=== PATIENT | male | born 1935 | race Caucasian/White ===

== ENCOUNTER → 2017-02-07 | Outpatient (CLI) | payer MEDICARE ==
[~2017-02-07] MED LIST: AMLO5TAB2 PO; ASP325TEC PO; ASPI-586 PO; B12 PO; CLOP75TA PO; CLOP75TA69 PO; COD500OI3 PO; CRAN200C PO; DOXY100C2 PO; FLUO40CA PO; GBPN600T PO; LEVO112T55 PO; LEVOTHYROXINE; LOSA100T16 PO; LOSA100T28 PO; LVT.1T PO; MECL25TA56 PO; MELO15TA39 PO; METO-272 PO; METO50TA7 PO; MULT-301 PO; MULT1TAB5 PO; NF-ESOM40C PO; NF-SOLIF5T PO; OMG1KC PO; PANT20TA2; POTA20TA7 PO; RIVA15TA PO; SERT100T8 PO; SIMV20TA3; SIMV40TA2 PO; SIMV40TA4 PO; SRTR100T PO; TAMS0.4C98 PO; TRIA1CAP4 PO; TRIA1CAP6 PO; VALS1TAB78 PO; VIT1TABL26 PO
[2017-02-07 09:56] LABS: BASOPHILS % (AUTO) 0 % (0-10); EOSINOPHILS # (AUTO) 0.2 10^3/uL (0.0-0.3); EOSINOPHILS % (AUTO) 3 % (0-10); LYMPHOCYTES # (AUTO) 2.4 X 10^3 (1.0-4.0); LYMPHOCYTES % (AUTO) 32 % (12-44); MEAN CORPUSCULAR HEMOGLOBIN 31 PG (25-34); MEAN CORPUSCULAR HGB CONC 34 G/DL (32-36); MEAN CORPUSCULAR VOLUME 93 FL (80-99); MEAN PLATELET VOLUME 10.9 FL (7.4-10.4); MONOCYTES # (AUTO) 0.7 X 10^3 (0.0-1.0); MONOCYTES % (AUTO) 9 % (0-12); NEUTROPHILS # (AUTO) 4.2 X 10^3 (1.8-7.8); NEUTROPHILS % (AUTO) 56 % (42-75); PLATELET COUNT 156 10^3/uL (130-400); RED BLOOD COUNT 5.08 10^6/uL (4.35-5.85); RED CELL DISTRIBUTION WIDTH 12.6 % (10.0-14.5); WHITE BLOOD COUNT 7.4 10^3/uL (4.3-11.0)
[2017-02-07 10:25] LABS: ALBUMIN 3.7 GM/DL (3.2-4.5); BILIRUBIN,TOTAL 1.2 MG/DL (0.1-1.0); CREATININE SERUM 1.22 MG/DL (0.60-1.30); POTASSIUM 3.8 MMOL/L (3.6-5.0); TOTAL PROTEIN 6.7 GM/DL (6.4-8.2)
[2017-02-07 10:50] LABS: THYROID STIMULATING HORMONE 1.36 UIU/ML (0.35-4.94)
== END ==
LOC: LAB 09:32
PROVIDERS: ATTEND Family Medicine
DX: E78.5 Hyperlipidemia, unspecified (principal); E03.9 Hypothyroidism, unspecified; R73.9 Hyperglycemia, unspecified; I10 Essential (primary) hypertension
CPT/HCPCS: 36415; 80053; 80061; 83036; 84439; 84443; 85025

== ENCOUNTER 2017-09-15 19:31 | Emergency (ER) | payer MEDICARE, MEDICAID ==
[~2017-09-15] VITALS: Ht 185.4 cm; Wt 104.3 kg
[~2017-09-15 19:31] MED LIST changes: -METO-272 PO; +METO-370 PO
[2017-09-15] MEDS ORDERED: NS IV 1000 ML 1,000 ML IV SCH (19:45)
[2017-09-15] MEDS ORDERED: fentaNYL INJECTION 100 MCG/2 ML AMP IVP ONE (19:45)
--- NOTE | 2017-09-15 19:45 | ED Lower Extremity ---
General Stated Complaint: L HIP PAIN Source: patient Exam Limitations: no limitations History of Present Illness Date Seen by Provider: Sep 15, 2017 Time Seen by Provider: 19:42 Initial Comments To ER per [facility] with reports of left hip pain. Patient was out working in his backyard quite a ways from the house when he bent over. He felt a pop in his left hip and was suddenly unable to bear weight in the left hip due to pain. This occurred at about 3 PM and he spent the next 3 hours crawling back to his house. He ultimately reached the house and was able to get to his phone number he called his daughter who arrived and then called EMS. Primary care is Dr. Mg. He states he does have a history of some "heart troubles" but does not have a wad impregnator. He denies any other injuries or pain. 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 [facility] Onset: this afternoon Severity: moderate Pain/Injury Location: left hip Method of Injury: fell Modifying Factors: Worse With Movement Allergies and Home Medications Allergies Coded Allergies: NKANo Known Allergies (Verified Allergy, Unknown, 03/06/06) Home Medications Amlodipine Besylate 5 Mg Tablet, 5 MG PO DAILY, (Reported) Doxycycline Hyclate 100 Mg Capsule, 100 MG PO BID, #14 Prescribed by: DANYEL MG on 04/28/16 1027 Levothyroxine Sodium 112 Mcg Tablet, 112 MCG PO DAILY, (Reported) Losartan Potassium 100 Mg Tablet, 100 MG PO DAILY, (Reported) Metoprolol Succinate 50 Mg Tab.er.24h, 50 MG PO BID, (Reported) [place] 3 Polyunsat Fatty Acids 1,000 Mg Cap, 1,000 MG PO DAILY, (Reported) Sertraline HCl 100 Mg Tablet, 100 MG PO DAILY, (Reported) LAST FILLED #45 2-16 Tamsulosin HCl 0.4 Mg Cap, 0.4 MG PO DAILY, (Reported) LAST FILLED #30 01-13-16 Constitutional: see HPI EENTM: see HPI Respiratory: no symptoms reported Cardiovascular: no symptoms reported Genitourinary: no symptoms reported Musculoskeletal: see HPI Skin: no symptoms reported Psychiatric/Neurological: No Symptoms Reported Past Maooxia-Bcyqtz-Dabisa Hx Patient Social History Recent Hopitalizations: Yes (AUGUST 2015) Immunizations Up To Date Tetanus Booster (TDap): Unknown PED Vaccines UTD: No Date of Pneumonia Vaccine: Jun 22, 2012 Seasonal Allergies Seasonal Allergies: No Surgeries Surgeries: Cardiac, Coronary Stent, Gallbladder, Orthopedic Respiratory Currently Using CPAP: No Currently Using BIPAP: No Cardiovascular Cardiac Disorders: Chronic Edema/Swelling, Coronary Artery Disease, Deep Vein Thrombosis, Hypertension Reproductive System Hx Reproductive Disorders: No Sexually Transmitted Disease: No HIV/AIDS: No Genitourinary Genitourinary Disorders: Kidney Stones Gastrointestinal Gastrointestinal Disorders: Gastroesophageal Reflux Musculoskeletal Musculoskeletal Disorders: Arthritis Endocrine Endocrine Disorders: Hypothyroidsim HEENT HEENT Disorders: Cataract Loss of Vision: Denies Hearing Impairment: Hard of Hearing Psychosocial Behavioral Health Disorders: Depression Blood Transfusions Adverse Reaction to a Blood Tr: No Family Medical History Significant Family History: No Pertinent Family Hx Family Medial History: FH: anemia DAUGHTER FH: breast cancer 19 MOTHER DAUGHTER Physical Exam Vital Signs Vital Sign - Last 12Hours 09/15/17 19:35 Temp 97.0 Pulse 73 Resp 18 B/P (MAP) 174/102 (126) Pulse Ox 97 O2 Delivery Room Air Capillary Refill : General Appearance: WD/WN, no apparent distress HEENT: PERRL/EOMI, normal ENT inspection Neck: non-tender, full range of motion Respiratory: no respiratory distress, no accessory muscle use Gastrointestinal: normal bowel sounds, non tender, soft Hips: right hip non-tender, left hip normal inspection, right hip normal range of motion, left hip limited range of motion, left hip pain, left hip other ( shortened) Legs: bilateral leg non-tender, bilateral leg normal inspection, bilateral leg normal range of motion Knees: bilateral knee non-tender, bilateral knee normal inspection, bilateral knee normal range of motion Ankles: bilateral ankle non-tender, bilateral ankle normal inspection, bilateral ankle normal range of motion Feet: bilateral foot non-tender, bilateral foot normal inspection, bilateral foot normal range of motion Neurologic/Psychiatric: alert, normal mood/affect Skin: normal color, warm/dry Laceration Repair : Suture Size: 6-0 Progress/Results/Core Measures Results/Orders Lab Results Laboratory Tests Test 09/15/17 19:40 Range/Units White Blood Count 12.3 H 4.3-11.0 10^3/uL Red Blood Count 5.08 4.35-5.85 10^6/uL Hemoglobin 16.5 13.3-17.7 G/DL Hematocrit 46 40-54 % Mean Corpuscular Volume 91 80-99 FL Mean Corpuscular Hemoglobin 33 25-34 PG Mean Corpuscular Hemoglobin Concent 36 32-36 G/DL Red Cell Distribution Width 12.2 10.0-14.5 % Platelet Count 142 130-400 10^3/uL Mean Platelet Volume 11.2 H 7.4-10.4 FL Neutrophils (%) (Auto) 86 H 42-75 % Lymphocytes (%) (Auto) 9 L 12-44 % Monocytes (%) (Auto) 5 0-12 % Eosinophils (%) (Auto) 0 0-10 % Basophils (%) (Auto) 0 0-10 % Neutrophils # (Auto) 10.6 H 1.8-7.8 X 10^3 Lymphocytes # (Auto) 1.1 1.0-4.0 X 10^3 Monocytes # (Auto) 0.7 0.0-1.0 X 10^3 Eosinophils # (Auto) 0.0 0.0-0.3 10^3/uL Basophils # (Auto) 0.0 0.0-0.1 10^3/uL Prothrombin Time 13.3 12.2-14.7 SEC INR Comment 1.0 0.8-1.4 Activated Partial Thromboplast Time 28 24-35 SEC Urine Color YELLOW Urine Clarity CLEAR Urine pH 8 5-9 Urine Specific [place] 1.010 L 1.016-1.022 Urine Protein NEGATIVE NEGATIVE Urine Glucose (UA) NEGATIVE NEGATIVE Urine Ketones NEGATIVE NEGATIVE Urine Nitrite NEGATIVE NEGATIVE Urine Bilirubin NEGATIVE NEGATIVE Urine Urobilinogen NORMAL NORMAL MG/DL Urine Leukocyte Esterase NEGATIVE NEGATIVE Urine RBC (Auto) NEGATIVE NEGATIVE Urine RBC NONE /HPF Urine WBC RARE /HPF Urine Crystals NONE /LPF Urine Bacteria NEGATIVE /HPF Urine Casts NONE /LPF Urine Mucus SMALL H /LPF Urine Culture Indicated NO Sodium Level 142 135-145 MMOL/L Potassium Level 3.7 3.6-5.0 MMOL/L Chloride Level 106 98-107 MMOL/L Carbon Dioxide Level 22 21-32 MMOL/L Anion Gap 14 5-14 MMOL/L Blood Urea Nitrogen 20 H 7-18 MG/DL Creatinine 1.04 0.60-1.30 MG/DL Estimat Glomerular Filtration Rate > 60 BUN/Creatinine Ratio 19 Glucose Level 125 H 70-105 MG/DL Calcium Level 8.7 8.5-10.1 MG/DL Total Bilirubin 1.2 H 0.1-1.0 MG/DL Aspartate Amino Transf (AST/SGOT) 22 5-34 U/L Alanine Aminotransferase (ALT/SGPT) 17 0-55 U/L Alkaline Phosphatase 75 40-136 U/L Total Creatine Kinase 120 30-200 U/L B-Type Natriuretic Peptide 56.3 <100.0 PG/ML Total Protein 6.6 6.4-8.2 GM/DL Albumin 3.8 3.2-4.5 GM/DL Thyroid Stimulating Hormone (TSH) 2.61 0.35-4.94 UIU/ML Free Thyroxine 1.01 0.70-1.48 NG/DL My Orders Orders - ROBERT TOLENTINO APRN Pelvis With Left Hip 2-3 Views (09/15/17 19:40) Chest 1 View, Ap/Pa Only (09/15/17 19:40) BNP (09/15/17 19:40) Ekg Tracing (09/15/17 19:40) Cbc With Automated Diff (09/15/17 19:40) Comprehensive Metabolic Panel (09/15/17 19:40) Creatine Kinase (09/15/17 19:40) Saline Lock/Iv-Start (09/15/17 19:40) Protime With Inr (09/15/17 19:40) Partial Thromboplastin Time (09/15/17 19:40) Ns Iv 1000 Ml (Sodium Chloride 0.9%) (09/15/17 19:45) Fentanyl Injection (Sublimaze Injection (09/15/17 19:45) Madrigal Cath Insertion (09/15/17 19:40) Ua Culture If Indicated (09/15/17 19:45) Thyroid Stimulating Hormone (09/15/17 19:52) Free T4 (Free Thyroxine) (09/15/17 19:52) Etomidate Injection (Amidate Injection) (09/15/17 20:15) Etomidate Injection (Amidate Injection) (09/15/17 20:11) Femur, Left, 2 Views (09/15/17 20:23) Propofol Injection (Diprivan Injection) (09/15/17 21:30) Hip, Left (Single View) (09/15/17 22:12) Medications Given in ED Current Medications Medications Dose Ordered Sig/Tito Route Start Time Stop Time Status Last Admin Dose Admin Fentanyl Citrate 75 mcg ONCE ONCE IVP 09/15/17 19:45 09/15/17 19:46 DC 09/15/17 20:01 75 MCG Vital Signs/I&O Vital Sign - Last 12Hours 09/15/17 19:35 Temp 97.0 Pulse 73 Resp 18 B/P (MAP) 174/102 (126) Pulse Ox 97 O2 Delivery Room Air Departure Communication (Admissions) Progress Notes 2022-conscious sedation with 20 mg of etomidate 75 g of fentanyl. RT at the bedside. Closed reduction attempted by myself and Dr. Rabago. Repeat x-rays failed to show reduction. We will consult Dr. Gonzalez from orthopedics. 2132-I was able to reach Dr. Gonzalez. He will be in to attempt reduction in the emergency room. Family at the bedside. 2212-Dr Gonzalez & VACUUM CLEANER REPAIR PERSON Dank Sanon were here and able to reduce hip with anesthesia using propofol. Anesthesia remains at bedside. 2233- patient remains alert, laying flat in bed, eating ice chips with assistance of his daughter. Daughter agrees to stay with him at home overnight. We'll observe him for another 30 minutes to 1 hour then discharged home Impression Impression: Primary Impression: Hip dislocation, left Disposition: ADMITTED INPATIENT Condition: Stable Departure-Patient Inst. Decision time for Depature: 22:35 Referrals: DANYEL MG DO (PCP/Family) Primary Care Physician Patient Instructions: Hip Dislocation Add. Discharge Instructions: 1. Use your walker for the next few days. Try not to bend forward or flex at the hip much. Follow-up with Dr. Gross at [place]. Call Sunday to make an appointment to be seen. Return to ER for any concerns. Copy Copies To 1: DANYEL MG PETER J APRN Sep 15, 2017 19:45
[2017-09-15 19:57] LABS: BASOPHILS % (AUTO) 0 % (0-10); BILIRUBIN,URINE NEGATIVE (NEGATIVE); CLARITY,URINE CLEAR; COLOR,URINE YELLOW; EOSINOPHILS % (AUTO) 0 % (0-10); GLUCOSE, URINE (UA) NEGATIVE (NEGATIVE); HEMATOCRIT 46 % (40-54); HEMOGLOBIN 16.5 G/DL (13.3-17.7); KETONES,URINE NEGATIVE (NEGATIVE); LEUKOCYTE ESTERASE ,URINE NEGATIVE (NEGATIVE); LYMPHOCYTES # (AUTO) 1.1 X 10^3 (1.0-4.0); LYMPHOCYTES % (AUTO) 9 % (12-44); MEAN CORPUSCULAR HEMOGLOBIN 33 PG (25-34); MEAN CORPUSCULAR HGB CONC 36 G/DL (32-36); MEAN CORPUSCULAR VOLUME 91 FL (80-99); MEAN PLATELET VOLUME 11.2 FL (7.4-10.4); MONOCYTES # (AUTO) 0.7 X 10^3 (0.0-1.0); MONOCYTES % (AUTO) 5 % (0-12); NEUTROPHILS # (AUTO) 10.6 X 10^3 (1.8-7.8); NEUTROPHILS % (AUTO) 86 % (42-75); NITRITE,URINE NEGATIVE (NEGATIVE); PH,URINE 8 (5-9); PLATELET COUNT 142 10^3/uL (130-400); PROTEIN,URINE NEGATIVE (NEGATIVE); RED BLOOD COUNT 5.08 10^6/uL (4.35-5.85); RED CELL DISTRIBUTION WIDTH 12.2 % (10.0-14.5); UROBILINOGEN,URINE NORMAL (NORMAL); WHITE BLOOD COUNT 12.3 10^3/uL (4.3-11.0)
[2017-09-15 20:06] LABS: BACTERIA,URINE NEGATIVE /HPF; WBC,URINE RARE /HPF
[2017-09-15 20:08] LABS: PROTHROMBIN TIME PATIENT 13.3 SEC (12.2-14.7)
[2017-09-15] MEDS ORDERED: ETOMIDATE IV SOLN 20 MG/10 ML VIAL ONE (20:11)
[2017-09-15] MEDS ORDERED: ETOMIDATE IV SOLN 20 MG/10 ML VIAL IV ONE (20:15)
--- NOTE | 2017-09-15 20:16 | Diagnostic Imaging Report ---
INDICATION: Left hip pain from a fall. EXAMINATION: Portable chest at 7:58 p.m. FINDINGS: Heart size and pulmonary vascularity are normal. Lungs are clear. There are no effusions or pneumothoraces. IMPRESSION: Negative chest. Dictated by: Dictated on workstation # [id number]
[2017-09-15 20:19] LABS: ALANINE AMINOTRANSFERASE 17 U/L (0-55); ALBUMIN 3.8 GM/DL (3.2-4.5); ALKALINE PHOSPHATASE 75 U/L (40-136); BILIRUBIN,TOTAL 1.2 MG/DL (0.1-1.0); BUN/CREATININE RATIO 19; CALCIUM 8.7 MG/DL (8.5-10.1); CARBON DIOXIDE 22 MMOL/L (21-32); CHLORIDE 106 MMOL/L (98-107); CREATINE KINASE 120 U/L (30-200); CREATININE SERUM 1.04 MG/DL (0.60-1.30); GFR ESTIMATED > 60; GLUCOSE 125 MG/DL (70-105); POTASSIUM 3.7 MMOL/L (3.6-5.0); SODIUM 142 MMOL/L (135-145); TOTAL PROTEIN 6.6 GM/DL (6.4-8.2)
--- NOTE | 2017-09-15 20:19 | Diagnostic Imaging Report ---
INDICATION: Left hip pain. EXAMINATION: AP view pelvis and two additional views of the left hip were obtained. FINDINGS: Dislocation of the left hip. There is no fracture seen. IMPRESSION: Postop changes from left total hip arthroplasty with dislocation of the left hip. Report was called to Edvin in the [facility] [place] ER at 8:17 p.m., by jess. Dictated by: Dictated on workstation # [id number]
[2017-09-15 20:40] LABS: FREE T4 (FREE THYROXINE) 1.01 NG/DL (0.70-1.48)
--- NOTE | 2017-09-15 20:53 | Diagnostic Imaging Report ---
INDICATION: Left hip dislocation. EXAMINATION: AP and lateral views of the left femur was obtained. FINDINGS: Persistent dislocation of the left hip. IMPRESSION: Followup views of the left femur show persistent left hip dislocation. Dictated by: Dictated on workstation # [id number]
[2017-09-15] MEDS ORDERED: proPOfol 200 MG/20 ML (DIPRIVAN) VIAL IV ONE (21:30)
[2017-09-15] MEDS ORDERED: RX-HYDROCODONE/APAP 5/325 MG #4 TAB PK PO PRN (22:45)
[2017-09-15 22:57] VITALS: BP 166/88
--- NOTE | 2017-09-15 23:17 | CONSULTATION REPORT ---
DATE OF SERVICE: 09/15/2017 ORTHOPEDIC CONSULTATION IMPRESSION: 1. Posterior left hip dislocation (acute). 2. Status post left total hip arthroplasty. RECOMMENDATIONS: Closed reduction left hip dislocation under IV general anesthesia. HISTORY AND PHYSICAL EXAM: The patient is an 82-year-old male seen with chief complaint of left hip pain. The patient underwent a left total hip arthroplasty by Dr. Jeff Gross in 2008. Postoperatively, he has done well. 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 He is not certain as whether he twisted the hip or something fell on him, but he noted immediate hip pain and deformity and he was unable to ambulate. He crawled to his home. He was transported to [facility] where x-rays revealed a posterior dislocation of his total hip arthroplasty on the left. The emergency personnel provided a significant amount of sedation to the patient and attempted a closed reduction 2 times without success. An orthopedic consultation was obtained. On exam, the patient demonstrated a flexed, internally rotated position to the left hip. He had tenderness to palpation throughout the posterior aspect of the left hip. He had a well-healed posterolateral incisional scar. X-rays revealed a posterior hip dislocation on the left, the patient with a total hip arthroplasty present. The acetabular component was noted to be intact. There was a single dome screw. There was no evidence of acute bony abnormality. No fracture was noted. No disruption of the femoral head from the stem was noted. No loosening of the stem was noted. The patient was seen by anesthesia. The patient was given 120 mg of propofol IV and supported throughout the procedure using a closed reduction and utilizing Dank Sanon NP as an produce assistant. Traction was applied to the hip in a flexed position with counter a pressure against the pelvis. This hip was then gently externally rotated and a palpable and audible reduction of the hip was obtained. Following this, the hip could be internally and externally rotated without any resistance. Symmetric leg lengths were noted. An AP pelvic x-ray revealed satisfactory reduction of the total hip components on the left. The patient is discharged to home. He is to continue with walker ambulation over the next 2 weeks. He is to gradually return to his activity level. He is to notify Dr. Jeff Gross of his dislocation and follow with him for followup care. I advised the patient's 3 daughters who were present today to have him gradually advance his activity based on the contusion that he is going to have in the posterior gluteal muscles and the need to use this walker if he is having any aching discomfort. He was having some preceding discomfort in his left hip, which on further discussion appeared to be possibly emanating from his lumbar spine. I did point out a slight shadow over the superolateral aspect of the acetabular cup. This is at the superior most aspect of the acetabular ring securing the polyethylene liner in the hip. I advised the patient that he may be developing some acetabular liner wear and that he does need to follow up with Dr. Gross for this. Job ID: [id number] DocumentID: [id number] Dictated Date: 09/15/2017 22:30:30 Metal Cleaner Date: 09/15/2017 23:16:49 Dictated By: NISH THOMAS DO
[2017-09-16] MEDS ORDERED: NS IV 1000 ML 1,000 ML ONE (00:42)
--- NOTE | 2017-09-16 06:48 | Diagnostic Imaging Report ---
INDICATION: Dislocation, postreduction TECHNIQUE: Single view of the left hip. CORRELATION STUDY: 09/15/2017 FINDINGS: There has been interval reduction in the previously noted left hip prosthesis dislocation. Single projection demonstrates the prosthetic femoral head to be superimposed over the acetabular component. Small bone fragmentation of the superior aspect of the greater trochanter is present. IMPRESSION: 1. Negative for acute bony abnormality of the hip. Interval reduction of the previously noted left hip prosthesis dislocation. Possibility of nondisplaced fracture of greater trochanter not excluded. Dictated by: Dictated on workstation # [id number]
== END 2017-09-15 23:17 | disposition other institution (70) ==
LOC: EDUNIT# 19:31 → ER 19:32
DX: S73.005A Unspecified dislocation of left hip, initial encounter (principal); F32.9 Major depressive disorder, single episode, unspecified; E03.9 Hypothyroidism, unspecified; K21.9 Gastro-esophageal reflux disease without esophagitis; I25.10 Atherosclerotic heart disease of native coronary artery without angina pectoris; I10 Essential (primary) hypertension; Z86.718 Personal history of other venous thrombosis and embolism; Z87.442 Personal history of urinary calculi; Z95.5 Presence of coronary angioplasty implant and graft; Z96.642 Presence of left artificial hip joint; W19.XXXA Unspecified fall, initial encounter; Y92.007 Garden or yard of unspecified non-institutional (private) residence as the place of occurrence of the external cause
CPT/HCPCS: 36415; 51702; 71045; 73501; 73552; 80053; 81000; 82550; 83880; 84439; 84443; 85025; 85610; 85730; 93005; 96361; 96374

== ENCOUNTER 2017-11-08 10:40 | Outpatient (RCR) | payer MEDICARE, MEDICAID | END 2017-11-08 12:05 | disposition home or self-care (01) | PROVIDERS: ATTEND Orthopaedic Surgery | DX: M25.352 Other instability, left hip (principal); R42 Dizziness and giddiness ==

== ENCOUNTER 2018-04-30 04:00 | Emergency (ER) | payer OTHER, MEDICAID ==
[~2018-04-30] VITALS: Ht 185.4 cm; Wt 104.3 kg
[~2018-04-30 04:00] MED LIST changes: -AMLO5TAB2 PO; +AMLO5TAB7 PO; -LOSA100T28 PO; +LOSA100T8 PO
--- OUTSIDE RECORDS SUMMARY | 2018-04-30 04:09 | XMS REPORT | Continuity of Care Document ---
Author Author [facility] Organization [facility] Address Unknown Phone Unavailable Allergies Active Description Code Type Severity Reaction Onset Reported/Identified Relationship to Patient Clinical Status Yes NKANo Known Allergies NKA Miscellaneous Allergy Unknown N/A 03/06/2006 Medications There is no data. Problems Date Dx Coded Attending Type Code Diagnosis Diagnosed By 07/26/1204 CADEN BARRERA DO Ot M25.352 OTHER INSTABILITY, LEFT HIP 07/26/1204 CADEN BARRERA DO Ot R42 DIZZINESS AND GIDDINESS 11/04/2012 Ot 873.43 OPEN WOUND OF LIP 11/04/2012 Ot E000.8 OTHER EXTERNAL CAUSE STATUS 11/04/2012 Ot E001.0 ACTIVITIES INVOLVING WALKING, MARCHING A 11/04/2012 Ot E849.0 ACCIDENT IN HOME 11/04/2012 Ot E888.1 FALL STRIKING OBJECT NEC 11/08/2012 Ot V58.32 ENCOUNTER FOR REMOVAL OF SUTURES 11/22/2012 Ot 272.4 HYPERLIPIDEMIA NEC/NOS 11/22/2012 Ot 401.9 HYPERTENSION NOS 11/22/2012 Ot 414.01 CORONARY ATHEROSCLEROSIS OF [place] CORON 11/22/2012 Ot 427.89 CARDIAC DYSRHYTHMIAS NEC 11/22/2012 Ot 458.0 ORTHOSTATIC HYPOTENSION 11/22/2012 Ot 530.81 ESOPHAGEAL REFLUX 11/22/2012 Ot 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 11/22/2012 Ot 780.4 DIZZINESS AND GIDDINESS 11/22/2012 Ot 780.79 OTH MALAISE FATIGUE 11/22/2012 Ot 786.09 RESPIRATORY ABNORM NEC 11/22/2012 Ot 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 ANTIHYPERTEN AGT 11/22/2012 Ot V45.82 PERCUTANEOUS TRANSLUM CORON ANGIOPLASTY 04/06/2013 DANYEL MG DO S Ot 244.9 HYPOTHYROIDISM NOS 04/06/2013 DANYEL MG DO S Ot 272.4 HYPERLIPIDEMIA NEC/NOS 04/06/2013 DANYEL MG DO S Ot 401.9 HYPERTENSION NOS 04/06/2013 DANYEL MG DO S Ot 414.01 CORONARY ATHEROSCLEROSIS OF [place]ER [place] CORON 04/06/2013 ORA MG DOLINE S Ot 490 BRONCHITIS NOS 04/22/2013 JACINTA GRAVES FACC, JENNIFER FACP CCDS Ot 272.4 HYPERLIPIDEMIA NEC/NOS 04/22/2013 JACINTA GRAVES FACC, ALI FACP CCDS Ot 414.01 CORONARY ATHEROSCLEROSIS OF [place] CORON 04/22/2013 JACINTA GRAVES FACC, ALI FACP CCDS Ot 433.10 CAROTID ARTERY OCCLUSION W O CEREBRAL IN 04/22/2013 JACINTA GRAVES FACC, ALI FACP CCDS Ot 530.81 ESOPHAGEAL REFLUX 04/22/2013 JACINTA GRAVES FACC, ALI FACP CCDS Ot 780.79 OTH MALAISE FATIGUE 04/22/2013 JACINTA GRAVES FACC, ALI FACP CCDS Ot 786.09 RESPIRATORY ABNORM NEC 04/22/2013 JACINTA GRAVES FACC, ALI FACP CCDS Ot 786.59 CHEST PAIN NEC 04/22/2013 JACINTA GRAVES FACC, ALI FACP CCDS Ot V13.01 PERSONAL HISTORY OF URINARY CALCULI 04/22/2013 JACINTA GRAVES FACC, ALI FACP CCDS Ot V15.82 HISTORY OF TOBACCO USE 04/22/2013 JACINTA GRAVES FACC, ALI FACP CCDS Ot V58.63 LONG-TERM(CURRENT)USE OF ANTIPLATELET/AN 04/22/2013 JACINTA GRAVES FACC, ALI FACP CCDS Ot V58.69 OTH MED,LT,CURRENT USE 11/16/2014 Ot 272.4 11/16/2014 Ot 414.01 11/16/2014 Ot V70.0 11/24/2014 Ot 272.4 11/24/2014 Ot 414.01 11/24/2014 Ot V70.0 12/07/2014 ORA MG DOLINE S Ot 427.89 09/09/2015 ORA MG DOLINE S Ot E03.9 HYPOTHYROIDISM, UNSPECIFIED 09/09/2015 ORA MG DOLINE S Ot F32.9 MAJOR DEPRESSIVE DISORDER, SINGLE EPISOD 09/09/2015 ORA MG DOLINE S Ot I10 ESSENTIAL (PRIMARY) HYPERTENSION 09/09/2015 ORA MG DOLINE S Ot I26.99 OTHER PULMONARY EMBOLISM WITHOUT ACUTE C 09/09/2015 ORA MG DOLINE S Ot I82.412 ACUTE EMBOLISM AND THROMBOSIS OF LEFT FE 09/09/2015 DANYEL MG DO Ot I82.432 ACUTE EMBOLISM AND THROMBOSIS OF LEFT PO 09/09/2015 DANYEL MG DO Ot K21.9 GASTRO-ESOPHAGEAL REFLUX DISEASE WITHOUT 12/08/2015 PATRICIO MCINTOSH, DANYEL S Ot Z09 12/08/2015 TATANDER , DANYEL S Ot Z86.718 12/08/2015 TATANDER , DANYEL S Ot Z09 12/08/2015 TATANDER , DANYEL S Ot Z86.718 12/29/2015 PATRICIO MCINTOSH, DANYEL Jeter Ot Z09 ENCNTR FOR F/U EXAM AFT TRTMT FOR COND O 12/29/2015 DANYEL MG DO Ot Z86.718 PERSONAL HISTORY OF OTHER VENOUS THROMBO 01/17/2016 WAYNE , DANYEL Jeter Ot Z09 ENCNTR FOR F/U EXAM AFT TRTMT FOR COND O 01/17/2016 PATRICIO MCINTOSH, DANYEL S Ot Z86.718 PERSONAL HISTORY OF OTHER VENOUS THROMBO 04/26/2016 Ot 244.9 HYPOTHYROIDISM NOS 04/26/2016 Ot 414.00 CORON ATHEROSCLER NOS TYPE VESSEL, NATIV 04/26/2016 Ot 429.3 CARDIOMEGALY 04/26/2016 Ot 719.40 JOINT PAIN- UNSPEC 04/26/2016 Ot 733.90 BONE CARTILAGE DIS NOS 04/26/2016 Ot 780.79 OTH MALAISE FATIGUE 04/26/2016 Ot 786.09 RESPIRATORY ABNORM NEC 04/26/2016 Ot 257.2 TESTICULAR HYPOFUNC NEC 04/26/2016 Ot 414.00 CORON ATHEROSCLER NOS TYPE VESSEL, NATIV 04/26/2016 Ot 600.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 04/26/2016 Ot V58.69 OTH MED,LT, CURRENT USE 04/26/2016 Ot 272.4 HYPERLIPIDEMIA NEC/NOS 04/26/2016 Ot V58.69 OTH MED,LT, CURRENT USE 04/26/2016 BAIMA, XUAN L [employer] OPERATOR Ot 272.4 HYPERLIPIDEMIA NEC/NOS 04/26/2016 BAIMA, XUAN L [employer] FACILITY OPERATOR Ot V58.69 OTH MED,LT,CURRENT USE 04/26/2016 ORA MG DOLINE S Ot 427.89 CARDIAC DYSRHYTHMIAS NEC 04/26/2016 XUAN BISHOP [employer] FACILITY OPERATOR Ot 276.8 HYPOPOTASSEMIA 04/26/2016 BAIXUAN ESCOTO [employer] FACILITY OPERATOR Ot 276.8 HYPOPOTASSEMIA 04/26/2016 BAIXUAN ESCOTO [employer] FACILITY OPERATOR Ot 276.8 HYPOPOTASSEMIA 04/26/2016 LATASHA TURNER [employer] FACILITY OPERATOR Ot 244.9 HYPOTHYROIDISM NOS 04/26/2016 Ot 272.4 HYPERLIPIDEMIA NEC/NOS 04/26/2016 Ot 414.01 CORONARY ATHEROSCLEROSIS OF [place]ER [place] CORON 04/26/2016 Ot V70.0 ROUTINE MEDICAL EXAM 04/26/2016 PATRICIO DANYEL S Ot Z09 ENCNTR FOR F/U EXAM AFT TRTMT FOR COND O 04/26/2016 PATRICIO MCINTOSH DANYEL S Ot Z86.718 PERSONAL HISTORY OF OTHER VENOUS THROMBO 04/28/2016 PATRICIO MCINTOSH DANYEL S Ot B34.9 VIRAL INFECTION, UNSPECIFIED 04/28/2016 TATANDLEYLA MCINTOSH, DANYEL S Ot E03.9 HYPOTHYROIDISM, UNSPECIFIED 04/28/2016 TATANDER , DANYEL S Ot E87.6 HYPOKALEMIA 04/28/2016 TATANDLEYLA MCINTOSH, DANYEL S Ot I10 ESSENTIAL (PRIMARY) HYPERTENSION 04/28/2016 TATANDLEYLA MCINTOSH, DANYEL S Ot K21.9 GASTRO-ESOPHAGEAL REFLUX DISEASE WITHOUT 04/28/2016 TATANDER , DANYEL S Ot R50.9 FEVER, UNSPECIFIED 03/01/2017 TATANDER DO DANYEL S Ot E03.9 HYPOTHYROIDISM, UNSPECIFIED 03/01/2017 TATANDER , DANYEL S Ot E78.5 HYPERLIPIDEMIA, UNSPECIFIED 03/01/2017 ORENDER DO, DANYEL S Ot I10 ESSENTIAL (PRIMARY) HYPERTENSION 03/01/2017 TATANDLEYLA MCINTOSH DANYEL S Ot R73.9 HYPERGLYCEMIA, UNSPECIFIED 09/15/2017 ROBERT TOLENTINO APRN Ot E03.9 HYPOTHYROIDISM, UNSPECIFIED 09/15/2017 ROBERT TOLENTINO APRN Ot F32.9 MAJOR DEPRESSIVE DISORDER, SINGLE EPISOD 09/15/2017 ROBERT TOLENTINO DIVYA Ot I10 ESSENTIAL (PRIMARY) HYPERTENSION 09/15/2017 ROBERT TOLENTINO APRN Ot I25.10 ATHSCL HEART DISEASE OF [place]ER [place] CORONARY 09/15/2017 ROBERT TOLENTINO APRN Ot K21.9 GASTRO-ESOPHAGEAL REFLUX DISEASE WITHOUT 09/15/2017 ROBERT TOLENTINO APRN Ot M25.552 PAIN IN LEFT HIP 09/15/2017 ROBERT TOLENTINO APRN Ot S73.005A UNSPECIFIED DISLOCATION OF LEFT HIP, INI 09/15/2017 ROBERT TOLENTINO APRN Ot W19.XXXA UNSPECIFIED FALL, INITIAL ENCOUNTER 09/15/2017 ROBERT TOLENTINO APRN Ot Y92.007 GARDEN OR YARD OF UNSP NON-INSTITUT RESI 09/15/2017 ROBERT TOLENTINO APRN Ot Z86.718 PERSONAL HISTORY OF OTHER VENOUS THROMBO 09/15/2017 ROBERT TOLENTINO APRN Ot Z87.442 PERSONAL HISTORY OF URINARY CALCULI 09/15/2017 ROBERT TOLENTINO APRN Ot Z95.5 PRESENCE OF CORONARY ANGIOPLASTY IMPLANT 09/15/2017 ROBERT TOLENTINO APRN Ot Z96.642 PRESENCE OF LEFT ARTIFICIAL HIP JOINT 09/18/2017 ROBERT TOLENTINO APRN Ot E03.9 HYPOTHYROIDISM, UNSPECIFIED 09/18/2017 ROBERT TOLENTINO APRN Ot F32.9 MAJOR DEPRESSIVE DISORDER, SINGLE EPISOD 09/18/2017 ROBERT TOLENTINO APRN Ot I10 ESSENTIAL (PRIMARY) HYPERTENSION 09/18/2017 ROBERT TOLENTINO APRN Ot I25.10 ATHSCL HEART DISEASE OF [place] CORONARY 09/18/2017 ROBERT TOLENTINO APRN Ot K21.9 GASTRO-ESOPHAGEAL REFLUX DISEASE WITHOUT 09/18/2017 ROBERT TOLENTINO APRN Ot M25.552 PAIN IN LEFT HIP 09/18/2017 ROBERT TOLENTINO APRN Ot S73.005A UNSPECIFIED DISLOCATION OF LEFT HIP, INI 09/18/2017 ROBERT TOLENTINO APRN Ot W19.XXXA UNSPECIFIED FALL, INITIAL ENCOUNTER 09/18/2017 ORBERT TOLENTINO APRN Ot Y92.007 GARDEN OR YARD OF UNSP NON-INSTITUT RESI 09/18/2017 ROBERT TOLENTINO APRN Ot Z86.718 PERSONAL HISTORY OF OTHER VENOUS THROMBO 09/18/2017 ROBERT TOLENTINO APRN Ot Z87.442 PERSONAL HISTORY OF URINARY CALCULI 09/18/2017 ROBERT TOLENTINO APRN Ot Z95.5 PRESENCE OF CORONARY ANGIOPLASTY IMPLANT 09/18/2017 ROBERT TOLENTINO APRN Ot Z96.642 PRESENCE OF LEFT ARTIFICIAL HIP JOINT 11/08/2017 CADEN BARRERA DO Ot M25.352 OTHER INSTABILITY, LEFT HIP 11/08/2017 CADEN BARRERA DO W Ot R42 DIZZINESS AND GIDDINESS Procedures There is no data. Results Test Result Range Complete urinalysis with reflex to culture - 04/26/16 23:24 Urine color determination YELLOW NRG Urine clarity determination CLEAR NRG Urine pH measurement by test strip 7 5-9 Specific gravity of urine by test strip 1.010 1.016- 1.022 Urine protein assay by test strip, semi-quantitative 2+ NEGATIVE Urine glucose detection by automated test strip NEGATIVE NEGATIVE Erythrocytes detection in urine sediment by light microscopy 4+ NEGATIVE Urine ketones detection by automated test strip NEGATIVE NEGATIVE Urine nitrite detection by test strip NEGATIVE NEGATIVE Urine total bilirubin detection by test strip NEGATIVE NEGATIVE Urine urobilinogen measurement by automated test strip (mass/volume) NORMAL NORMAL Urine leukocyte esterase detection by dipstick NEGATIVE NEGATIVE Automated urine sediment erythrocyte count by microscopy (number/high power field) [HPF] NRG Automated urine sediment leukocyte count by microscopy (number/high power field ) NONE NRG Bacteria detection in urine sediment by light microscopy NEGATIVE NRG Squamous epithelial cells detection in urine sediment by light microscopy NONE NRG Crystals detection in urine sediment by light microscopy NONE NRG Casts detection in urine sediment by light microscopy NONE NRG Mucus detection in urine sediment by light microscopy SMALL NRG Complete urinalysis with reflex to culture NO NRG Complete blood count (CBC) with automated white blood cell (WBC) differential - 04/26/16 23:25 Blood leukocytes automated count (number/volume) 18.6 10*3/uL 4.3-11.0 Blood erythrocytes automated count (number/volume) 5.09 10*6/uL 4.35-5.85 Venous blood hemoglobin measurement (mass/volume) 16.4 g/dL 13.3-17.7 Blood hematocrit (volume fraction) 47 % 40-54 Automated erythrocyte mean corpuscular volume 91 [foz_us] 80-99 Automated erythrocyte mean corpuscular hemoglobin (mass per erythrocyte) 32 pg 25-34 Automated erythrocyte mean corpuscular hemoglobin concentration measurement ( mass/volume) 35 g/dL 32-36 Automated erythrocyte distribution width ratio 12.5 % 10.0-14.5 Automated blood platelet count (count/volume) 131 10*3/uL 130-400 Automated blood platelet mean volume measurement 11.1 [foz_us] 7.4-10.4 Automated blood neutrophils/100 leukocytes 91 % 42-75 Automated blood lymphocytes/100 leukocytes 3 % 12-44 Blood monocytes/100 leukocytes 6 % 0-12 Automated blood eosinophils/100 leukocytes 0 % 0-10 Automated blood basophils/100 leukocytes 0 % 0-10 Blood neutrophils automated count (number/volume) 16.9 10*3 1.8-7.8 Blood lymphocytes automated count (number/volume) 0.6 10*3 1.0-4.0 Blood monocytes automated count (number/volume) 1.0 10*3 0.0-1.0 Automated eosinophil count 0.0 10*3/uL 0.0-0.3 Automated blood basophil count (count/volume) 0.0 10*3/uL 0.0-0.1 PT panel in platelet poor plasma by coagulation assay - 04/26/16 23:25 Prothrombin time (PT) in platelet poor plasma by coagulation assay 13.2 s 12.2-14.7 INR in platelet poor plasma or blood by coagulation assay 1.0 0.8-1.4 Activated partial thromboplastin time (aPTT) in platelet poor plasma bycoagulation assay - 04/26/16 23:25 Activated partial thromboplastin time (aPTT) in platelet poor plasma bycoagulation assay 26 s 24-35 Blood lactic acid measurement (moles/volume) - 04/26/16 23:25 Blood lactic acid measurement (moles/volume) 2.2 mmol/L 0.5-2.0 Blood manual differential performed detection - 04/26/16 23:25 Blood monocytes/100 leukocytes 5 % NRG Manual blood segmented neutrophils/100 leukocytes 82 % NRG Blood band neutrophils/100 leukocytes 3 % NRG Manual blood lymphocytes/100 leukocytes 10 % NRG Manual eosinophils/100 leukocytes in nose 0 % NRG Manual blood basophils/100 leukocytes 0 % NRG Blood erythrocyte morphology finding identification NORMAL NR Comprehensive metabolic panel - 04/26/16 23:25 Serum or plasma sodium measurement (moles/volume) 141 mmol/L 135-145 Serum or plasma potassium measurement (moles/volume) 3.5 mmol/L 3.6-5.0 Serum or plasma chloride measurement (moles/volume) 108 mmol/L 98-107 Carbon dioxide 19 mmol/L 21-32 Serum or plasma anion gap determination (moles/volume) 14 mmol/L 5-14 Serum or plasma urea nitrogen measurement (mass/volume) 21 mg/dL 7-18 Serum or plasma creatinine measurement (mass/volume) 1.23 mg/dL 0.60-1.30 Serum or plasma urea nitrogen/creatinine mass ratio 17 NRG Serum or plasma creatinine measurement with calculation of estimated glomerular filtration rate 56 NRG Serum or plasma glucose measurement (mass/volume) 121 mg/dL 70-105 Serum or plasma calcium measurement (mass/volume) 8.8 mg/dL 8.5-10.1 Serum or plasma total bilirubin measurement (mass/volume) 1.3 mg/dL 0.1-1.0 Serum or plasma alkaline phosphatase measurement (enzymatic activity/volume) 65 U/L 40-136 Serum or plasma aspartate aminotransferase measurement (enzymatic activity/ volume) 30 U/L 5-34 Serum or plasma alanine aminotransferase measurement (enzymatic activity/volume ) 25 U/L 0-55 Serum or plasma protein measurement (mass/volume) 6.6 g/dL 6.4-8.2 Serum or plasma albumin measurement (mass/volume) 4.0 g/dL 3.2-4.5 Magnesium - 04/26/16 23:25 Magnesium 1.8 mg/dL 1.8-2.4 Serum or plasma creatine kinase measurement (enzymatic activity/volume) - 04/26 23:25 Serum or plasma creatine kinase measurement (enzymatic activity/volume) 369 U/L 30-200 Serum or plasma creatine kinase MB measurement (enzymatic activity/volume) - 23:25 Serum or plasma creatine kinase MB measurement (enzymatic activity/volume) 5.6 ng/mL <6.6 Serum or plasma troponin i.cardiac measurement (mass/volume) - 04/26/16 23:25 Serum or plasma troponin i.cardiac measurement (mass/volume) < ng/ mL <0.30 Serum or plasma lithium measurement (moles/volume) - 04/26/16 23:25 BNP level 81.1 pg/mL <100.0 Bacterial blood culture - 04/26/16 23:25 QUANTITY OF GROWTH Isolated [facility] [employer] [facility] Bacterial blood culture [id number] [facility] Bacterial blood culture - 04/26/16 23:45 Bacterial blood culture NG [facility] Influenza virus A and B antigen detection - 04/27/16 00:52 FLU RESULT NEGATIVE FOR INFLUENZA A AND B ANTIGENS BY IA [facility] Serum or plasma lactate measurement (moles/volume) - 04/27/16 01:42 Serum or plasma lactate measurement (moles/volume) 1.5 mmol/L 0.5-2.0 Complete blood count (CBC) with automated white blood cell (WBC) differential - 04/27/16 05:42 Blood leukocytes automated count (number/volume) 18.3 10*3/uL 4.3-11.0 Blood erythrocytes automated count (number/volume) 4.91 10*6/uL 4.35-5.85 Venous blood hemoglobin measurement (mass/volume) 15.8 g/dL 13.3-17.7 Blood hematocrit (volume fraction) 46 % 40-54 Automated erythrocyte mean corpuscular volume 93 [foz_us] 80-99 Automated erythrocyte mean corpuscular hemoglobin (mass per erythrocyte) 32 pg 25-34 Automated erythrocyte mean corpuscular hemoglobin concentration measurement ( mass/volume) 35 g/dL 32-36 Automated erythrocyte distribution width ratio 12.6 % 10.0-14.5 Automated blood platelet count (count/volume) 119 10*3/uL 130-400 Automated blood platelet mean volume measurement 11.7 [foz_us] 7.4-10.4 Automated blood neutrophils/100 leukocytes 93 % 42-75 Automated blood lymphocytes/100 leukocytes 3 % 12-44 Blood monocytes/100 leukocytes 3 % 0-12 Automated blood eosinophils/100 leukocytes 0 % 0-10 Automated blood basophils/100 leukocytes 0 % 0-10 Blood neutrophils automated count (number/volume) 17.1 10*3 1.8-7.8 Blood lymphocytes automated count (number/volume) 0.6 10*3 1.0-4.0 Blood monocytes automated count (number/volume) 0.6 10*3 0.0-1.0 Automated eosinophil count 0.0 10*3/uL 0.0-0.3 Automated blood basophil count (count/volume) 0.0 10*3/uL 0.0-0.1 Comprehensive metabolic panel - 04/27/16 05:42 Serum or plasma sodium measurement (moles/volume) 140 mmol/L 135-145 Serum or plasma potassium measurement (moles/volume) 3.4 mmol/L 3.6-5.0 Serum or plasma chloride measurement (moles/volume) 108 mmol/L 98-107 Carbon dioxide 20 mmol/L 21-32 Serum or plasma anion gap determination (moles/volume) 12 mmol/L 5-14 Serum or plasma urea nitrogen measurement (mass/volume) 19 mg/dL 7-18 Serum or plasma creatinine measurement (mass/volume) 1.18 mg/dL 0.60-1.30 Serum or plasma urea nitrogen/creatinine mass ratio 16 NRG Serum or plasma creatinine measurement with calculation of estimated glomerular filtration rate 59 NRG Serum or plasma glucose measurement (mass/volume) 134 mg/dL 70-105 Serum or plasma calcium measurement (mass/volume) 8.4 mg/dL 8.5-10.1 Serum or plasma total bilirubin measurement (mass/volume) 1.6 mg/dL 0.1-1.0 Serum or plasma alkaline phosphatase measurement (enzymatic activity/volume) 57 U/L 40-136 Serum or plasma aspartate aminotransferase measurement (enzymatic activity/ volume) 58 U/L 5-34 Serum or plasma alanine aminotransferase measurement (enzymatic activity/volume ) 31 U/L 0-55 Serum or plasma protein measurement (mass/volume) 5.7 g/dL 6.4-8.2 Serum or plasma albumin measurement (mass/volume) 3.4 g/dL 3.2-4.5 Automated blood complete blood count (hemogram) panel - 04/28/16 06:02 Blood leukocytes automated count (number/volume) 9.8 10*3/uL 4.3-11.0 Blood erythrocytes automated count (number/volume) 4.74 10*6/uL 4.35-5.85 Venous blood hemoglobin measurement (mass/volume) 15.3 g/dL 13.3-17.7 Blood hematocrit (volume fraction) 44 % 40-54 Automated erythrocyte mean corpuscular volume 92 [foz_us] 80-99 Automated erythrocyte mean corpuscular hemoglobin (mass per erythrocyte) 32 pg 25-34 Automated erythrocyte mean corpuscular hemoglobin concentration measurement ( mass/volume) 35 g/dL 32-36 Automated erythrocyte distribution width ratio 12.7 % 10.0-14.5 Automated blood platelet count (count/volume) 99 10*3/uL 130-400 Automated blood platelet mean volume measurement 11.7 [foz_us] 7.4-10.4 Comprehensive metabolic panel - 04/28/16 06:02 Serum or plasma sodium measurement (moles/volume) 140 mmol/L 135-145 Serum or plasma potassium measurement (moles/volume) 3.3 mmol/L 3.6-5.0 Serum or plasma chloride measurement (moles/volume) 110 mmol/L 98-107 Carbon dioxide 21 mmol/L 21-32 Serum or plasma anion gap determination (moles/volume) 9 mmol/L 5-14 Serum or plasma urea nitrogen measurement (mass/volume) 12 mg/dL 7-18 Serum or plasma creatinine measurement (mass/volume) 1.07 mg/dL 0.60-1.30 Serum or plasma urea nitrogen/creatinine mass ratio 11 NRG Serum or plasma creatinine measurement with calculation of estimated glomerular filtration rate > NRG Serum or plasma glucose measurement (mass/volume) 119 mg/dL 70-105 Serum or plasma calcium measurement (mass/volume) 8.5 mg/dL 8.5-10.1 Serum or plasma total bilirubin measurement (mass/volume) 1.0 mg/dL 0.1-1.0 Serum or plasma alkaline phosphatase measurement (enzymatic activity/volume) 64 U/L 40-136 Serum or plasma aspartate aminotransferase measurement (enzymatic activity/ volume) 76 U/L 5-34 Serum or plasma alanine aminotransferase measurement (enzymatic activity/volume ) 43 U/L 0-55 Serum or plasma protein measurement (mass/volume) 5.7 g/dL 6.4-8.2 Serum or plasma albumin measurement (mass/volume) 3.3 g/dL 3.2-4.5 THYROID STIMULATING HORMONE - 04/28/16 06:02 THYROID STIMULATING HORMONE 6.46 u[iU]/mL 0.35-4.94 Complete blood count (CBC) with automated white blood cell (WBC) differential - 02/07/17 09:46 Blood leukocytes automated count (number/volume) 7.4 10*3/uL 4.3-11.0 Blood erythrocytes automated count (number/volume) 5.08 10*6/uL 4.35-5.85 Venous blood hemoglobin measurement (mass/volume) 15.9 g/dL 13.3-17.7 Blood hematocrit (volume fraction) 47 % 40-54 Automated erythrocyte mean corpuscular volume 93 [foz_us] 80-99 Automated erythrocyte mean corpuscular hemoglobin (mass per erythrocyte) 31 pg 25-34 Automated erythrocyte mean corpuscular hemoglobin concentration measurement ( mass/volume) 34 g/dL 32-36 Automated erythrocyte distribution width ratio 12.6 % 10.0-14.5 Automated blood platelet count (count/volume) 156 10*3/uL 130-400 Automated blood platelet mean volume measurement 10.9 [foz_us] 7.4-10.4 Automated blood neutrophils/100 leukocytes 56 % 42-75 Automated blood lymphocytes/100 leukocytes 32 % 12-44 Blood monocytes/100 leukocytes 9 % 0-12 Automated blood eosinophils/100 leukocytes 3 % 0-10 Automated blood basophils/100 leukocytes 0 % 0-10 Blood neutrophils automated count (number/volume) 4.2 10*3 1.8-7.8 Blood lymphocytes automated count (number/volume) 2.4 10*3 1.0-4.0 Blood monocytes automated count (number/volume) 0.7 10*3 0.0-1.0 Automated eosinophil count 0.2 10*3/uL 0.0-0.3 Automated blood basophil count (count/volume) 0.0 10*3/uL 0.0-0.1 Comprehensive metabolic panel - 02/07/17 09:46 Serum or plasma sodium measurement (moles/volume) 142 mmol/L 135-145 Serum or plasma potassium measurement (moles/volume) 3.8 mmol/L 3.6-5.0 Serum or plasma chloride measurement (moles/volume) 108 mmol/L 98-107 Carbon dioxide 24 mmol/L 21-32 Serum or plasma anion gap determination (moles/volume) 10 mmol/L 5-14 Serum or plasma urea nitrogen measurement (mass/volume) 23 mg/dL 7-18 Serum or plasma creatinine measurement (mass/volume) 1.22 mg/dL 0.60-1.30 Serum or plasma urea nitrogen/creatinine mass ratio 19 0 -20 Serum or plasma creatinine measurement with calculation of estimated glomerular filtration rate 57 NRG Serum or plasma glucose measurement (mass/volume) 101 mg/dL 70-105 Serum or plasma calcium measurement (mass/volume) 9.0 mg/dL 8.5-10.1 Serum or plasma total bilirubin measurement (mass/volume) 1.2 mg/dL 0.1-1.0 Serum or plasma alkaline phosphatase measurement (enzymatic activity/volume) 61 U/L 40-136 Serum or plasma aspartate aminotransferase measurement (enzymatic activity/ volume) 22 U/L 5-34 Serum or plasma alanine aminotransferase measurement (enzymatic activity/volume ) 21 U/L 0-55 Serum or plasma protein measurement (mass/volume) 6.7 g/dL 6.4-8.2 Serum or plasma albumin measurement (mass/volume) 3.7 g/dL 3.2-4.5 Lipid 1996 panel - 02/07/17 09:46 Serum or plasma triglyceride measurement (mass/volume) 87 mg/dL <150 Serum or plasma cholesterol measurement (mass/volume) 157 mg/dL < 200 Serum or plasma cholesterol in HDL measurement (mass/volume) 39 mg/ dL 40-60 Cholesterol in LDL [mass/volume] in serum or plasma by direct assay 98 mg/dL 1-129 Serum or plasma cholesterol in VLDL measurement (mass/volume) 17 mg/ dL 5-40 Hemoglobin A1c - 02/07/17 09:46 Hemoglobin A1c 5.2 % 4.5-6.2 THYROID STIMULATING HORMONE - 02/07/17 09:46 THYROID STIMULATING HORMONE 1.36 u[iU]/mL 0.35-4.94 Serum or plasma thyroxine (T4) free measurement (mass/volume) - 02/07/17 09:46 Serum or plasma thyroxine (T4) free measurement (mass/volume) 0.82 ng/dL 0.70-1.48 Complete blood count (CBC) with automated white blood cell (WBC) differential - 09/15/17 19:40 Blood leukocytes automated count (number/volume) 12.3 10*3/uL 4.3-11.0 Blood erythrocytes automated count (number/volume) 5.08 10*6/uL 4.35-5.85 Venous blood hemoglobin measurement (mass/volume) 16.5 g/dL 13.3-17.7 Blood hematocrit (volume fraction) 46 % 40-54 Automated erythrocyte mean corpuscular volume 91 [foz_us] 80-99 Automated erythrocyte mean corpuscular hemoglobin (mass per erythrocyte) 33 pg 25-34 Automated erythrocyte mean corpuscular hemoglobin concentration measurement ( mass/volume) 36 g/dL 32-36 Automated erythrocyte distribution width ratio 12.2 % 10.0-14.5 Automated blood platelet count (count/volume) 142 10*3/uL 130-400 Automated blood platelet mean volume measurement 11.2 [foz_us] 7.4-10.4 Automated blood neutrophils/100 leukocytes 86 % 42-75 Automated blood lymphocytes/100 leukocytes 9 % 12-44 Blood monocytes/100 leukocytes 5 % 0-12 Automated blood eosinophils/100 leukocytes 0 % 0-10 Automated blood basophils/100 leukocytes 0 % 0-10 Blood neutrophils automated count (number/volume) 10.6 10*3 1.8-7.8 Blood lymphocytes automated count (number/volume) 1.1 10*3 1.0-4.0 Blood monocytes automated count (number/volume) 0.7 10*3 0.0-1.0 Automated eosinophil count 0.0 10*3/uL 0.0-0.3 Automated blood basophil count (count/volume) 0.0 10*3/uL 0.0-0.1 Complete urinalysis with reflex to culture - 09/15/17 19:40 Urine color determination YELLOW NRG Urine clarity determination CLEAR NRG Urine pH measurement by test strip 8 5-9 Specific gravity of urine by test strip 1.010 1.016- 1.022 Urine protein assay by test strip, semi-quantitative NEGATIVE NEGATIVE Urine glucose detection by automated test strip NEGATIVE NEGATIVE Erythrocytes detection in urine sediment by light microscopy NEGATIVE NEGATIVE Urine ketones detection by automated test strip NEGATIVE NEGATIVE Urine nitrite detection by test strip NEGATIVE NEGATIVE Urine total bilirubin detection by test strip NEGATIVE NEGATIVE Urine urobilinogen measurement by automated test strip (mass/volume) NORMAL NORMAL Urine leukocyte esterase detection by dipstick NEGATIVE NEGATIVE Automated urine sediment erythrocyte count by microscopy (number/high power field) NONE NRG Automated urine sediment leukocyte count by microscopy (number/high power field ) RARE NRG Bacteria detection in urine sediment by light microscopy NEGATIVE NRG Crystals detection in urine sediment by light microscopy NONE NRG Casts detection in urine sediment by light microscopy NONE NRG Mucus detection in urine sediment by light microscopy SMALL NRG Complete urinalysis with reflex to culture NO NRG PT panel in platelet poor plasma by coagulation assay - 09/15/17 19:40 Prothrombin time (PT) in platelet poor plasma by coagulation assay 13.3 s 12.2-14.7 INR in platelet poor plasma or blood by coagulation assay 1.0 0.8-1.4 Activated partial thromboplastin time (aPTT) in platelet poor plasma bycoagulation assay - 09/15/17 19:40 Activated partial thromboplastin time (aPTT) in platelet poor plasma bycoagulation assay 28 s 24-35 Comprehensive metabolic panel - 09/15/17 19:40 Serum or plasma sodium measurement (moles/volume) 142 mmol/L 135-145 Serum or plasma potassium measurement (moles/volume) 3.7 mmol/L 3.6-5.0 Serum or plasma chloride measurement (moles/volume) 106 mmol/L 98-107 Carbon dioxide 22 mmol/L 21-32 Serum or plasma anion gap determination (moles/volume) 14 mmol/L 5-14 Serum or plasma urea nitrogen measurement (mass/volume) 20 mg/dL 7-18 Serum or plasma creatinine measurement (mass/volume) 1.04 mg/dL 0.60-1.30 Serum or plasma urea nitrogen/creatinine mass ratio 19 NRG Serum or plasma creatinine measurement with calculation of estimated glomerular filtration rate > NRG Serum or plasma glucose measurement (mass/volume) 125 mg/dL 70-105 Serum or plasma calcium measurement (mass/volume) 8.7 mg/dL 8.5-10.1 Serum or plasma total bilirubin measurement (mass/volume) 1.2 mg/dL 0.1-1.0 Serum or plasma alkaline phosphatase measurement (enzymatic activity/volume) 75 U/L 40-136 Serum or plasma aspartate aminotransferase measurement (enzymatic activity/ volume) 22 U/L 5-34 Serum or plasma alanine aminotransferase measurement (enzymatic activity/volume ) 17 U/L 0-55 Serum or plasma protein measurement (mass/volume) 6.6 g/dL 6.4-8.2 Serum or plasma albumin measurement (mass/volume) 3.8 g/dL 3.2-4.5 Serum or plasma creatine kinase measurement (enzymatic activity/volume) - 09/15 19:40 Serum or plasma creatine kinase measurement (enzymatic activity/volume) 120 U/L 30-200 Serum or plasma lithium measurement (moles/volume) - 09/15/17 19:40 BNP level 56.3 pg/mL <100.0 THYROID STIMULATING HORMONE - 09/15/17 19:40 THYROID STIMULATING HORMONE 2.61 u[iU]/mL 0.35-4.94 Serum or plasma thyroxine (T4) free measurement (mass/volume) - 09/15/17 19:40 Serum or plasma thyroxine (T4) free measurement (mass/volume) 1.01 ng/dL 0.70-1.48 Encounters ACCT No. Visit Date/Time Discharge Status Pt. 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 [facility] ER L HIP PAIN [id number] 02/07/2017 09:32:00 02/07/2017 23:59:59 CLS Outpatient DANYEL MG DO [facility] LAB HTN,HYPERLIPIDEMIA [id number] 04/27/2016 00:40:00 04/28/2016 12:30:00 DIS Inpatient DANYEL MG DO S [facility] 4TH FEVER OF UNDETERMINED ETIOLOGY;EARLY SEPSIS; [id number] 12/07/2015 10:30:00 12/07/2015 23:59:59 CLS Outpatient DANYEL MG DO [facility] RAD F/U LLE, DVT [id number] 09/07/2015 13:31:00 09/09/2015 10:34:00 DIS Inpatient DANYEL MG DO [facility] 4TH PE X2 R LUNG [id number] 11/05/2013 10:17:00 11/05/2013 23:59:59 CLS Outpatient LATASHA TURNER SOLID WASTE FACILITY OPERATOR [facility] LAB HYPOTHYROIDISM [id number] 04/22/2013 09:04:00 04/22/2013 15:37:00 DIS Outpatient JACINTA GRAVES FACC, JENNIFER LOPEZ CCDS [facility] CATH FATIGUE,CAD, DIZZINES,HLP [id number] 04/04/2013 18:23:00 04/06/2013 08:24:00 DIS Inpatient DANYEL MG DO S [facility] 4TH GENERALIZED WEAKNESS [id number] 03/03/2013 10:06:00 03/03/2013 23:59:59 CLS Outpatient BAIXUAN ESCOTO L SOL[employer] W[employer]E FACILITY OPERATOR [facility] LAB HYPOKALCEIMA [id number] 02/18/2013 09:22:00 02/18/2013 23:59:59 CLS Outpatient BAIANGELINA ESCOTOHER L SOL[employer] WASTE FACILITY OPERATOR [facility] LAB HYPOKALEMIA [id number] 02/08/2013 10:09:00 02/08/2013 23:59:59 CLS Outpatient BAIXUAN ESCOTO L SOLID WASTE FACILITY OPERATOR [facility] LAB HYPOKALEMIA [id number] 02/06/2013 13:15:00 02/06/2013 23:59:59 CLS Outpatient DANYEL MG DO [facility] CARD BRADYCARDIA [id number] 01/29/2013 10:11:00 01/29/2013 23:59:59 CLS Outpatient BAIXUAN ESCOTO L SOL[employer] W[employer]E FACILITY OPERATOR [facility] LAB HYPERLIPADEMIA [id number] 11/13/2014 11:22:00 Document Registration [id number] 11/20/2012 16:50:00 Document Registration [id number] 11/08/2012 11:05:00 Document Registration [id number] 11/04/2012 13:45:00 Document Registration [id number] 10/30/2012 09:58:00 Document Registration [id number] 10/28/2012 10:21:00 Document Registration [id number] 11/02/2011 07:42:00 Document Registration [id number] 07/14/2011 08:16:00 Document Registration 10/201702/10/2018 06:06:04 02/10/2018 23:59:59 CLS Outpatient Danyel Mg 08/201602/02/2017 20:04:41 02/02/2017 23:59:59 CLS Outpatient Danyel Mg
[2018-04-30] MEDS ORDERED: TETANUS,DIPTH,PERTUSS P/F (BOOSTRIX) 0.5 ML VIAL IM STA (04:25)
[2018-04-30 04:42] LABS: BASOPHILS % (AUTO) 0 % (0-10); EOSINOPHILS # (AUTO) 0.3 10^3/uL (0.0-0.3); EOSINOPHILS % (AUTO) 4 % (0-10); HEMATOCRIT 46 % (40-54); HEMOGLOBIN 16.4 G/DL (13.3-17.7); LYMPHOCYTES # (AUTO) 1.8 X 10^3 (1.0-4.0); LYMPHOCYTES % (AUTO) 25 % (12-44); MEAN CORPUSCULAR HEMOGLOBIN 33 PG (25-34); MEAN CORPUSCULAR HGB CONC 36 G/DL (32-36); MEAN CORPUSCULAR VOLUME 92 FL (80-99); MEAN PLATELET VOLUME 10.7 FL (7.4-10.4); MONOCYTES # (AUTO) 0.8 X 10^3 (0.0-1.0); MONOCYTES % (AUTO) 11 % (0-12); NEUTROPHILS # (AUTO) 4.3 X 10^3 (1.8-7.8); NEUTROPHILS % (AUTO) 60 % (42-75); PLATELET COUNT 149 10^3/uL (130-400); RED CELL DISTRIBUTION WIDTH 12.5 % (10.0-14.5); WHITE BLOOD COUNT 7.2 10^3/uL (4.3-11.0)
--- NOTE | 2018-04-30 04:54 | ED Head Injury ---
General Stated Complaint: LACERATION FROM FALL Source: patient, family (DAUGHTER) Exam Limitations: other (PT IS LIMITED HISTORIAN--WHEN ASKED WHAT MEDICATIONS HE TAKES OR WHAT HE TAKES THEM FOR, PT STATES HE DOES NOT KNOW. HOWEVER ON DIRECT QUESTIONING ABOUT SPECIFIC MEDICAL PROBLEMS HE IS ABLE TO ANSWER ACCURATELY, JUST CANNOT VOLUNTEER INFORMATION. ) History of Present Illness Date Seen by Provider: Apr 30, 2018 Time Seen by Provider: 04:12 Initial Comments PT ARRIVES VIA POV FROM HOME, WITH DAUGHTER PT LIVES ALONE PT STATES HE DOES NOT KNOW WHAT HAPPENED PT THINKS HE GOT UP TO GO TO THE BATHROOM AND THEN DOES NOT KNOW WHAT HAPPENED , BUT STATES HE HIT THE BACK OF HIS HEAD ON THE WOODEN FOOT BOARD OF HIS BED PT STATES HE DID LOSE CONSCIOUSNESS, BUT DOES NOT KNOW FOR HOW LONG. THINKS IT HAPPENED AROUND [phone]. CALLED DAUGHTER AT 0330. NO NECK PAIN NO VISION CHANGES + DIZZINESS NO PARESTHESIAS OR MOTOR DEFICITS NO CHEST PAIN NO SHORTNESS OF BREATH NO PALPITATIONS NO NAUSEA/VOMITING PT HAS LACERATION TO BACK OF HEAD AND PAIN TO BACK OF HEAD DENIES PAIN OR INJURY ANYWHERE ELSE NO CHANGE IN MENTATION PT STATES THE EXACT SAME THING HAPPENED LAST WEEK--DOES NOW KNOW WHAT HAPPENED THAT TIME EITHER, BUT DID HAVE LOSS OF CONSCIOUSNESS AND LACERATION TO THE BACK OF HIS HEAD ALSO, BUT DID NOT SEEK CARE THIS OCCURRED SUNDAY OR SUNDAY OF LAST WEEK BUT DID NOT TELL DAUGHTER ABOUT IT UNTIL SUNDAY HAS HISTORY OF FALLS. PT STATES HE IS ON A BLOOD THINNER, BUT DOES NOT KNOW WHAT IT IS OR WHAT HE TAKES IT FOR, BUT HAS A CARDIAC STENT. ALSO HAS HX OF DVT DENIES HISTORY OF STROKE OR IRREGULAR HEART BEAT PCP: DR. CURRY PHYSICAL TESTING SUPERVISOR: DR. WORKMAN Allergies and Home Medications Allergies Coded Allergies: JANANo Known Allergies (Verified Allergy, Unknown, 03/06/06) Home Medications Amlodipine Besylate 5 Mg Tablet, 5 MG PO DAILY, (Reported) Doxycycline Hyclate 100 Mg Capsule, 100 MG PO BID Prescribed by: DANYEL CURRY on 04/28/16 1027 Levothyroxine Sodium 112 Mcg Tablet, 112 MCG PO DAILY, (Reported) Losartan Potassium 100 Mg Tablet, 100 MG PO DAILY, (Reported) Metoprolol Succinate 50 Mg Tab.er.24h, 50 MG PO BID, (Reported) [place] 3 Polyunsat Fatty Acids 1,000 Mg Cap, 1,000 MG PO DAILY, (Reported) Sertraline HCl 100 Mg Tablet, 100 MG PO DAILY, (Reported) LAST FILLED #45 01-27-16 Tamsulosin HCl 0.4 Mg Cap, 0.4 MG PO DAILY, (Reported) LAST FILLED #30 01-14-16 Patient Home Medication List Home Medication List Reviewed: Yes Review of Systems Review of Systems Constitutional: dizziness Eyes: No Symptoms Reported; Denies Blurred Vision Ears, Nose, Mouth, Throat: no symptoms reported Respiratory: no symptoms reported Cardiovascular: see HPI; No chest pain; edema (CHRONIC, BUT TODAY LEFT LEG IS MORE SWOLLEN THAN RIGHT); No palpitations; syncope (QUESTION OF FALL WITH LOC VS SYNCOPE) Gastrointestinal: no symptoms reported Genitourinary: no symptoms reported Musculoskeletal: no symptoms reported; No back pain, No joint pain, No neck pain Skin: see HPI Psychiatric/Neurological: See HPI; Denies Cognitive Dysfunction; Headache; Denies Numbness, Denies Tingling, Denies Weakness Endocrine: No Symptoms Reported Hematologic/Lymphatic: See HPI Past Fwuyika-Qvylkr-Jmlcxk Hx Patient Social History Alcohol Use: Denies Use Recreational Drug Use: No Smoking Status: Never a Smoker Recent Foreign Travel: No Contact w/Someone Who Travel: No Recent Hopitalizations: Yes Immunizations Up To Date Tetanus Booster (TDap): Unknown PED Vaccines UTD: No Date of Pneumonia Vaccine: Jun 22, 2017 Date of Influenza Vaccine: May 27, 2017 Seasonal Allergies Seasonal Allergies: No Past Medical History Surgeries: Yes (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; CARDIAC CATH--STENT X 1) Cardiac, Coronary Stent, Gallbladder, Orthopedic Respiratory: No Currently Using CPAP: No Currently Using BIPAP: No Cardiac: Yes (STENTM X 1) Chronic Edema/Swelling, Coronary Artery Disease, Deep Vein Thrombosis, Hypertension Neurological: No Reproductive Disorders: No Sexually Transmitted Disease: No HIV/AIDS: No Genitourinary: Yes Benign Prostatic Hyperpl, Prostate Problems, Kidney Stones Gastrointestinal: Yes (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) Gastroesophageal Reflux, Hepatitis Musculoskeletal: Yes (LEFT HIP REPLACEMENT) Arthritis Endocrine: Yes Hypothyroidsim Cataract Loss of Vision: Denies Hearing Impairment: Hard of Hearing Cancer: No Psychosocial: Yes Depression Integumentary: Yes (DERMATITIS OF LEGS) Blood Disorders: No Adverse Reaction/Blood Tranf: No Family Medical History FH: anemia DAUGHTER FH: breast cancer 19 MOTHER DAUGHTER No Pertinent Family Hx Physical Exam Vital Signs Vital Signs - First Documented 04/30/18 04:11 Temp 97.0 Pulse 53 Resp 16 B/P (MAP) 164/115 (131) O2 Delivery Room Air Capillary Refill : Height, Weight, BMI Height: 6'1.00" Weight: 230lbs. 9.0oz. [id number]; 30.3 BMI Method:Stated General Appearance: WD/WN, no apparent distress HEENT: PERRL/EOMI, normal ENT inspection, TMs normal, pharynx normal Neck: non-tender, full range of motion, supple, normal inspection Cardiovascular: normal peripheral pulses, regular rate, rhythm, no JVD, no murmur Respiratory: chest non-tender, normal breath sounds, no respiratory distress, no accessory muscle use Gastrointestinal: normal bowel sounds, non tender, soft, no organomegaly, no pulsatile mass Back: normal inspection, no CVA tenderness, no vertebral tenderness Extremities: normal range of motion, non-tender, normal inspection, no calf tenderness, normal capillary refill, pedal edema (2+ EDEMA ON RIGHT, 3+ EDEMA ON LEFT) Psychiatric: alert, oriented x 3 Crainal Nerves: normal hearing, normal speech, PERRL Coordination/Gait: normal gait Motor/Sensory: no motor deficit, no sensory deficit, no pronator drift Skin: normal color, warm/dry, other (LACERATION TO OCCIPUT) Hebert Coma Score Best Eye Response: (4) Open Spontaneously Best Verbal Response: (5) Oriented Best Motor Response: (6) Obeys Commands [place] Total: 15 Procedures/Interventions Wound Location: Scalp Wound Length (cm): 6 Wound's Depth, Shape: linear, sub Q Wound Explored: clean Anesthesia: Lidocaine w/ Epi (2%) Staple Repair: Stapler 35W (#12) Suture Size: 6-0 Progress/Results/Core Measures Results/Orders Lab Results Laboratory Tests Test 04/30/18 04:30 04/30/18 05:45 Range/Units White Blood Count 7.2 4.3-11.0 10^3/uL Red Blood Count 5.00 4.35-5.85 10^6/uL Hemoglobin 16.4 13.3-17.7 G/DL Hematocrit 46 40-54 % Mean Corpuscular Volume 92 80-99 FL Mean Corpuscular Hemoglobin 33 25-34 PG Mean Corpuscular Hemoglobin Concent 36 32-36 G/DL Red Cell Distribution Width 12.5 10.0-14.5 % Platelet Count 149 130-400 10^3/uL Mean Platelet Volume 10.7 H 7.4-10.4 FL Neutrophils (%) (Auto) 60 42-75 % Lymphocytes (%) (Auto) 25 12-44 % Monocytes (%) (Auto) 11 0-12 % Eosinophils (%) (Auto) 4 0-10 % Basophils (%) (Auto) 0 0-10 % Neutrophils # (Auto) 4.3 1.8-7.8 X 10^3 Lymphocytes # (Auto) 1.8 1.0-4.0 X 10^3 Monocytes # (Auto) 0.8 0.0-1.0 X 10^3 Eosinophils # (Auto) 0.3 0.0-0.3 10^3/uL Basophils # (Auto) 0.0 0.0-0.1 10^3/uL Prothrombin Time 13.5 12.2-14.7 SEC INR Comment 1.0 0.8-1.4 Activated Partial Thromboplast Time 30 24-35 SEC Sodium Level 140 135-145 MMOL/L Potassium Level 3.5 L 3.6-5.0 MMOL/L Chloride Level 108 H 98-107 MMOL/L Carbon Dioxide Level 23 21-32 MMOL/L Anion Gap 9 5-14 MMOL/L Blood Urea Nitrogen 22 H 7-18 MG/DL Creatinine 0.94 0.60-1.30 MG/DL Estimat Glomerular Filtration Rate > 60 BUN/Creatinine Ratio 23 Glucose Level 111 H 70-105 MG/DL Calcium Level 9.0 8.5-10.1 MG/DL Corrected Calcium 9.2 8.5-10.1 MG/DL Magnesium Level 2.3 1.8-2.4 MG/DL Total Bilirubin 1.0 0.1-1.0 MG/DL Aspartate Amino Transf (AST/SGOT) 20 5-34 U/L Alanine Aminotransferase (ALT/SGPT) 17 0-55 U/L Alkaline Phosphatase 71 40-136 U/L Troponin I < 0.30 <0.30 NG/ML Total Protein 6.3 L 6.4-8.2 GM/DL Albumin 3.8 3.2-4.5 GM/DL TSH [place] Testing 1.96 0.35-4.94 UIU/ML Urine Color YELLOW Urine Clarity CLEAR Urine pH 7 5-9 Urine Specific [place] 1.005 L 1.016-1.022 Urine Protein NEGATIVE NEGATIVE Urine Glucose (UA) NEGATIVE NEGATIVE Urine Ketones NEGATIVE NEGATIVE Urine Nitrite NEGATIVE NEGATIVE Urine Bilirubin NEGATIVE NEGATIVE Urine Urobilinogen NORMAL NORMAL MG/DL Urine Leukocyte Esterase NEGATIVE NEGATIVE Urine RBC (Auto) NEGATIVE NEGATIVE Urine RBC NONE /HPF Urine WBC NONE /HPF Urine Squamous Epithelial Cells NONE /HPF Urine Crystals NONE /LPF Urine Bacteria NEGATIVE /HPF Urine Casts NONE /LPF Urine Mucus NEGATIVE /LPF Urine Culture Indicated NO My Orders Orders - DIAMANTE WYMAN DO Ct Head/Cervical Spine Wo (04/30/18 04:13) Saline Lock/Iv-Start (04/30/18 04:25) Ekg Tracing (04/30/18 04:25) Monitor-Rhythm Ecg Trace Only (04/30/18 04:25) Cbc With Automated Diff (04/30/18 04:25) Comprehensive Metabolic Panel (04/30/18 04:25) Magnesium (04/30/18 04:25) Protime With Inr (04/30/18 04:25) Partial Thromboplastin Time (04/30/18 04:25) Thyroid Analyzer (04/30/18 04:25) Troponin I (04/30/18 04:25) Chest 1 View, Ap/Pa Only (04/30/18 04:25) Dipht,Pertuss(Acell),Tet Adult (Boostrix (04/30/18 04:25) Cervical Collar (04/30/18 04:25) Ua Culture If Indicated (04/30/18 05:50) Lidocaine/Epi 2% 1:100,000 (Xylocaine/Ep (04/30/18 06:15) Lidocaine/Epi 2% 1:100,000 (Xylocaine/Ep (04/30/18 06:03) Vital Signs/I&O 04/30/18 04:11 Temp 97.0 Pulse 53 Resp 16 B/P (MAP) 164/115 (131) O2 Delivery Room Air Progress Progress Note : Progress Note UNEVENTFUL ER STAY Initial ECG Impression Date: Apr 30, 2018 Initial ECG Impression Time: 04:37 Initial ECG Rate: 50 Initial ECG Rhythm: Normal Sinus (WITH PAC'S ) Diagnostic Imaging Comments CXR--ELEVATED RIGHT DIAPHRAGM, RIGHT BASILAR ATELECTASIS, NO ACUTE PROCESS, PENDING RADIOLOGIST REVIEW CT HEAD/CERVICAL SPINE--NO ACUTE PROCESS, WHITE MATTER CHRONIC SMALL VESSEL ISCHEMIC CHANGES, DEGENERATIVE CHANGES OF CERVICAL SPINE--PER [facility] VIA FAX @ 0820 Reviewed: Reviewed by Me Departure Impression Primary Impression: S/P FALL WITH HEAD INJURY WITH LOSS OF CONSCIOUSNESS VS SYNCOPE Additional Impressions: CERVICAL SPINE STRAIN Scalp laceration Xyufijlldh-lmobfhgfd-amekshq (DPT) vaccination administered at current visit Disposition: HOME, SELF-CARE Condition: Stable Departure-Patient Inst. Referrals: DANYEL CURRY DO (PCP/Family) Primary Care Physician Patient Instructions: Cervical Muscle Strain (DC), Concussion, Adult (DC), Diphtheria and Tetanus Toxoids, and Acellular Pertussis Vaccine, Laceration Repair With [place] (DC), Preventing Falls in the Older Adult, Syncope (Fainting ) (DC) Add. Discharge Instructions: CLEAN WOUND TWICE A DAY WITH ANTIBACTERIAL SOAP AND WATER JAIR OUT IN 10 DAYS--RETURN TO ER FOR REMOVAL ICE TO AREA AT 20 MINUTE INTERVALS TYLENOL NEEDED FOR PAIN FOLLOW UP WITH DR. CURRY THIS WEEK FOR FURTHER CARE Scripts Sulfamethoxazole/Trimethoprim (Bactrim Ds Tablet) 1 Each Tablet 1 EACH PO BID, #20 TAB Prov: DIAMANTE WYMAN DO 04/30/18 DIAMANTE WYMAN DO Apr 30, 2018 04:54
[2018-04-30 04:58] LABS: PROTHROMBIN TIME PATIENT 13.5 SEC (12.2-14.7)
[2018-04-30 05:13] LABS: ALANINE AMINOTRANSFERASE 17 U/L (0-55); ALBUMIN 3.8 GM/DL (3.2-4.5); ALKALINE PHOSPHATASE 71 U/L (40-136); BUN/CREATININE RATIO 23; CARBON DIOXIDE 23 MMOL/L (21-32); CHLORIDE 108 MMOL/L (98-107); CREATININE SERUM 0.94 MG/DL (0.60-1.30); GFR ESTIMATED > 60; GLUCOSE 111 MG/DL (70-105); MAGNESIUM 2.3 MG/DL (1.8-2.4); POTASSIUM 3.5 MMOL/L (3.6-5.0); SODIUM 140 MMOL/L (135-145); TOTAL PROTEIN 6.3 GM/DL (6.4-8.2)
[2018-04-30 05:35] LABS: TSH (THYROID ANALYZER) 1.96 UIU/ML (0.35-4.94)
[2018-04-30 05:58] LABS: BILIRUBIN,URINE NEGATIVE (NEGATIVE); CLARITY,URINE CLEAR; COLOR,URINE YELLOW; GLUCOSE, URINE (UA) NEGATIVE (NEGATIVE); KETONES,URINE NEGATIVE (NEGATIVE); LEUKOCYTE ESTERASE ,URINE NEGATIVE (NEGATIVE); NITRITE,URINE NEGATIVE (NEGATIVE); PH,URINE 7 (5-9); PROTEIN,URINE NEGATIVE (NEGATIVE); UROBILINOGEN,URINE NORMAL (NORMAL)
[2018-04-30] MEDS ORDERED: LIDOCAINE/EPI 2% 1:100,00 (XYLOCAINE) 20 ML VIAL ONE (06:03)
[2018-04-30 06:11] LABS: BACTERIA,URINE NEGATIVE /HPF
[2018-04-30] MEDS ORDERED: LIDOCAINE/EPI 2% 1:100,00 (XYLOCAINE) 20 ML VIAL INJ ONE (06:15)
[2018-04-30] MEDS ORDERED: SULF1TAB35 PO (06:26)
[2018-04-30 06:34] VITALS: BP 167/91
--- NOTE | 2018-04-30 07:10 | Diagnostic Imaging Report ---
INDICATION: Fall. Comparison made with prior examination 09/15/2017. FINDINGS: There is cardiomegaly. There is some elevation of right hemidiaphragm. There is no pleural effusion or pneumothorax. Mediastinum is unremarkable. IMPRESSION: Cardiomegaly and elevation of the right hemidiaphragm. No other acute cardiopulmonary abnormality. Dictated by: Dictated on workstation # [id number]
--- NOTE | 2018-04-30 07:20 | Diagnostic Imaging Report ---
CLINICAL INDICATION: Patient fell and has laceration to back of head. EXAM: Head CT without IV contrast. Axial CT scan of the cervical spine with sagittal and coronal reformations. COMPARISON: Head CT without contrast dated 11/21/2012. FINDINGS: Head CT: There is no evidence of acute cerebral infarct, intracranial hemorrhage, or gross mass effect. The brain parenchymal volume appears appropriate for patient's age. Again noted patchy and confluent areas of low-attenuation white matter changes throughout both cerebral hemispheres which has increased in the interim, likely related to chronic small vessel ischemic disease and leukoaraiosis. There is normal davis-white matter distinction. There is no significant midline shift or herniation. There is no evidence of hydrocephalus. The basal cisterns are unremarkable. The skull, extracranial soft tissue, and orbits are unremarkable. There is minimal mucosal thickening involving ethmoid sinus. Temporal bones show no significant abnormality. Cervical spine: There is compression deformities involving the upper endplate of the T1, T2, and T3 vertebra with no definite cortical disruption seen, suspected to be chronic. There is no acute cervical spine fracture. There are cervical spine vertebral body spurs noted with no major bony central canal narrowing. There is at least joix-sw-tfdohbyb neural foramen narrowing seen in the mid to lower cervical spine. There is moderate left C3-C4 neural foramen narrowing. There is grade 1 anterolisthesis of C3 on C4. Visualized upper lung winn are clear. The neck soft tissue structures show no significant abnormality. IMPRESSION: 1: Age-related brain parenchymal changes with no evidence of acute intracranial process. 2: Cervical spine degenerative disease with no acute cervical spine fracture. There is grade 1 anterolisthesis of C3 on C4. I agree with [facility] report. Dictated by: Dictated on workstation # [id number]
== END 2018-04-30 06:39 | disposition home or self-care (01) ==
LOC: EDUNIT# 04:00 → ER 04:02
DX: S06.9X9A Unspecified intracranial injury with loss of consciousness of unspecified duration, initial encounter (principal); S01.01XA Laceration without foreign body of scalp, initial encounter; S16.1XXA Strain of muscle, fascia and tendon at neck level, initial encounter; R40.2142 Coma scale, eyes open, spontaneous, at arrival to emergency department; R40.2252 Coma scale, best verbal response, oriented, at arrival to emergency department; R40.2362 Coma scale, best motor response, obeys commands, at arrival to emergency department; I25.10 Atherosclerotic heart disease of native coronary artery without angina pectoris; E03.9 Hypothyroidism, unspecified; F32.9 Major depressive disorder, single episode, unspecified; I10 Essential (primary) hypertension; Z96.642 Presence of left artificial hip joint; Z87.442 Personal history of urinary calculi; Z80.1 Family history of malignant neoplasm of trachea, bronchus and lung; Z95.5 Presence of coronary angioplasty implant and graft; Z86.718 Personal history of other venous thrombosis and embolism; Z23 Encounter for immunization; W01.198A Fall on same level from slipping, tripping and stumbling with subsequent striking against other object, initial encounter
CPT/HCPCS: 12002; 36415; 70450; 71045; 72125; 80053; 81000; 83735; 84443; 84484; 85025; 85610; 85730; 90471; 90715; 93005; 93041

== ENCOUNTER 2018-05-11 13:55 | Emergency (ER) | payer MEDICARE, MEDICAID ==
[~2018-05-11] VITALS: Ht 180.3 cm; Wt 90.7 kg
[~2018-05-11 13:55] MED LIST changes: +SULF1TAB35 PO
--- OUTSIDE RECORDS SUMMARY | 2018-05-11 14:01 | XMS REPORT | Continuity of Care Document ---
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 ANTIHYPERTEN AGT 11/22/2012 Ot V45.82 PERCUTANEOUS TRANSLUM CORON ANGIOPLASTY 04/06/2013 MIKAYLA MG DO S Ot 244.9 HYPOTHYROIDISM NOS 04/06/2013 MIKAYLA MG DO S Ot 272.4 HYPERLIPIDEMIA NEC/NOS 04/06/2013 MIKAYLA MG DO S Ot 401.9 HYPERTENSION NOS 04/06/2013 MIKAYLA MG DO S Ot 414.01 CORONARY ATHEROSCLEROSIS OF [place] CORON 04/06/2013 ORA MG DOLINE S Ot 490 BRONCHITIS NOS 04/22/2013 JACINTA GRAVES FACC, JENNIFER FACP CCDS Ot 272.4 HYPERLIPIDEMIA NEC/NOS 04/22/2013 JACINTA GRAVES FACC, ALI FACP CCDS Ot 414.01 CORONARY ATHEROSCLEROSIS OF [place] CORON 04/22/2013 JACINTA GRAVES FACC, ALI FACP [...] EMBOLISM AND THROMBOSIS OF LEFT FE 09/09/2015 MIKAYLA MG DO Ot I82.432 ACUTE EMBOLISM AND THROMBOSIS OF LEFT PO 09/09/2015 MIKAYLA MG DO Ot K21.9 GASTRO-ESOPHAGEAL REFLUX DISEASE WITHOUT 12/08/2015 PATRICIO MCINTOSH, MIKAYLA S Ot Z09 12/08/2015 TATANDER , MIKAYLA S Ot Z86.718 12/08/2015 TATANDER , MIKAYLA S Ot Z09 12/08/2015 TATANDER , MIKAYLA S Ot Z86.718 12/29/2015 PATRICIO MCINTOSH, MIKAYLA Jeter Ot Z09 ENCNTR FOR F/U EXAM AFT TRTMT FOR COND O 12/29/2015 MIKAYLA MG DO Ot Z86.718 PERSONAL HISTORY OF OTHER VENOUS THROMBO 01/17/2016 WAYNE , MIKAYLA Jeter Ot Z09 ENCNTR FOR F/U EXAM AFT TRTMT FOR COND O 01/17/2016 PATRICIO MCINTOSH, MIKAYLA S Ot Z86.718 PERSONAL HISTORY OF OTHER [...] MED,LT, CURRENT USE 04/26/2016 BAIMA, XUAN L FILM SPLICER Ot 272.4 HYPERLIPIDEMIA NEC/NOS 04/26/2016 BAIMA, XUAN L FILM SPLICER Ot V58.69 OTH MED,LT,CURRENT USE 04/26/2016 ORA MG DOLINE S Ot 427.89 CARDIAC DYSRHYTHMIAS NEC 04/26/2016 XUAN BISHOP FILM SPLICER Ot 276.8 HYPOPOTASSEMIA 04/26/2016 BAIXUAN ESCOTO FILM SPLICER Ot 276.8 HYPOPOTASSEMIA 04/26/2016 BAIXUAN ESCOTO FILM SPLICER Ot 276.8 HYPOPOTASSEMIA 04/26/2016 LATASHA TURNER FILM SPLICER Ot 244.9 HYPOTHYROIDISM NOS 04/26/2016 Ot 272.4 HYPERLIPIDEMIA NEC/NOS 04/26/2016 Ot 414.01 CORONARY ATHEROSCLEROSIS OF [place] CORON 04/26/2016 Ot V70.0 ROUTINE MEDICAL EXAM 04/26/2016 PATRICIO MIKAYLA S Ot Z09 ENCNTR FOR F/U EXAM AFT TRTMT FOR COND O 04/26/2016 PATRICIO MCINTOSH MIKAYLA S Ot Z86.718 PERSONAL HISTORY OF OTHER VENOUS THROMBO 04/28/2016 PATRICIO MCINTOSH MIKAYLA S Ot B34.9 VIRAL INFECTION, UNSPECIFIED 04/28/2016 TATANDLEYLA MCINTOSH, MIKAYLA S Ot E03.9 HYPOTHYROIDISM, UNSPECIFIED 04/28/2016 TATANDER , MIKAYLA S Ot E87.6 HYPOKALEMIA 04/28/2016 TATANDLEYLA MCINTOSH, MIKAYLA S Ot I10 ESSENTIAL (PRIMARY) HYPERTENSION 04/28/2016 TATANDLEYLA MCINTOSH, MIKAYLA S Ot K21.9 GASTRO-ESOPHAGEAL REFLUX DISEASE WITHOUT 04/28/2016 TATANDER , MIKAYLA S Ot R50.9 FEVER, UNSPECIFIED 03/01/2017 TATANDER DO MIKAYLA S Ot E03.9 HYPOTHYROIDISM, UNSPECIFIED 03/01/2017 TATANDER , MIKAYLA S Ot E78.5 HYPERLIPIDEMIA, UNSPECIFIED 03/01/2017 ORENDER DO, MIKAYLA S Ot I10 ESSENTIAL (PRIMARY) HYPERTENSION 03/01/2017 TATANDLEYLA MCINTOSH MIKAYLA S Ot R73.9 HYPERGLYCEMIA, UNSPECIFIED 09/15/2017 ROBERT TOLENTINO APRN Ot E03.9 HYPOTHYROIDISM, UNSPECIFIED 09/15/2017 ROBERT TOLENTINO APRN Ot F32.9 MAJOR DEPRESSIVE DISORDER, SINGLE EPISOD 09/15/2017 ROBERT TOLENTINO DIVYA Ot I10 ESSENTIAL (PRIMARY) HYPERTENSION 09/15/2017 ROBERT TOLENTINO APRN Ot I25.10 ATHSCL HEART DISEASE OF [place] CORONARY 09/15/2017 ROBERT TOLENTINO APRN Ot K21.9 [...] APRN Ot I25.10 ATHSCL HEART DISEASE OF [place] CORONARY 09/18/2017 ROBERT TOLENTINO APRN Ot K21.9 GASTRO-ESOPHAGEAL REFLUX DISEASE WITHOUT 09/18/2017 ROBERT TOLENTINO APRN Ot M25.552 PAIN IN LEFT HIP 09/18/2017 ROBERT TOLENTINO APRN Ot S73.005A UNSPECIFIED DISLOCATION OF LEFT HIP, INI 09/18/2017 ROBERT TOLENTINO APRN Ot W19.XXXA UNSPECIFIED FALL, INITIAL ENCOUNTER 09/18/2017 ROBERT TOLENTINO APRN Ot Y92.007 GARDEN OR YARD OF UNSP NON-INSTITUT RESI 09/18/2017 ROBERT TOLENTINO APRN Ot Z86.718 PERSONAL HISTORY OF OTHER VENOUS THROMBO 09/18/2017 ROBERT TOLENTINO APRN Ot Z87.442 PERSONAL HISTORY OF URINARY CALCULI 09/18/2017 ROBERT TOLENTINO APRN Ot Z95.5 PRESENCE OF CORONARY ANGIOPLASTY IMPLANT 09/18/2017 ROBERT TOLENTINO APRN Ot Z96.642 PRESENCE OF LEFT ARTIFICIAL HIP JOINT 11/08/2017 BARRERA , CADEN W Ot M25.352 OTHER INSTABILITY, LEFT HIP 11/08/2017 BARRERA DO, CADEN W Ot R42 DIZZINESS AND GIDDINESS 05/02/2018 DIAMANTE WYMAN DO Ot E03.9 HYPOTHYROIDISM, UNSPECIFIED 05/02/2018 DIAMANTE WYMAN DO Ot F32.9 MAJOR DEPRESSIVE DISORDER, SINGLE EPISOD 05/02/2018 DIAMANTE WYMAN DO Ot I10 ESSENTIAL (PRIMARY) HYPERTENSION 05/02/2018 DIAMANTE WYMAN DO, Ot I25.10 ATHSCL HEART DISEASE OF [place] CORONARY 05/02/2018 DIAMANTE WYMAN DO, Ot R40.2142 COMA SCALE, EYES OPEN, SPONTANEOUS, EMR 05/02/2018 DIAMANTE WYMAN DO Ot R40.2252 COMA SCALE, BEST VERBAL RESPONSE, ORIENT 05/02/2018 DIAMANTE WYMAN DO Ot R40.2362 COMA SCALE, BEST MOTOR RESPONSE, OBEYS C 05/02/2018 DIAMANTE WYMAN DO, Ot S01.01XA LACERATION WITHOUT FOREIGN BODY OF SCALP 05/02/2018 DIAMANTE WYMAN DO, Ot S06.9X9A UNSP INTRACRANIAL INJURY W LOC OF UNSP D 05/02/2018 DIAMANTE WYMAN DO, Ot S16.1XXA STRAIN OF MUSCLE, FASCIA AND TENDON AT N 05/02/2018 DIAMANTE WYMAN DO Ot W01.198A FALL SAME LEV FROM SLIP/TRIP W STRIKE AG 05/02/2018 DIAMANTE WYMAN DO Ot Z23 ENCOUNTER FOR IMMUNIZATION 05/02/2018 DIAMANTE WYMAN DO, Ot Z80.1 FAMILY HISTORY OF MALIG NEOPLASM OF [place] 05/02/2018 DIAMANTE WYMAN DO Ot Z86.718 PERSONAL HISTORY OF OTHER VENOUS THROMBO 05/02/2018 DIAMANTE WYMAN DO, Ot Z87.442 PERSONAL HISTORY OF URINARY CALCULI 05/02/2018 DIAMANTE WYMAN DO Ot Z95.5 PRESENCE OF CORONARY ANGIOPLASTY IMPLANT 05/02/2018 DIAMANTE WYMAN DO Ot Z96.642 PRESENCE OF LEFT ARTIFICIAL HIP JOINT Procedures There is no data. Results Test [...] or plasma urea nitrogen/creatinine mass ratio 17 NR Serum or plasma creatinine measurement with calculation of estimated glomerular filtration rate 56 NR Serum or plasma glucose measurement (mass/volume) 121 [...] - 04/26/16 23:25 QUANTITY OF GROWTH Isolated [facility] Bacterial blood culture [id number] [facility] Bacterial blood culture - 04/26/16 23:45 Bacterial blood culture NG [facility] Influenza virus A and B antigen detection - 04/27/16 00:52 FLU RESULT NEGATIVE FOR INFLUENZA A AND B ANTIGENS BY IA [facility] Serum or plasma lactate measurement (moles/volume) - [...] (T4) free measurement (mass/volume) 1.01 ng/dL 0.70-1.48 Complete blood count (CBC) with automated white blood cell (WBC) differential - 04/30/18 04:30 Blood leukocytes automated count (number/volume) 7.2 10*3/uL 4.3-11.0 Blood erythrocytes automated count (number/volume) 5.00 10*6/uL 4.35-5.85 Venous blood hemoglobin measurement (mass/volume) 16.4 g/dL 13.3-17.7 Blood hematocrit (volume fraction) 46 % 40-54 Automated erythrocyte mean corpuscular volume 92 [foz_us] 80-99 Automated erythrocyte mean corpuscular hemoglobin (mass per erythrocyte) 33 pg 25-34 Automated erythrocyte mean corpuscular hemoglobin concentration measurement ( mass/volume) 36 g/dL 32-36 Automated erythrocyte distribution width ratio 12.5 % 10.0-14.5 Automated blood platelet count (count/volume) 149 10*3/uL 130-400 Automated blood platelet mean volume measurement 10.7 [foz_us] 7.4-10.4 Automated blood neutrophils/100 leukocytes 60 % 42-75 Automated blood lymphocytes/100 leukocytes 25 % 12-44 Blood monocytes/100 leukocytes 11 % 0-12 Automated blood eosinophils/100 leukocytes 4 % 0-10 Automated blood basophils/100 leukocytes 0 % 0-10 Blood neutrophils automated count (number/volume) 4.3 10*3 1.8-7.8 Blood lymphocytes automated count (number/volume) 1.8 10*3 1.0-4.0 Blood monocytes automated count (number/volume) 0.8 10*3 0.0-1.0 Automated eosinophil count 0.3 10*3/uL 0.0-0.3 Automated blood basophil count (count/volume) 0.0 10*3/uL 0.0-0.1 PT panel in platelet poor plasma by coagulation assay - 04/30/18 04:30 Prothrombin time (PT) in platelet poor plasma by coagulation assay 13.5 s 12.2-14.7 INR in platelet poor plasma or blood by coagulation assay 1.0 0.8-1.4 Activated partial thromboplastin time (aPTT) in platelet poor plasma bycoagulation assay - 04/30/18 04:30 Activated partial thromboplastin time (aPTT) in platelet poor plasma bycoagulation assay 30 s 24-35 Comprehensive metabolic panel - 04/30/18 04:30 Serum or plasma sodium measurement (moles/volume) 140 mmol/L 135-145 Serum or plasma potassium measurement (moles/volume) 3.5 mmol/L 3.6-5.0 Serum or plasma chloride measurement (moles/volume) 108 mmol/L 98-107 Carbon dioxide 23 mmol/L 21-32 Serum or plasma anion gap determination (moles/volume) 9 mmol/L 5-14 Serum or plasma urea nitrogen measurement (mass/volume) 22 mg/dL 7-18 Serum or plasma creatinine measurement (mass/volume) 0.94 mg/dL 0.60-1.30 Serum or plasma urea nitrogen/creatinine mass ratio 23 NRG Serum or plasma creatinine measurement with calculation of estimated glomerular filtration rate > NRG Serum or plasma glucose measurement (mass/volume) 111 mg/dL 70-105 Serum or plasma calcium measurement (mass/volume) 9.0 mg/dL 8.5-10.1 Serum or plasma total bilirubin measurement (mass/volume) 1.0 mg/dL 0.1-1.0 Serum or plasma alkaline phosphatase measurement (enzymatic activity/volume) 71 U/L 40-136 Serum or plasma aspartate aminotransferase measurement (enzymatic activity/ volume) 20 U/L 5-34 Serum or plasma alanine aminotransferase measurement (enzymatic activity/volume ) 17 U/L 0-55 Serum or plasma protein measurement (mass/volume) 6.3 g/dL 6.4-8.2 Serum or plasma albumin measurement (mass/volume) 3.8 g/dL 3.2-4.5 CALCIUM CORRECTED 9.2 mg/dL 8.5-10.1 Magnesium - 04/30/18 04:30 Magnesium 2.3 mg/dL 1.8-2.4 Serum or plasma troponin i.cardiac measurement (mass/volume) - 04/30/18 04:30 Serum or plasma troponin i.cardiac measurement (mass/volume) < ng/ mL <0.30 Serum or plasma thyrotropin measurement by detection limit <=0.05 miu/l (units/ volume) - 04/30/18 04:30 Serum or plasma thyrotropin measurement by detection limit <=0.05 miu/l (units/ volume) 1.96 u[iU]/mL 0.35-4.94 Complete urinalysis with reflex to culture - 04/30/18 05:45 Urine color determination YELLOW NRG Urine clarity determination CLEAR NRG Urine pH measurement by test strip 7 5-9 Specific gravity of urine by test strip 1.005 1.016- 1.022 Urine protein assay by test [...] urine sediment by light microscopy NEGATIVE NRG Complete urinalysis with reflex to culture NO NRG Encounters ACCT No. Visit Date/Time Discharge Status Pt. Type Provider Facility Loc./Unit Complaint [id number] 04/30/2018 04:02:00 04/30/2018 06:39:00 DIS Outpatient DIAMANTE WYMAN DO [facility] ER LACERATION FROM FALL [id number] 11/08/2017 10:40:00 11/08/2017 12:05:00 DIS Outpatient CADEN BARRERA DO [facility] REHAB L HIP INSTABILITY; DYSEQUILIBRIUM [id number] 09/15/2017 19:32:00 09/15/2017 23:17:00 DIS Emergency ROBERT TOLENTINO APRN [facility] ER L HIP PAIN [id number] 02/07/2017 09:32:00 02/07/2017 23:59:59 CLS Outpatient MIKAYLA MG DO [facility] LAB HTN,HYPERLIPIDEMIA [id number] 04/27/2016 00:40:00 04/28/2016 12:30:00 DIS Inpatient MIKAYLA MG DO [facility] 4TH FEVER OF UNDETERMINED ETIOLOGY;EARLY SEPSIS; [id number] 12/07/2015 10:30:00 12/07/2015 23:59:59 CLS Outpatient MIKAYLA MG DO [facility] RAD F/U LLE, DVT [id number] 09/07/2015 13:31:00 09/09/2015 10:34:00 DIS Inpatient PATRICIO MIKAYLA MCINTOSH S [facility] 4TH PE X2 R LUNG [id number] 11/05/2013 10:17:00 11/05/2013 23:59:59 CLS Outpatient LATASHA TURNER M FILM SPLICER [facility] LAB HYPOTHYROIDISM [id number] 04/22/2013 09:04:00 04/22/2013 15:37:00 DIS Outpatient JACINTA GRAVES FACC, JENNIFER LOPEZ CCDS [facility] CATH FATIGUE,CAD, DIZZINES,HLP [id number] 04/04/2013 18:23:00 04/06/2013 08:24:00 DIS Inpatient WAYNEMIKAYLA MAYER DO S [facility] 4TH GENERALIZED WEAKNESS [id number] 03/03/2013 10:06:00 03/03/2013 23:59:59 CLS Outpatient BAIMAXUAN L FILM SPLICER [facility] LAB HYPOKALCEIMA [id number] 02/18/2013 09:22:00 02/18/2013 23:59:59 CLS Outpatient BAIANGELINA ESCOTOHER L FILM SPLICER [facility] LAB HYPOKALEMIA [id number] 02/08/2013 10:09:00 02/08/2013 23:59:59 CLS Outpatient BAIANGELINA ESCOTOHER L FILM SPLICER [facility] LAB HYPOKALEMIA [id number] 02/06/2013 13:15:00 02/06/2013 23:59:59 CLS Outpatient PATRICIO DO MIKAYLA S [facility] CARD BRADYCARDIA [id number] 01/29/2013 10:11:00 01/29/2013 23:59:59 CLS Outpatient BAIMAANGELINAXUAN L FILM SPLICER [facility] LAB HYPERLIPADEMIA [id number] 05/11/2018 13:56:00 ACT Emergency MADONNA GRAVES, YARITZA Coleman [facility] ER SUTURE REMOVAL [id number] 11/13/2014 11:22:00 Document Registration [id number] 11/20/2012 16:50:00 Document Registration [id number] 11/08/2012 11:05:00 Document Registration [id number] 11/04/2012 13:45:00 Document Registration [id number] 10/30/2012 09:58:00 Document Registration [id number] 10/28/2012 10:21:00 Document Registration [id number] 11/02/2011 07:42:00 Document Registration [id number] 07/14/2011 08:16:00 Document Registration 10/201705/07/2018 13:50:28 05/07/2018 23:59:59 CLS Outpatient Mikayla Mg 08/201602/02/2017 20:04:41 02/02/2017 23:59:59 CLS Outpatient Mikayla Mg
[2018-05-11 14:30] VITALS: BP 161/85
== END 2018-05-11 14:30 | disposition home or self-care (01) ==
LOC: EDUNIT# 13:55 → ER 13:56
DX: S01.01XD Laceration without foreign body of scalp, subsequent encounter (principal); X58.XXXD Exposure to other specified factors, subsequent encounter

== ENCOUNTER 2019-05-05 11:28 | Inpatient (IN) | payer MEDICARE, MEDICAID ==
[~2019-05-05] VITALS: Ht 188 cm; Wt 98.7 kg
[~2019-05-05 11:28] MED LIST changes: -AMLO5TAB7 PO; +AMLO5TAB9 PO; +LOSA100T57 PO; -LOSA100T8 PO; -RIVA15TA PO; +RIVA15TA2 PO
[2019-05-05] MEDS ORDERED: GABAPENTIN 300 MG (NEURONTIN) CAP PO PRN (17:45)
[2019-05-05] MEDS ORDERED: CALCIUM CARBONATE 500 MG (TUMS) TAB.CHEW PO PRN (17:45)
[2019-05-05] MEDS ORDERED: MELATONIN 3 MG TABLET PO PRN (17:45)
[2019-05-05] MEDS ORDERED: LOPERAMIDE 2 MG (IMODIUM) TABLET PO PRN (17:45)
[2019-05-05] MEDS ORDERED: HYDROcodone/APAP 5 MG/325 MG (LORTAB) TAB PO PRN (17:45)
[2019-05-05] MEDS ORDERED: diphenhydrAMINE 25 MG TAB (BENADRYL) PO PRN (17:45)
[2019-05-05 18:00] VITALS: BP 137/69
--- NOTE | 2019-05-05 18:00 | NUR ---
AMBREEN WARNER admitted to room , with an admitting diagnosis of LEFT HIP REPLACEMENT , on 05-05-19 from [place] via [facility], accompanied by STAFF AND FAMILY. AMBREEN WARNER I introduced to surroundings, call light, bed controls, phone, TV, temperature control, lights, meal times, smoking policy, visitor policy, side rail policy, bathrooms and showers. Patient Rights given to patient in the handbook.AMBREEN WARNER I verbalizes understanding that [facility] is not responsible for the loss or damage to any personal effects or valuables that are kept in the patients posession during their hospitalization. The following Patient Care Plans were discussed with the PT: Discharge Planning AND IMMOBILITY. AMBREEN WARNER I verbalizes understanding of Interdisciplinary Patient Education. Patient received Patient Rights Booklet, which includes Privacy Act Statement and Data Collection Information Summary. FLORES CATHETER INTACT. VERY WEAK AND DIZZY WHEN ASSISTING TO BED.
--- NOTE | 2019-05-05 20:30 | PM&R H&P / Post Admit Assess ---
History of Present Illness HPI/Chief Complaint CC: Debility HPI: This is a 79yoWM clinic pt of Dr. Mg who presents to the inpatient rehab facility after suffering severe debility after he was readmitted after an uncomplicated revision of his left hip for fever and Leukocytosis found to have an acute left lower extremity DVT, placed on Eliquis and labs returned back to normal and became afebrile. No other source of the fever was found. He was previously independent and had just recently had the hip replacement surgery two days prior to readmission and he has had an uncomplicated hospital course but he did have urinary retention requiring King catheter maintenance at [place] and will work on that to [place] that urology evaluation as he is settled in in inpatient rehab. We will consult family practice to help medical manage and will work in order to help him regain his function of ADLS and ambulatory skills. Source: patient, family, RN/MD, old records Exam Limitations: no limitations Date Seen 05/05/19 Time Seen by a Provider: 18:00 Attending Physician Jannette Anglin DO PCP Mikayla Mg DO Referring Physician Date of Admission May 05, 2019 at 18:00 Home Medications & Allergies Home Medications Reviewed patient Home Medication Reconciliation performed by pharmacy medication reconciliations mechanical assembly technician and/or nursing. Patients Allergies have been reviewed. Allergies Allergies Coded Allergies NKANo Known Allergies (Verified Allergy, Unknown, 03/06/06) Past Malqslc-Xjxjek-Hvyqee Hx Past Med/Social Hx: Reviewed Nursing Past Med/Soc Hx, Reviewed and Corrections made Patient Social History Marrital Status: single Employed/Student: employed ([employer]) Smoking Status: Never a Smoker Recent Foreign Travel: No Contact w/other who traveled: No Recent Hopitalizations: Yes Recent Infectious Disease Expo: No Immunizations Up To Date Tetanus Booster (TDap): Unknown Pediatric: No Date of Pneumonia Vaccine: Jun 22, 2017 Date of Influenza Vaccine: May 27, 2017 Seasonal Allergies Seasonal Allergies: No Past Medical History Surgeries: Cardiac, Coronary Stent, Gallbladder, Orthopedic Currently Using CPAP: No Currently Using BIPAP: No Cardiac: Chronic Edema/Swelling, Coronary Artery Disease, Deep Vein Thrombosis, Hypertension Reproductive: No Sexually Transmitted Disease: No HIV/AIDS: No Genitourinary: Benign Prostatic Hyperpl, Prostate Problems, Kidney Stones Gastrointestinal: Gastroesophageal Reflux, Hepatitis Musculoskeletal: Arthritis Endocrine: Hypothyroidsim HEENT: Cataract Loss of Vision: Denies Hearing Impairment: Hard of Hearing Psychosocial: Depression History of Blood Disorders: No Adverse Reaction to Blood Lora: No Family History FH: anemia DAUGHTER FH: breast cancer 19 MOTHER DAUGHTER No Pertinent Family Hx Review of Systems Constitutional: see HPI, dizziness, malaise, weakness EENTM: no symptoms reported Respiratory: no symptoms reported Cardiovascular: no symptoms reported Gastrointestinal: no symptoms reported Genitourinary: other (retention) Musculoskeletal: back pain, joint pain Skin: no symptoms reported Psychiatric/Neurological: Anxiety, Depressed All Other Systems Reviewed Negative Unless Noted: Yes Physical Exam Exam Vital Signs Capillary Refill : General Appearance: No Apparent Distress, WD/WN, Chronically ill, Other (drowsy, fatigued) HEENT: PERRL/EOMI, Normal ENT Inspection, Pharynx Normal, Moist Mucous Membranes Neck: Full Range of Motion, Normal Inspection, Non Tender, Supple Respiratory: Chest Non Tender, Lungs Clear, Normal Breath Sounds, No Accessory Muscle Use, No Respiratory Distress Cardiovascular: Regular Rate, Rhythm, No Edema, No Gallop, No JVD, No Murmur Gastrointestinal: Normal Bowel Sounds, No Organomegaly, No Pulsatile Mass, Non Tender, Soft Back: Normal Inspection, No CVA Tenderness, No Vertebral Tenderness Extremity: Normal Capillary Refill, Normal Inspection, Normal Range of Motion (except left leg decreased ROM), Non Tender, No Calf Tenderness, No Pedal Edema Neurologic/Psychiatric: Alert, Oriented x3, No Motor/Sensory Deficits, Normal Mood/Affect Skin: Normal Color, Warm/Dry Lymphatic: No Adenopathy Results Results/Procedures Labs Patient resulted labs reviewed. Assessment/Plan Assessment and Plan Assess & Plan/Chief Complaint Plan: OAC Consult Rodolfo Dumont and Saurav Maintain king until Dr Reynolds is able to DC Improve nutrition BM regimen Pain control Monitor for falls (1) Debility Status: Acute (2) History of revision of total replacement of left hip joint Status: Acute (3) Left leg DVT Status: Acute Qualifiers: Affected thrombotic vein of extremity: unspecified vein of extremity Chronicity: unspecified Qualified Codes: I82.402 - Acute embolism and thrombosis of unspecified deep veins of left lower extremity (4) Hypertension Status: Chronic Qualifiers: Hypertension type: essential hypertension Qualified Codes: I10 - Essential (primary) hypertension (5) Urinary retention Status: Acute (6) King catheter in place Status: Acute (7) Orthostatic hypotension Status: Acute (8) Dizziness Status: Acute (9) Advanced age Status: Chronic (10) Fatigue Status: Acute Qualifiers: Fatigue type: unspecified Qualified Codes: R53.83 - Other fatigue (11) BPH (benign prostatic hyperplasia) Status: Chronic Qualifiers: Lower urinary tract symptom presence: unspecified whether lower urinary tract symptoms present Qualified Codes: N40.0 - Benign prostatic hyperplasia without lower urinary tract symptoms Post Admission Physician Asses Date seen by provider: May 05, 2019 Time seen by provider: 18:00 Admisison Dx: (1) Debility Status: Acute The preadmission screen agrees with the post admission assessment that the patient is a good candidate for inpatient rehabilitation. The patient will have a comprehensive program of inpatient rehabilitation with a goal of maximizing level of functional independence prior to discharge home with family. The patient will have PT/OT ninety minutes per day, each discipline, five days a week for gait, strengthening, conditioning, balance, ADLs, any patient/family/caregiver training as necessary. Speech therapy to do cognitive assessment and treat as indicated. Rehabilitation nursing to assist with bowel, bladder, skin, wound care, medication administration, pain management. Stamping Machine Operator to assist with discharge planning, community reentry. SCD's for DVT prophylaxis. He appears to be well motivated to participate in three hours of therapy a day. He should be able to tolerate three hours of therapy a day from a medical standpoint. He should benefit from the three hours of therapy a day. He has a reasonable discharge plan, reasonable discharge rehabilitation goals and a supportive family. He has various comorbidities that need to be closely monitor ed with medications and treatments adjusted on a daily basis as needed. These include: see list Barriers to discharge for this patient who had been independent prior to this are for him to be modified independent to supervision for ADLs and mobility skil ls prior to discharge home with family, so as to lessen the burden of the caregivers. Risks for this patient include: 1. Fall 2. Fracture 3. DVT 4. Pulmonary embolism 5. Wound infection 6. Skin breakdown 7. Contractures 8. Poorly controlled pain 9. Urinary retention 10. UTI 11. Respiratory infection 12. Aspiration Estimated Length of Stay: 14 days Prognosis: Rehab prognosis appears good for goal of discharge home with family modified independent to supervision for ADLs and mobility skills. JANNETTE ANGLIN DO May 05, 2019 20:30
[2019-05-05] MEDS ORDERED: busPIRone 15 MG (BUSPAR) TABLET PO SCH (21:00)
[2019-05-05] MEDS ORDERED: DOCUSATE SODIUM 100 MG (COLACE) CAP PO SCH (21:00)
[2019-05-05] MEDS: APIXABAN 5 MG (ELIQUIS) TABLET PO SCH (21:31)
[2019-05-05] MEDS: SENNA W/DOCUSATE (SENOKOT S) TABLET PO SCH (21:33)
[2019-05-05] MEDS: POLYETHYLENE GLYCOL 17 GM (MIRALAX) PACK PO SCH (21:33)
[2019-05-06] MEDS: LEVOTHYROXINE 112 MCG (LEVOTHROID) TAB PO SCH (04:54)
[2019-05-06 06:03] LABS: BASOPHILS % (AUTO) 0 % (0-10); EOSINOPHILS # (AUTO) 0.2 10^3/uL (0.0-0.3); EOSINOPHILS % (AUTO) 2 % (0-10); HEMATOCRIT 31 % (40-54); HEMOGLOBIN 10.2 G/DL (13.3-17.7); LYMPHOCYTES # (AUTO) 1.8 X 10^3 (1.0-4.0); LYMPHOCYTES % (AUTO) 17 % (12-44); MEAN CORPUSCULAR HEMOGLOBIN 32 PG (25-34); MEAN CORPUSCULAR HGB CONC 33 G/DL (32-36); MEAN CORPUSCULAR VOLUME 98 FL (80-99); MONOCYTES % (AUTO) 10 % (0-12); NEUTROPHILS # (AUTO) 7.4 X 10^3 (1.8-7.8); NEUTROPHILS % (AUTO) 71 % (42-75); PLATELET COUNT 444 10^3/uL (130-400); RED CELL DISTRIBUTION WIDTH 13.2 % (10.0-14.5); WHITE BLOOD COUNT 10.5 10^3/uL (4.3-11.0)
[2019-05-06 06:15] VITALS: BP 162/72
[2019-05-06] MEDS: PANTOPRAZOLE 40 MG (PROTONIX) TAB PO SCH (06:17)
[2019-05-06 06:22] LABS: ALANINE AMINOTRANSFERASE 39 U/L (0-55); ALBUMIN 2.8 GM/DL (3.2-4.5); ALKALINE PHOSPHATASE 152 U/L (40-136); BILIRUBIN,TOTAL 2.2 MG/DL (0.1-1.0); BUN/CREATININE RATIO 25; CALCIUM 8.2 MG/DL (8.5-10.1); CARBON DIOXIDE 24 MMOL/L (21-32); CHLORIDE 107 MMOL/L (98-107); CREATININE SERUM 0.79 MG/DL (0.60-1.30); GFR ESTIMATED > 60; GLUCOSE 101 MG/DL (70-105); POTASSIUM 3.2 MMOL/L (3.6-5.0); SODIUM 139 MMOL/L (135-145); TOTAL PROTEIN 5.1 GM/DL (6.4-8.2)
[2019-05-06] MEDS ORDERED: MAGNESIUM OXIDE (MAG-OX)400 MG TAB PO SCH (08:27)
[2019-05-06] MEDS ORDERED: KCL 8 MEQ (MICRO K) TABLET PO NR (08:30)
--- NOTE | 2019-05-06 08:41 | Physical Therapy Evaluation ---
PT Evaluation-General Medical Diagnosis Admission Date May 05, 2019 at 18:00 Medical Diagnosis: left TIA revision Onset Date: Apr 22, 2019 Therapy Diagnosis Therapy Diagnosis: impaired mobility, strength, endurance, balance Height/Weight Height (Feet): 6 Height (Inches): 2.00 Weight (Pounds): 215 Weight (Ounces): 6.0 Precautions Precautions/Isolations: Fall Prevention, Standard Precautions Weight Bear Status Left Lower Extremity: Left Weight Bearing/Tolerated Referral Physician: Jannette Becerra DO Reason for Referral: Evaluation/Treatment Medical History Additional Medical History Past Medical History Surgeries: Cardiac, Coronary Stent, Gallbladder, Orthopedic Currently Using CPAP: No Currently Using BIPAP: No Cardiac: Chronic Edema/Swelling, Coronary Artery Disease, Deep Vein Thrombosis, Hypertension Reproductive: No Sexually Transmitted Disease: No HIV/AIDS: No Genitourinary: Benign Prostatic Hyperpl, Prostate Problems, Kidney Stones Gastrointestinal: Gastroesophageal Reflux, Hepatitis Musculoskeletal: Arthritis Endocrine: Hypothyroidsim HEENT: Cataract Loss of Vision: Denies Hearing Impairment: Hard of Hearing Psychosocial: Depression History of Blood Disorders: No Adverse Reaction to Blood Lora: No Current History left leg DVT Reviewed History: Yes Social History Home: Single Level Current Living Status: Alone Entry Into Home: Level Entry Daughter is in room to provide history. Prior/Core FIM Prior Level of Function Therapy Code Descriptions/Definitions Functional [place] Measure: 0=Not Assessed/NA 4=Minimal Assistance 1=Total Assistance 5=Supervision or Setup 2=Maximal Assistance 6=Modified [place] 3=Moderate Assistance 7=Complete [place] Therapy Quality Codes: 6 Independent with activity with or without an assistive device 5 Patient requires set up or clean up by helper. Patient completes activity by themselves 4 Supervision or touching assist (CGA). [place] provide cues , steadying assist 3 The helper provides less than half the effort to complete the activity 2 The helper provides more than half the effort to complete the activity 1 Dependent. The helper does all the effort to complete an activity 7 Patient refused to complete or attempt activity 9 The patient did not perform the activity before the current illness or i njury 88 Not attempted due to Medical conditions or safety concerns Functional Abilities and Goals: Independent: Patient completed the activities by him/herself, with or without an assistive device, with no assistance from a helper. Needed Some Help: Patient needed partial assistance from another person to complete activities. Dependent: A helper completed the activities for the patient. Unknown: Not Applicable: Bed Mobility: 7 Transfers (B,C,W/C) (FIM): 7 Gait: 6 Indoor Mobility (Ambulation): Independent Patient was using a SPC previously. PT Evaluation-Current Subjective Patient in bed pre tx, he is very lethargic, daughter in room states that he was doing well and walking when he went home, patient doesn't verbalize anything during treatment but will shake head yes or no to questions. Patient indicates that he does not have pain. He will barely open his eyes and participates very little in therapy. Pt/Family Goals none stated Objective Patient Orientation: Person, Unable to Assess Attachments: Madrigal Catheter ROM/Strength ROM Lower Extremities NT Strenght Lower Extremities Unable to assess, patient cannot follow directions. Sensory Sensation Lower Extremities unable to assess Transfers Therapy Code Descriptions/Definitions Functional [place] Measure: 0=Not Assessed/NA 4=Minimal Assistance 1=Total Assistance 5=Supervision or Setup 2=Maximal Assistance 6=Modified [place] 3=Moderate Assistance 7=Complete [place] Therapy Quality Codes: 6 Independent with activity with or without an assistive device 5 Patient requires set up or clean up by helper. Patient completes activity by themselves 4 Supervision or touching assist (CGA). [place] provide cues , steadying assist 3 The helper provides less than half the effort to complete the activity 2 The helper provides more than half the effort to complete the activity 1 Dependent. The helper does all the effort to complete an activity 7 Patient refused to complete or attempt activity 9 The patient did not perform the activity before the current illness or injury 88 Not attempted due to Medical conditions or safety concerns Transfers (B, C, W/C) (FIM): 1 Scootin Rollin Roll Left to Right (QC): 1 Sit to/from Stand: 2 bed t/f WC(FIM only if WC use): 2 Sit to Lying (QC): 1 Lying to Sitting/Side of Bed(Q: 1 Sit to Stand (QC): 2 Chair/Mfb-cp-Ktved Xfer(QC): 2 Car Transfer (QC): 2 Patient performs bed mobility with dependence, supine <-> sit with dependence, sit <-> stand with max assist, stand pivot transfer with max assist, car transfer max assist. Patient participates very little, doesn't follow directions, cannot keep his eyes open. Gait Gait (FIM): 0 Wheelchair Training Wheelchair (FIM): 1 Stairs If not tested on admit;explain patient is not ambulatory at this time Balance Sitting Static: Poor Sitting Dynamic: Poor Standing Static: Poor Standing Dynamic: Poor Treatment BLE exercises AAROM (patient assisted very little mostly it was PROM) x20 (AP, LAQ) Assessment/Needs Patient has impaired mobility, strength, endurance, balance post left TIA revision. Patient is very lethargic, non-verbal, and participates very little. Patient in recliner post tx with nurse call, phone, tray, legs elevated and on pillow, daughter in the room. Rehab Potential: Guarded PT Short Term Goals Short Term Goals Time Frame: May 13, 2019 Transfers (B,C,W/C) (FIM): 3 Gait (FIM): 1 Gait Distance Comment: 10' Gait Level of Assist: 3 Gait Assistive Device: FWW PT Assisted Goals Associate Juvenile Court Judge Goals PT Associate Juvenile Court Judge Goals Time Frame: May 27, 2019 Transfers (B,C,W/C) (FIM): 4 Sit to Lying (QC): 3 Lying-Sitting on Side/Bed(QC): 3 Sit to Stand (QC): 3 Rollin Roll Left to Right (QC): 3 Chair/Ywk-xe-Equen Xfer(QC): 3 Car Transfer (QC): 3 Gait (FIM): 2 Distance: 50' Walk 10 feet (QC): 4 Walk 10ft-Uneven Surface(QC): 4 Walk 50ft with 2 Turns (QC): 4 Walk 150 ft (QC): 4 Gait Level of Assist: 4 Gait Assistive Device: FWW Stairs (FIM): 2 # of Steps: 4 1 Step (curb) (QC): 4 Stairs Level Of Assist: 4 PT Plan Problem List Problem List: Activity Tolerance, Functional Strength, Safety, Balance, Gait, Transfer, Bed Mobility, ROM Treatment/Plan Treatment Plan: Continue Plan of Care Treatment Plan: Bed Mobility, Concurrent Therapy, Education, Functional Activity Michael, Functional Strength, Group Therapy, Gait, Safety, Therapeutic Exercise, Transfers Treatment Duration: May 27, 2019 Frequency: At least 5 of 7 days/Wk (IRF) Estimated Hrs Per Day: 1.5 hours per day Patient and/or Family Agrees t: Yes Safety Risks/Education Patient Education: Transfer Techniques, Correct Positioning, Safety Issues Teaching Recipient: Patient Teaching Methods: Demonstration, Discussion Response to Teaching: Reinforcement Needed Discharge Recommendations Plan Patient will perform bed mobility and transfer training, balance and endurance training, functional strengthening, stair training, gait training, and education, to improve functional mobility and independence at home. Therapy Discharge Recommendati: 24 Hour Supervision Time/GCodes Time In: 0800 Time Out: 844 Total Billed Treatment Time: 45 Total Billed Treatment 1 visit EVM 30' FA 15' BEULAH SOMERS PT May 06, 2019 08:41
[2019-05-06] MEDS: SERTRALINE 100 MG (ZOLOFT) TAB PO SCH (08:48)
[2019-05-06] MEDS: ACETAMINOPHEN 500 MG TAB (TYLENOL) PO PRN ×2 (08:48→20:32)
[2019-05-06] MEDS: APIXABAN 5 MG (ELIQUIS) TABLET PO SCH ×2 (08:48→20:32)
[2019-05-06] MEDS: ASPIRIN E.C. 81 MG (ECOTRIN) TAB PO SCH (08:49)
[2019-05-06] MEDS: SENNA W/DOCUSATE (SENOKOT S) TABLET PO SCH ×2 (08:49→20:32)
[2019-05-06] MEDS: meTOproloL SUCCINATE 50 MG (TOPROL XL) TAB PO SCH (08:49)
[2019-05-06] MEDS: POLYETHYLENE GLYCOL 17 GM (MIRALAX) PACK PO SCH ×2 (08:49→21:07)
[2019-05-06] MEDS: FLUTICASONE NASAL SPRAY (FLONASE) 16 GM BTL NS SCH (08:52)
[2019-05-06] MEDS: LOSARTAN 100 MG (COZAAR) TABLET PO SCH (08:52)
[2019-05-06] MEDS ORDERED: amLODIPine 5 MG (NORVASC) TAB PO SCH (09:00)
[2019-05-06] MEDS ORDERED: ASPIRIN 325 MG (5 GR) TABLET PO SCH (09:00)
[2019-05-06] MEDS ORDERED: TELMISARTAN 40 MG (MICARDIS) TAB PO SCH (09:00)
[2019-05-06] MEDS ORDERED: DULoxetine 30 MG (CYMBALTA) CAP PO SCH (09:00)
--- NOTE | 2019-05-06 09:31 | Consultation-Cardiology ---
HPI-Cardiology Cardiology Consultation: Date of Consultation 05/06/19 Date of Admission Attending Physician Jannette Becerra DO Admitting Physician Mikayla Mg DO Consulting Physician Lamine KRISHNAMURTHY MD HPI: Time Seen by a Provider: 08:30 Chief Complaint: Recent hip surgery. this is a 83-year-old gentleman who has history of hypertension and previous PCI to the RCA with bare metal stent in 2004. He has history of hyperlipidemia. No family history. No active smoking. No history of diabetes. He had echo done in 2012 which showed normal LV function with mild LVH and a PA pressure of 35 mmHg. He had coronary angiography on 04/22/2013 which showed mild in-stent restenosis of 30 percent. Carotid ultrasound done on 12/15/2011 showed mild bilateral carotid artery stenosis. The patient denies any chest pain or shortness of breath. He has decreased functional capacity. He had recent hip surgery. Transferred to our hospital for inpatient rehabilitation. Denies any cardiac complaints. Review of Systems-Cardiology Review of Systems Constitutional: As described under HPI; No As described under HPI, No no symptoms reported, No chills, No fever, No lightheadedness Eyes: No As described under HPI, No no symptoms reported, No blindness, No blurred vision, No contact lenses, No drainage, No decreased acuity, No foreign body sensation, No pain, No vision change Ears/Nose/Throat: No As described under HPI, No no symptoms reported, No chronic hearing loss, No ear discharge, No ear pain, No nasal drainage, No ulcerations Respiratory: No no symptoms reported; As described under HPI; No As described under HPI, No cough, No orthopnea, No shortness of breath, No SOB with excertion Cardiovascular: No no symptoms reported; As described under HPI; No As described under HPI, No chest pain, No edema, No irregular heart rate, No lightheadedness, No palpitations Gastrointestinal: No no symptoms reported, No As described under HPI, No abdomen distended, No abdominal pain, No blood streaked bowels, No constipation, No diarrhea, No nausea, No vomiting, No stool coloration changes Genitourinary: No As described under HPI, No burning, No dysuria, No discharge, No frequency, No flank pain, No hematuria, No urgency Musculoskeletal: joint pain Skin: No rash, No skin related problems, No ulcerations Psychiatric/Neurological: No anxiety, No depression, No seizure, No focal w eakness, No syncope Hematologic: No bleeding abnormalities All Other Systems Reviewed Negative Unless Noted: Yes [id number]-Ihoais Hx Patient Social History Marrital Status: single Employed/Student: employed ([employer]) Alcohol Use: Denies Use Recreational Drug Use: No Smoking Status: Never a Smoker Recent Foreign Travel: No Recent Infectious Disease Expo: No Physical Abuse Screen: No Sexual Abuse: No Immunizations Up To Date Tetanus Booster (TDap): Unknown Date of Pneumonia Vaccine: Jun 22, 2017 Date of Influenza Vaccine: May 27, 2017 Past Medical History PMH As described under Assessment. Family Medical History Family History: FH: anemia DAUGHTER FH: breast cancer 19 MOTHER DAUGHTER Allergies and Home Medications Allergies Coded Allergies: NKANo Known Allergies (Verified Allergy, Unknown, 03/06/06) Home Medications Acetaminophen 500 Mg Tablet, 1,000 MG PO Q8H PRN for PAIN-MILD OR TEMPATURE, (Reported) Acetaminophen 650 Mg Tablet.er, 650 MG PO Q6H PRN for PAIN-MILD, (Reported) Amlodipine Besylate 10 Mg Tablet, 10 MG PO HS, (Reported) Apixaban 5 Mg Tablet, 5 MG PO BID, (Reported) Aspirin 81 Mg Tab.chew, 81 MG PO BID, (Reported) Buspirone HCl 10 Mg Tablet, 10 MG PO TID PRN for ANXIETY, (Reported) Docusate Sodium 100 Mg Capsule, 100 MG PO DAILY, (Reported) Duloxetine HCl 30 Mg Capsule.dr, 30 MG PO DAILY, (Reported) Fluticasone Propionate 16 Gm [place].susp, 1-2 SPRAYS NS DAILY, (Reported) Gabapentin 300 Mg Capsule, 300 MG PO HS PRN for RLS, (Reported) Levothyroxine Sodium 112 Mcg Tablet, 112 MCG PO DAILY, (Reported) Melatonin 3 Mg Tablet, 3 MG PO HS PRN for SLEEP, (Reported) Metoprolol Succinate 50 Mg Tab.er.24h, 50 MG PO BID, (Reported) Omeprazole Magnesium 20 Mg Tablet.dr, 20 MG PO DAILY, (Reported) Sertraline HCl 100 Mg Tablet, 100 MG PO DAILY, (Reported) Solifenacin Succinate 5 Mg Tablet, 5 MG PO HS, (Reported) Telmisartan 80 Mg Tablet, 80 MG PO DAILY, (Reported) Patient Home Medication List Home Medication List Reviewed: Yes Physical Exam-Cardiology Physical Exam Vital Signs/I&O 05/06/19 06:15 Temp 36.5 Pulse 71 Resp 16 B/P (MAP) 162/72 Pulse Ox 94 O2 Delivery Room Air Capillary Refill : Constitutional: appears stated age, AAO x 3; No apparent distress; well- developed, well-nourished HEENT: PERRL; No discharge; hearing is well preserved, oral hygience is good; No ulceration, No xanthelasmas are seen Neck: No carotid bruit; carotid pulses are 2 + bilaterally Respiratory: chest is bilaterally symmetric, lungs clear to auscultation Cardiovascular: regular rate-rhythm, S1 and S2 Gastrointestinal: soft, audible bowel sounds; No spleenomegaly Rectal: deferred Extremities: No clubbing, No cyanosis; no lower extremity edema bilateral; No significant edema Neurologic/Psychiatric: no motor/sensory deficits, alert, normal mood/affect, oriented x 3, power is 5/5 both on sides Skin: No rash, No ulcerations Data Review Labs Laboratory Tests 05/06/19 05:35: White Blood Count 10.5, Red Blood Count 3.22L, Hemoglobin 10.2L, Hematocrit 31L, Mean Corpuscular Volume 98, Mean Corpuscular Hemoglobin 32, Mean Corpuscular Hemoglobin Concent 33, Red Cell Distribution Width 13.2, Platelet Count 444H, Mean Platelet Volume 10.0, Neutrophils (%) (Auto) 71, Lymphocytes (%) (Auto) 17, Monocytes (%) (Auto) 10, Eosinophils (%) (Auto) 2, Basophils (%) (Auto) 0, Neutrophils # (Auto) 7.4, Lymphocytes # (Auto) 1.8, Monocytes # (Auto) 1.0, Eosinophils # (Auto) 0.2, Basophils # (Auto) 0.0, Sodium Level 139, Potassium Level 3.2L, Chloride Level 107, Carbon Dioxide Level 24, Anion Gap 8, Blood Urea Nitrogen 20H, Creatinine 0.79, Estimat Glomerular Filtration Rate > 60, B UN/Creatinine Ratio 25, Glucose Level 101, Calcium Level 8.2L, Corrected Calcium 9.2, Total Bilirubin 2.2H, Aspartate Amino Transf (AST/SGOT) 27, Alanine Aminotransferase (ALT/SGPT) 39, Alkaline Phosphatase 152H, Total Protein 5.1L, Albumin 2.8L A/P-Cardiology Assessment/Admission Diagnosis Recent hip surgery, Blood pressure, CAD, Mild bilateral carotid artery disease, Dementia, Recent lower extremity DVT. Plan Recent hip surgery, inpatient rehabilitation. Hypertension, still elevated blood pressure. Continue outpatient medical therapy. CAD, continue aspirin. Mild bilateral carotid artery disease, continue to follow clinically. Dementia, Recent lower extremity DVT. Patient is on Eliquis. Thank you for your consultation. Please call me if you have any questions. Raquel Krishnamurthy MD, FACP, FACC, [facility] [place], FHRS, CCDS Interventional Cardiology Cardiac Electrophysiology Vascular Medicine and Endovascular Interventions Clinical Quality Measures DVT/VTE Risk/Contraindication: Risk Factor Score Per Nursin RFS Level Per Nursing on Admit: 4+=Very High Lamine KRISHNAMURTHY MD May 06, 2019 09:31
--- NOTE | 2019-05-06 09:40 | PM&R Progress Note ---
Subjective HPI/CC On Admission Date Seen by Provider: May 06, 2019 Time Seen by Provider: 09:00 CC: Debility HPI: This is a 79yoWM clinic pt of Dr. Mg who presents to the inpatient rehab facility after suffering severe debility after he was readmitted after an uncomplicated revision of his left hip for fever and Leukocytosis found to have an acute left lower extremity DVT, placed on Eliquis and labs returned back to normal and became afebrile. No other source of the fever was found. He was previously independent and had just recently had the hip replacement surgery two days prior to readmission and he has had an uncomplicated hospital course but he did have urinary retention requiring Ikng catheter maintenance at [place] and will work on that to [place] that urology evaluation as he is settled in in inpatient rehab. We will consult family practice to help medical manage and will work in order to help him regain his function of ADLS and ambulatory skills. Subjective/Events-last exam Pt doing very well today, but groggy. Buspar and Gabapentin are being held because of the grogginess. UA was checked at [facility] yesterday so will follow-up on that result. Daughter thought he was supposed to be on antibiotics but the Doxycycline was completed at time of discharge per discharge papers. Eliquis maintained for the left lower extremity DVT. Up in a chair at least and maintained with a King catheter, Dr. Reynolds was notified and he was aware of the consultation. Dr. Krishnamurthy (cardiology) also saw him, potassium 3.2 will be addressed. Participating gin therapy but slow due to grogginess. Very difficult to maneuver, he is a two person transfer at this time. Family is very involved in his care. Review of Systems General: Fatigue Musculoskeletal: leg pain Neurological: Confusion Objective Exam Vital Signs Vital Signs Date Time Temp Pulse Resp B/P (MAP) Pulse Ox O2 Delivery O2 Flow Rate FiO2 05/06/19 18:00 36.5 76 18 145/76 94 Room Air Capillary Refill : General Appearance: No Apparent Distress, WD/WN, Chronically ill, Other (drowsy, fatigued) HEENT: PERRL/EOMI, Normal ENT Inspection, Pharynx Normal, Moist Mucous Membranes Neck: Full Range of Motion, Normal Inspection, Non Tender, Supple Respiratory: Chest Non Tender, Lungs Clear, Normal Breath Sounds, No Accessory Muscle Use, No Respiratory Distress Cardiovascular: Regular Rate, Rhythm, No Edema, No Gallop, No JVD, No Murmur Gastrointestinal: Normal Bowel Sounds, No Organomegaly, No Pulsatile Mass, Non Tender, Soft Back: Normal Inspection, No CVA Tenderness, No Vertebral Tenderness Extremity: Normal Capillary Refill, Normal Inspection, Normal Range of Motion (except left leg decreased ROM), Non Tender, No Calf Tenderness, No Pedal Edema Neurologic/Psychiatric: Alert, Oriented x3, No Motor/Sensory Deficits, Normal Mood/Affect Skin: Normal Color, Warm/Dry Lymphatic: No Adenopathy Results/Procedures Lab Laboratory Tests 05/06/19 05:35 Patient resulted labs reviewed. FIM Transfers Therapy Code Descriptions/Definitions Functional [place] Measure: 0=Not Assessed/NA 4=Minimal Assistance 1=Total Assistance 5=Supervision or Setup 2=Maximal Assistance 6=Modified [place] 3=Moderate Assistance 7=Complete [place] Therapy Quality Codes: 6 Independent with activity with or without an assistive device 5 Patient requires set up or clean up by helper. Patient completes activity by themselves 4 Supervision or touching assist (CGA). [place] provide cues , steadying assist 3 The helper provides less than half the effort to complete the activity 2 The helper provides more than half the effort to complete the activity 1 Dependent. The helper does all the effort to complete an activity 7 Patient refused to complete or attempt activity 9 The patient did not perform the activity before the current illness or injury 88 Not attempted due to Medical conditions or safety concerns Transfers (B, C, W/C) (FIM): 1 Scootin Rollin Roll Left to Right (QC): 1 Sit to/from Stand: 2 Sit to Lying (QC): 1 Sit to Stand (QC): 2 Chair/Xlb-bb-Lemen Xfer(QC): 2 Bed to/from Chair: 2 Car Transfer (QC): 2 Gait Training Gait (FIM): 0 Wheelchair Training Wheelchair (FIM): 1 Assessment/Plan Assessment and Plan Assess & Plan/Chief Complaint Plan: OAC Consult Rodolfo Dumont and Saurav Al king until Dr Reynolds is able to DC Improve nutrition BM regimen Pain control Monitor for falls Minimize sedatives (1) Debility Status: Acute (2) History of revision of total replacement of left hip joint Status: Acute (3) Advanced age Status: Chronic (4) Left leg DVT Status: Acute Qualifiers: Affected thrombotic vein of extremity: unspecified vein of extremity Chronicity: unspecified Qualified Codes: I82.402 - Acute embolism and thrombosis of unspecified deep veins of left lower extremity (5) King catheter in place Status: Acute (6) Hypertension Status: Chronic Qualifiers: Hypertension type: essential hypertension Qualified Codes: I10 - Essential (primary) hypertension (7) BPH (benign prostatic hyperplasia) Status: Chronic Qualifiers: Lower urinary tract symptom presence: unspecified whether lower urinary tr act symptoms present Qualified Codes: N40.0 - Benign prostatic hyperplasia wi thout lower urinary tract symptoms (8) Dizziness Status: Acute (9) Urinary retention Status: Acute (10) Fatigue Status: Acute Qualifiers: Fatigue type: unspecified Qualified Codes: R53.83 - Other fatigue (11) Orthostatic hypotension Status: Acute BASIL ANGLIN DO May 06, 2019 09:40
[2019-05-06] MEDS ORDERED: BETHANECHOL 10 MG (URECHOLINE) TAB PO SCH (11:00)
--- NOTE | 2019-05-06 11:14 | NUR ---
Dr. Reynolds on floor and stated to hold the Uricholine until he checks the pt's chart at the office.
[2019-05-06] MEDS ORDERED: ACET-2267 PO (11:26)
[2019-05-06] MEDS ORDERED: APIX5TAB PO (11:26)
[2019-05-06] MEDS ORDERED: METO-370 PO (11:26)
[2019-05-06] MEDS ORDERED: DOCU-143 PO (11:26)
[2019-05-06] MEDS ORDERED: MELA3TAB PO (11:26)
[2019-05-06] MEDS ORDERED: OMEP20TA33 PO (11:26)
[2019-05-06] MEDS ORDERED: TELM80TA PO (11:26)
[2019-05-06] MEDS ORDERED: ASPI-999 PO (11:26)
[2019-05-06] MEDS ORDERED: AMLO10TA7 PO (11:26)
[2019-05-06] MEDS ORDERED: ACET-2650 PO (11:26)
[2019-05-06] MEDS ORDERED: BUSP10TA95 PO (11:26)
[2019-05-06] MEDS ORDERED: FLUT16SP22 NS (11:26)
[2019-05-06] MEDS ORDERED: GABA-488 PO (11:26)
[2019-05-06] MEDS ORDERED: DULO30CA49 PO (11:26)
[2019-05-06] MEDS ORDERED: NF-SOLIF5T PO (11:26)
--- NOTE | 2019-05-06 11:30 | NUR ---
UPDATED MED REC WITH THE DISCHARGE INSTRUCTIONS FROM [facility]. NOTE THE FOLLOWING CHANGES WERE MADE AT THAT DISCHARGE: START TAKING: COLACE 100MG DAILY ELIQUIS 5MG BID FLONASE DAILY MELATONIN 3MG HS PRN TYLENOL 650MG Q6H PRN BUSPAR 10MG TID PRN MICARDIS 80MG DAILY METOPROLOL XL 50MG BID STOP TAKING: TRAMADOL 50MG 1-2 TABS Q6H PRN (THIS SAYS DC HOWEVER THERE IS A NEW SCRIPT ON THE CHART) DOXYCYCLINE 100MG BID X 7 DAYS (ACCORDING TO EXT MED HX WAS FILLED #14 04-23-19) METOPROLOL XL 50MG BID (ALSO WAS ORDERED NEW SCRIPT) MICARDIS 80MG DAILY (ALSO WAS ORDERED NEW SCRIPT) I WILL UPDATE THE MED REC TO THE LIST OF MEDICATIONS THE PATIENT WAS TAKING PRIOR TO DISCHARGE FROM [facility] AT A LATER DATE FOR PROPER DISCHARGE TO HOME ORDERS. Addendum: 05/08/19 at 1455 by REX DYER [facility] REMOVED THE 6 NEW MEDICATIONS ORDERED AT DISCHARGE FROM [facility]. THOUGH THEY ORDERED METOPROLOL AND MICARDIS THE SAME DOSE AND DIRECTIONS WERE DISCONTINUED SO I LEFT THEM ON THE MED REC. I ADDED BACK THE TRAMADOL THAT WAS DISCONTINUED ON DISCHARGE BUT NOT THE DOXYCYCLINE. THIS WAS A SHORT TERM MEDICATION FILLED PRIOR TO ADMISSION AT [facility].
--- NOTE | 2019-05-06 13:10 | Occupational Therapy Eval ---
OT Evaluation-General/PLF Medical Diagnosis Admission Date May 05, 2019 at 18:00 Medical Diagnosis: left TIA revision Onset Date: Apr 22, 2019 Therapy Diagnosis Therapy Diagnosis: impaired self care skills Height/Weight Height (Feet): 6 Height (Inches): 2.00 Weight (Pounds): 215 Weight (Ounces): 6.0 Precautions Precautions/Isolations: Fall Prevention, Standard Precautions Safety Interventions: Reorient-PRN Referral Physician: Jannette Becerra DO Medical History Pertinent Medical History: Arthritis, CAD, GERD, HTN, Hypothroidism Additional Medical History coronary stent, chronic edema, DVT, BPH, kidney stones, hepatitis, depression Social History Home: Single Level Current Living Status: Alone Entry Into Home: Level Entry ADL-Prior Level of Function Therapy Code Descriptions/Definitions Functional [place] Measure: 0=Not Assessed/NA 4=Minimal Assistance 1=Total Assistance 5=Supervision or Setup 2=Maximal Assistance 6=Modified [place] 3=Moderate Assistance 7=Complete [place] Therapy Quality Codes: 6 Independent with activity with or without an assistive device 5 Patient requires set up or clean up by helper. Patient completes activity by themselves 4 Supervision or touching assist (CGA). [place] provide cues , steadying assist 3 The helper provides less than half the effort to complete the activity 2 The helper provides more than half the effort to complete the activity 1 Dependent. The helper does all the effort to complete an activity 7 Patient refused to complete or attempt activity 9 The patient did not perform the activity before the current illness or injury 88 Not attempted due to Medical conditions or safety concerns Functional Abilities and Goals: Independent: Patient completed the activities by him/herself, with or without an assistive device, with no assistance from a helper. Needed Some Help: Patient needed partial assistance from another person to complete activities. Dependent: A helper completed the activities for the patient. Unknown: Not Applicable: ADL PLOF Comments Pt lethargic, but daughter is present to provide history. Pt is normally independent with self care and mobility. Self Care: Independent DME/Equipment: Grab Bars, Shower, Toilet/R[address] Self: Yes OT Current Status Subjective Pt is lethargic, but does open eyes and answer questions with prompting. Has difficulty maintaining alertness, but does participate in therapy with constant cueing. Pt indicated pain in left hip, but does not rate. Mental Status/Objective Patient Orientation: Person, Confused Attachments: Madrigal Catheter Current Glasses/Contacts: Yes Hearing Aids: No Hand Dominance: Right Upper Extremity ROM Grossly WFL Upper Extremity Coordination Fair Upper Extremity Strength Grossly 4-/5 ADL-Treatment ADL-Current Pt completed partial sponge bath while seated in chair. Pt's daughter assisted pt to doff shirt. Pt washed face, bilateral arms, chest, and abdomen with increased time and cues. Don pullover shirt with assist to pull down in the back. Pt declined to complete lower body bathing or dressing at this time. Pt able to brush teeth with SBA. Combed hair with min assist. Pt moves slowly and requires increased time for all tasks. Pt performed sit to stand x2 trials with moderate assist. Pt requires cues for hand placement and safety. Cues for posture in standing. Pt cooperative, but activity is limited by level of alertness. Pt sitting in recliner with needs met after session. Eating (FIM): 5 (per daughter's report) Eating (QC): 5 Grooming (FIM): 4 Oral Hygiene (QC): 4 Upper Body Dressing (FIM): 3 Upper Body Dressing (QC): 3 Shower Transfer (FIM): 0 Education OT Patient Education: Rehab process Teaching Recipient: Patient Teaching Methods: Discussion Response to Teaching: Reinforcement Needed OT Short Term Goals Short Term Goals Time Frame: May 13, 2019 Bathing(FIM): 4 Upper Body Dressing(FIM): 4 Lower Body Dressing(FIM): 3 Toilet/Commode Transfer(FIM): 3 Additional Short Term Goals: 1-Demonstrate ADL Tasks, 2-Verbalize Understanding, 3-ImproveStrength/Michael 1=Demonstrate adherence to instructed precautions during ADL tasks. 2=Patient will verbalize/demonstrate understanding of assistive devices/modifications for ADL. 3=Patient will improve strength/tolerance for activity to enable patient to perform ADL's. OT Fpc Goals Fpc Goals Time Frame: May 27, 2019 Eating (FIM): 6 Eating (QC): 6 Groomin Oral Hygiene (QC): 6 Bathing(FIM): 5 Shower/Bathe Self (QC): 4 Upper Body Dressing(FIM): 5 Upper Body Dressing (QC): 5 Lower Body Dressing(FIM): 5 Lower Body Dressing (QC): 5 On/Off Footwear (QC): 5 Toileting(FIM): 6 Toileting Hygiene (QC): 6 Toilet/Commode Transfer(FIM): 5 Toilet/Commode Transfer (QC): 5 Shower Transfer(FIM): 5 Additional Goals: 1-Demonstrate ADL Tasks, 2-Verbalize Understanding, 3- ImproveStrength/Michael 1=Demonstrate adherence to instructed precautions during ADL tasks. 2=Patient will verbalize/demonstrate understanding of assistive devices/ modifications for ADL. 3=Patient will improve strength/tolerance for activity to enable patient to perform ADL's. OT Education/Plan Problem List/Assessment Assessment: Decreased Activ Tolerance, Decreased Safety Aware, Decreased UE Strength, Dependent Transfers, Impaired I ADL's, Impaired Self-Care Skills Pt to benefit from skilled OT intervention for ADL training, transfers, strengthening, and safety education to increase level of independence and allow safe discharge. Discharge Recommendations Plan/Recommendations: Continue POC Treatment Plan/Plan of Care Treatment,Training & Education: Yes Patient would benefit from OT for education, treatment and training to promote independence in ADL's, mobility, safety and/or upper extremity function for ADL's. Plan of Care: ADL Retraining, Functional Mobility, Group Exercise/Act as Ind, UE Funct Exercise/Act Treatment Duration: May 27, 2019 Frequency: At least 5 of 7 days/Wk (IRF) Estimated Hrs Per Day: 1.5 hours per day Rehab Potential: Fair Time/GCodes Start Time: 10:00 Stop Time: 11:00 Total Time Billed (hr/min): 60 Billed Treatment Time 1 visit, EVM(20minutes), ADLx3(40minutes) JAVIER MARIN OT May 06, 2019 13:10
--- NOTE | 2019-05-06 14:51 | Therapy Group Daily Note ---
Therapy Daily Group Note Patient Education Topic Home Safety, Fall Prevention Exercises Other Session Ratio (pt:therapist): 4:1 Goal of Session: Education on ARU Expectations, Home Safety Strategies, Memory Strategies, Safety with Transfers Home safety education Adaptive equipment education Cognitive task with socialization and memory regarding historical trivia. Goal Met for this Session: Yes Pt Benefit of Group: Increased Functional Safety, Improved Cognition, Recognition of Peers, Socialization Pt. participated in group therapy session that focused on home safety and cognitive trivia. Pt. able to state name, where from, and a story pertaining to home safety. Then participated collectively with group for education regarding home safety strategies, adaptive equipment, and further education on discharge planning. This group also contained trivia pertaining to history, thus engaging in memory and knowledge. Pt. participated well. Start Time: 13:00 Stop Time: 14:15 Total Billed Treatment Time: 75 Total Billed Treatment 1, Group CHALINO GONZALEZ OT May 06, 2019 14:51
--- NOTE | 2019-05-06 15:08 | ST Cognitive Linguistic Eval ---
Speech Evaluation-General Medical Diagnosis left TIA revision Onset Date: Apr 22, 2019 Therapy Diagnosis Therapy Diagnosis: Cognitive-communication Precautions Precautions: Fall Precautions/Isolations: Fall Prevention, Standard Precautions Referral Referring Physician: Dr. Becerra Reason for Referral: Evaluation/Treatment Medical History Pertinent Medical History: Arthritis, CAD, GERD, HTN, Hypothroidism Hypothyroidism, GERD, HTN, Arthritis Current History left TIA revision Reviewed History: Yes Social History Home: Single Level Current Living Status: Alone Speech PLF-Current Status Prior Level of Function Patient is a who lives alone with family near by for assistance as needed. Subjective The patient was pleasant and cooperative with the cognitive assessment. Language Eval: Auditory Comprehends Simple Yes/No Ques: Functional Indent/Objects Multiple Villavicencio: Functional Ident/Pics in Multiple Villavicencio: Functional Follows 1-Step Commands: Mild Follows Complex Directions: Moderate Follows General Conversations: Mild Language Eval: Verbal Language Completes Spontaneous Greeting: Functional Produces Auto, Serial Info: Functional Imitates Simple Words/Phrases: Functional Word Finding: Mild Requests Basic Needs: Functional States Basic Personal Info: Functional Expresses Complex Ideas: Mild Objective Cognitive Domain Attention: WNL Memory: Moderate Problem Solving: Mild Executive Functions: Mild Visuospatial Skills: WNL Composite Severity Rating: Mild Clock Drawing Severity Rating: Mild Objective Formal/Standardized Tests [facility] Mental Status ([facility]) Results , within the Mild Neurocognitive Disorder range of function. Oral Motor/Speech Production Within Functional Range Impression The patient is a pleasant 83 year old man who was admitted to the ARU s/p left hip revision. The patient states he lives alone, however he has family near by for assistance as needed. The patient was given the UMS with results of . This score is in the MNCD range of function. The patient will receive skilled cognitive therapy. Communication/Social Cognition Comprehension: 6 Expression: 5 Social Interaction: 7 Problem Solvin Memory: 4 Speech Patient Assess Expression of Ideas/Wants: Exhibits (3) Understanding Verbal Content: Sometimes Understands(2) Brief Interview-Mental Status: Yes Repetition of Three Words: Three (3) Temporal Orientation: Year: Correct (3) Temporal Orientation: Month: Accurate within 5 days(2) Temporal Orientation: Day: Correct (1) Recall : Wear to say "Sock": No, could not recall (0) Recall : Color: No, could not recall (0) Recall : Bed: Yes,after cueing (1) Memory/Recall Ability: Current season, That he or she is in a hsp/hsp unit Speech Short Term Goals Short Term Goals Short Term Goals 1) The patient will complete memory tasks related to his daily needs at 90% or greater. 2) The patient will complete problem solving tasks related to his daily needs at 90% or greater. 3) The patient will complete safety awareness tasks related to his daily needs at 90% or greater. Speech Retirement Goals Retirement Goals Patient will improve cognitive-communication necessary for safety and daily living tasks with minimal assistance. Speech-Plan Patient/Family Goals Patient/Family Goals: The patient plans on returning to his home after therapy is he is able. Treatment Plan Speech Therapy Treatment Plan: Continue Plan of Care The patient will receive skilled cognitive therapy so that he can return home safely. Treatment Duration: May 16, 2019 Frequency: 5 times per week Estimated Hrs Per Day: .5 hour per day Rehab Potential: Fair Barriers to Learning: The patient has had his hip revised twice. He has some cognitive deficits Pt/Family Agrees to Plan: Yes Safety Risks/Education Teaching Recipient: Patient Teaching Methods: Discussion Response to Teaching: Verbalize Understanding Education Topics Provided: Safety within his room and communication of wants/needs. Time Speech Therapy Time In: 14:30 Speech Therapy Time Out: 15:45 Total Billed Time: 15 Billed Treatment Time 1MAGY BETHANIA ST May 06, 2019 15:08
--- NOTE | 2019-05-06 15:53 | CONSULTATION REPORT ---
DATE OF SERVICE: 05/06/2019 ATTENDING PHYSICIAN: Dr. Becerra. 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 He is a patient of mine who was seen for BPH, overactive bladder, history of stones. Last time seen in my office in 10/2016, did not show up in 10/2017. Previously had a workup for his above problems back in 2015, his postvoid residual was . The flow was low, but the amount voided was low as well. The cystoscopy revealed some enlargement of the median lobe with some bladder neck obstruction and the volume of his prostate by ultrasound was 27 mL at that time, he was taking Flomax, which was not helping his overactive bladder symptoms, so we added Toviaz and the combination was helped him pretty well, but he was lost to follow up after 10/2016. His rectal exam was always benign and his PSA was always under 1. IMPRESSION: Urinary retention, history of BPH and overactive bladder. PLAN: Put him back on Flomax. We will hold off any Toviaz or anticholinergic if he is on any and will give him a trial of voiding tomorrow. Thank you for letting me participate in the care of this patient. We will follow with you. Job ID: [id number] DocumentID: [id number] Dictated Date: 05/06/2019 13:24:54 Booster Operator Date: 05/06/2019 15:52:10 Dictated By: VA HENRY MD
--- NOTE | 2019-05-06 16:39 | Progress Note - Hospitalist ---
[facility] 05/06/19 1639: Progress Note Mr. Branch is an 83 year old WM who is in this unit post-L TIA revision. Prior to being hospitalized he was independently completing ADLs without assistance. He lives in alone in a single level home and has had no issues navigating it. He lives in [place], [place]. He has 5 adopted cats that he feeds. They do not live in his house with him. He has three daughters that live within [place] hours of [facility], with one of them actually living in [facility]. His daughters help him out and are actively in his life. He has 4 daughters, 8 grandchildren, and 8 great grandchildren. All of which he is very proud of and happy that he and his could have a big family. He has been for the past 12 years. The marriage was rough because he stated that his had lots of mental issues that put a strain on their relationship. 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 Prior to this deterioration in health, he was gardening and chopping wood by himself. He denies smoking, drinking alcohol or doing recreational drugs. His only vice is having a strawberry pop at night to help ease his stomach. He isn't much of a cooker, eating lots of frozen food. JANNETTE ANGLIN DO 05/06/19 1643: Supervisory-Addendum Brief Verification & Attestation Participated in pt care: history, MDM, physical Personally performed: exam, history, MDM, supervision of care Care discussed with: Medical Student Procedures: n/a Results interpretation: Verified all documentation Verification and Attestation of Medical Student E/M Service A medical student performed and documented this service in my presence. I reviewed and verified all information documented by the medical student and made modifications to such information, when appropriate. I personally performed the physical exam and medical decision making. Jannette Anglin, May 06, 2019,16:42 [facility] May 06, 2019 16:39 JANNETTE ANGLIN DO May 06, 2019 16:43
[2019-05-06 18:00] VITALS: BP 145/76
[2019-05-06 18:54] LABS: BILIRUBIN,URINE NEGATIVE (NEGATIVE); CLARITY,URINE CLEAR; COLOR,URINE YELLOW; GLUCOSE, URINE (UA) NEGATIVE (NEGATIVE); KETONES,URINE NEGATIVE (NEGATIVE); LEUKOCYTE ESTERASE ,URINE 2+ (NEGATIVE); NITRITE,URINE NEGATIVE (NEGATIVE); PH,URINE 6 (5-9); PROTEIN,URINE 1+ (NEGATIVE); UROBILINOGEN,URINE 4 MG/DL (NORMAL)
[2019-05-06 19:01] LABS: BACTERIA,URINE TRACE /HPF; SQUAMOUS EPITHELIAL CELL,UR RARE /HPF
--- NOTE | 2019-05-06 20:29 | Individualized Plan of Care ---
Individualized Plan of Care Rehab Nursing IPOC Order Admission Date May 05, 2019 at 18:00 Current Orders Orders Admission Order(Inpt,Obs,Sdc) (05/05/19 16:27) Ingredient Handler-Inpt Rehab Con (05/05/19 16:27) Rehab Nursing Orders-Ipoc (05/05/19 16:27) Physical Therapy Rehab Orders (05/05/19 16:27) Occupational Therapy Rehab Ord (05/05/19 16:27) Speech Therapy Rehab Orders (05/05/19 16:27) General/Regular (05/06/19 Breakfast) Intake & Output 06,14,22 (05/05/19 16:27) Precautions (Aru) (05/05/19 16:27) Weekly Weight (Lbs) WEEK (05/05/19 16:27) Rehab-Intensity Of Therapy (05/05/19 16:27) Initiate Admission Nursing Pro .admission (05/05/19 16:27) Cbc With Automated Diff (05/06/19 06:00) Comprehensive Metabolic Panel (05/06/19 06:00) Initiate Admission Nursing Pro .admission (05/05/19 16:27) Acetaminophen Tablet (Tylenol Tablet) (05/05/19 17:45) Calcium Carbonate Chew Tablet (Antacid C (05/05/19 17:45) Diphenhydramine Tablet (Benadryl Tablet) (05/05/19 17:45) Docusate Sodium Capsule (Colace Capsule) (05/05/19 21:00) Hydrocodone/Apap 5/325 Tablet (Lortab 5 (05/05/19 17:45) Loperamide Tablet (Imodium Tablet) (05/05/19 17:45) Melatonin Tablet (Melatonin Tablet) (05/05/19 17:45) Polyethylene Glycol Powder Pkt (Miralax (05/05/19 21:00) Ondansetron Oral Dissolve Tab (Zofran (05/05/19 17:45) Senna S Tablet (Senokot S Tablet) (05/05/19 21:00) Apixaban Tablet (Eliquis Tablet) (05/05/19 21:00) Fluticasone Nasal [place] (Flonase Nasal S (05/06/19 09:00) Buspirone Tablet (Buspar Tablet) (05/05/19 21:00) Telmisartan Tab (Non-Formulary (Micardis (05/06/19 09:00) Metoprolol Succinate (Xl) Tab (Toprol Xl (05/06/19 09:00) Duloxetine Capsule (Cymbalta Capsule) (05/06/19 09:00) Aspirin Tablet (Aspirin Tablet) (05/06/19 09:00) Amlodipine Tablet (Norvasc Tablet) (05/06/19 09:00) Gabapentin Capsule/Tablet (Neurontin Cap (05/05/19 17:45) Levothyroxine Tablet (Synthroid Tablet) (05/06/19 06:30) Pantoprazole Tablet (Protonix Tablet) (05/06/19 07:00) Sertraline Tablet (Zoloft Tablet) (05/06/19 09:00) General/Regular (05/05/19 Dinner) Ambulate 08,12,20 (05/05/19 18:30) Sequential Compression Device .once (05/05/19 18:30) Dvt/Vte Risk - Notifiy Physici .ONCE (05/05/19 18:30) Aspirin Enteric Coated Tablet (Ecotrin T (05/06/19 09:00) Losartan Tablet (Cozaar Tablet) (05/06/19 09:00) Consult Urology (05/05/19 20:30) Consult Cardiology (05/05/19 20:30) Consult Family Medicine (05/05/19 20:30) Bethanechol Tablet (Urecholine Tablet) (05/06/19 11:00) Potassium Chloride (Tablet) (Micro K Tab (05/06/19 08:30) Potassium Chloride (Tablet) (Micro K Tab (05/07/19 07:00) Magnesium Oxide Tablet (Mag Ox Tablet) (05/06/19 08:27) Magnesium (05/07/19 05:00) Ua Culture If Indicated (05/06/19 18:40) Amlodipine Tablet (Norvasc Tablet) (05/07/19 09:00) Patient Visit (05/06/19 ) Pt Eval Moderate Complexity (05/06/19 ) Functional Activities, Ea 15 (05/06/19 ) Patient Visit (05/06/19 ) Magnesium Oxide Tablet (Mag Ox Tablet) (05/06/19 21:00) Patient Visit (05/06/19 ) Speech Sound Lang Comp (05/06/19 ) Ceftriaxone For Iv Use (Rocephin For I (05/06/19 20:30) Comprehensive Metabolic Panel (05/07/19 06:00) Incentive Spirometry (Nursing) Q2H (05/06/19 20:20) Potassium Chloride (Tablet) (Klor Con Ta (05/07/19 08:30) Us Hepatic (Liver)10892 (05/08/19 08:00) Us Hepatic (Liver)36906 (05/08/19 08:00) Npo After Midnight (Nursing Or (05/07/19 08:54) Nothing By Mouth (05/08/19 Breakfast) Tamsulosin Capsule (Flomax Capsule) (05/07/19 18:00) Automatic Tray (05/07/19 12:24) Patient Visit (05/07/19 ) Functional Activities, Ea 15 (05/07/19 ) Exercise Therap, Ea 15 Min (05/07/19 ) Gait Training, Ea 15 Min (05/07/19 ) Patient Visit (05/07/19 ) Treat. Speech/Lang/Voice (05/07/19 ) Cbc With Automated Diff (05/08/19 06:00) Comprehensive Metabolic Panel (05/08/19 06:00) Amylase (05/08/19 05:00) Lipase (05/08/19 05:00) Code/Resuscitation (05/07/19 17:43) Rehab Nursing Orders: Ongoing Assess. of Cognitive Status, Ongoing Assess. of Function Status, Bladder Scan, Bowel Management, Bowel Training, Disease Management & Educaiton, Fluid/Electrolyte/Nutrition Mgmt, Infection Prevention, Medication Management & Education, Management of Risks & Complications, Pain Management, Patient/Family Support, Safety Management Intensity of Therapy to be met Patient to be seen: Min.3h per day/5 of 7d PT IPOC Problem List: Activity Tolerance, Functional Strength, Safety, Balance, Gait, Transfer, Bed Mobility, ROM Treatment Plan: Continue Plan of Care Bed Mobility, Concurrent Therapy, Education, Functional Activity Michael, Functional Strength, Group Therapy, Gait, Safety, Therapeutic Exercise, Transfers Treatment Duration: May 27, 2019 Frequency: At least 5 of 7 days/Wk (IRF) Estimated Hrs Per Day: 1.5 hours per day OT IPOC Problems: Decreased Activ Tolerance, Decreased Safety Aware, Decreased UE Strength, Dependent Transfers, Impaired I ADL's, Impaired Self-Care Skills OT Treatment, Training and Edu: Yes OT Problems Pt to benefit from skilled OT intervention for ADL training, transfers, strengthening, and safety education to increase level of independence and allow safe discharge. Plan of Care: ADL Retraining, Functional Mobility, Group Exercise/Act as Ind, UE Funct Exercise/Act Treatment Duration: May 27, 2019 Frequency: At least 5 of 7 days/Wk (IRF) Estimated Hrs Per Day: 1.[address] IPOC Speech Therapy Treatment Plan: Continue Plan of Care Treatment Duration: May 16, 2019 Frequency: 5 times per week Estimated Hrs Per Day: .5 hour per day Ingredient Handler/Case Mgmt Ingredient Handler/Case Managemen: Discharge Planning Dietitian/Hearing Care Practitioner Dietitian/Hearing Care Practitioner to monitor nutritional status and make changes and/or recommendations as needed and work with speech pathology on dietary upgrades as the occur. Physician IPOC Medical Issues being managed closely and that require the 24 hour availability of a physician: Patient with extensive lethargy and debility at high risk for falls and urinary retention requiring Urology consultation and close lab monitoring Medical Issues: Bowel/Bladder Function, DVT Prophylaxis, Falls Precautions, Fluid/Electrolyte/Nutrition Balance, Infection Protection, Pain Management Brief Synthesis of Preadmission Screen, Post-Admission Evaluation, and Therapy Evaluations: PT will focus on ambulation with pain management and fall risk OT will focus on regaining ADL independence Medical Prognosis: Good Anticipated Length of Stay: 10 days BASIL ANGLIN DO May 06, 2019 20:29
[2019-05-06] MEDS: MAGNESIUM OXIDE (MAG-OX)400 MG TAB PO SCH (20:32)
--- NOTE | 2019-05-06 20:33 | Consultation ---
History of Present Illness History of Present Illness Patient Consulted On(mariam/time) 05/06/19 20:26 Date Seen by Provider: May 06, 2019 Time Seen by Provider: 08:30 History of Present Illness This is a 83 year old male who was transferred from [place] for debility following a DVT after a left hip revision. He also had post-op urinary retention and has an indwelling king catheter. Today he is very groggy. He denies pain but his urine is tea colored. Allergies and Home Medications Allergies Coded Allergies: NKANo Known Allergies (Verified Allergy, Unknown, 03/06/06) Home Medications Acetaminophen 500 Mg Tablet, 1,000 MG PO Q8H PRN for PAIN-MILD OR TEMPATURE, (Reported) Acetaminophen 650 Mg Tablet.er, 650 MG PO Q6H PRN for PAIN-MILD, (Reported) Amlodipine Besylate 10 Mg Tablet, 10 MG PO HS, (Reported) Apixaban 5 Mg Tablet, 5 MG PO BID, (Reported) Aspirin 81 Mg Tab.chew, 81 MG PO BID, (Reported) Buspirone HCl 10 Mg Tablet, 10 MG PO TID PRN for ANXIETY, (Reported) Docusate Sodium 100 Mg Capsule, 100 MG PO DAILY, (Reported) Duloxetine HCl 30 Mg Capsule.dr, 30 MG PO DAILY, (Reported) Fluticasone Propionate 16 Gm [place].susp, 1-2 SPRAYS NS DAILY, (Reported) Gabapentin 300 Mg Capsule, 300 MG PO HS PRN for RLS, (Reported) Levothyroxine Sodium 112 Mcg Tablet, 112 MCG PO DAILY, (Reported) Melatonin 3 Mg Tablet, 3 MG PO HS PRN for SLEEP, (Reported) Metoprolol Succinate 50 Mg Tab.er.24h, 50 MG PO BID, (Reported) Omeprazole Magnesium 20 Mg Tablet.dr, 20 MG PO DAILY, (Reported) Sertraline HCl 100 Mg Tablet, 100 MG PO DAILY, (Reported) Solifenacin Succinate 5 Mg Tablet, 5 MG PO HS, (Reported) Telmisartan 80 Mg Tablet, 80 MG PO DAILY, (Reported) Patient Home Medication List Home Medication List Reviewed: Yes Past Mwxrhlm-Jddlqh-Ioqhep Hx Past Med/Social Hx: Reviewed Nursing Past Med/Soc Hx, Reviewed and Corrections made Patient Social History Alcohol Use: Denies Use Recreational Drug Use: No Smoking Status: Never a Smoker Recent Foreign Travel: No Contact w/Someone Who Travel: No Recent Infectious Disease Expo: No Recent Hopitalizations: Yes (LEFT HIP REPAIR) Immunizations Up To Date Tetanus Booster (TDap): Unknown PED Vaccines UTD: No Date of Pneumonia Vaccine: Jun 22, 2017 Date of Influenza Vaccine: May 27, 2017 Seasonal Allergies Seasonal Allergies: No Past Medical History Surgeries: Yes (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; CARDIAC CATH--STENT X 1) Cardiac, Coronary Stent, Gallbladder, Orthopedic Respiratory: No Currently Using CPAP: No Currently Using BIPAP: No Cardiac: Yes (STENT X 1) Chronic Edema/Swelling, Coronary Artery Disease, Deep Vein Thrombosis, Hypertension Neurological: No Reproductive Disorders: No Sexually Transmitted Disease: No HIV/AIDS: No Genitourinary: Yes Benign Prostatic Hyperpl, Prostate Problems, Kidney Stones Gastrointestinal: Yes (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) Gastroesophageal Reflux, Hepatitis Musculoskeletal: Yes (LEFT HIP REPLACEMENT) Arthritis Endocrine: Yes Hypothyroidsim Cataract Loss of Vision: Denies Hearing Impairment: Hard of Hearing Cancer: No Psychosocial: Yes Depression Integumentary: Yes (DERMATITIS OF LEGS) Blood Disorders: No Adverse Reaction/Blood Tranf: No Family Medical History FH: anemia DAUGHTER FH: breast cancer 19 MOTHER DAUGHTER No Pertinent Family Hx Review of Systems Review of Systems General: Fatigue HEENT: No Head Aches, No Visual Changes, No Eye Pain, No Ear Pain, No Dysphasia, No Sinus Congestion, No Post Nasal Drip, No Sore Throat, No Other Pulmonary: No Dyspnea, No Cough, No Pleuritic Chest Pain, No Other Cardiovascular: No: Chest Pain, Palpitations, Orthopnea, Paroxysmal Noc. Dyspnea, Edema, Lt Headedness, Other Gastrointestinal: No: Nausea, Vomiting, Abdominal Pain, Diarrhea, Constipation, Melena, Hematochezia, Other Genitourinary: Retention Musculoskeletal: No: other, neck pain, shoulder pain, arm pain, back pain, hand pain, leg pain, foot pain Neurological: Weakness All Other Systems Reviewed All Other Systems Reviewed: Yes Physical Exam Vital Signs Vital Signs - First Documented 05/05/19 18:00 Temp 36.5 Pulse 64 Resp 16 B/P (MAP) 137/69 Pulse Ox 94 O2 Delivery Room Air Capillary Refill : Height, Weight, BMI Height: 6'2.00" Weight: 215lbs. 6.0oz. [id number]; 27.7 BMI Method:Estimated General Appearance: Moderate Distress (lethargic) HEENT: Normal ENT Inspection Neck: Supple Respiratory: Lungs Clear Cardiovascular: Regular Rate, Rhythm, Systolic Murmur Gastrointestinal: Normal Bowel Sounds, Non Tender, Soft Rectal: Deferred Back: No CVA Tenderness Extremity: Non Tender, No Calf Tenderness, No Pedal Edema Neurologic/Psychiatric: Other (lethargic) Skin: Warm/Dry Comments Laboratory Tests 05/06/19 05:35: White Blood Count 10.5, Red Blood Count 3.22L, Hemoglobin 10.2L, Hematocrit 31L, Mean Corpuscular Volume 98, Mean Corpuscular Hemoglobin 32, Mean Corpuscular Hemoglobin Concent 33, Red Cell Distribution Width 13.2, Platelet Count 444H, Mean Platelet Volume 10.0, Neutrophils (%) (Auto) 71, Lymphocytes (%) (Auto) 17, Monocytes (%) (Auto) 10, Eosinophils (%) (Auto) 2, Basophils (%) (Auto) 0, Neutrophils # (Auto) 7.4, Lymphocytes # (Auto) 1.8, Monocytes # (Auto) 1.0, Eosinophils # (Auto) 0.2, Basophils # (Auto) 0.0, Sodium Level 139, Potassium Level 3.2L, Chloride Level 107, Carbon Dioxide Level 24, Anion Gap 8, Blood Urea Nitrogen 20H, Creatinine 0.79, Estimat Glomerular Filtration Rate > 60, BUN/Creatinine Ratio 25, Glucose Level 101, Calcium Level 8.2L, Corrected Calcium 9.2, Total Bilirubin 2.2H, Aspartate Amino Transf (AST/SGOT) 27, Alanine Aminotransferase (ALT/SGPT) 39, Alkaline Phosphatase 152H, Total Protein 5.1L, Albumin 2.8L 05/06/19 18:40: Urine Color YELLOW, Urine Clarity CLEAR, Urine pH 6, Urine Specific [place] 1.015L, Urine Protein 1+H, Urine Glucose (UA) NEGATIVE, Urine Ketones NEGATIVE, Urine Nitrite NEGATIVE, Urine Bilirubin NEGATIVE, Urine Urobilinogen 4H, Urine Leukocyte Esterase 2+H, Urine RBC (Auto) 2+H, Urine RBC 2-5H, Urine WBC 2-5, Urine Squamous Epithelial Cells RARE, Urine Crystals NONE, Urine Bacteria TRACE, Urine Casts NONE, Urine Mucus MODERATEH, Urine Culture Indicated NO Assessment/Plan Assessment/Plan Assessment and Plan 1. Left LE DVT--on eliquis 2. Debility following left hip revision and DVT--PT/OT for strengthening/ADLs 3. Urinary Retention--Start urecholine 4. Hypertension--back on home meds 5. Lethargy--DC buspar, cymbalta and melatonin, check UA 6. Hyperbilirubinemia--repeat LFTs in AM as well as liver US Problems: (1) Debility Clinical Quality Measures DVT/VTE Risk/Contraindication: Risk Factor Score Per Nursin RFS Level Per Nursing on Admit: 4+=Very High DANYEL CURRY DO May 06, 2019 20:33
[2019-05-06] MEDS: cefTRIAXone FOR IV USE 1,000 MG in WATER (STERILE) FOR INJECTION 10 ML IV SCH (20:39)
[2019-05-07 05:27] VITALS: BP 159/68
[2019-05-07] MEDS: LEVOTHYROXINE 112 MCG (LEVOTHROID) TAB PO SCH (05:35)
[2019-05-07] MEDS: KCL 8 MEQ (MICRO K) TABLET PO SCH (05:35)
[2019-05-07] MEDS: PANTOPRAZOLE 40 MG (PROTONIX) TAB PO SCH (05:35)
[2019-05-07] MEDS: ACETAMINOPHEN 500 MG TAB (TYLENOL) PO PRN ×2 (05:36→21:15)
[2019-05-07 06:13] LABS: ALANINE AMINOTRANSFERASE 34 U/L (0-55); ALBUMIN 2.8 GM/DL (3.2-4.5); ALKALINE PHOSPHATASE 136 U/L (40-136); BILIRUBIN,TOTAL 1.9 MG/DL (0.1-1.0); BUN/CREATININE RATIO 27; CALCIUM 8.3 MG/DL (8.5-10.1); CARBON DIOXIDE 23 MMOL/L (21-32); CHLORIDE 106 MMOL/L (98-107); CREATININE SERUM 0.75 MG/DL (0.60-1.30); GFR ESTIMATED > 60; GLUCOSE 96 MG/DL (70-105); MAGNESIUM 1.8 MG/DL (1.6-2.4); POTASSIUM 3.2 MMOL/L (3.6-5.0); SODIUM 139 MMOL/L (135-145); TOTAL PROTEIN 5.2 GM/DL (6.4-8.2)
--- NOTE | 2019-05-07 07:50 | Progress Note ---
[facility] 05/07/19 0750: Subjective Date Seen by a Provider: May 07, 2019 Time Seen by a Provider: 07:20 Subjective/Events-last exam Vitals are normal and stable. Stooling well. Madrigal Catheter is still in place. Eating and drinking well. Slept well last night. Patient is still pretty groggy. He doesn't understand why he is still in a hospital and not in home. Patients affect is a little negative and down. L Hip pain and some L knee pain. ROS: + : L Hip and Knee pain, Dizziness - : N/V/D, Fever, Chill, SOB/Chest pain, OLVERA Objective Exam Last Set of Vital Signs Vital Signs Date Time Temp Pulse Resp B/P (MAP) Pulse Ox O2 Delivery O2 Flow Rate FiO2 05/07/19 05:27 37.0 66 16 159/68 94 Room Air Capillary Refill : Less Than 3 Seconds I&O Intake and Output 05/07/19 00:00 Intake Total 1060 ml Output Total 1700 ml Balance -640 ml Intake Oral 1060 ml Output Urine Total 1700 ml General: Alert, Oriented X3, Cooperative, No Acute Distress Lungs: Normal Air Movement Abdomen: No Tenderness Results Lab Laboratory Tests 05/06/19 18:40: Urine Color YELLOW, Urine Clarity CLEAR, Urine pH 6, Urine Specific [place] 1.015L, Urine Protein 1+H, Urine Glucose (UA) NEGATIVE, Urine Ketones NEGATIVE, Urine Nitrite NEGATIVE, Urine Bilirubin NEGATIVE, Urine Urobilinogen 4H, Urine Leukocyte Esterase 2+H, Urine RBC (Auto) 2+H, Urine RBC 2-5H, Urine WBC 2-5, Urine Squamous Epithelial Cells RARE, Urine Crystals NONE, Urine Bacteria TRACE, Urine Casts NONE, Urine Mucus MODERATEH, Urine Culture Indicated NO 05/07/19 05:15: Sodium Level 139, Potassium Level 3.2L, Chloride Level 106, Carbon Dioxide Level 23, Anion Gap 10, Blood Urea Nitrogen 20H, Creatinine 0.75, Estimat Glomerular Filtration Rate > 60, BUN/Creatinine Ratio 27, Glucose Level 96, Calcium Level 8.3L, Corrected Calcium 9.3, Magnesium Level 1.8, Total Bilirubin 1.9H, Aspartate Amino Transf (AST/SGOT) 28, Alanine Aminotransferase (ALT/SGPT) 34, Alkaline Phosphatase 136, Total Protein 5.2L, Albumin 2.8L Clinical Quality Measures DVT/VTE Risk/Contraindication: Risk Factor Score Per Nursin RFS Level Per Nursing on Admit: 4+=Very High JANNETTE ANGLIN DO 05/07/19 1531: Assessment/Plan Assessment/Plan Assess & Plan/Chief Complaint Hip revision with FUO with slow recovery Supervisory-Addendum Brief Verification & Attestation Participated in pt care: history, MDM, physical Personally performed: exam, history, MDM, supervision of care Care discussed with: Medical Student Procedures: n/a Results interpretation: Verified all documentation Verification and Attestation of Medical Student E/M Service A medical student performed and documented this service in my presence. I reviewed and verified all information documented by the medical student and made modifications to such information, when appropriate. I personally performed the physical exam and medical decision making. Jannette Anglin, May 07, 2019,15:31 [facility] May 07, 2019 07:50 JANNETTE ANGLIN DO May 07, 2019 15:31
--- NOTE | 2019-05-07 08:23 | PM&R H&P / Post Admit Assess ---
[facility] 05/07/19 0823: History of Present Illness HPI/Chief Complaint CC: Debility HPI: Mr. Branch is an 79 yo WM who is presenting to Rehab post-L THR done at [place] in March of this year. States that he was doing some work around his h ouse and fell. At that point he was unable to get back up but was able to call for help. He was discharged with no issues, but then returned to the hospital a few day later on 04/21/19 with fever and leukocytosis. It was at this time that he was diagnosed with a L DVT. Since that point in time, he has been struggling to make any progress in his recovery. He currently has a King catheter in and is being seen by urology for management and plan to DC king. They started him on ELIQUIS. Prior to this incident he was independently completing ADLs. Source: patient Exam Limitations: clinical condition, physical impairment Date Seen 05/07/19 Time Seen by a Provider: 07:20 Attending Physician Jannette Anglin DO PCP Mikayla Mg DO Referring Physician Date of Admission May 05, 2019 at 18:00 Home Medications & Allergies Home Medications Reviewed patient Home Medication Reconciliation performed by pharmacy medication reconciliations mechanical sound technician and/or nursing. Patients Allergies have been reviewed. Allergies Allergies Coded Allergies NKANo Known Allergies (Verified Allergy, Unknown, 03/06/06) Past Cjtxoxr-Szrqql-Qmplhn Hx Past Med/Social Hx: Reviewed Nursing Past Med/Soc Hx, Reviewed and Corrections made Patient Social History Marrital Status: single Employed/Student: employed ([employer]) Alcohol Use: Denies Use Recreational Drug Use: No Smoking Status: Never a Smoker Physical Abuse Screen: No Sexual Abuse: No Recent Foreign Travel: No Contact w/other who traveled: No Recent Hopitalizations: Yes (LEFT HIP REPAIR) Recent Infectious Disease Expo: No Immunizations Up To Date Tetanus Booster (TDap): Unknown Pediatric: No Date of Pneumonia Vaccine: Jun 22, 2017 Date of Influenza Vaccine: May 27, 2017 Seasonal Allergies Seasonal Allergies: No Past Medical History Surgeries: Cardiac, Coronary Stent, Gallbladder, Orthopedic Currently Using CPAP: No Currently Using BIPAP: No Cardiac: Chronic Edema/Swelling, Coronary Artery Disease, Deep Vein Thrombosis, Hypertension Reproductive: No Sexually Transmitted Disease: No HIV/AIDS: No Genitourinary: Benign Prostatic Hyperpl, Prostate Problems, Kidney Stones Gastrointestinal: Gastroesophageal Reflux, Hepatitis Musculoskeletal: Arthritis Endocrine: Hypothyroidsim HEENT: Cataract Loss of Vision: Denies Hearing Impairment: Hard of Hearing Psychosocial: Depression History of Blood Disorders: No Adverse Reaction to Blood Lora: No Family History FH: anemia DAUGHTER FH: breast cancer 19 MOTHER DAUGHTER No Pertinent Family Hx Review of Systems Constitutional: dizziness, malaise, weakness EENTM: hearing loss, dental problems Respiratory: no symptoms reported Cardiovascular: no symptoms reported Gastrointestinal: constipation Genitourinary: no symptoms reported, see HPI Musculoskeletal: joint pain, muscle pain Skin: no symptoms reported Psychiatric/Neurological: Depressed Physical Exam Exam Vital Signs Vital Signs Date Time Temp Pulse Resp B/P (MAP) Pulse Ox O2 Delivery O2 Flow Rate FiO2 05/07/19 05:27 37.0 66 16 159/68 94 Room Air Capillary Refill : Less Than 3 Seconds General Appearance: Moderate Distress (lethargic) HEENT: Normal ENT Inspection Neck: Supple Respiratory: Lungs Clear Cardiovascular: Regular Rate, Rhythm, Systolic Murmur Gastrointestinal: Normal Bowel Sounds, Non Tender, Soft Rectal: Deferred Back: No CVA Tenderness Extremity: Non Tender, No Calf Tenderness, No Pedal Edema Neurologic/Psychiatric: Other (lethargic) Reflexes: 2+ Bicep (R), 2+ Bicep (L), 2+ Ankle (R), 2+ Ankle (L) Skin: Warm/Dry Lymphatic: No Adenopathy Results Results/Procedures Labs Laboratory Tests 05/06/19 05:35 05/07/19 05:15 Patient resulted labs reviewed. Assessment/Plan Assessment and Plan Assess & Plan/Chief Complaint Assessment: L DVT prophylaxis Rehad for Revision of L TIA Depressed mood and change in affect Urinary Incontinence -- king catheter in place. SLUM score of 23/30 Plan: Continue ELIQUIS and ASA PT/OT for rehabilitation of L TIA Speech therapy for cognitive help Possibly start Antidepressants as mood is changing. Consult urology and await plan for king catheter Post Admission Physician Asses The preadmission screen agrees with the post admission assessment that the patient is a good candidate for inpatient rehabilitation. The patient will have a comprehensive program of inpatient rehabilitation with a goal of maximizing level of functional independence prior to discharge home with [family]. The patient will have PT/OT ninety minutes per day, each discipline, five days a week for gait, strengthening, conditioning, balance, ADLs, any patient/family/caregiver training as necessary. Speech therapy to do cognitive assessment and treat as indicated. Rehabilitation nursing to assist with bowel, bladder, skin, wound care, medication administration, pain management. Field Consultant to assist with discharge planning, community reentry. SCD's for DVT prophylaxis. He appears to be well motivated to participate in three hours of therapy a day. He should be able to tolerate three hours of therapy a day from a medical standpoint. He should benefit from the three hours of therapy a day. He has a reasonable discharge plan, reasonable discharge rehabilitation goals and a supportive family. He has various comorbidities that need to be closely monitored with medications and treatments adjusted on a daily basis as needed. These include: [] Barriers to discharge for this patient who had been independent prior to this are for him to be modified independent to supervision for ADLs and mobility skills prior to discharge home with [family], so as to lessen the burden of the caregivers. Risks for this patient include: 1. Fall 2. Fracture 3. DVT 4. Pulmonary embolism 5. Wound infection 6. Skin breakdown 7. Contractures 8. Poorly controlled pain 9. Urinary retention 10. UTI 11. Respiratory infection 12. Aspiration [] Estimated Length of Stay: []days Prognosis: Rehab prognosis appears good for goal of discharge home with [family] modified independent to supervision for ADLs and mobility skills. General: Alert, Oriented X3, Cooperative, No Acute Distress Lungs: Normal Air Movement Abdomen: No Tenderness JANNETTE ANGLIN DO 05/07/19 1532: Past Uggnbzn-Hlafyv-Vwaskm Hx Past Med/Social Hx: Reviewed Nursing Past Med/Soc Hx Patient Social History Marrital Status: single Family History FH: anemia DAUGHTER FH: breast cancer 19 MOTHER DAUGHTER Review of Systems Constitutional: see HPI Physical Exam Exam General Appearance: Chronically ill Assessment/Plan Assessment and Plan (1) History of revision of total replacement of left hip joint Status: Acute (2) Left leg DVT Status: Acute Qualifiers: Affected thrombotic vein of extremity: unspecified vein of extremity Chronicity: unspecified Qualified Codes: I82.402 - Acute embolism and thrombosis of unspecified deep veins of left lower extremity Supervisory-Addendum Brief Verification & Attestation Participated in pt care: history, MDM, physical Personally performed: exam, history, MDM, supervision of care Care discussed with: Medical Student Procedures: n/a Results interpretation: Verified all documentation Verification and Attestation of Medical Student E/M Service A medical student performed and documented this service in my presence. I reviewed and verified all information documented by the medical student and made modifications to such information, when appropriate. I personally performed the physical exam and medical decision making. Jannette Anglin, May 07, 2019,15:31 [facility] May 07, 2019 08:23 JANNETTE ANGLIN DO May 07, 2019 15:32
[2019-05-07] MEDS ORDERED: KCL 10 MEQ TAB (MICRO K) PO SCH (08:30)
--- NOTE | 2019-05-07 09:02 | Progress Note - Urology ---
Progress Note-Urology Progress Notes/Assess & Plan Progress/Assessment & Plan UNABLE TO REACH FLOOR YESTERDAY TO START FLOMAX (NO URECHOLINE). WE WILL START TODAY Final Diagnosis URINE RETENTION [facility] MD May 07, 2019 09:02
--- NOTE | 2019-05-07 09:28 | Physical Therapy Daily Note ---
PT Daily Note-Current Subjective Pt states he is very tired. States he has not pain when sitting still but does come on in whole left leg with any movement or mobility. Agreeable to PT session. Denies need for pain med throughout tx session. Pt with report of lightheadedness during gait and only slightly decreasing after sitting, nurse is aware. States he does normally wear B knee support braces and support stockings but does not have them here. States he will call his daughter later to see if she can bring them here for him. Pt spoke with physician about removing IV and catheter, not sure yet if they are going to do it. Pain Numeric Pain Scale: 0-No Pain Comment: increases with movement, denies need for pain med Appearance Pt sitting up in recliner upon arrival, PRESSURIZER present stating pt performed very well with transfer from bed to chair. Pt requesting and assisted to bathroom for BM, min A required with pulling up pants, verb inst for ease and safety, Assist required for iraj care although pt did attempt, verb instruction and CGA to SBA with all other restroom activities. At end of session, pt sitting up in recliner with LE's elevated, call light, phone and bedside table within reach. present at end of session. Mental Status Patient Orientation: Person, Place, Time, Situation Attachments: Saline Lock, Madrigal Catheter Transfers Therapy Code Descriptions/Definitions Functional [place] Measure: 0=Not Assessed/NA 4=Minimal Assistance 1=Total Assistance 5=Supervision or Setup 2=Maximal Assistance 6=Modified [place] 3=Moderate Assistance 7=Complete [place] Therapy Quality Codes: 6 Independent with activity with or without an assistive device 5 Patient requires set up or clean up by helper. Patient completes activity by themselves 4 Supervision or touching assist (CGA). [place] provide cues , steadying ass ist 3 The helper provides less than half the effort to complete the activity 2 The helper provides more than half the effort to complete the activity 1 Dependent. The helper does all the effort to complete an activity 7 Patient refused to complete or attempt activity 9 The patient did not perform the activity before the current illness or injury 88 Not attempted due to Medical conditions or safety concerns Transfers (B, C, W/C) (FIM): 4 Sit to/from Stand: 4 (CGA for safety due to report of lightheadedness) Pt able to follow skilled instruction for safety and technique during all transitions from chair and toilet. Weight Bearing Left Lower Extremity: Left Weight Bearing/Tolerated Gait Training Does the Patient Walk?: Yes Gait (FIM): 1 Distance (FIM): 1=up to 49 ft Distance: 20 x2 Gait Level of Assist: 4 (CGA provided for safety due to pt c/o lightheadedness) Gait Persons Needed: 1 Gait Assistive Device: FWW slow haley, antalgic, decreased step length and height, able to improve following skilled verbal instruction Exercises Supine Ex: Ankle pumps (to fatigue), Heel Slides, Short Arc Quads, Straight leg raise, Hip abd/add Supine Reps: 10 (recliner with LE's elevated, AAROM required with LLE during S LR, HS and Hip Abd) Seated Therapy Exercises: Ankle pumps, Long arc quads, Chair press-ups, Hip flexion, Hip abd/add Seated Reps: 10 ((+) L hip external rotation) Treatments transfers, safety, education, activity tolerance, gait, functional mobility, toileting, positioning, strength, ROM, balance Assessment Current Status: Good Progress PT Short Term Goals Short Term Goals Time Frame: May 13, 2019 Gait (FIM): 1 Gait Distance Comment: 10' Gait Level of Assist: 3 Gait Assistive Device: FWW PT Correction Goals Correction Goals PT Automation Architect Goals Time Frame: May 27, 2019 Transfers (B,C,W/C) (FIM): 4 Sit to Lying (QC): 3 Lying-Sitting on Side/Bed(QC): 3 Sit to Stand (QC): 3 Rollin Roll Left to Right (QC): 3 Chair/Rjo-ua-Cmmwq Xfer(QC): 3 Car Transfer (QC): 3 Gait (FIM): 2 Distance: 50' Walk 10 feet (QC): 4 Walk 10ft-Uneven Surface(QC): 4 Walk 50ft with 2 Turns (QC): 4 Walk 150 ft (QC): 4 Gait Level of Assist: 4 Gait Assistive Device: FWW Stairs (FIM): 2 # of Steps: 4 1 Step (curb) (QC): 4 Stairs Level Of Assist: 4 PT Plan Treatment/Plan Treatment Plan: Continue Plan of Care Treatment Plan: Bed Mobility, Concurrent Therapy, Education, Functional Activity Michael, Functional Strength, Group Therapy, Gait, Safety, Therapeutic Exercise, Transfers Treatment Duration: May 27, 2019 Frequency: At least 5 of 7 days/Wk (IRF) Estimated Hrs Per Day: 1.5 hours per day Patient and/or Family Agrees t: Yes Safety Risks/Education Patient Education: Gait Training, Transfer Techniques, Correct Positioning, Disease Process, Safety Issues Teaching Recipient: Patient Teaching Methods: Demonstration, Discussion Response to Teaching: Verbalize Understanding, Return Demonstration Time/GCodes Time In: 800 Time Out: 915 Total Billed Treatment Time: 75 Total Billed Treatment 1 visit, FA x30 min, EX x30 min, GT x15 min KIRAN KRISHNAN PTA May 07, 2019 09:28
--- NOTE | 2019-05-07 09:30 | PM&R Progress Note ---
Subjective HPI/CC On Admission Date Seen by Provider: May 07, 2019 Time Seen by Provider: 09:00 CC: Debility HPI: Mr. Branch is an 79 yo WM who is presenting to Rehab post-L THR done at [facility] in March of this year. States that he was doing some work around his house and fell. At that point he was unable to get back up but was able to call for help. He was discharged with no issues, but then returned to the hospital a few day later on 04/21/19 with fever and leukocytosis. It was at this time that he was diagnosed with a L DVT. Since that point in time, he has been struggling to make any progress in his recovery. He currently has a King catheter in and is being seen by urology for management and plan to DC king. They started him on ELIQUIS. Prior to this incident he was independently completing ADLs. Subjective/Events-last exam Pt seems to be very fatigued and lethargic Potassium will be supplemented at 10 twice daily King catheter in and he wants it out, Dr. Reynolds has been consulted Ultrasound ordered by Dr. Mg for elevated total bilirubin at 2.2 but today its 1.9, he already ate breakfast so will reschedule that for tomorrow and she was updated Cognition seems to be declined Flat and depressed Bowels incontinent yesterday Very declined overall and severe debility and advanced age at 83, will do everything we can to help him recover but this may be needing skilled care before inpatient rehab Eliquis maintained for the left lower extremity DVT. Up in a chair at least and maintained with a King catheter, Dr. Reynolds was notified and he was aware of the consultation. Dr. Krishnamurthy (cardiology) also saw him, potassium 3.2 will be addressed. Participating gin therapy but slow due to grogginess. Very difficult to maneuver, he is a two person transfer at this time. Family is very involved in his care. Review of Systems General: Fatigue Musculoskeletal: leg pain Neurological: Confusion Objective Exam Vital Signs Vital Signs Date Time Temp Pulse Resp B/P (MAP) Pulse Ox O2 Delivery O2 Flow Rate FiO2 05/07/19 17:05 37.4 65 20 120/52 96 Room Air Capillary Refill : Less Than 3 Seconds General Appearance: No Apparent Distress, WD/WN, Chronically ill, Other (lethargic) HEENT: PERRL/EOMI, Normal ENT Inspection, Pharynx Normal Neck: Full Range of Motion, Normal Inspection, Non Tender, Supple Respiratory: Chest Non Tender, Lungs Clear, Normal Breath Sounds, No Accessory Muscle Use, No Respiratory Distress Cardiovascular: Regular Rate, Rhythm, No Edema, No Gallop, No JVD, Normal Peripheral Pulses, Systolic Murmur Gastrointestinal: Normal Bowel Sounds, No Organomegaly, No Pulsatile Mass, Non Tender, Soft Rectal: Deferred Back: No CVA Tenderness Extremity: Non Tender, No Calf Tenderness, No Pedal Edema Neurologic/Psychiatric: Alert, No Motor/Sensory Deficits, regulator inspector II-XII Norm as Tested, Disoriented, Other (lethargic) Reflexes: 2+ Bicep (R), 2+ Bicep (L), 2+ Ankle (R), 2+ Ankle (L) Skin: Normal Color, Warm/Dry Lymphatic: No Adenopathy Results/Procedures Lab Laboratory Tests 05/07/19 05:15 Patient resulted labs reviewed. FIM Transfers Therapy Code Descriptions/Definitions Functional [place] Measure: 0=Not Assessed/NA 4=Minimal Assistance 1=Total Assistance 5=Supervision or Setup 2=Maximal Assistance 6=Modified [place] 3=Moderate Assistance 7=Complete [place] Therapy Quality Codes: 6 Independent with activity with or without an assistive device 5 Patient requires set up or clean up by helper. Patient completes activity by themselves 4 Supervision or touching assist (CGA). [place] provide cues , steadying assist 3 The helper provides less than half the effort to complete the activity 2 The helper provides more than half the effort to complete the activity 1 Dependent. The helper does all the effort to complete an activity 7 Patient refused to complete or attempt activity 9 The patient did not perform the activity before the current illness or injury 88 Not attempted due to Medical conditions or safety concerns Transfers (B, C, W/C) (FIM): 1 Scootin Rollin Roll Left to Right (QC): 1 Sit to/from Stand: 2 Sit to Lying (QC): 1 Sit to Stand (QC): 2 Chair/Fpu-le-Bymfb Xfer(QC): 2 Bed to/from Chair: 2 Car Transfer (QC): 2 Gait Training Gait (FIM): 0 Wheelchair Training Wheelchair (FIM): 1 Mental Status/Objective Comprehension: 6 Expression: 5 Social Interaction: 7 Problem Solvin Memory: 4 ADL-Treatment Feedin (per daughter's report) Eating (QC): 5 Groomin Oral Hygiene (QC): 4 Upper Extremity Dressin Upper Body Dressing (QC): 3 Shower: 0 Assessment/Plan Assessment and Plan Assess & Plan/Chief Complaint Plan: OAC Consult Rodolfo Dumont and Saurav Maintain king until Dr Reynolds is able to DC Improve nutrition BM regimen Pain control Monitor for falls Minimize sedatives Abx per Dr Mg (1) Debility Status: Acute (2) History of revision of total replacement of left hip joint Status: Acute (3) Advanced age Status: Chronic (4) Left leg DVT Status: Acute Qualifiers: Affected thrombotic vein of extremity: unspecified vein of extremity Chronicity: unspecified Qualified Codes: I82.402 - Acute embolism and thrombosis of unspecified deep veins of left lower extremity (5) King catheter in place Status: Acute (6) Hypertension Status: Chronic Qualifiers: Hypertension type: essential hypertension Qualified Codes: I10 - Essential (primary) hypertension (7) BPH (benign prostatic hyperplasia) Status: Chronic Qualifiers: Lower urinary tract symptom presence: unspecified whether lower urinary tract symptoms present Qualified Codes: N40.0 - Benign prostatic hyperplasia without lower urinary tract symptoms (8) Dizziness Status: Acute (9) Urinary retention Status: Acute (10) Fatigue Status: Acute Qualifiers: Fatigue type: unspecified Qualified Codes: R53.83 - Other fatigue (11) Orthostatic hypotension Status: Acute BASIL ANGLIN DO May 07, 2019 09:30
[2019-05-07] MEDS: amLODIPine 10 MG (NORVASC) TAB PO SCH (09:56)
[2019-05-07] MEDS: APIXABAN 5 MG (ELIQUIS) TABLET PO SCH ×2 (09:56→21:15)
[2019-05-07] MEDS: meTOproloL SUCCINATE 50 MG (TOPROL XL) TAB PO SCH (09:56)
[2019-05-07] MEDS: LOSARTAN 100 MG (COZAAR) TABLET PO SCH (09:56)
[2019-05-07] MEDS: MAGNESIUM OXIDE (MAG-OX)400 MG TAB PO SCH ×2 (09:57→21:15)
[2019-05-07] MEDS: ASPIRIN E.C. 81 MG (ECOTRIN) TAB PO SCH (09:57)
[2019-05-07] MEDS: POLYETHYLENE GLYCOL 17 GM (MIRALAX) PACK PO SCH ×3 (10:00→21:00)
[2019-05-07] MEDS: FLUTICASONE NASAL SPRAY (FLONASE) 16 GM BTL NS SCH (10:00)
[2019-05-07] MEDS: SENNA W/DOCUSATE (SENOKOT S) TABLET PO SCH ×2 (10:00→21:00)
[2019-05-07] MEDS: ONDANSETRON 4 MG (ZOFRAN) ORAL DISSOLVE TAB PO PRN (12:26)
[2019-05-07] MEDS: KCL 10 MEQ TAB (MICRO K) PO SCH ×2 (12:30→17:35)
[2019-05-07] MEDS: SERTRALINE 100 MG (ZOLOFT) TAB PO SCH (12:31)
--- NOTE | 2019-05-07 12:39 | Speech Therapy Daily Note ---
Speech Daily Progress Note Subjective Date Seen by Provider: May 07, 2019 Time Seen by Provider: 00:30 The patient was resting in bed. He stated he was really tired after all of his therapy. Objective The patient completed general information questions at the intermediate level with 75% accuracy given moderate cues and/or repetitions. Assessment Assessment Current Status: Good Progress Treatment Plan Continue Plan of Care Communication Comprehension: 6 Expression: 5 Social Cognition Social Interaction: 7 Problem Solvin Memory: 4 Speech Short Term Goals Short Term Goals Short Term Goals 1) The patient will complete memory tasks related to his daily needs at 90% or greater. 2) The patient will complete problem solving tasks related to his daily needs at 90% or greater. 3) The patient will complete safety awareness tasks related to his daily needs at 90% or greater. Speech Collection Team Lead Goals Group Home Goals Patient will improve cognitive-communication necessary for safety and daily living tasks with minimal assistance. Speech-Plan Patient/Family Goals Patient/Family Goals: The patient plans on returning home post rehab. Treatment Plan Speech Therapy Treatment Plan: Continue Plan of Care Treatment Duration: May 16, 2019 Frequency: 5 times per week Estimated Hrs Per Day: .5 hour per day Rehab Potential: Fair Barriers to Learning: The patient has mild cognitive deficits. Pt/Family Agrees to Plan: Yes Safety Risks/Education Teaching Recipient: Patient Teaching Methods: Demonstration, Discussion Response to Teaching: Verbalize Understanding, Return Demonstration Education Topics Provided: Safety within his room. Time Speech Therapy Time In: 11:00 Speech Therapy Time Out: 11:30 Total Billed Time: 30 Billed Treatment Time [address] May 07, 2019 12:39
--- NOTE | 2019-05-07 13:01 | Occupational Ther Daily Note ---
OT Current Status-Daily Note Subjective Pt in bed, agrees to treatment. Pt reports feeling "tired and weak" today. Mental Status/Objective Therapy Code Descriptions/Definitions Functional [place] Measure: 0=Not Assessed/NA 4=Minimal Assistance 1=Total Assistance 5=Supervision or Setup 2=Maximal Assistance 6=Modified [place] 3=Moderate Assistance 7=Complete [place] ADL-Treatment Pt initially requests to attempt shower this morning. Supine to sit with assist for trunk. Upon sitting pt reports nausea and mild dizziness. RN was notified. Pt reports improvement in symptoms with time, but would like sponge bath instead of shower. Sponge bath completed seated in chair. Doff shirt with SBA. Pt able to wash upper body with SBA and increased time. Pt sit to stand with min assist. Pt able to pull pants down over hips, but requires assist to doff over feet. Pt able to wash bilateral upper legs and iraj area, but requires assist for lower legs/feet and buttocks. Don pullover shirt with min assist to pull down in back. Pt requires assist to thread catheter and bilateral LE into pant legs. Stood with min assist. Pt able to assist with pulling pants up over hips, but unable to complete on his own. Pt requires assist to don socks. Reviewed use of sock aid, pt states he has one at home. Pt able to don socks with mod assist using sock aid. Pt combed hair with min assist. Requests to return to bed after session. Sit to stand and transfer to EOB with min assist using FWW, cues for safety. sit to supine with assist for left LE. Pt resting in bed with needs met after session. Therapy Code Descriptions/Definitions Functional [place] Measure: 0=Not Assessed/NA 4=Minimal Assistance 1=Total Assistance 5=Supervision or Setup 2=Maximal Assistance 6=Modified [place] 3=Moderate Assistance 7=Complete [place] Therapy Quality Codes: 6 Independent with activity with or without an assistive device 5 Patient requires set up or clean up by helper. Patient completes activity by themselves 4 Supervision or touching assist (CGA). [place] provide cues , steadying assist 3 The helper provides less than half the effort to complete the activity 2 The helper provides more than half the effort to complete the activity 1 Dependent. The helper does all the effort to complete an activity 7 Patient refused to complete or attempt activity 9 The patient did not perform the activity before the current illness or injury 88 Not attempted due to Medical conditions or safety concerns Grooming (FIM): 4 Bathing (FIM): 3 Shower/Bathe Self (QC): 3 Upper Body (FIM): 4 Upper Body Dressing (QC): 3 Lower Body Dressing (FIM): 2 Lower Body Dressing (QC): 2 On/Off Footwear (QC): 1 Toilet/Commode Transfer (FIM): 4 (per PT report) Toilet Transfer (QC): 3 OT Short Term Goals Short Term Goals Time Frame: May 13, 2019 Bathing(FIM): 4 Upper Body Dressing(FIM): 4 Lower Body Dressing(FIM): 3 Toilet/Commode Transfer(FIM): 3 Additional Short Term Goals: 1-Demonstrate ADL Tasks, 2-Verbalize Understanding, 3-ImproveStrength/Michael 1=Demonstrate adherence to instructed precautions during ADL tasks. 2=Patient will verbalize/demonstrate understanding of assistive d evices/modifications for ADL. 3=Patient will improve strength/tolerance for activity to enable patient to perform ADL's. OT Outreach Worker Goals Intermediate Goals Time Frame: May 27, 2019 Eating (FIM): 6 Eating (QC): 6 Groomin Oral Hygiene (QC): 6 Bathing(FIM): 5 Shower/Bathe Self (QC): 4 Upper Body Dressing(FIM): 5 Upper Body Dressing (QC): 5 Lower Body Dressing(FIM): 5 Lower Body Dressing (QC): 5 On/Off Footwear (QC): 5 Toileting(FIM): 6 Toileting Hygiene (QC): 6 Toilet/Commode Transfer(FIM): 5 Toilet/Commode Transfer (QC): 5 Shower Transfer(FIM): 5 Additional Goals: 1-Demonstrate ADL Tasks, 2-Verbalize Understanding, 3- ImproveStrength/Michael 1=Demonstrate adherence to instructed precautions during ADL tasks. 2=Patient will verbalize/demonstrate understanding of assistive devices/modifications for ADL. 3=Patient will improve strength/tolerance for activity to enable patient to perform ADL's. OT Education/Plan Discharge Recommendations Plan/Recommendations: Continue POC Treatment Plan/Plan of Care Patient would benefit from OT for education, treatment and training to promote independence in ADL's, mobility, safety and/or upper extremity function for ADL's. Plan of Care: ADL Retraining, Functional Mobility, Group Exercise/Act as Ind, UE Funct Exercise/Act Treatment Duration: May 27, 2019 Frequency: At least 5 of 7 days/Wk (IRF) Estimated Hrs Per Day: 1.5 hours per day Rehab Potential: Fair Time/GCodes Start Time: 10:00 Stop Time: 11:00 Total Time Billed (hr/min): 60 Billed Treatment Time 1 visit, ADLx4(60minutes) JAVIER MARIN OT May 07, 2019 13:01
--- NOTE | 2019-05-07 13:35 | Cardiology Progress Note ---
Cardiology SOAP Progress Note Subjective: No cardiac complaints. Objective: I&O/Vital Signs 05/07/19 05:27 Temp 37.0 Pulse 66 Resp 16 B/P (MAP) 159/68 Pulse Ox 94 O2 Delivery Room Air 05/07/19 00:00 Intake Total 860 ml Output Total 600 ml Balance 260 ml Weight (Pounds): 215 Weight (Ounces): 6.0 Weight (Calculated Kilograms): 97.137401 Constitutional: appears stated age, AAO x 3; No apparent distress; well- developed, well-nourished Respiratory: chest is bilaterally symmetric, lungs clear to auscultation Cardiovascular: regular rate-rhythm, S1 and S2 Gastrointestional: soft, audible bowel sounds; No spleenomegaly Extremities: No clubbing, No cyanosis; no lower extremity edema bilateral; No significant edema Neurologic/Psychiatric: no motor/sensory deficits, alert, normal mood/affect, oriented x 3, power is 5/5 both on sides Skin: No rash, No ulcerations Results/Procedures: Labs Laboratory Tests 05/06/19 18:40: Urine Color YELLOW, Urine Clarity CLEAR, Urine pH 6, Urine Specific [place] 1.015L, Urine Protein 1+H, Urine Glucose (UA) NEGATIVE, Urine Ketones NEGATIVE, Urine Nitrite NEGATIVE, Urine Bilirubin NEGATIVE, Urine Urobilinogen 4H, Urine Leukocyte Esterase 2+H, Urine RBC (Auto) 2+H, Urine RBC 2-5H, Urine WBC 2-5, Urine Squamous Epithelial Cells RARE, Urine Crystals NONE, Urine Bacteria TRACE, Urine Casts NONE, Urine Mucus MODERATEH, Urine Culture Indicated NO 05/07/19 05:15: Sodium Level 139, Potassium Level 3.2L, Chloride Level 106, Carbon Dioxide Level 23, Anion Gap 10, Blood Urea Nitrogen 20H, Creatinine 0.75, Estimat Glomerular Filtration Rate > 60, BUN/Creatinine Ratio 27, Glucose Level 96, Calcium Level 8.3L, Corrected Calcium 9.3, Magnesium Level 1.8, Total Bilirubin 1.9H, Aspartate Amino Transf (AST/SGOT) 28, Alanine Aminotransferase (ALT/SGPT) 34, Alkaline Phosphatase 136, Total Protein 5.2L, Albumin 2.8L A/P: Assessment/Dx: Recent hip surgery, Blood pressure, CAD, Mild bilateral carotid artery disease, Dementia, Recent lower extremity DVT. Plan: Recent hip surgery, inpatient rehabilitation. Hypertension, systolic blood pressure 159 mmHg. Patient is already on amlodipi ne 10 mg daily, losartan 100 mg daily and metoprolol. CAD, continue aspirin. Mild bilateral carotid artery disease, continue to follow clinically. Dementia, Recent lower extremity DVT. Patient is on Eliquis. Thank you for your consultation. Please call me if you have any questions. Raquel Krishnamurthy MD, FACP, FACC, FSCAI, FHRS, CCDS Interventional Cardiology Cardiac Electrophysiology Vascular Medicine and Endovascular Interventions Lamine KRISHNAMURTHY MD May 07, 2019 13:35
--- NOTE | 2019-05-07 14:00 | Occupational Ther Daily Note ---
OT Current Status-Daily Note Subjective Pt resting in bed, agrees to therapy. No c/o pain. Mental Status/Objective Therapy Code Descriptions/Definitions Functional [place] Measure: 0=Not Assessed/NA 4=Minimal Assistance 1=Total Assistance 5=Supervision or Setup 2=Maximal Assistance 6=Modified [place] 3=Moderate Assistance 7=Complete [place] ADL-Treatment Therapy Code Descriptions/Definitions Functional [place] Measure: 0=Not Assessed/NA 4=Minimal Assistance 1=Total Assistance 5=Supervision or Setup 2=Maximal Assistance 6=Modified [place] 3=Moderate Assistance 7=Complete [place] Therapy Quality Codes: 6 Independent with activity with or without an assistive device 5 Patient requires set up or clean up by helper. Patient completes activity by themselves 4 Supervision or touching assist (CGA). [place] provide cues , steadying assist 3 The helper provides less than half the effort to complete the activity 2 The helper provides more than half the effort to complete the activity 1 Dependent. The helper does all the effort to complete an activity 7 Patient refused to complete or attempt activity 9 The patient did not perform the activity before the current illness or injury 88 Not attempted due to Medical conditions or safety concerns Other Treatment Pt performed bilateral UE exercises to increase strength and activity tolerance needed for ADLs and transfers. Pt performed shoulder flexion, forward press, biceps curls, and wrist flex/ext x10 reps with dowel chai. Rest breaks between exercises. Bilateral hand home economics teacher exercises completed to increase home economics teacher strength for functional tasks. Assisted pt to reposition in bed. Pt resting in bed with needs met after session. OT Short Term Goals Short Term Goals Time Frame: May 13, 2019 Bathing(FIM): 4 Upper Body Dressing(FIM): 4 Lower Body Dressing(FIM): 3 Toilet/Commode Transfer(FIM): 3 Additional Short Term Goals: 1-Demonstrate ADL Tasks, 2-Verbalize Understanding, 3-ImproveStrength/Michael 1=Demonstrate adherence to instructed precautions during ADL tasks. 2=Patient will verbalize/demonstrate understanding of assistive devices/modifications for ADL. 3=Patient will improve strength/tolerance for activity to enable patient to perf orm ADL's. OT Prison Goals Prison Goals Time Frame: May 27, 2019 Eating (FIM): 6 Eating (QC): 6 Groomin Oral Hygiene (QC): 6 Bathing(FIM): 5 Shower/Bathe Self (QC): 4 Upper Body Dressing(FIM): 5 Upper Body Dressing (QC): 5 Lower Body Dressing(FIM): 5 Lower Body Dressing (QC): 5 On/Off Footwear (QC): 5 Toileting(FIM): 6 Toileting Hygiene (QC): 6 Toilet/Commode Transfer(FIM): 5 Toilet/Commode Transfer (QC): 5 Shower Transfer(FIM): 5 Additional Goals: 1-Demonstrate ADL Tasks, 2-Verbalize Understanding, 3- ImproveStrength/Michael 1=Demonstrate adherence to instructed precautions during ADL tasks. 2=Patient will verbalize/demonstrate understanding of assistive devices/modifications for ADL. 3=Patient will improve strength/tolerance for activity to enable patient to perform ADL's. OT Education/Plan Discharge Recommendations Plan/Recommendations: Continue POC Treatment Plan/Plan of Care Patient would benefit from OT for education, treatment and training to promote independence in ADL's, mobility, safety and/or upper extremity function for ADL's. Plan of Care: ADL Retraining, Functional Mobility, Group Exercise/Act as Ind, UE Funct Exercise/Act Treatment Duration: May 27, 2019 Frequency: At least 5 of 7 days/Wk (IRF) Estimated Hrs Per Day: 1.5 hours per day Rehab Potential: Fair Time/GCodes Start Time: 13:30 Stop Time: 13:45 Total Time Billed (hr/min): 15 Billed Treatment Time 1 visit, EX(15minutes) JAVIER MARIN OT May 07, 2019 14:00
--- NOTE | 2019-05-07 14:36 | NUR ---
HVAC DESIGN ENGINEER met with patient to complete initial assessment. Patient was alert and oriented and agreeable to assessment. Patient admitted to ARU from [facility] following left total hip revision ( Dr. Jeff Gross). Prior to hospitalization patient resided alone in a one level home in [place], [place]. The home is entry level account representative. Patient reports independence with ambulation and ADLs prior to surgery with occasional use of single-point cane when outdoors. Patient also possesses grab bars and toilet riser. Primary contact identified as daughter, Leti of [place] [phone] and secondary contact as daughter, Rocio Palma at [phone]. Both local daughters work day time hours; however the Leti's schedule is flexible. PCP identified as Dr. Antonette Mg and Urologist as Dr. Reynolds. Insurance verified as Medicare and [place] Medicaid with prescription coverage and preferred pharmacy listed as [facility]. HVAC DESIGN ENGINEER reviewed typical ARU length of stay and weekly team conferences. HVAC DESIGN ENGINEER also reviewed team conference summary from this day with recommendation of reevaluation at next team conference on 918. Patient is agreeable to this and expresses no questions or concerns at this time. HVAC DESIGN ENGINEER will continue to follow.
[2019-05-07 17:05] VITALS: BP 120/52
[2019-05-07] MEDS: TAMSULOSIN 0.4 MG (FLOMAX) CAP PO SCH (17:35)
--- NOTE | 2019-05-07 17:39 | Progress Note ---
Subjective Date Seen by a Provider: May 07, 2019 Time Seen by a Provider: 12:45 Subjective/Events-last exam Fwup left hip revision, LLE DVT, urinary retention, HTN, weakness, hype rbilirubinemia. Patient in bed. More awake but still lethargic. Denies pain. Poor appetite. Objective Exam Vital Signs Date Time Temp Pulse Resp B/P (MAP) Pulse Ox O2 Delivery O2 Flow Rate FiO2 05/07/19 17:05 37.4 65 20 120/52 96 Room Air 05/07/19 08:42 Room Air 05/07/19 05:27 37.0 66 16 159/68 94 Room Air 05/06/19 21:00 95 Room Air 05/06/19 20:55 Room Air 05/06/19 18:00 36.5 76 18 145/76 94 Room Air I & O 05/07/19 07:00 Intake Total 1160 ml Output Total 1350 ml Balance -190 ml Capillary Refill : Less Than 3 Seconds General Appearance: Mild Distress Neck: Supple Respiratory: Lungs Clear Cardiovascular: Regular Rate, Rhythm Gastrointestinal: normal bowel sounds, non tender, soft Extremity: Non Tender, No Calf Tenderness, No Pedal Edema Neurologic/Psychiatric: Alert Skin: Warm/Dry Results Lab Laboratory Tests 05/06/19 18:40: Urine Color YELLOW, Urine Clarity CLEAR, Urine pH 6, Urine Specific [place] 1.015L, Urine Protein 1+H, Urine Glucose (UA) NEGATIVE, Urine Ketones NEGATIVE, Urine Nitrite NEGATIVE, Urine Bilirubin NEGATIVE, Urine Urobilinogen 4H, Urine Leukocyte Esterase 2+H, Urine RBC (Auto) 2+H, Urine RBC 2-5H, Urine WBC 2-5, Urine Squamous Epithelial Cells RARE, Urine Crystals NONE, Urine Bacteria TRACE, Urine Casts NONE, Urine Mucus MODERATEH, Urine Culture Indicated NO 05/07/19 05:15: Sodium Level 139, Potassium Level 3.2L, Chloride Level 106, Carbon Dioxide Level 23, Anion Gap 10, Blood Urea Nitrogen 20H, Creatinine 0.75, Estimat Glomerular Filtration Rate > 60, BUN/Creatinine Ratio 27, Glucose Level 96, Calcium Level 8.3L, Corrected Calcium 9.3, Magnesium Level 1.8, Total Bilirubin 1.9H, Aspartate Amino Transf (AST/SGOT) 28, Alanine Aminotransferase (ALT/SGPT) 34, Alkaline Phosphatase 136, Total Protein 5.2L, Albumin 2.8L Assessment/Plan Assessment/Plan Assess & Plan/Chief Complaint 1. Left LE DVT--on eliquis 2. Debility following left hip revision and DVT--PT/OT for strengthening/ADLs 3. Urinary Retention--urology consulted 4. Hypertension--back on home meds 5. Lethargy--little more alert today with DC of buspar last night 6. Hyperbilirubinemia--repeat LFTs in AM as well as liver US Clinical Quality Measures DVT/VTE Risk/Contraindication: Risk Factor Score Per Nursin RFS Level Per Nursing on Admit: 4+=Very High DANYEL CURRY DO May 07, 2019 17:39
--- NOTE | 2019-05-07 17:40 | NUR ---
This RN spoke w pt, & daughter regarding DNR status, as pt has purple DNR bracelet on. Pt & dgtr confirm that pt does not want CPR done, & is a DNR. Notified Dr. Becerra, & rec'd orders.
--- NOTE | 2019-05-07 20:17 | NUR ---
AT [address], DAY & INSIDE SALES TRAINER RN'S FOUND PT STANDING IN BETWEEN CHAIR & BED, ATTEMPTING TO TRANSFER HIMSELF TO BED. PT UNSTEADY, LEANING. 3 STAFF IMMEDIATELY IN TO ASSIST PT TO TRANSFER SAFELY TO BED TO AVOID INJURY. PT ASSISTED TO BED, 4 RAILS, UP, CALL LT IN HAND, BED ALARM ON, & REMINDED PT TO NOT BE UP BY HIMSELF, BUT, TO TURN ON THE CALL LT, & HAVE STAFF ASSIST TO AVOID FALLING OR INJURY. PT VERBALIZED UNDERSTANDING.
[2019-05-07] MEDS: cefTRIAXone FOR IV USE 1,000 MG in WATER (STERILE) FOR INJECTION 10 ML IV SCH (21:00)
[2019-05-08] MEDS: KCL 8 MEQ (MICRO K) TABLET PO SCH (05:58)
[2019-05-08] MEDS: PANTOPRAZOLE 40 MG (PROTONIX) TAB PO SCH ×2 (05:58→06:02)
[2019-05-08] MEDS: KCL 10 MEQ TAB (MICRO K) PO SCH ×3 (05:58→17:08)
[2019-05-08] MEDS: LEVOTHYROXINE 112 MCG (LEVOTHROID) TAB PO SCH (05:58)
[2019-05-08 06:00] LABS: BASOPHILS % (AUTO) 0 % (0-10); EOSINOPHILS # (AUTO) 0.2 10^3/uL (0.0-0.3); EOSINOPHILS % (AUTO) 2 % (0-10); HEMATOCRIT 30 % (40-54); HEMOGLOBIN 9.7 G/DL (13.3-17.7); LYMPHOCYTES # (AUTO) 2.2 X 10^3 (1.0-4.0); LYMPHOCYTES % (AUTO) 20 % (12-44); MEAN CORPUSCULAR HEMOGLOBIN 32 PG (25-34); MEAN CORPUSCULAR HGB CONC 33 G/DL (32-36); MEAN CORPUSCULAR VOLUME 98 FL (80-99); MEAN PLATELET VOLUME 10.1 FL (7.4-10.4); MONOCYTES # (AUTO) 1.3 X 10^3 (0.0-1.0); MONOCYTES % (AUTO) 12 % (0-12); NEUTROPHILS # (AUTO) 7.3 X 10^3 (1.8-7.8); NEUTROPHILS % (AUTO) 67 % (42-75); PLATELET COUNT 464 10^3/uL (130-400); RED CELL DISTRIBUTION WIDTH 13.6 % (10.0-14.5)
[2019-05-08 06:30] VITALS: BP 154/75
[2019-05-08 06:37] LABS: ALANINE AMINOTRANSFERASE 28 U/L (0-55); ALBUMIN 2.7 GM/DL (3.2-4.5); ALKALINE PHOSPHATASE 144 U/L (40-136); AMYLASE 151 U/L (25-125); BILIRUBIN,TOTAL 1.6 MG/DL (0.1-1.0); BUN/CREATININE RATIO 24; CALCIUM 8.3 MG/DL (8.5-10.1); CARBON DIOXIDE 23 MMOL/L (21-32); CHLORIDE 108 MMOL/L (98-107); CREATININE SERUM 0.79 MG/DL (0.60-1.30); GFR ESTIMATED > 60; GLUCOSE 95 MG/DL (70-105); LIPASE 13 U/L (8-78); POTASSIUM 3.3 MMOL/L (3.6-5.0); SODIUM 138 MMOL/L (135-145); TOTAL PROTEIN 5.2 GM/DL (6.4-8.2)
--- NOTE | 2019-05-08 08:03 | Progress Note ---
[facility] 05/08/19 0803: Subjective Date Seen by a Provider: May 08, 2019 Time Seen by a Provider: 07:25 Subjective/Events-last exam Vitals are normal and stable Madrigal Catheter still present. Stooling daily. Slept poorly. Complained of being hot. Eating and drinking well. Patient has yet to walk actively. ROS: + : Diarrhea, Vertigo - : N/V, Chills/Fever, SOB/Chest pain, OLVERA Objective Exam Last Set of Vital Signs Vital Signs Date Time Temp Pulse Resp B/P (MAP) Pulse Ox O2 Delivery O2 Flow Rate FiO2 05/08/19 06:30 37.2 69 16 154/75 91 Room Air Capillary Refill : Less Than 3 Seconds I&O Intake and Output 05/08/19 00:00 Intake Total 1150 ml Output Total 1400 ml Balance -250 ml Intake Oral 1150 ml Output Urine Total 1400 ml # Bowel Movements 1 General: Cooperative, Mild Distress Lungs: Clear to Auscultation, Normal Air Movement Heart: Regular Rate, No Murmurs Abdomen: Normal Bowel Sounds, Soft, No Tenderness Results Lab Laboratory Tests 05/08/19 05:17: White Blood Count 11.0, Red Blood Count 3.03L, Hemoglobin 9.7L, Hematocrit 30L, Mean Corpuscular Volume 98, Mean Corpuscular Hemoglobin 32, Mean Corpuscular Hemoglobin Concent 33, Red Cell Distribution Width 13.6, Platelet Count 464H, Mean Platelet Volume 10.1, Neutrophils (%) (Auto) 67, Lymphocytes (%) (Auto) 20, Monocytes (%) (Auto) 12, Eosinophils (%) (Auto) 2, Basophils (%) (Auto) 0, Neutrophils # (Auto) 7.3, Lymphocytes # (Auto) 2.2, Monocytes # (Auto) 1.3H, Eosinophils # (Auto) 0.2, Basophils # (Auto) 0.0, Sodium Level 138, Potassium Level 3.3L, Chloride Level 108H, Carbon Dioxide Level 23, Anion Gap 7, Blood Urea Nitrogen 19H, Creatinine 0.79, Estimat Glomerular Filtration Rate > 60, BUN/Creatinine Ratio 24, Glucose Level 95, Calcium Level 8.3L, Corrected Calcium 9.3, Total Bilirubin 1.6H, Aspartate Amino Transf (AST/SGOT) 29, Alanine Aminotransferase (ALT/SGPT) 28, Alkaline Phosphatase 144H, Total Protein 5.2L, Albumin 2.7L, Amylase Level 151H, Lipase 13 Clinical Quality Measures DVT/VTE Risk/Contraindication: Risk Factor Score Per Nursin RFS Level Per Nursing on Admit: 4+=Very High JANNETTE ANGLIN DO 05/09/19 1541: Assessment/Plan Assessment/Plan Assess & Plan/Chief Complaint Assessment: Left hip revision Supervisory-Addendum Brief Verification & Attestation Participated in pt care: history, MDM, physical Personally performed: exam, history, MDM, supervision of care Care discussed with: Medical Student Procedures: n/a Results interpretation: Verified all documentation Verification and Attestation of Medical Student E/M Service A medical student performed and documented this service in my presence. I reviewed and verified all information documented by the medical student and made modifications to such information, when appropriate. I personally performed the physical exam and medical decision making. Jannette Anglin, May 09, 2019,15:40 [facility] May 08, 2019 08:03 JANNETTE ANGLIN DO May 09, 2019 15:41
--- NOTE | 2019-05-08 08:54 | Physical Therapy Daily Note ---
PT Daily Note-Current Subjective Pt reports he isn't thinking as clearly as normal. He did not sleep well. Was hot all night. He c/o a stiff neck. Mental Status Patient Orientation: Person, Confused, Situation, Mumbles Attachments: Madrigal Catheter Transfers Therapy Code Descriptions/Definitions Functional [place] Measure: 0=Not Assessed/NA 4=Minimal Assistance 1=Total Assistance 5=Supervision or Setup 2=Maximal Assistance 6=Modified [place] 3=Moderate Assistance 7=Complete [place] Therapy Quality Codes: 6 Independent with activity with or without an assistive device 5 Patient requires set up or clean up by helper. Patient completes activity by themselves 4 Supervision or touching assist (CGA). [place] provide cues , steadying assist 3 The helper provides less than half the effort to complete the activity 2 The helper provides more than half the effort to complete the activity 1 Dependent. The helper does all the effort to complete an activity 7 Patient refused to complete or attempt activity 9 The patient did not perform the activity before the current illness or injury 88 Not attempted due to Medical conditions or safety concerns Transfers (B, C, W/C) (FIM): 3 Sit to Lying (QC): 3 Sit to Stand (QC): 3 pt needed 75% verbal cues for sequence bed mobility and sit to stand. Therapist provided 50% of needed effort for patient to stand from standard ht w/c Weight Bearing Left Lower Extremity: Left Weight Bearing/Tolerated Gait Training Education on sequence and use of FWW for 90 degree turns. practice walker for transfer and approach to bed and chair. Walked 30ft and 20ft both with FWW Min A followed by w/c. limitation is fatigue and SOB. Exercises Supine Ex: LE Protocol Supine Reps: 15 Active assist for end range during exercises. Assessment Current Status: Fair Progress Pt showing quick fatigue with all physical activity. He does have pain in the hip limiting function and motivation. Pain 6/10. Pt will benefit from continued therapy to advance mobility and promote a dc to home. PT Short Term Goals Short Term Goals Time Frame: May 13, 2019 Gait (FIM): 1 Gait Distance Comment: 10' Gait Level of Assist: 3 Gait Assistive Device: FWW PT Junior Legal Secretary Goals Junior Legal Secretary Goals PT Junior Legal Secretary Goals Time Frame: May 27, 2019 Transfers (B,C,W/C) (FIM): 4 Sit to Lying (QC): 3 Lying-Sitting on Side/Bed(QC): 3 Sit to Stand (QC): 3 Rollin Roll Left to Right (QC): 3 Chair/Roc-vu-Sstzv Xfer(QC): 3 Car Transfer (QC): 3 Gait (FIM): 2 Distance: 50' Walk 10 feet (QC): 4 Walk 10ft-Uneven Surface(QC): 4 Walk 50ft with 2 Turns (QC): 4 Walk 150 ft (QC): 4 Gait Level of Assist: 4 Gait Assistive Device: FWW Stairs (FIM): 2 # of Steps: 4 1 Step (curb) (QC): 4 Stairs Level Of Assist: 4 PT Plan Problem List Problem List: Balance, Gait, Transfer, Bed Mobility Treatment/Plan Treatment Plan: Continue Plan of Care Treatment Plan: Bed Mobility, Concurrent Therapy, Education, Functional Activity Michael, Functional Strength, Group Therapy, Gait, Safety, Therapeutic E xercise, Transfers Treatment Duration: May 27, 2019 Frequency: At least 5 of 7 days/Wk (IRF) Estimated Hrs Per Day: 1.5 hours per day Patient and/or Family Agrees t: Yes Time/GCodes Time In: 745 Time Out: 846 Total Billed Treatment Time: 60 Total Billed Treatment visit, gt 30 min, ex 15 min, FA 15 min BRIAN BEDOYA PT May 08, 2019 08:54
--- NOTE | 2019-05-08 09:37 | PM&R Progress Note ---
Subjective HPI/CC On Admission Date Seen by Provider: May 08, 2019 Time Seen by Provider: 09:00 Subjective/Events-last exam Having an ultrasound of his liver due to elevated total bilirubin of 2.2 but its already 1.6 today. Flomax ordered by Dr. Reynolds. King catheter will be discontinued in the near future. Rocephin maintained, will inquire with PCP the stop date for that since UA was normal. Cognitive issues are playing a part in his slow recovery. Will evaluate with PCP a behavioral health consult to see if that would help him. Eliquis maintained for the left lower extremity DVT. Up in a chair at least and maintained with a King catheter, Dr. Reynolds was notified and he was aware of the consultation. Dr. Krishnamurthy (cardiology) also saw him, potassium 3.2 will be addressed. Participating in therapy but slow due to grogginess. Very difficult to maneuver, he is a two person transfer at this time. Family is very involved in his care. Review of Systems General: Fatigue Musculoskeletal: leg pain Neurological: Confusion Objective Exam Vital Signs Vital Signs Date Time Temp Pulse Resp B/P (MAP) Pulse Ox O2 Delivery O2 Flow Rate FiO2 05/09/19 09:00 Room Air 05/09/19 06:05 37.3 69 20 159/81 94 Capillary Refill : Less Than 3 Seconds General Appearance: No Apparent Distress, WD/WN, Chronically ill, Other (leth argic) HEENT: PERRL/EOMI, Normal ENT Inspection, Pharynx Normal Neck: Full Range of Motion, Normal Inspection, Non Tender, Supple Respiratory: Chest Non Tender, Lungs Clear, Normal Breath Sounds, No Accessory Muscle Use, No Respiratory Distress Cardiovascular: Regular Rate, Rhythm, No Edema, No Gallop, No JVD, Normal Peripheral Pulses, Systolic Murmur Gastrointestinal: Normal Bowel Sounds, No Organomegaly, No Pulsatile Mass, Non Tender, Soft Rectal: Deferred Back: No CVA Tenderness Extremity: Non Tender, No Calf Tenderness, No Pedal Edema Neurologic/Psychiatric: Alert, No Motor/Sensory Deficits, instructor modeling II-XII Norm as Tested, Disoriented, Other (lethargic) Reflexes: 2+ Bicep (R), 2+ Bicep (L), 2+ Ankle (R), 2+ Ankle (L) Skin: Normal Color, Warm/Dry Lymphatic: No Adenopathy Results/Procedures Lab Laboratory Tests 05/09/19 05:30 Patient resulted labs reviewed. FIM Transfers Therapy Code Descriptions/Definitions Functional [place] Measure: 0=Not Assessed/NA 4=Minimal Assistance 1=Total Assistance 5=Supervision or Setup 2=Maximal Assistance 6=Modified [place] 3=Moderate Assistance 7=Complete [place] Therapy Quality Codes: 6 Independent with activity with or without an assistive device 5 Patient requires set up or clean up by helper. Patient completes activity by themselves 4 Supervision or touching assist (CGA). [place] provide cues , steadying assist 3 The helper provides less than half the effort to complete the activity 2 The helper provides more than half the effort to complete the activity 1 Dependent. The helper does all the effort to complete an activity 7 Patient refused to complete or attempt activity 9 The patient did not perform the activity before the current illness or injury 88 Not attempted due to Medical conditions or safety concerns Transfers (B, C, W/C) (FIM): 3 Scootin Rollin Roll Left to Right (QC): 1 Sit to/from Stand: 4 (CGA for safety due to report of lightheadedness) Sit to Lying (QC): 3 Sit to Stand (QC): 3 Chair/Gci-ue-Trgxq Xfer(QC): 2 Bed to/from Chair: 2 Car Transfer (QC): 2 Gait Training Does the Patient Walk?: Yes Gait (FIM): 1 Distance (FIM): 1=up to 49 ft Distance: 20 x2 Gait Level of Assist: 4 (CGA provided for safety due to pt c/o lightheadedness) Gait Persons Needed: 1 Gait Assistive Device: FWW Wheelchair Training Does the Pt Use a Wheelchair?: No Wheelchair (FIM): 1 Mental Status/Objective Comprehension: 6 Expression: 5 Social Interaction: 7 Problem Solvin Memory: 4 ADL-Treatment Feedin (per daughter's report) Eating (QC): 5 Groomin Oral Hygiene (QC): 4 Bathin Shower/Bathe Self (QC): 3 Upper Extremity Dressin Upper Body Dressing (QC): 3 Lower Extremity Dressin Lower Body Dressing (QC): 2 On/Off Footwear (QC): 1 Toilet/Commode Transfer: 4 (per PT report) Toilet Transfer (QC): 3 Shower: 0 Assessment/Plan Assessment and Plan Assess & Plan/Chief Complaint Plan: OAC Consult Rodolfo Dumont and Saurav Maintain king until Dr Reynolds is able to DC Improve nutrition BM regimen Pain control Monitor for falls Minimize sedatives Abx per Dr Mg (1) History of revision of total replacement of left hip joint Status: Acute (2) Left leg DVT Status: Acute Qualifiers: Affected thrombotic vein of extremity: unspecified vein of extremity Chronicity: unspecified Qualified Codes: I82.402 - Acute embolism and thrombosis of unspecified deep veins of left lower extremity BASIL ANGLIN DO May 08, 2019 09:37
[2019-05-08] MEDS: MAGNESIUM OXIDE (MAG-OX)400 MG TAB PO SCH ×2 (09:38→20:40)
[2019-05-08] MEDS: amLODIPine 10 MG (NORVASC) TAB PO SCH (09:38)
[2019-05-08] MEDS: APIXABAN 5 MG (ELIQUIS) TABLET PO SCH ×2 (09:38→20:40)
[2019-05-08] MEDS: LOSARTAN 100 MG (COZAAR) TABLET PO SCH (09:38)
[2019-05-08] MEDS: ASPIRIN E.C. 81 MG (ECOTRIN) TAB PO SCH (09:38)
[2019-05-08] MEDS: meTOproloL SUCCINATE 50 MG (TOPROL XL) TAB PO SCH (09:39)
[2019-05-08] MEDS: SENNA W/DOCUSATE (SENOKOT S) TABLET PO SCH ×2 (09:39→20:40)
[2019-05-08] MEDS: SERTRALINE 100 MG (ZOLOFT) TAB PO SCH (09:39)
[2019-05-08] MEDS: POLYETHYLENE GLYCOL 17 GM (MIRALAX) PACK PO SCH ×2 (09:41→20:40)
[2019-05-08 09:42] VITALS: BP 149/69
[2019-05-08] MEDS: FLUTICASONE NASAL SPRAY (FLONASE) 16 GM BTL NS SCH (09:42)
--- NOTE | 2019-05-08 10:49 | Speech Therapy Daily Note ---
Speech Daily Progress Note Subjective Date Seen by Provider: May 08, 2019 Time Seen by Provider: 00:30 The patient was resting in bed after having a procedure. Objective The patient was able to complete a series of cards by placing them in the correct sequence for scenarios he may encounter at home with 85% given minimal cues. Assessment Assessment Current Status: Good Progress Treatment Plan Continue Plan of Care Communication Comprehension: 6 Expression: 5 Social Cognition Social Interaction: 7 Problem Solvin Memory: 4 Speech Short Term Goals Short Term Goals Short Term Goals 1) The patient will complete memory tasks related to his daily needs at 90% or greater. 2) The patient will complete problem solving tasks related to his daily needs at 90% or greater. 3) The patient will complete safety awareness tasks related to his daily needs at 90% or greater. Speech Favor Maker Goals Favor Maker Goals Patient will improve cognitive-communication necessary for safety and daily living tasks with minimal assistance. Speech-Plan Patient/Family Goals Patient/Family Goals: The patient plans on returning home where he lives alone. He does have family close by for support as needed. Treatment Plan Speech Therapy Treatment Plan: Continue Plan of Care The patient is progressing toward ST goals. Treatment Duration: May 16, 2019 Frequency: 5 times per week Estimated Hrs Per Day: .5 hour per day Rehab Potential: Fair Barriers to Learning: The patient has mild cognitive deficits. Pt/Family Agrees to Plan: Yes Safety Risks/Education Teaching Recipient: Patient Teaching Methods: Demonstration, Discussion Response to Teaching: Verbalize Understanding, Return Demonstration Education Topics Provided: Continued safety within his room Time Speech Therapy Time In: 09:30 Speech Therapy Time Out: 10:00 Total Billed Time: 30 Billed Treatment Time 1, MICHELLE Cuellar May 08, 2019 10:48
--- NOTE | 2019-05-08 10:51 | Progress Note - Urology ---
Progress Note-Urology Progress Notes/Assess & Plan Progress/Assessment & Plan TOV TODAY Final Diagnosis [facility] HENRY MD May 08, 2019 10:51
--- NOTE | 2019-05-08 11:00 | Occupational Ther Daily Note ---
OT Current Status-Daily Note Subjective Pt seen in room, up in bed, agreeable to OT. Pt reported that he wasn't in any pain, then said that maybe he hurt a little, but did not rate or describe pain and declined OT asking for pain meds. Appearance Pleasant, cooperative, moves very slowly. Mental Status/Objective Patient Orientation: Person, Situation Therapy Code Descriptions/Definitions Functional [place] Measure: 0=Not Assessed/NA 4=Minimal Assistance 1=Total Assistance 5=Supervision or Setup 2=Maximal Assistance 6=Modified [place] 3=Moderate Assistance 7=Complete [place] Attachments: Saline Lock ADL-Treatment Pt declined bathing or dressing because he had had some tests and just now ordered breakfast. He was unable to move from supine to sitting EOB without raising up the head of the bed to almost full upright. All movements were very slow and he required encouragement. Once up at EOB, he had to sit for a few m inutes and flexed his L knee repeatedly. He attempted to stand, with FWW, but got "stuck" at midpoint and had to sit back down before he could stand. He required the bed to be raised up to its tallest before he could safely stand up from EOB, with walker. He transferred to w/ with min assist and cues for hand placement. He also needed instruction on how to reposition himself in w/c so that he was sitting squarely on his bottom. This transfer process took extra time. Once up in w/c, he needed cues to maintain hip abduction while sitting. He was able to open cereal and milk packages with extra time and prepare cereal and fruit without assistance. He was also able to feed himself without help. Pt reported that he was told that he has hip precautions and was able to verbalize 2 of the 3 precautions and state their purpose. Pt educ on 3rd precaution, with verbal understanding. Pt left up in w/c, call light and phone present, all needs met. Therapy Code Descriptions/Definitions Functional [place] Measure: 0=Not Assessed/NA 4=Minimal Assistance 1=Total Assistance 5=Supervision or Setup 2=Maximal Assistance 6=Modified [place] 3=Moderate Assistance 7=Complete [place] Therapy Quality Codes: 6 Independent with activity with or without an assistive device 5 Patient requires set up or clean up by helper. Patient completes activity by themselves 4 Supervision or touching assist (CGA). [place] provide cues , steadying assist 3 The helper provides less than half the effort to complete the activity 2 The helper provides more than half the effort to complete the activity 1 Dependent. The helper does all the effort to complete an activity 7 Patient refused to complete or attempt activity 9 The patient did not perform the activity before the current illness or injury 88 Not attempted due to Medical conditions or safety concerns Eating (FIM): 6 Transfers (B, C, W/C) (FIM): 4 Education OT Patient Education: Modified ADL techniques, Progress toward Goal/Update tx plan, Safety issues, Transfer techniques Teaching Recipient: Patient Teaching Methods: Discussion Response to Teaching: Verbalize Understanding, Return Demonstration, Reinforcement Needed OT Short Term Goals Short Term Goals Time Frame: May 13, 2019 Bathing(FIM): 4 Upper Body Dressing(FIM): 4 Lower Body Dressing(FIM): 3 Toilet/Commode Transfer(FIM): 3 Additional Short Term Goals: 1-Demonstrate ADL Tasks, 2-Verbalize Understanding, 3-ImproveStrength/Michael 1=Demonstrate adherence to instructed precautions during ADL tasks. 2=Patient will verbalize/demonstrate understanding of assistive devices/modifications for ADL. 3=Patient will improve strength/tolerance for activity to enable patient to perform ADL's. OT Alf Goals Alf Goals Time Frame: May 27, 2019 Eating (FIM): 6 Eating (QC): 6 Groomin Oral Hygiene (QC): 6 Bathing(FIM): 5 Shower/Bathe Self (QC): 4 Upper Body Dressing(FIM): 5 Upper Body Dressing (QC): 5 Lower Body Dressing(FIM): 5 Lower Body Dressing (QC): 5 On/Off Footwear (QC): 5 Toileting(FIM): 6 Toileting Hygiene (QC): 6 Toilet/Commode Transfer(FIM): 5 Toilet/Commode Transfer (QC): 5 Shower Transfer(FIM): 5 Additional Goals: 1-Demonstrate ADL Tasks, 2-Verbalize Understanding, 3-ImproveStrength/Michael 1=Demonstrate adherence to instructed precautions during ADL tasks. 2=Patient will verbalize/demonstrate understanding of assistive devices/modifications for ADL. 3=Patient will improve strength/tolerance for activity to enable patient to perform ADL's. OT Education/Plan Discharge Recommendations Plan/Recommendations: Continue POC Treatment Plan/Plan of Care Patient would benefit from OT for education, treatment and training to promote independence in ADL's, mobility, safety and/or upper extremity function for ADL's. Plan of Care: ADL Retraining, Functional Mobility, Group Exercise/Act as Ind, UE Funct Exercise/Act Treatment Duration: May 27, 2019 Frequency: At least 5 of 7 days/Wk (IRF) Estimated Hrs Per Day: 1.5 hours per day Rehab Potential: Fair Time/GCodes Start Time: 10:00 Stop Time: 10:45 Total Time Billed (hr/min): 45 Billed Treatment Time visit, 30 minutes functional activity, 15 minutes ADL ANUM VILLARREAL OT May 08, 2019 11:00
--- NOTE | 2019-05-08 12:43 | Diagnostic Imaging Report ---
PROCEDURE: US Hepatic (Liver). TECHNIQUE: Multiple real-time grayscale images were obtained over the right upper quadrant in various projections. INDICATION: Elevated bilirubin. FINDINGS: The liver is normal in size at 16.9 cm. No discrete liver mass is identified. The portal vein is patent and shows normal direction of flow. Gallbladder surgically absent. No biliary ductal dilatation is seen although region of extrahepatic bile duct is somewhat obscured by bowel gas pattern. Pancreas unremarkable. Right kidney is unremarkable. There is no ascites. IMPRESSION: Status post cholecystectomy. No significant abnormality is detected. Dictated by: Dictated on workstation # [id number]
[2019-05-08] MEDS ORDERED: CYANOCOBALAMIN INJ 1000 MCG/ML IM NR (12:45)
[2019-05-08] MEDS ORDERED: KCL 20 MEQ TAB (K-DUR) PO NR (12:45)
[2019-05-08 14:22] VITALS: BP 149/72
[2019-05-08] MEDS ORDERED: ACET-168 PO (14:53)
[2019-05-08] MEDS ORDERED: TRAM50TA2 PO (14:53)
--- NOTE | 2019-05-08 14:54 | Therapy Group Daily Note ---
Therapy Daily Group Note Patient Education Topic Exercises Exercises LE Seated Exercise, UE Exercise Session Ratio (pt:therapist): 4:1 Goal of Session: UE/LE Strengthing Goal Met for this Session: Yes Pt Benefit of Group: Contributions to Others, Increased Functional Strength, Improved Cognition, Recognition of Peers, Socialization Other/Notes Pt transported in w/c to OT/PT group. Group consisted of introduction (name, place living, memory of 05/07), socialization, pt led UE/LE seated exercises and education on the benefits of exercise. Pt introduced self then actively listened to peers. Pt participated in conversations and contributed to educational topics. Pt effectively led exercises and completed each exercise to the best of pt's ability. After therapy, pt lying in bed with call light/phone in reach. All needs met in room. Start Time: 13:00 Stop Time: 14:10 Total Billed Treatment Time: 70 Total Billed Treatment 1-GRP AQUILES LEDEZMA May 08, 2019 14:54
--- NOTE | 2019-05-08 15:05 | NUR ---
Madrigal catheter removed per orders.
--- NOTE | 2019-05-08 15:37 | Cardiology Progress Note ---
Cardiology SOAP Progress Note Subjective: patient complains of fatigue. Objective: I&O/Vital Signs 05/08/19 05/08/19 05/08/19 05/08/19 06:30 09:00 09:42 14:22 Temp 37.2 Pulse 69 63 61 Resp 16 18 B/P (MAP) 154/75 149/69 149/72 Pulse Ox 91 96 O2 Delivery Room Air Room Air Room Air 05/08/19 00:00 Intake Total 850 ml Output Total 650 ml Balance 200 ml Weight (Pounds): 215 Weight (Ounces): 6.0 Weight (Calculated Kilograms): 97.769897 Constitutional: appears stated age, AAO x 3; No apparent distress; well- developed, well-nourished Respiratory: chest is bilaterally symmetric, lungs clear to auscultation Cardiovascular: regular rate-rhythm, S1 and S2 Gastrointestional: soft, audible bowel sounds; No spleenomegaly Extremities: No clubbing, No cyanosis; no lower extremity edema bilateral; No significant edema Neurologic/Psychiatric: no motor/sensory deficits, alert, normal mood/affect, oriented x 3, power is 5/5 both on sides Skin: No rash, No ulcerations Results/Procedures: Labs Laboratory Tests 05/08/19 05:17: White Blood Count 11.0, Red Blood Count 3.03L, Hemoglobin 9.7L, Hematocrit 30L, Mean Corpuscular Volume 98, Mean Corpuscular Hemoglobin 32, Mean Corpuscular Hemoglobin Concent 33, Red Cell Distribution Width 13.6, Platelet Count 464H, Mean Platelet Volume 10.1, Neutrophils (%) (Auto) 67, Lymphocytes (%) (Auto) 20, Monocytes (%) (Auto) 12, Eosinophils (%) (Auto) 2, Basophils (%) (Auto) 0, Neutrophils # (Auto) 7.3, Lymphocytes # (Auto) 2.2, Monocytes # (Auto) 1.3H, Eosinophils # (Auto) 0.2, Basophils # (Auto) 0.0, Sodium Level 138, Potassium Level 3.3L, Chloride Level 108H, Carbon Dioxide Level 23, Anion Gap 7, Blood Urea Nitrogen 19H, Creatinine 0.79, Estimat Glomerular Filtration Rate > 60, BUN/Creatinine Ratio 24, Glucose Level 95, Calcium Level 8.3L, Corrected Calcium 9.3, Total Bilirubin 1.6H, Aspartate Amino Transf (AST/SGOT) 29, Alanine Aminotransferase (ALT/SGPT) 28, Alkaline Phosphatase 144H, Total Protein 5.2L, Albumin 2.7L, Amylase Level 151H, Lipase 13 A/P: Assessment/Dx: Recent hip surgery, Blood pressure, CAD, Mild bilateral carotid artery disease, Dementia, Recent lower extremity DVT. Plan: Recent hip surgery, inpatient rehabilitation. patient complains of fatigue. Will defer to Dr. Mg. Hypertension, systolic blood pressure 142 mmHg. Patient is already on amlodipine 10 mg daily, losartan 100 mg daily and metoprolol. CAD, continue aspirin. Mild bilateral carotid artery disease, continue to follow clinically. Dementia, Recent lower extremity DVT. Patient is on Eliquis. Thank you for your consultation. Please call me if you have any questions. Raquel Krishnamurthy MD, FACP, FACC, FSCAI, FHRS, CCDS Interventional Cardiology Cardiac Electrophysiology Vascular Medicine and Endovascular Interventions Lamine KRISHNAMURTHY MD May 08, 2019 15:37
[2019-05-08 16:25] VITALS: BP 148/71
[2019-05-08] MEDS: TAMSULOSIN 0.4 MG (FLOMAX) CAP PO SCH (17:08)
--- NOTE | 2019-05-08 18:07 | Progress Note ---
Subjective Date Seen by a Provider: May 08, 2019 Time Seen by a Provider: 12:35 Subjective/Events-last exam Fwup left hip revision, LLE DVT, urinary retention, HTN, weakness, hype rbilirubinemia. Patient in bed. Denies pain. Denies nausea but states no appetite. Very fatigued and short of air with minimal exertion. Objective Exam Vital Signs Date Time Temp Pulse Resp B/P (MAP) Pulse Ox O2 Delivery O2 Flow Rate FiO2 05/08/19 16:25 37.5 68 16 148/71 96 Room Air 05/08/19 14:22 61 18 149/72 96 Room Air 05/08/19 09:42 63 149/69 05/08/19 09:00 Room Air 05/08/19 06:30 37.2 69 16 154/75 91 Room Air 05/07/19 21:00 Room Air I & O 05/08/19 07:00 Intake Total 850 ml Output Total 1400 ml Balance -550 ml Capillary Refill : Less Than 3 Seconds General Appearance: Mild Distress Neck: Supple Respiratory: Lungs Clear Cardiovascular: Regular Rate, Rhythm, Systolic Murmur Gastrointestinal: normal bowel sounds, non tender, soft Extremity: Non Tender, No Calf Tenderness, No Pedal Edema Neurologic/Psychiatric: Alert Skin: Warm/Dry Results Lab Laboratory Tests 05/08/19 05:17: White Blood Count 11.0, Red Blood Count 3.03L, Hemoglobin 9.7L, Hematocrit 30L, Mean Corpuscular Volume 98, Mean Corpuscular Hemoglobin 32, Mean Corpuscular Hemoglobin Concent 33, Red Cell Distribution Width 13.6, Platelet Count 464H, Mean Platelet Volume 10.1, Neutrophils (%) (Auto) 67, Lymphocytes (%) (Auto) 20, Monocytes (%) (Auto) 12, Eosinophils (%) (Auto) 2, Basophils (%) (Auto) 0, Neutrophils # (Auto) 7.3, Lymphocytes # (Auto) 2.2, Monocytes # (Auto) 1.3H, Eosinophils # (Auto) 0.2, Basophils # (Auto) 0.0, Sodium Level 138, Potassium Level 3.3L, Chloride Level 108H, Carbon Dioxide Level 23, Anion Gap 7, Blood Urea Nitrogen 19H, Creatinine 0.79, Estimat Glomerular Filtration Rate > 60, BUN/Creatinine Ratio 24, Glucose Level 95, Calcium Level 8.3L, Corrected Calcium 9.3, Total Bilirubin 1.6H, Aspartate Amino Transf (AST/SGOT) 29, Alanine Aminotransferase (ALT/SGPT) 28, Alkaline Phosphatase 144H, Total Protein 5.2L, Albumin 2.7L, Amylase Level 151H, Lipase 13 Assessment/Plan Assessment/Plan Assess & Plan/Chief Complaint 1. Left LE DVT--on eliquis 2. Debility following left hip revision and DVT--PT/OT for strengthening/ADLs 3. Urinary Retention--urology consulted and flomax started, nursing reports going to try to remove king catheter today 4. Hypertension--back on home meds 5. Lethargy/Fatigue/Dyspnea on Exertion--unsure if was checked for pulmonary emboli at [place] but is on eliquis, will check 2-D ECHO since has been several years since last ECHO 6. Hyperbilirubinemia--improving, Liver US normal Clinical Quality Measures DVT/VTE Risk/Contraindication: Risk Factor Score Per Nursin RFS Level Per Nursing on Admit: 4+=Very High DANYEL CURRY DO May 08, 2019 18:07
[2019-05-08] MEDS: cefTRIAXone FOR IV USE 1,000 MG in WATER (STERILE) FOR INJECTION 10 ML IV SCH (20:40)
[2019-05-09 06:05] VITALS: BP 159/81
[2019-05-09] MEDS: FERROUS SULF 325 MG (IRON) TAB PO SCH (06:25)
[2019-05-09] MEDS: PANTOPRAZOLE 40 MG (PROTONIX) TAB PO SCH (06:25)
[2019-05-09] MEDS: LEVOTHYROXINE 112 MCG (LEVOTHROID) TAB PO SCH (06:25)
[2019-05-09] MEDS: KCL 10 MEQ TAB (MICRO K) PO SCH (06:25)
[2019-05-09 08:00] VITALS: BP_SYST 110; BP_SYST 79; BP_DIAS 54; BP_DIAS 69
[2019-05-09 08:01] VITALS: BP 101/55
--- NOTE | 2019-05-09 08:05 | Physical Therapy Daily Note ---
PT Daily Note-Current Subjective Pt agreeable try PT session this am. States he is really feeling tired and "just not right", discussed this with pt's nurse. Pt had low pain level at beginning of session but pain greatly increased and is now requesting pain meds. Nursing aware. Pt reports he has been getting very dizzy and lightheaded with sitting up from lying and sit to stand and then it takes a long time to get any better. Pain Numeric Pain Scale: 1 Location: Left Location Body Site: Hip Comment: increases pain with mvmnt, denies need for pain med at this time Appearance Pt in bed finishing breakfast on arrival. Pt requesting and assisted to get dressed with tshirt, depends, sweat pants, bilat knee support braces and shoes during session. Pt in bed per pt request due to increased pain, lightheadedness and fatigue at end of session, call light, phone and bedside table within reach, pt requesting shoes to be removed but B knee braces to remain off. Nurse present at end of session caring for patient. Mental Status Patient Orientation: Person, Place, Time, Eyes Open, Situation Attachments: Knee Immobilizer (balat), Saline Lock Transfers Therapy Code Descriptions/Definitions Functional [place] Measure: 0=Not Assessed/NA 4=Minimal Assistance 1=Total Assistance 5=Supervision or Setup 2=Maximal Assistance 6=Modified [place] 3=Moderate Assistance 7=Complete [place] Therapy Quality Codes: 6 Independent with activity with or without an assistive device 5 Patient requires set up or clean up by helper. Patient completes activity by themselves 4 Supervision or touching assist (CGA). [place] provide cues , steadying assist 3 The helper provides less than half the effort to complete the activity 2 The helper provides more than half the effort to complete the activity 1 Dependent. The helper does all the effort to complete an activity 7 Patient refused to complete or attempt activity 9 The patient did not perform the activity before the current illness or injury 88 Not attempted due to Medical conditions or safety concerns Transfers (B, C, W/C) (FIM): 3 Scootin Rollin Supine to/from Sit: 3 (EOB elevated and physical A required with LE's at and shoulder supine to sit, physical A requried with LE's sit to supine) Sit to/from Stand: 4 (CGA for safety due to increasing lightheadedness and decreasing BP's) skilled verb inst required 90% of time for proper hand placement during sit to and from stand transfers Weight Bearing Left Lower Extremity: Left Weight Bearing/Tolerated Gait Training unable to attempt due to pt's c/o increasing lightheadedness and dizziness as well as orthostatic BP's this am Exercises Supine Ex: Ankle pumps, Heel Slides, Straight leg raise, Hip abd/add Supine Reps: 10 (L hip ER, AAROM to PROM) Seated Therapy Exercises: Ankle pumps, Sit to stand, Long arc quads Seated Reps: 10 Standing Reps: 3 (static stance x3 reps 5 min each wtih use of FWW) Treatments Nurse present and recorded blood pressures: sitting 110/69, stand 79/54, 2nd stand after 5 min sit rest 101/55. Pt symptomatic with report of lightheadedness and dizziness that did not get better. Pt inst in and performed bed mobility, transfers, safety, education, positioning, dressing, balance, strength, ROM, activity tolerance, functional mobility Assessment Decreased abilities to perform activities this session due to orthostatic BP's, increasing pain, not feeling well, slightly lethargic, increased fatigue PT Short Term Goals Short Term Goals Time Frame: May 13, 2019 Gait (FIM): 1 Gait Distance Comment: 10' Gait Level of Assist: 3 Gait Assistive Device: FWW PT Senior Living Goals Senior Living Goals PT [place] Inspector Goals Time Frame: May 27, 2019 Transfers (B,C,W/C) (FIM): 4 Sit to Lying (QC): 3 Lying-Sitting on Side/Bed(QC): 3 Sit to Stand (QC): 3 Rollin Roll Left to Right (QC): 3 Chair/Ohw-vs-Phcyn Xfer(QC): 3 Car Transfer (QC): 3 Gait (FIM): 2 Distance: 50' Walk 10 feet (QC): 4 Walk 10ft-Uneven Surface(QC): 4 Walk 50ft with 2 Turns (QC): 4 Walk 150 ft (QC): 4 Gait Level of Assist: 4 Gait Assistive Device: FWW Stairs (FIM): 2 # of Steps: 4 1 Step (curb) (QC): 4 Stairs Level Of Assist: 4 PT Plan Treatment/Plan Treatment Plan: Continue Plan of Care Treatment Plan: Bed Mobility, Concurrent Therapy, Education, Functional Activity Michael, Functional Strength, Group Therapy, Gait, Safety, Therapeutic Exercise, Transfers Treatment Duration: May 27, 2019 Frequency: At least 5 of 7 days/Wk (IRF) Estimated Hrs Per Day: 1.5 hours per day Patient and/or Family Agrees t: Yes Safety Risks/Education Patient Education: Gait Training, Transfer Techniques, Safety Issues Teaching Recipient: Patient Teaching Methods: Demonstration, Discussion Response to Teaching: Verbalize Understanding, Return Demonstration, Reinforcement Needed Time/GCodes Time In: 800 Time Out: 845 Total Billed Treatment Time: 45 Total Billed Treatment 1 visit, FA x30 min, EX x15 min KIRAN KRISHNAN PTA May 09, 2019 08:05
[2019-05-09] MEDS: SERTRALINE 100 MG (ZOLOFT) TAB PO SCH (08:46)
[2019-05-09] MEDS: MAGNESIUM OXIDE (MAG-OX)400 MG TAB PO SCH ×2 (08:46→20:41)
[2019-05-09] MEDS: APIXABAN 5 MG (ELIQUIS) TABLET PO SCH ×2 (08:46→20:42)
[2019-05-09] MEDS: SENNA W/DOCUSATE (SENOKOT S) TABLET PO SCH ×2 (08:47→20:41)
[2019-05-09] MEDS: ASPIRIN E.C. 81 MG (ECOTRIN) TAB PO SCH (08:47)
[2019-05-09] MEDS: POLYETHYLENE GLYCOL 17 GM (MIRALAX) PACK PO SCH ×2 (08:48→20:43)
[2019-05-09] MEDS: FLUTICASONE NASAL SPRAY (FLONASE) 16 GM BTL NS SCH (08:49)
[2019-05-09 09:18] LABS: ALANINE AMINOTRANSFERASE 31 U/L (0-55); ALBUMIN 2.9 GM/DL (3.2-4.5); ALKALINE PHOSPHATASE 136 U/L (40-136); BILIRUBIN,TOTAL 1.7 MG/DL (0.1-1.0); BUN/CREATININE RATIO 23; CALCIUM 8.8 MG/DL (8.5-10.1); CARBON DIOXIDE 22 MMOL/L (21-32); CHLORIDE 108 MMOL/L (98-107); CREATININE SERUM 0.93 MG/DL (0.60-1.30); GFR ESTIMATED > 60; GLUCOSE 85 MG/DL (70-105); POTASSIUM 3.5 MMOL/L (3.6-5.0); SODIUM 141 MMOL/L (135-145); TOTAL PROTEIN 5.5 GM/DL (6.4-8.2)
[2019-05-09] MEDS ORDERED: KCL 8 MEQ (MICRO K) TABLET PO NR (09:45)
--- NOTE | 2019-05-09 09:52 | Progress Note ---
Subjective Date Seen by a Provider: May 09, 2019 Time Seen by a Provider: 09:47 Subjective/Events-last exam Fwup left hip revision, LLE DVT, urinary retention, HTN, weakness, hype rbilirubinemia. Still very fatigued. Catheter out and voiding on his own. Objective Exam Vital Signs Date Time Temp Pulse Resp B/P (MAP) Pulse Ox O2 Delivery O2 Flow Rate FiO2 05/09/19 06:05 37.3 69 20 159/81 94 Room Air 05/08/19 21:00 Room Air 05/08/19 16:25 37.5 68 16 148/71 96 Room Air 05/08/19 14:22 61 18 149/72 96 Room Air I & O 05/09/19 07:00 Intake Total 840 ml Output Total 450 ml Balance 390 ml Capillary Refill : Less Than 3 Seconds General Appearance: Moderate Distress (appears fatigued) Respiratory: Lungs Clear Cardiovascular: Regular Rate, Rhythm Gastrointestinal: normal bowel sounds, non tender, soft Extremity: Non Tender, No Calf Tenderness, No Pedal Edema Neurologic/Psychiatric: Alert, Oriented x3 Skin: Warm/Dry Results Lab Laboratory Tests 05/09/19 05:30: Sodium Level 141, Potassium Level 3.5L, Chloride Level 108H, Carbon Dioxide Level 22, Anion Gap 11, Blood Urea Nitrogen 21H, Creatinine 0.93, Estimat Glomerular Filtration Rate > 60, BUN/Creatinine Ratio 23, Glucose Level 85, Calcium Level 8.8, Corrected Calcium 9.7, Total Bilirubin 1.7H, Aspartate Amino Transf (AST/SGOT) 31, Alanine Aminotransferase (ALT/SGPT) 31, Alkaline Phosphatase 136, Total Protein 5.5L, Albumin 2.9L Assessment/Plan Assessment/Plan Assess & Plan/Chief Complaint 1. Left LE DVT--on eliquis 2. Debility following left hip revision and DVT--PT/OT for strengthening/ADLs 3. Urinary Retention--urology consulted and flomax started, king out 4. Hypertension--back on home meds 5. Lethargy/Fatigue/Dyspnea on Exertion--unsure if was checked for pulmonary emboli at [place] but is on eliquis, 2-D ECHO today 6. Hyperbilirubinemia--uncertain etiology, Liver US normal Clinical Quality Measures DVT/VTE Risk/Contraindication: Risk Factor Score Per Nursin RFS Level Per Nursing on Admit: 4+=Very High DANYEL CURRY DO May 09, 2019 09:52
--- NOTE | 2019-05-09 09:54 | Progress Note - Urology ---
Progress Note-Urology Progress Notes/Assess & Plan Progress/Assessment & Plan VOIDING ON OWN. PVR 121. KEEP SAME Final Diagnosis RETENTION (RESOLVING) [facility] HENRY MD May 09, 2019 09:54
[2019-05-09] MEDS: LOSARTAN 100 MG (COZAAR) TABLET PO SCH (10:00)
[2019-05-09] MEDS: amLODIPine 10 MG (NORVASC) TAB PO SCH (10:00)
[2019-05-09] MEDS: meTOproloL SUCCINATE 50 MG (TOPROL XL) TAB PO SCH (10:00)
[2019-05-09] MEDS ORDERED: buPROPion 75 MG (WELLBUTRIN) TAB PO NR (10:15)
--- NOTE | 2019-05-09 10:30 | NUR ---
Yosef CANTU WAS INFORMED OF PATIENT'S DIZZINESS AND LIGHTHEADEDNESS WHEN SITTING AND STANDING. PATIENT STATES HAS HAD THIS "FOR A WHILE". BP SITTING 110/69, PULSE 78. STANDING , PULSE 86. PATIENT SAT BACK DOWN AND THEN STOOD BACK UP AND NOW BP READING 101/55, PULSE 76. ORDER TO HOLD BP MEDS THIS AM. DR. HENRY ALSO SAW PATIENT.
--- NOTE | 2019-05-09 11:00 | Occupational Ther Daily Note ---
OT Current Status-Daily Note Subjective Pt seen in room, up in bed, agreeable to OT. No pain mentioned. Appearance Very lethargic, opened eyes but infrequently Mental Status/Objective Therapy Code Descriptions/Definitions Functional [place] Measure: 0=Not Assessed/NA 4=Minimal Assistance 1=Total Assistance 5=Supervision or Setup 2=Maximal Assistance 6=Modified [place] 3=Moderate Assistance 7=Complete [place] ADL-Treatment Therapy Code Descriptions/Definitions Functional [place] Measure: 0=Not Assessed/NA 4=Minimal Assistance 1=Total Assistance 5=Supervision or Setup 2=Maximal Assistance 6=Modified [place] 3=Moderate Assistance 7=Complete [place] Therapy Quality Codes: 6 Independent with activity with or without an assistive device 5 Patient requires set up or clean up by helper. Patient completes activity by themselves 4 Supervision or touching assist (CGA). [place] provide cues , steadying assist 3 The helper provides less than half the effort to complete the activity 2 The helper provides more than half the effort to complete the activity 1 Dependent. The helper does all the effort to complete an activity 7 Patient refused to complete or attempt activity 9 The patient did not perform the activity before the current illness or injury 88 Not attempted due to Medical conditions or safety concerns Other Treatment PT reported pt having problems with dropping blood pressure and lethargy and unsafe for walking. Pt declined sponge bath or other ADLs but agreed to do exercise in bed. Pt needed help of two people to pull up in bed. Pt educ on several different bilat UE exercises using yellow theraband (gentle resistance). he completed 10 reps each and was generally able to tracks reps. All movements slower than usual. Also completed two exercises that he can do in bed without theraband for shoulder and UE ROM and exercise. To strengthen arms to help with transfers and ADLs. pt left up in bed,all needs met. Education OT Patient Education: Exercise program, Purpose of tx/functional activities Teaching Recipient: Patient Teaching Methods: Demonstration, Discussion Response to Teaching: Verbalize Understanding, Return Demonstration, Reinforcement Needed OT Short Term Goals Short Term Goals Time Frame: May 13, 2019 Bathing(FIM): 4 Upper Body Dressing(FIM): 4 Lower Body Dressing(FIM): 3 Toilet/Commode Transfer(FIM): 3 Additional Short Term Goals: 1-Demonstrate ADL Tasks, 2-Verbalize Understanding, 3-ImproveStrength/Michael 1=Demonstrate adherence to instructed precautions during ADL tasks. 2=Patient will verbalize/demonstrate understanding of assistive d evices/modifications for ADL. 3=Patient will improve strength/tolerance for activity to enable patient to perform ADL's. OT Intermediate Goals Intermediate Goals Time Frame: May 27, 2019 Eating (FIM): 6 Eating (QC): 6 Groomin Oral Hygiene (QC): 6 Bathing(FIM): 5 Shower/Bathe Self (QC): 4 Upper Body Dressing(FIM): 5 Upper Body Dressing (QC): 5 Lower Body Dressing(FIM): 5 Lower Body Dressing (QC): 5 On/Off Footwear (QC): 5 Toileting(FIM): 6 Toileting Hygiene (QC): 6 Toilet/Commode Transfer(FIM): 5 Toilet/Commode Transfer (QC): 5 Shower Transfer(FIM): 5 Additional Goals: 1-Demonstrate ADL Tasks, 2-Verbalize Understanding, 3- ImproveStrength/Michael 1=Demonstrate adherence to instructed precautions during ADL tasks. 2=Patient will verbalize/demonstrate understanding of assistive devices/modifications for ADL. 3=Patient will improve strength/tolerance for activity to enable patient to perform ADL's. OT Education/Plan Discharge Recommendations Plan/Recommendations: Continue POC Treatment Plan/Plan of Care Patient would benefit from OT for education, treatment and training to promote independence in ADL's, mobility, safety and/or upper extremity function for ADL's. Plan of Care: ADL Retraining, Functional Mobility, Group Exercise/Act as Ind, UE Funct Exercise/Act Treatment Duration: May 27, 2019 Frequency: At least 5 of 7 days/Wk (IRF) Estimated Hrs Per Day: 1.5 hours per day Rehab Potential: Fair Time/GCodes Start Time: 09:30 Stop Time: 10:15 Total Time Billed (hr/min): 45 Billed Treatment Time visit, 45 minutes exercise ANUM VILLARREAL OT May 09, 2019 11:00
--- NOTE | 2019-05-09 13:13 | Cardiology Progress Note ---
Cardiology SOAP Progress Note Subjective: continues to complain of fatigue. Objective: I&O/Vital Signs 05/10/19 06:24 Temp 37.1 Pulse 79 Resp 20 B/P (MAP) 151/66 Pulse Ox 93 O2 Delivery Room Air 05/10/19 00:00 Intake Total 400 ml Output Total 400 ml Balance 0 ml Weight (Pounds): 215 Weight (Ounces): 6.0 Weight (Calculated Kilograms): 97.035375 Constitutional: appears stated age, AAO x 3; No apparent distress; well- developed, well-nourished Respiratory: chest is bilaterally symmetric, lungs clear to auscultation Cardiovascular: regular rate-rhythm, S1 and S2 Gastrointestional: soft, audible bowel sounds; No spleenomegaly Extremities: No clubbing, No cyanosis; no lower extremity edema bilateral; No significant edema Neurologic/Psychiatric: no motor/sensory deficits, alert, normal mood/affect, oriented x 3, power is 5/5 both on sides Skin: No rash, No ulcerations Results/Procedures: Labs A/P: Assessment/Dx: Recent hip surgery, fatigue Blood pressure, CAD, Mild bilateral carotid artery disease, Dementia, Recent lower extremity DVT. Plan: Recent hip surgery, inpatient rehabilitation. patient complains of fatigue. Will defer to Dr. Mg. Hypertension, systolic blood pressure 142 mmHg. Patient is already on amlodipine 10 mg daily, losartan 100 mg daily and metoprolol. CAD, continue aspirin. Mild bilateral carotid artery disease, continue to follow clinically. Dementia, Recent lower extremity DVT. Patient is on Eliquis. Thank you for your consultation. Please call me if you have any questions. Raquel Krishnamurthy MD, FACP, FACC, FSCAI, FHRS, CCDS Interventional Cardiology Cardiac Electrophysiology Vascular Medicine and Endovascular Interventions Lamine KRISHNAMURTHY MD May 09, 2019 13:13
--- NOTE | 2019-05-09 13:25 | Speech Therapy Daily Note ---
Speech Daily Progress Note Subjective Date Seen by Provider: May 09, 2019 Time Seen by Provider: 00:30 The patient was resting in his bed when I entered his room. Objective The patient completed problem solving questions related to his daily needs at 80% with min to mod cues. Assessment Assessment Current Status: Good Progress Treatment Plan Continue Plan of Care Communication Comprehension: 6 Expression: 5 Social Cognition Social Interaction: 7 Problem Solvin Memory: 4 Speech Short Term Goals Short Term Goals Short Term Goals 1) The patient will complete memory tasks related to his daily needs at 90% or greater. 2) The patient will complete problem solving tasks related to his daily needs at 90% or greater. 3) The patient will complete safety awareness tasks related to his daily needs at 90% or greater. Speech Jail Goals Th[place] Goals Patient will improve cognitive-communication necessary for safety and daily living tasks with minimal assistance. Speech-Plan Patient/Family Goals Patient/Family Goals: The patient plans on returning home where he lives alone. He does have family close by for assistance as needed. It will be determined closer to time of discharge if this is a realistic placement. Treatment Plan Speech Therapy Treatment Plan: Continue Plan of Care The patient remains very sleepy and requires frequent verbal prompts to participate with therapy. Treatment Duration: May 16, 2019 Frequency: 5 times per week Estimated Hrs Per Day: .5 hour per day Rehab Potential: Fair Barriers to Learning: Patient has cognitive deficits. Pt/Family Agrees to Plan: Yes Safety Risks/Education Teaching Recipient: Patient Teaching Methods: Demonstration, Discussion Response to Teaching: Verbalize Understanding, Return Demonstration Education Topics Provided: Continued safety in his room. Time Speech Therapy Time In: 11:00 Speech Therapy Time Out: 11:30 Total Billed Time: 30 Billed Treatment Time [address] May 09, 2019 13:25
--- NOTE | 2019-05-09 15:01 | Therapy Group Daily Note ---
Therapy Daily Group Note Patient Education Topic Other List Below (balance) Exercises LE Seated Exercise, UE Exercise Session Ratio (pt:therapist): 4:1 Goal of Session: UE/LE Strengthing, Safety with Transfers Goal Met for this Session: Yes Pt Benefit of Group: Contributions to Others, Increased Functional Safety, Increased Functional Strength, Improved Cognition, Recognition of Peers, Socialization Other/Notes Pt maneuvered w/c to OT/PT group. Group consisted of introductions (name, place living, skills learned as a child and continue to use today), socialization, seated UE/LE exercises, ARU expectations and education on balance. Pt able to introduce self appropriately and actively listened to peers. Pt able to understand and complete UE/LE seated exercises. Pt acknowledged understanding of balance and prevention of falls due to balance issues verbally and with gestures. After therapy, pt lying in bed with call light/phone in reach. All needs met in room. Start Time: 13:00 Stop Time: 14:10 Total Billed Treatment Time: 70 Total Billed Treatment 1-GRP AQUILES LEDEZMA May 09, 2019 15:01
[2019-05-09] MEDS ORDERED: PATIENT MAY USE OWN MED,SINGLE MED PO SCH (15:30)
--- NOTE | 2019-05-09 15:30 | NUR ---
PER PHYSICAL THERAPIST KIRAN'S SUGGESTION, DR. DERREK WHEATLEY'D ABDUCTOR PILLOW DUE TO LEFT HIP TURNING INWARDS. FAMILY STATES THEY WILL BRING IN PILLOW THEY GOT AT [facility]. FOR NOW, KEEPING A REGULAR PILLOW BETWEEN LEGS.
--- NOTE | 2019-05-09 15:31 | PM&R Progress Note ---
Subjective HPI/CC On Admission Date Seen by Provider: May 09, 2019 Time Seen by Provider: 15:00 Subjective/Events-last exam Pt continues to be very fatigued and lethargic Potassium will be supplemented more per primary care provider Dr. Mg Madrigal catheter has been discontinued and has not required any catheter in/out since has not had any post void residual greater than 400 Very dizzy at times and lightheaded and orthostatic hypotension is noted so Dr. Krishnamurthy held his blood pressure medications today Abduction pillow will be helpful due to leg pain Wellbutrin was added by primary care provider for severe depression Flat and depressed in what appears to be chronic issue but acutely flared Bowels incontinent sometimes Very declined overall and severe debility and advanced age at 83, will do everything we can to help him recover but this may be needing skilled care before inpatient rehab and I did update the daughters today about the challenge he has ahead of him Eliquis maintained for the left lower extremity DVT. Participating gin therapy but slow due to grogginess. Very difficult to maneuver, he is a two person transfer at this time. Family is very involved in his care. Review of Systems General: Fatigue Musculoskeletal: leg pain Neurological: Confusion Objective Exam Vital Signs Vital Signs Date Time Temp Pulse Resp B/P (MAP) Pulse Ox O2 Delivery O2 Flow Rate FiO2 05/09/19 06:05 37.3 69 20 159/81 94 Room Air Capillary Refill : Less Than 3 Seconds General Appearance: No Apparent Distress, WD/WN, Chronically ill HEENT: PERRL/EOMI, Normal ENT Inspection, Pharynx Normal Neck: Full Range of Motion, Normal Inspection, Non Tender, Supple Respiratory: Chest Non Tender, Lungs Clear, Normal Breath Sounds, No Accessory Muscle Use, No Respiratory Distress Cardiovascular: Regular Rate, Rhythm, No Edema, No Gallop, No JVD, No Murmur, Normal Peripheral Pulses Gastrointestinal: Normal Bowel Sounds, No Organomegaly, No Pulsatile Mass, Non Tender, Soft Rectal: Deferred Back: No CVA Tenderness Extremity: Normal Capillary Refill, Normal Inspection, Normal Range of Motion, Non Tender, No Calf Tenderness, No Pedal Edema Neurologic/Psychiatric: Alert, Oriented x3, No Motor/Sensory Deficits, section cutter II- XII Norm as Tested, Depressed Affect, Motor Weakness (generalized weakness all extremities) Reflexes: 2+ Bicep (R), 2+ Bicep (L), 2+ Ankle (R), 2+ Ankle (L) Skin: Warm/Dry Lymphatic: No Adenopathy Results/Procedures Lab Laboratory Tests 05/09/19 05:30 Patient resulted labs reviewed. FIM Transfers Therapy Code Descriptions/Definitions Functional [place] Measure: 0=Not Assessed/NA 4=Minimal Assistance 1=Total Assistance 5=Supervision or Setup 2=Maximal Assistance 6=Modified [place] 3=Moderate Assistance 7=Complete [place] Therapy Quality Codes: 6 Independent with activity with or without an assistive device 5 Patient requires set up or clean up by helper. Patient completes activity by themselves 4 Supervision or touching assist (CGA). [place] provide cues , steadying assist 3 The helper provides less than half the effort to complete the activity 2 The helper provides more than half the effort to complete the activity 1 Dependent. The helper does all the effort to complete an activity 7 Patient refused to complete or attempt activity 9 The patient did not perform the activity before the current illness or inju ry 88 Not attempted due to Medical conditions or safety concerns Transfers (B, C, W/C) (FIM): 3 Scootin Rollin Roll Left to Right (QC): 1 Supine to/from Sit: 3 Sit to/from Stand: 4 Sit to Lying (QC): 3 Sit to Stand (QC): 3 Chair/Bws-mv-Iby[place] Xfer(QC): 2 Bed to/from Chair: 2 Car Transfer (QC): 2 Gait Training Does the Patient Walk?: Yes Gait (FIM): 1 Distance (FIM): 1=up to 49 ft Distance: 20 x2 Gait Level of Assist: 4 (CGA provided for safety due to pt c/o lightheadedness) Gait Persons Needed: 1 Gait Assistive Device: FWW Wheelchair Training Does the Pt Use a Wheelchair?: No Wheelchair (FIM): 1 Mental Status/Objective Comprehension: 6 Expression: 5 Social Interaction: 7 Problem Solvin Memory: 4 ADL-Treatment Feedin Eating (QC): 5 Groomin Oral Hygiene (QC): 4 Bathin Shower/Bathe Self (QC): 3 Upper Extremity Dressin Upper Body Dressing (QC): 3 Lower Extremity Dressin Lower Body Dressing (QC): 2 On/Off Footwear (QC): 1 Toilet/Commode Transfer: 4 (per PT report) Toilet Transfer (QC): 3 Shower: 0 Assessment/Plan Assessment and Plan Assess & Plan/Chief Complaint Plan: OAC Consult Rodolfo Dumont and Saurav Discontinue catheter per urology Improve nutrition BM regimen Pain control Monitor for falls Minimize sedatives Abx DC per Dr Mg (1) History of revision of total replacement of left hip joint Status: Acute (2) Left leg DVT Status: Acute Qualifiers: Affected thrombotic vein of extremity: unspecified vein of extremity Chronicity: unspecified Qualified Codes: I82.402 - Acute embolism and thrombosis of unspecified deep veins of left lower extremity (3) BPH (benign prostatic hyperplasia) Status: Chronic Qualifiers: Lower urinary tract symptom presence: unspecified whether lower urinary tract symptoms present Qualified Codes: N40.0 - Benign prostatic hyperplasia without lower urinary tract symptoms (4) Advanced age Status: Chronic (5) Hypertension Status: Chronic Qualifiers: Hypertension type: essential hypertension Qualified Codes: I10 - Essential (primary) hypertension (6) Debility Status: Acute (7) Dizziness Status: Acute (8) Urinary retention Status: Acute (9) Fatigue Status: Acute Qualifiers: Fatigue type: unspecified Qualified Codes: R53.83 - Other fatigue (10) Orthostatic hypotension Status: Acute BASIL ANGLIN DO May 09, 2019 15:31
[2019-05-09] MEDS: OMEPRAZOLE 20 MG (PriLOSEC) CAP NON-FORMULARY PO SCH (16:08)
[2019-05-09] MEDS: KCL 20 MEQ TAB (K-DUR) PO SCH (16:09)
[2019-05-09] MEDS: TAMSULOSIN 0.4 MG (FLOMAX) CAP PO SCH (17:20)
[2019-05-09 18:59] VITALS: BP 142/70
--- NOTE | 2019-05-09 19:00 | NUR ---
INCONTINENT OF LARGE AMOUNT OF URINE X1 TODAY AND USED URINAL ONE TIME.
[2019-05-09] MEDS ORDERED: CATHETER FLUSH 10 ML SYR IV PRN (20:00)
[2019-05-09] MEDS: CATHETER FLUSH 10 ML SYR IV SCH (20:42)
[2019-05-09] MEDS: buPROPion 75 MG (WELLBUTRIN) TAB PO SCH (20:42)
[2019-05-10] MEDS: OMEPRAZOLE 20 MG (PriLOSEC) CAP NON-FORMULARY PO SCH (06:13)
[2019-05-10] MEDS: KCL 20 MEQ TAB (K-DUR) PO SCH ×2 (06:13→18:40)
[2019-05-10] MEDS: CATHETER FLUSH 10 ML SYR IV SCH ×3 (06:14→20:10)
[2019-05-10] MEDS: FERROUS SULF 325 MG (IRON) TAB PO SCH (06:14)
[2019-05-10] MEDS: LEVOTHYROXINE 112 MCG (LEVOTHROID) TAB PO SCH (06:14)
[2019-05-10 06:24] VITALS: BP 151/66
--- NOTE | 2019-05-10 10:02 | Physical Therapy Daily Note ---
PT Daily Note-Current Subjective Pt is laying Supine in bed upon arrival. Pt agrees to PT/OT co-treat due to pt's current medical condition as well as fatigue. Mental Status Patient Orientation: Person, Place Transfers Therapy Code Descriptions/Definitions Functional [place] Measure: 0=Not Assessed/NA 4=Minimal Assistance 1=Total Assistance 5=Supervision or Setup 2=Maximal Assistance 6=Modified [place] 3=Moderate Assistance 7=Complete [place] Therapy Quality Codes: 6 Independent with activity with or without an assistive device 5 Patient requires set up or clean up by helper. Patient completes activity by themselves 4 Supervision or touching assist (CGA). [place] provide cues , steadying assist 3 The helper provides less than half the effort to complete the activity 2 The helper provides more than half the effort to complete the activity 1 Dependent. The helper does all the effort to complete an activity 7 Patient refused to complete or attempt activity 9 The patient did not perform the activity before the current illness or injury 88 Not attempted due to Medical conditions or safety concerns Scootin Supine to/from Sit: 2 Sit to/from Stand: 2 Sit to Stand (QC): 2 Weight Bearing Left Lower Extremity: Left Weight Bearing/Tolerated Gait Training Does the Patient Walk?: Yes Distance (FIM): 1=up to 49 ft Distance: 10,20' Walk 10 feet (QC): 4 Gait Level of Assist: 4 Gait Persons Needed: 1 Gait Assistive Device: FWW Pt walks with slow haley, slight kyphotic posture. Wheelchair Training Does the Pt Use a Wheelchair?: Yes Wheelchair Distance: 8=568-92 ft Distance: 50' Wheelchair Level of Assist: 2 Type of Wheelchair: Manual Treatments Due to pt's fatigue level, and need for skilled assistance x 2, OT/PT co- treated. OT facilitated ADLs and encouragement to do for self while PT facilitated transfers and ambulation. Pt. ambulated approximately twice with min x 2 for sit-stand, and then min x 1 for ambulation. Please see PT note for distance ambulated. After grooming and ambulation, pt. taken to chair in room. Transferred with max cues and min assist. All needs met up in chair. Assessment Current Status: Fair Progress Pt demonstrates fatigue during tx, needing RB occasionally. PT Short Term Goals Short Term Goals Time Frame: May 13, 2019 Gait (FIM): 1 Gait Distance Comment: 10' Gait Level of Assist: 3 Gait Assistive Device: FWW PT Jail Goals Jail Goals PT Jail Goals Time Frame: May 27, 2019 Transfers (B,C,W/C) (FIM): 4 Sit to Lying (QC): 3 Lying-Sitting on Side/Bed(QC): 3 Sit to Stand (QC): 3 Rollin Roll Left to Right (QC): 3 Chair/Dki-cd-Vexeo Xfer(QC): 3 Car Transfer (QC): 3 Gait (FIM): 2 Distance: 50' Walk 10 feet (QC): 4 Walk 10ft-Uneven Surface(QC): 4 Walk 50ft with 2 Turns (QC): 4 Walk 150 ft (QC): 4 Gait Level of Assist: 4 Gait Assistive Device: FWW Stairs (FIM): 2 # of Steps: 4 1 Step (curb) (QC): 4 Stairs Level Of Assist: 4 PT Plan Problem List Problem List: Activity Tolerance, Functional Strength, Safety, Balance, Gait, Transfer Treatment/Plan Treatment Plan: Continue Plan of Care Treatment Plan: Bed Mobility, Concurrent Therapy, Education, Functional Activity Michael, Functional Strength, Group Therapy, Gait, Safety, Therapeutic Exercise, Transfers Treatment Duration: May 27, 2019 Frequency: At least 5 of 7 days/Wk (IRF) Estimated Hrs Per Day: 1.5 hours per day Patient and/or Family Agrees t: Yes Safety Risks/Education Patient Education: Gait Training, Transfer Techniques, Correct Positioning, Safety Issues Teaching Recipient: Patient Teaching Methods: Discussion Response to Teaching: Verbalize Understanding Time/GCodes Time In: 905 Time Out: 950 Total Billed Treatment Time: 45 Total Billed Treatment 1, GT (15m) & FA x2 (30m) Co-treat w/OT for all 45m ERICK GLORIA [employer] LECTURER May 10, 2019 10:02
--- NOTE | 2019-05-10 10:08 | Occupational Ther Daily Note ---
OT Current Status-Daily Note Subjective No pain reported. However, pt. reports he is tired and needs constant encouragement. Appearance OT attempted treatment first at 0810. Pt. sleeping soundly and OT had difficulty getting pt. awake. Came back at later time. Mental Status/Objective Patient Orientation: Person Therapy Code Descriptions/Definitions Functional [place] Measure: 0=Not Assessed/NA 4=Minimal Assistance 1=Total Assistance 5=Supervision or Setup 2=Maximal Assistance 6=Modified [place] 3=Moderate Assistance 7=Complete [place] ADL-Treatment Therapy Code Descriptions/Definitions Functional [place] Measure: 0=Not Assessed/NA 4=Minimal Assistance 1=Total Assistance 5=Supervision or Setup 2=Maximal Assistance 6=Modified [place] 3=Moderate Assistance 7=Complete [place] Therapy Quality Codes: 6 Independent with activity with or without an assistive device 5 Patient requires set up or clean up by helper. Patient completes activity by themselves 4 Supervision or touching assist (CGA). [place] provide cues , steadying assist 3 The helper provides less than half the effort to complete the activity 2 The helper provides more than half the effort to complete the activity 1 Dependent. The helper does all the effort to complete an activity 7 Patient refused to complete or attempt activity 9 The patient did not perform the activity before the current illness or injury 88 Not attempted due to Medical conditions or safety concerns Grooming (FIM): 5 (SBA at sink in wheelchair. Pt. requires increased time and constant cues to complete process of shaving, washing face, and combing hair.) Lower Body Dressing (FIM): 2 (OT assists pt. with donning brief on side of bed. Pt. attempts to utilize dressing stick to don shorts, but has difficulty. OT does this for him. In stance, pt. is unable to let go of walker so OT dons shorts over hips.) Lower Body Dressing (QC): 2 Transfers (B, C, W/C) (FIM): 2 (Max assist supine-sit. Mod sit-stand. Min assist once in stance to ambulate with walker.) Due to pt's fatigue level, and need for skilled assistance x 2, OT/PT co- treated. OT facilitated ADLs and encouragement to do for self while PT facilitated transfers and ambulation. Pt. ambulated approximately twice with min x 2 for sit-stand, and then min x 1 for ambulation. Please see PT note for distance ambulated. After grooming and ambulation, pt. taken to chair in room. Transferred with max cues and min assist. All needs met up in chair. Education OT Patient Education: Correct positioning, Modified ADL techniques, Progress toward Goal/Update tx plan, Purpose of tx/functional activities, Reviewed precautions, Rehab process, Transfer techniques Teaching Recipient: Patient Teaching Methods: Demonstration, Discussion Response to Teaching: Verbalize Understanding, Return Demonstration OT Short Term Goals Short Term Goals Time Frame: May 13, 2019 Bathing(FIM): 4 Upper Body Dressing(FIM): 4 Lower Body Dressing(FIM): 3 Toilet/Commode Transfer(FIM): 3 Additional Short Term Goals: 1-Demonstrate ADL Tasks, 2-Verbalize Understanding, 3-ImproveStrength/Michael 1=Demonstrate adherence to instructed precautions during ADL tasks. 2=Patient will verbalize/demonstrate understanding of assistive devices/modifications for ADL. 3=Patient will improve strength/tolerance for activity to enable patient to perform ADL's. OT Correction Goals Correction Goals Time Frame: May 27, 2019 Eating (FIM): 6 Eating (QC): 6 Groomin Oral Hygiene (QC): 6 Bathing(FIM): 5 Shower/Bathe Self (QC): 4 Upper Body Dressing(FIM): 5 Upper Body Dressing (QC): 5 Lower Body Dressing(FIM): 5 Lower Body Dressing (QC): 5 On/Off Footwear (QC): 5 Toileting(FIM): 6 Toileting Hygiene (QC): 6 Toilet/Commode Transfer(FIM): 5 Toilet/Commode Transfer (QC): 5 Shower Transfer(FIM): 5 Additional Goals: 1-Demonstrate ADL Tasks, 2-Verbalize Understanding, 3- ImproveStrength/Michael 1=Demonstrate adherence to instructed precautions during ADL tasks. 2=Patient will verbalize/demonstrate understanding of assistive devices/modifications for ADL. 3=Patient will improve strength/tolerance for activity to enable patient to perform ADL's. OT Education/Plan Problem List/Assessment Assessment: Decreased Activ Tolerance, Decreased UE Strength, Dependent Transfers, Impaired Cognition, Impaired Funct Balance, Impaired I ADL's, Impaired Self-Care Skills Discharge Recommendations Plan/Recommendations: Continue POC Treatment Plan/Plan of Care Treatment,Training & Education: Yes Patient would benefit from OT for education, treatment and training to promote independence in ADL's, mobility, safety and/or upper extremity function for ADL's. Plan of Care: ADL Retraining, Functional Mobility, Group Exercise/Act as Ind, UE Funct Exercise/Act Treatment Duration: May 27, 2019 Frequency: At least 5 of 7 days/Wk (IRF) Estimated Hrs Per Day: 1.5 hours per day Agreement: Yes Rehab Potential: Fair Time/GCodes Start Time: 09:05 Stop Time: 09:50 Total Time Billed (hr/min): 45 Billed Treatment Time 1, ADL x 30minutes, FA x 15minutes CHALINO GONZALEZ OT May 10, 2019 10:08
--- NOTE | 2019-05-10 10:52 | Progress Note - Urology ---
Progress Note-Urology Progress Notes/Assess & Plan Progress/Assessment & Plan CONTINUES VOIDING ON OWN Final Diagnosis [facility] MD May 10, 2019 10:52
[2019-05-10] MEDS: MAGNESIUM OXIDE (MAG-OX)400 MG TAB PO SCH ×2 (11:02→20:09)
[2019-05-10] MEDS: LOSARTAN 100 MG (COZAAR) TABLET PO SCH (11:02)
[2019-05-10] MEDS: FLUTICASONE NASAL SPRAY (FLONASE) 16 GM BTL NS SCH (11:02)
[2019-05-10] MEDS: SERTRALINE 100 MG (ZOLOFT) TAB PO SCH (11:02)
[2019-05-10] MEDS: APIXABAN 5 MG (ELIQUIS) TABLET PO SCH ×2 (11:02→20:09)
[2019-05-10] MEDS: buPROPion 75 MG (WELLBUTRIN) TAB PO SCH ×2 (11:02→20:09)
[2019-05-10] MEDS: meTOproloL SUCCINATE 50 MG (TOPROL XL) TAB PO SCH (11:02)
[2019-05-10] MEDS: amLODIPine 10 MG (NORVASC) TAB PO SCH (11:03)
[2019-05-10] MEDS: POLYETHYLENE GLYCOL 17 GM (MIRALAX) PACK PO SCH ×2 (11:03→19:36)
[2019-05-10] MEDS: SENNA W/DOCUSATE (SENOKOT S) TABLET PO SCH ×2 (11:03→19:36)
[2019-05-10] MEDS: ASPIRIN E.C. 81 MG (ECOTRIN) TAB PO SCH (11:03)
--- NOTE | 2019-05-10 12:23 | PM&R Progress Note ---
Subjective HPI/CC On Admission Date Seen by Provider: May 10, 2019 Time Seen by Provider: 11:45 Subjective/Events-last exam Had ultrasound of his liver due to elevated total bilirubin of 2.2 on admit and I reviewed that result Flomax ordered by Dr. Reynolds which seems to be working very well for him Madrigal catheter was DC and patient is able to urinate well now Rocephin DC Cognitive issues are playing a part in his slow recovery. Depression appears to be chronic Eliquis maintained for the left lower extremity DVT. Daughter brought him outside in a wheelchair today which seemed to help his spirits Dr. Krishnamurthy (cardiology) appreciated Participating in therapy but slow due to grogginess but seems improved Very difficult to maneuver, he is a two person transfer at this time. Family is very involved in his care. Review of Systems General: Fatigue Musculoskeletal: leg pain Neurological: Confusion Objective Exam Vital Signs Vital Signs Date Time Temp Pulse Resp B/P (MAP) Pulse Ox O2 Delivery O2 Flow Rate FiO2 05/10/19 16:13 36.9 65 16 122/67 96 Room Air Capillary Refill : Less Than 3 Seconds General Appearance: No Apparent Distress, WD/WN, Chronically ill, Other (lethargic) HEENT: PERRL/EOMI, Normal ENT Inspection, Pharynx Normal Neck: Full Range of Motion, Normal Inspection, Non Tender, Supple Respiratory: Chest Non Tender, Lungs Clear, Normal Breath Sounds, No Accessory Muscle Use, No Respiratory Distress Cardiovascular: Regular Rate, Rhythm, No Edema, No Gallop, No JVD, Normal Peripheral Pulses, Systolic Murmur Gastrointestinal: Normal Bowel Sounds, No Organomegaly, No Pulsatile Mass, Non Tender, Soft Rectal: Deferred Back: No CVA Tenderness Extremity: Non Tender, No Calf Tenderness, No Pedal Edema Neurologic/Psychiatric: Alert, No Motor/Sensory Deficits, surveillance director II-XII Norm as Tested, Disoriented, Other (lethargic) Reflexes: 2+ Bicep (R), 2+ Bicep (L), 2+ Ankle (R), 2+ Ankle (L) Skin: Normal Color, Warm/Dry Lymphatic: No Adenopathy Results/Procedures Lab Patient resulted labs reviewed. FIM Transfers Therapy Code Descriptions/Definitions Functional [place] Measure: 0=Not Assessed/NA 4=Minimal Assistance 1=Total Assistance 5=Supervision or Setup 2=Maximal Assistance 6=Modified [place] 3=Moderate Assistance 7=Complete [place] Therapy Quality Codes: 6 Independent with activity with or without an assistive device 5 Patient requires set up or clean up by helper. Patient completes activity by themselves 4 Supervision or touching assist (CGA). [place] provide cues , steadying assist 3 The helper provides less than half the effort to complete the activity 2 The helper provides more than half the effort to complete the activity 1 Dependent. The helper does all the effort to complete an activity 7 Patient refused to complete or attempt activity 9 The patient did not perform the activity before the current illness or injury 88 Not attempted due to Medical conditions or safety concerns Transfers (B, C, W/C) (FIM): 2 (Max assist supine-sit. Mod sit-stand. Min assist once in stance to ambulate with walker.) Scootin Rollin Roll Left to Right (QC): 1 Supine to/from Sit: 2 Sit to/from Stand: 2 Sit to Lying (QC): 3 Sit to Stand (QC): 2 Chair/Siy-se-Bmjzx Xfer(QC): 2 Bed to/from Chair: 2 Car Transfer (QC): 2 Gait Training Does the Patient Walk?: Yes Gait (FIM): 1 Distance (FIM): 1=up to 49 ft Distance: 10,20' Walk 10 feet (QC): 4 Gait Level of Assist: 4 Gait Persons Needed: 1 Gait Assistive Device: FWW Wheelchair Training Does the Pt Use a Wheelchair?: Yes Wheelchair (FIM): 1 Wheelchair Distance: 1=615-93 ft Distance: 50' Wheelchair Level of Assist: 2 Type of Wheelchair: Manual Mental Status/Objective Comprehension: 6 Expression: 5 Social Interaction: 7 Problem Solvin Memory: 4 ADL-Treatment Feedin Eating (QC): 5 Groomin (SBA at sink in wheelchair. Pt. requires increased time and co nstant cues to complete process of shaving, washing face, and combing hair.) Oral Hygiene (QC): 4 Bathin Shower/Bathe Self (QC): 3 Upper Extremity Dressin Upper Body Dressing (QC): 3 Lower Extremity Dressin (OT assists pt. with donning brief on side of bed. Pt. attempts to utilize dressing stick to don shorts, but has difficulty. OT does this for him. In stance, pt. is unable to let go of walker so OT dons shorts over hips.) Lower Body Dressing (QC): 2 On/Off Footwear (QC): 1 Toilet/Commode Transfer: 4 (per PT report) Toilet Transfer (QC): 3 Shower: 0 Assessment/Plan Assessment and Plan Assess & Plan/Chief Complaint Plan: OAC Consult Rodolfo Dumont and Saurav Discontinue catheter now Improve nutrition BM regimen Pain control Monitor for falls Minimize sedatives Abx DC per Dr Mg Patient improved today 05/10/19 (1) History of revision of total replacement of left hip joint Status: Acute (2) Left leg DVT Status: Acute Qualifiers: Affected thrombotic vein of extremity: unspecified vein of extremity Chronicity: unspecified Qualified Codes: I82.402 - Acute embolism and thrombosis of unspecified deep veins of left lower extremity (3) BPH (benign prostatic hyperplasia) Status: Chronic Qualifiers: Lower urinary tract symptom presence: unspecified whether lower urinary tract symptoms present Qualified Codes: N40.0 - Benign prostatic hyperplasia without lower urinary tract symptoms (4) Advanced age Status: Chronic (5) Hypertension Status: Chronic Qualifiers: Hypertension type: essential hypertension Qualified Codes: I10 - Essential (primary) hypertension (6) Debility Status: Acute (7) Dizziness Status: Acute (8) Urinary retention Status: Acute (9) Fatigue Status: Acute Qualifiers: Fatigue type: unspecified Qualified Codes: R53.83 - Other fatigue (10) Orthostatic hypotension Status: Acute BASIL ANGLIN DO May 10, 2019 12:23
--- NOTE | 2019-05-10 13:10 | Cardiology Progress Note ---
Cardiology SOAP Progress Note Subjective: fatigue is slightly better. Objective: I&O/Vital Signs 05/10/19 06:24 Temp 37.1 Pulse 79 Resp 20 B/P (MAP) 151/66 Pulse Ox 93 O2 Delivery Room Air 05/10/19 00:00 Intake Total 400 ml Output Total 400 ml Balance 0 ml Weight (Pounds): 215 Weight (Ounces): 6.0 Weight (Calculated Kilograms): 97.369474 Constitutional: appears stated age, AAO x 3; No apparent distress; well- developed, well-nourished Respiratory: chest is bilaterally symmetric, lungs clear to auscultation Cardiovascular: regular rate-rhythm, S1 and S2 Gastrointestional: soft, audible bowel sounds; No spleenomegaly Extremities: No clubbing, No cyanosis; no lower extremity edema bilateral; No significant edema Neurologic/Psychiatric: no motor/sensory deficits, alert, normal mood/affect, oriented x 3, power is 5/5 both on sides Skin: No rash, No ulcerations A/P: Assessment/Dx: Recent hip surgery, fatigue Blood pressure, CAD, Mild bilateral carotid artery disease, Dementia, Recent lower extremity DVT. Plan: Recent hip surgery, inpatient rehabilitation. patient complains of fatigue. Will defer to Dr. Mg. Hypertension, systolic blood pressure was 110 mmHg yesterday. Therefore we had held some of his antihypertensive medication. With some improvement in fatigue. CAD, continue aspirin. Mild bilateral carotid artery disease, continue to follow clinically. Dementia, Recent lower extremity DVT. Patient is on Eliquis. Thank you for your consultation. Please call me if you have any questions. Raquel Krishnamurhty MD, FACP, FACC, FSCAI, FHRS, CCDS Interventional Cardiology Cardiac Electrophysiology Vascular Medicine and Endovascular Interventions Lamine KRISHNAMURTHY MD May 10, 2019 13:10
[2019-05-10 16:13] VITALS: BP 122/67
[2019-05-10] MEDS: TAMSULOSIN 0.4 MG (FLOMAX) CAP PO SCH (18:40)
[2019-05-11 05:43] VITALS: BP 151/64
[2019-05-11] MEDS: KCL 20 MEQ TAB (K-DUR) PO SCH ×2 (06:38→17:44)
[2019-05-11] MEDS: CATHETER FLUSH 10 ML SYR IV SCH ×3 (06:38→20:10)
[2019-05-11] MEDS: LEVOTHYROXINE 112 MCG (LEVOTHROID) TAB PO SCH (06:38)
[2019-05-11] MEDS: OMEPRAZOLE 20 MG (PriLOSEC) CAP NON-FORMULARY PO SCH (06:38)
[2019-05-11] MEDS: FERROUS SULF 325 MG (IRON) TAB PO SCH (06:38)
[2019-05-11 07:20] VITALS: BP_SYST 112; BP_SYST 99; BP_DIAS 60; BP_DIAS 66
--- NOTE | 2019-05-11 09:09 | Progress Note - Urology ---
Progress Note-Urology Progress Notes/Assess & Plan Progress/Assessment & Plan CONTINUES VOIDING ON OWN. SOME INCONTINENCE. OBSERVE. PVR 175 Final Diagnosis [facility] MD May 11, 2019 09:09
[2019-05-11] MEDS: ONDANSETRON 4 MG (ZOFRAN) ORAL DISSOLVE TAB PO PRN (09:14)
[2019-05-11] MEDS: FLUTICASONE NASAL SPRAY (FLONASE) 16 GM BTL NS SCH (09:35)
[2019-05-11] MEDS: LOSARTAN 100 MG (COZAAR) TABLET PO SCH (09:36)
[2019-05-11] MEDS: ASPIRIN E.C. 81 MG (ECOTRIN) TAB PO SCH (09:36)
[2019-05-11] MEDS: amLODIPine 10 MG (NORVASC) TAB PO SCH (09:36)
[2019-05-11] MEDS: buPROPion 75 MG (WELLBUTRIN) TAB PO SCH ×2 (09:36→20:09)
[2019-05-11] MEDS: meTOproloL SUCCINATE 50 MG (TOPROL XL) TAB PO SCH (09:36)
[2019-05-11] MEDS: SENNA W/DOCUSATE (SENOKOT S) TABLET PO SCH ×2 (09:36→19:20)
[2019-05-11] MEDS: POLYETHYLENE GLYCOL 17 GM (MIRALAX) PACK PO SCH ×2 (09:36→19:20)
[2019-05-11] MEDS: APIXABAN 5 MG (ELIQUIS) TABLET PO SCH ×2 (09:36→20:09)
[2019-05-11] MEDS: MAGNESIUM OXIDE (MAG-OX)400 MG TAB PO SCH ×2 (09:36→20:09)
[2019-05-11] MEDS: SERTRALINE 100 MG (ZOLOFT) TAB PO SCH (09:36)
--- NOTE | 2019-05-11 13:15 | Cardiology Progress Note ---
Cardiology SOAP Progress Note Subjective: No cardiac symptoms. Complains of fatigue. Objective: I&O/Vital Signs 05/11/19 05/11/19 05/11/19 05:43 07:20 08:30 Temp 37.1 Pulse 70 82 74 Resp 18 B/P (MAP) 151/64 112/66 (81) 99/60 (73) Pulse Ox 94 O2 Delivery Room Air Room Air 05/11/19 00:00 Intake Total 500 ml Output Total 500 ml Balance 0 ml Weight (Pounds): 215 Weight (Ounces): 6.0 Weight (Calculated Kilograms): 97.767512 Constitutional: appears stated age, AAO x 3; No apparent distress; well- developed, well-nourished Respiratory: chest is bilaterally symmetric, lungs clear to auscultation Cardiovascular: regular rate-rhythm, S1 and S2 Gastrointestional: soft, audible bowel sounds; No spleenomegaly Extremities: No clubbing, No cyanosis; no lower extremity edema bilateral; No significant edema Neurologic/Psychiatric: no motor/sensory deficits, alert, normal mood/affect, oriented x 3, power is 5/5 both on sides Skin: No rash, No ulcerations A/P: Assessment/Dx: Recent hip surgery, fatigue Blood pressure, CAD, Mild bilateral carotid artery disease, Dementia, Recent lower extremity DVT. Plan: Recent hip surgery, inpatient rehabilitation. patient complains of fatigue. Will defer to Dr. Mg. Hypertension, systolic blood pressure was 110 mmHg yesterday. Therefore we had held some of his antihypertensive medication. With some improvement in fatigue. CAD, continue aspirin. Mild bilateral carotid artery disease, continue to follow clinically. Dementia, Recent lower extremity DVT. Patient is on Eliquis. Thank you for your consultation. Please call me if you have any questions. Raquel Krishnamurthy MD, FACP, FACC, FSCAI, FHRS, CCDS Interventional Cardiology Cardiac Electrophysiology Vascular Medicine and Endovascular Interventions Lamine KRISHNAMURTHY MD May 11, 2019 13:15
--- NOTE | 2019-05-11 13:56 | PM&R Progress Note ---
Subjective HPI/CC On Admission Date Seen by Provider: May 11, 2019 Time Seen by Provider: 13:00 Subjective/Events-last exam Overall much improved Enjoyed going outside with his daughter in a wheelchair Urology saw him and noted the incontinence and Urecholine will be maintained and that is the likely source of the new incontinence but he is not retaining any more Bowel movement yesterday Pain is well controlled Overall much improved Check meds and labs Reviewed therapy notes Conferred with RN Check labs in the morning Review of Systems General: Fatigue Genitourinary: Incontinence Neurological: Confusion Objective Exam Vital Signs Vital Signs Date Time Temp Pulse Resp B/P (MAP) Pulse Ox O2 Delivery O2 Flow Rate FiO2 05/11/19 16:47 36.8 65 16 122/69 97 Room Air Capillary Refill : Less Than 3 Seconds General Appearance: No Apparent Distress, WD/WN, Chronically ill, Other (lethar gic) HEENT: PERRL/EOMI, Normal ENT Inspection, Pharynx Normal Neck: Full Range of Motion, Normal Inspection, Non Tender, Supple Respiratory: Chest Non Tender, Lungs Clear, Normal Breath Sounds, No Accessory Muscle Use, No Respiratory Distress Cardiovascular: Regular Rate, Rhythm, No Edema, No Gallop, No JVD, Normal Peripheral Pulses, Systolic Murmur Gastrointestinal: Normal Bowel Sounds, No Organomegaly, No Pulsatile Mass, Non Tender, Soft Rectal: Deferred Back: No CVA Tenderness Extremity: Non Tender, No Calf Tenderness, No Pedal Edema Neurologic/Psychiatric: Alert, No Motor/Sensory Deficits, time clerk II-XII Norm as Tested, Disoriented, Other (lethargic) Reflexes: 2+ Bicep (R), 2+ Bicep (L), 2+ Ankle (R), 2+ Ankle (L) Skin: Normal Color, Warm/Dry Lymphatic: No Adenopathy Results/Procedures Lab Patient resulted labs reviewed. FIM Transfers Therapy Code Descriptions/Definitions Functional [place] Measure: 0=Not Assessed/NA 4=Minimal Assistance 1=Total Assistance 5=Supervision or Setup 2=Maximal Assistance 6=Modified [place] 3=Moderate Assistance 7=Complete [place] Therapy Quality Codes: 6 Independent with activity with or without an assistive device 5 Patient requires set up or clean up by helper. Patient completes activity by themselves 4 Supervision or touching assist (CGA). [place] provide cues , steadying assist 3 The helper provides less than half the effort to complete the activity 2 The helper provides more than half the effort to complete the activity 1 Dependent. The helper does all the effort to complete an activity 7 Patient refused to complete or attempt activity 9 The patient did not perform the activity before the current illness or injury 88 Not attempted due to Medical conditions or safety concerns Transfers (B, C, W/C) (FIM): 2 (Max assist supine-sit. Mod sit-stand. Min assist once in stance to ambulate with walker.) Scootin Rollin Roll Left to Right (QC): 1 Supine to/from Sit: 2 Sit to/from Stand: 2 Sit to Lying (QC): 3 Sit to Stand (QC): 2 Chair/Rjj-mi-Lfexc Xfer(QC): 2 Bed to/from Chair: 2 Car Transfer (QC): 2 Gait Training Does the Patient Walk?: Yes Gait (FIM): 1 Distance (FIM): 1=up to 49 ft Distance: 10,20' Walk 10 feet (QC): 4 Gait Level of Assist: 4 Gait Persons Needed: 1 Gait Assistive Device: FWW Wheelchair Training Does the Pt Use a Wheelchair?: Yes Wheelchair (FIM): 1 Wheelchair Distance: 8=285-76 ft Distance: 50' Wheelchair Level of Assist: 2 Type of Wheelchair: Manual Mental Status/Objective Comprehension: 6 Expression: 5 Social Interaction: 7 Problem Solvin Memory: 4 ADL-Treatment Feedin Eating (QC): 5 Groomin (SBA at sink in wheelchair. Pt. requires increased time and constant cues to complete process of shaving, washing face, and combing hair.) Oral Hygiene (QC): 4 Bathin Shower/Bathe Self (QC): 3 Upper Extremity Dressin Upper Body Dressing (QC): 3 Lower Extremity Dressin (OT assists pt. with donning brief on side of bed. Pt. attempts to utilize dressing stick to don shorts, but has difficulty. OT does this for him. In stance, pt. is unable to let go of walker so OT dons shorts over hips.) Lower Body Dressing (QC): 2 On/Off Footwear (QC): 1 Toilet/Commode Transfer: 4 (per PT report) Toilet Transfer (QC): 3 Shower: 0 Assessment/Plan Assessment and Plan Assess & Plan/Chief Complaint Plan: OAC Consult Rodolfo Dumont and Saurav Discontinue catheter now Improve nutrition BM regimen Pain control Monitor for falls Minimize sedatives Abx DC per Dr Mg Patient improved today 05/11/19 (1) History of revision of total replacement of left hip joint Status: Acute (2) Left leg DVT Status: Acute Qualifiers: Affected thrombotic vein of extremity: unspecified vein of extremity Chronicity: unspecified Qualified Codes: I82.402 - Acute embolism and thrombosis of unspecified deep veins of left lower extremity (3) BPH (benign prostatic hyperplasia) Status: Chronic Qualifiers: Lower urinary tract symptom presence: unspecified whether lower urinary tract symptoms present Qualified Codes: N40.0 - Benign prostatic hyperplasia without lower urinary tract symptoms (4) Advanced age Status: Chronic (5) Hypertension Status: Chronic Qualifiers: Hypertension type: essential hypertension Qualified Codes: I10 - Essential (primary) hypertension (6) Debility Status: Acute (7) Dizziness Status: Acute (8) Urinary retention Status: Acute (9) Fatigue Status: Acute Qualifiers: Fatigue type: unspecified Qualified Codes: R53.83 - Other fatigue (10) Orthostatic hypotension Status: Acute BASIL ANGLIN DO May 11, 2019 13:56
[2019-05-11 16:47] VITALS: BP 122/69
[2019-05-11] MEDS: TAMSULOSIN 0.4 MG (FLOMAX) CAP PO SCH (17:43)
[2019-05-12 05:27] LABS: BASOPHILS % (AUTO) 0 % (0-10); EOSINOPHILS # (AUTO) 0.2 10^3/uL (0.0-0.3); EOSINOPHILS % (AUTO) 2 % (0-10); HEMATOCRIT 35 % (40-54); HEMOGLOBIN 11.1 G/DL (13.3-17.7); LYMPHOCYTES # (AUTO) 1.7 X 10^3 (1.0-4.0); LYMPHOCYTES % (AUTO) 17 % (12-44); MEAN CORPUSCULAR HEMOGLOBIN 32 PG (25-34); MEAN CORPUSCULAR HGB CONC 32 G/DL (32-36); MEAN CORPUSCULAR VOLUME 100 FL (80-99); MEAN PLATELET VOLUME 9.9 FL (7.4-10.4); MONOCYTES % (AUTO) 10 % (0-12); NEUTROPHILS # (AUTO) 6.9 X 10^3 (1.8-7.8); NEUTROPHILS % (AUTO) 71 % (42-75); PLATELET COUNT 407 10^3/uL (130-400); RED CELL DISTRIBUTION WIDTH 14.1 % (10.0-14.5); WHITE BLOOD COUNT 9.7 10^3/uL (4.3-11.0)
[2019-05-12 05:44] VITALS: BP 137/69
[2019-05-12 05:45] VITALS: BP_SYST 85; BP_SYST 94; BP_DIAS 48; BP_DIAS 49
[2019-05-12 05:53] LABS: ALANINE AMINOTRANSFERASE 29 U/L (0-55); ALBUMIN 2.8 GM/DL (3.2-4.5); ALKALINE PHOSPHATASE 141 U/L (40-136); BILIRUBIN,TOTAL 1.4 MG/DL (0.1-1.0); BUN/CREATININE RATIO 27; CALCIUM 8.4 MG/DL (8.5-10.1); CARBON DIOXIDE 21 MMOL/L (21-32); CHLORIDE 110 MMOL/L (98-107); CREATININE SERUM 0.93 MG/DL (0.60-1.30); GFR ESTIMATED > 60; GLUCOSE 105 MG/DL (70-105); SODIUM 139 MMOL/L (135-145); TOTAL PROTEIN 5.2 GM/DL (6.4-8.2)
[2019-05-12] MEDS: LEVOTHYROXINE 112 MCG (LEVOTHROID) TAB PO SCH (06:17)
[2019-05-12] MEDS: FERROUS SULF 325 MG (IRON) TAB PO SCH (06:17)
[2019-05-12] MEDS: OMEPRAZOLE 20 MG (PriLOSEC) CAP NON-FORMULARY PO SCH (06:17)
--- NOTE | 2019-05-12 08:20 | PM&R Progress Note ---
Subjective HPI/CC On Admission Date Seen by Provider: May 12, 2019 Time Seen by Provider: 08:30 Subjective/Events-last exam Hgb improved to 11.1 Total bilirubin 1.4 More talkative and overall more motivated Denies any pain Eating and drink pretty well Check meds and labs Reviewed therapy notes Conferred with RN Check labs in the morning Review of Systems General: Fatigue Neurological: Confusion Objective Exam Vital Signs Vital Signs Date Time Temp Pulse Resp B/P (MAP) Pulse Ox O2 Delivery O2 Flow Rate FiO2 05/12/19 16:09 36.6 63 14 118/67 93 Room Air Capillary Refill : Less Than 3 Seconds General Appearance: No Apparent Distress, WD/WN, Chronically ill, Other (lethargic) HEENT: PERRL/EOMI, Normal ENT Inspection, Pharynx Normal Neck: Full Range of Motion, Normal Inspection, Non Tender, Supple Respiratory: Chest Non Tender, Lungs Clear, Normal Breath Sounds, No Accessory Muscle Use, No Respiratory Distress Cardiovascular: Regular Rate, Rhythm, No Edema, No Gallop, No JVD, Normal Peripheral Pulses, Systolic Murmur Gastrointestinal: Normal Bowel Sounds, No Organomegaly, No Pulsatile Mass, Non Tender, Soft Rectal: Deferred Back: No CVA Tenderness Extremity: Non Tender, No Calf Tenderness, No Pedal Edema Neurologic/Psychiatric: Alert, No Motor/Sensory Deficits, sugar controller II-XII Norm as Tested, Disoriented, Other (lethargic) Reflexes: 2+ Bicep (R), 2+ Bicep (L), 2+ Ankle (R), 2+ Ankle (L) Skin: Normal Color, Warm/Dry Lymphatic: No Adenopathy Results/Procedures Lab Laboratory Tests 05/12/19 05:03 Patient resulted labs reviewed. FIM Transfers Therapy Code Descriptions/Definitions Functional [place] Measure: 0=Not Assessed/NA 4=Minimal Assistance 1=Total Assistance 5=Supervision or Setup 2=Maximal Assistance 6=Modified [place] 3=Moderate Assistance 7=Complete [place] Therapy Quality Codes: 6 Independent with activity with or without an assistive device 5 Patient requires set up or clean up by helper. Patient completes activity by themselves 4 Supervision or touching assist (CGA). [place] provide cues , steadying assist 3 The helper provides less than half the effort to complete the activity 2 The helper provides more than half the effort to complete the activity 1 Dependent. The helper does all the effort to complete an activity 7 Patient refused to complete or attempt activity 9 The patient did not perform the activity before the current illness or injury 88 Not attempted due to Medical conditions or safety concerns Transfers (B, C, W/C) (FIM): 2 (Max assist supine-sit. Mod sit-stand. Min assist once in stance to ambulate with walker.) Scootin Rollin Roll Left to Right (QC): 1 Supine to/from Sit: 2 Sit to/from Stand: 2 Sit to Lying (QC): 3 Sit to Stand (QC): 2 Chair/Luk-ys-Fkldw Xfer(QC): 2 Bed to/from Chair: 2 Car Transfer (QC): 2 Gait Training Does the Patient Walk?: Yes Gait (FIM): 1 Distance (FIM): 1=up to 49 ft Distance: 10,20' Walk 10 feet (QC): 4 Gait Level of Assist: 4 Gait Persons Needed: 1 Gait Assistive Device: FWW Wheelchair Training Does the Pt Use a Wheelchair?: Yes Wheelchair (FIM): 1 Wheelchair Distance: 9=383-31 ft Distance: 50' Wheelchair Level of Assist: 2 Type of Wheelchair: Manual Mental Status/Objective Comprehension: 6 Expression: 5 Social Interaction: 7 Problem Solvin Memory: 4 ADL-Treatment Feedin Eating (QC): 5 Groomin (SBA at sink in wheelchair. Pt. requires increased time and constant cues to complete process of shaving, washing face, and combing hair.) Oral Hygiene (QC): 4 Bathin Shower/Bathe Self (QC): 3 Upper Extremity Dressin Upper Body Dressing (QC): 3 Lower Extremity Dressin (OT assists pt. with donning brief on side of bed. Pt. attempts to utilize dressing stick to don shorts, but has difficulty. OT does this for him. In stance, pt. is unable to let go of walker so OT dons shorts over hips.) Lower Body Dressing (QC): 2 On/Off Footwear (QC): 1 Toilet/Commode Transfer: 4 (per PT report) Toilet Transfer (QC): 3 Shower: 0 Assessment/Plan Assessment and Plan Assess & Plan/Chief Complaint Plan: OAC Consult Rodolfo Dumont and Saurav Discontinue catheter now Improve nutrition BM regimen Pain control Monitor for falls Minimize sedatives Abx DC per Dr Mg Patient improved today 05/12/19 (1) History of revision of total replacement of left hip joint Status: Acute (2) Left leg DVT Status: Acute Qualifiers: Affected thrombotic vein of extremity: unspecified vein of extremity Chronicity: unspecified Qualified Codes: I82.402 - Acute embolism and thrombosis of unspecified deep veins of left lower extremity (3) BPH (benign prostatic hyperplasia) Status: Chronic Qualifiers: Lower urinary tract symptom presence: unspecified whether lower urinary tract symptoms present Qualified Codes: N40.0 - Benign prostatic hyperplasia without lower urinary tract symptoms (4) Advanced age Status: Chronic (5) Hypertension Status: Chronic Qualifiers: Hypertension type: essential hypertension Qualified Codes: I10 - Essential (primary) hypertension (6) Debility Status: Acute (7) Dizziness Status: Acute (8) Urinary retention Status: Acute (9) Fatigue Status: Acute Qualifiers: Fatigue type: unspecified Qualified Codes: R53.83 - Other fatigue (10) Orthostatic hypotension Status: Acute BASIL ANGLIN DO May 12, 2019 08:20
--- NOTE | 2019-05-12 09:28 | Physical Therapy Daily Note ---
PT Daily Note-Current Subjective Patient in bed pre tx, agrees to PT, no complaints of pain at rest, states he is tired. Appearance Patient in recliner post tx with nurse call, phone, tray, all needs met, chair alarm on. Mental Status Patient Orientation: Person Transfers Therapy Code Descriptions/Definitions Functional [place] Measure: 0=Not Assessed/NA 4=Minimal Assistance 1=Total Assistance 5=Supervision or Setup 2=Maximal Assistance 6=Modified [place] 3=Moderate Assistance 7=Complete [place] Therapy Quality Codes: 6 Independent with activity with or without an assistive device 5 Patient requires set up or clean up by helper. Patient completes activity by themselves 4 Supervision or touching assist (CGA). [place] provide cues , steadying assist 3 The helper provides less than half the effort to complete the activity 2 The helper provides more than half the effort to complete the activity 1 Dependent. The helper does all the effort to complete an activity 7 Patient refused to complete or attempt activity 9 The patient did not perform the activity before the current illness or injury 88 Not attempted due to Medical conditions or safety concerns Transfers (B, C, W/C) (FIM): 4 Scootin Rollin Supine to/from Sit: 4 Sit to/from Stand: 4 Bed to/from Chair: 4 Min assist for supine to sit, CGA for sit to stand and transfers, cues for hand placement and positioning. Weight Bearing Left Lower Extremity: Left Weight Bearing/Tolerated Gait Training Gait (FIM): 2 Distance: 120'x2 Gait Level of Assist: 4 Gait Persons Needed: 1 Gait Assistive Device: FWW CGA, slow, antalgic, tends to keep left leg internally rotated. Good step through Exercises Seated Therapy Exercises: Ankle pumps, Long arc quads, Hip abd/add (with pillow and RTB) Seated Reps: 15 Standing: Heel/toe raises, Mini squats Standing Reps: 15 Treatments bed mobility and transfers, ambulation, LE exercise Assessment Current Status: Fair Progress improved ambulation and overall mobility but patient is still keeping his left leg internally rotated. PT Short Term Goals Short Term Goals Time Frame: May 13, 2019 Gait (FIM): 1 Gait Distance Comment: 10' Gait Level of Assist: 3 Gait Assistive Device: FWW Wheelchair Distance: 50' PT Group Home Goals Group Home Goals PT Car Seat Upholsterer Goals Time Frame: May 27, 2019 Transfers (B,C,W/C) (FIM): 4 Sit to Lying (QC): 3 Lying-Sitting on Side/Bed(QC): 3 Sit to Stand (QC): 3 Rollin Roll Left to Right (QC): 3 Chair/Prg-os-Dzvii Xfer(QC): 3 Car Transfer (QC): 3 Gait (FIM): 2 Distance: 50' Walk 10 feet (QC): 4 Walk 10ft-Uneven Surface(QC): 4 Walk 50ft with 2 Turns (QC): 4 Walk 150 ft (QC): 4 Gait Level of Assist: 4 Gait Assistive Device: FWW Stairs (FIM): 2 # of Steps: 4 1 Step (curb) (QC): 4 Stairs Level Of Assist: 4 PT Plan Problem List Problem List: Activity Tolerance, Functional Strength, Safety, Balance, Gait, Transfer, Bed Mobility, ROM Treatment/Plan Treatment Plan: Continue Plan of Care Treatment Plan: Bed Mobility, Concurrent Therapy, Education, Functional Activity Michael, Functional Strength, Group Therapy, Gait, Safety, Therapeutic Exercise, Transfers Treatment Duration: May 27, 2019 Frequency: At least 5 of 7 days/Wk (IRF) Estimated Hrs Per Day: 1.5 hours per day Patient and/or Family Agrees t: Yes Safety Risks/Education Patient Education: Gait Training, Transfer Techniques, Correct Positioning, Safety Issues Teaching Recipient: Patient Teaching Methods: Demonstration, Discussion Response to Teaching: Reinforcement Needed Time/GCodes Time In: 0845 Time Out: 0930 Total Billed Treatment Time: 45 Total Billed Treatment 1 visit EX 15' FA 10' GT 20' BEULAH SOMERS PT May 12, 2019 09:28
[2019-05-12] MEDS: FLUTICASONE NASAL SPRAY (FLONASE) 16 GM BTL NS SCH (09:35)
[2019-05-12] MEDS: APIXABAN 5 MG (ELIQUIS) TABLET PO SCH ×2 (09:36→20:50)
[2019-05-12] MEDS: SERTRALINE 100 MG (ZOLOFT) TAB PO SCH (09:36)
[2019-05-12] MEDS: buPROPion 75 MG (WELLBUTRIN) TAB PO SCH ×2 (09:36→20:50)
[2019-05-12] MEDS: POLYETHYLENE GLYCOL 17 GM (MIRALAX) PACK PO SCH ×2 (09:36→20:51)
[2019-05-12] MEDS: MAGNESIUM OXIDE (MAG-OX)400 MG TAB PO SCH ×2 (09:36→20:50)
[2019-05-12] MEDS: ASPIRIN E.C. 81 MG (ECOTRIN) TAB PO SCH (09:36)
[2019-05-12] MEDS: SENNA W/DOCUSATE (SENOKOT S) TABLET PO SCH ×2 (09:36→20:51)
--- NOTE | 2019-05-12 10:40 | NUR ---
Pastoral care visit.
--- NOTE | 2019-05-12 11:00 | Occupational Ther Daily Note ---
OT Current Status-Daily Note Subjective Pt alert sitting in chair upon OT arrival. Pt c/o of fatigue but wants to shower. Mental Status/Objective Patient Orientation: Person, Place, Time, Situation Therapy Code Descriptions/Definitions Functional [place] Measure: 0=Not Assessed/NA 4=Minimal Assistance 1=Total Assistance 5=Supervision or Setup 2=Maximal Assistance 6=Modified [place] 3=Moderate Assistance 7=Complete [place] ADL-Treatment Pt felt dizzy upon standing. Pt sat down in chair and blood pressure was checked. BP was 114/65. Pt needed rest break due to decreased activity to lerance. Pt transferred to w/c with Max Assist and taken to restroom. Pt transferred to toilet with Max Assist. OT felt shower was unsafe due to pt feeling fatigued/ dizzy . Pts briefs and pants were changed sitting on toilet. Pt required Max Assist to transfer back to w/c requiring VC's for hand placement and to move feet. Pt transferred back to chair with Max Assist. Pts call light and phone in reach, all needs met. Therapy Code Descriptions/Definitions Functional [place] Measure: 0=Not Assessed/NA 4=Minimal Assistance 1=Total Assistance 5=Supervision or Setup 2=Maximal Assistance 6=Modified [place] 3=Moderate Assistance 7=Complete [place] Therapy Quality Codes: 6 Independent with activity with or without an assistive device 5 Patient requires set up or clean up by helper. Patient completes activity by themselves 4 Supervision or touching assist (CGA). [place] provide cues , steadying assist 3 The helper provides less than half the effort to complete the activity 2 The helper provides more than half the effort to complete the activity 1 Dependent. The helper does all the effort to complete an activity 7 Patient refused to complete or attempt activity 9 The patient did not perform the activity before the current illness or injury 88 Not attempted due to Medical conditions or safety concerns Lower Body Dressing (FIM): 1 (Pt required Total Assist to doff/don briefs, pants, and shoes. ) Lower Body Dressing (QC): 1 Toileting (FIM): 3 (Pt required assist to manage clothing before and after voiding. Pt able to cleanse self after voiding. ) Transfers (B, C, W/C) (FIM): 2 (Pt required Max Assist to stand to sit. Pt required VC's to move feet while transferring. Pt required VC's to reach back for arm rests before sitting down. ) Toilet/Commode Transfer (FIM): 2 (Pt required w/c, grab bar, and raised toilet seat with arms. Pt required Max Assist from stand to sit and sit to stand. Pt required VC to move feet while transferring. ) Toilet Transfer (QC): 2 OT Short Term Goals Short Term Goals Time Frame: May 13, 2019 Bathing(FIM): 4 Upper Body Dressing(FIM): 4 Lower Body Dressing(FIM): 3 Toilet/Commode Transfer(FIM): 3 Additional Short Term Goals: 1-Demonstrate ADL Tasks, 2-Verbalize Understanding, 3-ImproveStrength/Michael 1=Demonstrate adherence to instructed precautions during ADL tasks. 2=Patient will verbalize/demonstrate understanding of assistive devices/modifications for ADL. 3=Patient will improve strength/tolerance for activity to enable patient to p erform ADL's. OT Alf Goals Alf Goals Time Frame: May 27, 2019 Eating (FIM): 6 Eating (QC): 6 Groomin Oral Hygiene (QC): 6 Bathing(FIM): 5 Shower/Bathe Self (QC): 4 Upper Body Dressing(FIM): 5 Upper Body Dressing (QC): 5 Lower Body Dressing(FIM): 5 Lower Body Dressing (QC): 5 On/Off Footwear (QC): 5 Toileting(FIM): 6 Toileting Hygiene (QC): 6 Toilet/Commode Transfer(FIM): 5 Toilet/Commode Transfer (QC): 5 Shower Transfer(FIM): 5 Additional Goals: 1-Demonstrate ADL Tasks, 2-Verbalize Understanding, 3- ImproveStrength/Michael 1=Demonstrate adherence to instructed precautions during ADL tasks. 2=Patient will verbalize/demonstrate understanding of assistive devices/modifications for ADL. 3=Patient will improve strength/tolerance for activity to enable patient to perform ADL's. OT Education/Plan Problem List/Assessment Assessment: Decreased Activ Tolerance, Decreased UE Strength, Dependent Transfers, Impaired Self-Care Skills Discharge Recommendations Plan/Recommendations: Continue POC Treatment Plan/Plan of Care Patient would benefit from OT for education, treatment and training to promote independence in ADL's, mobility, safety and/or upper extremity function for ADL's. Plan of Care: ADL Retraining, Functional Mobility, Group Exercise/Act as Ind, UE Funct Exercise/Act Treatment Duration: May 27, 2019 Frequency: At least 5 of 7 days/Wk (IRF) Estimated Hrs Per Day: 1.5 hours per day Agreement: Yes Rehab Potential: Fair Time/GCodes Start Time: 10:00 Stop Time: 10:45 Total Time Billed (hr/min): 45 Billed Treatment Time 1 visit- ADL 3 (45 min) AQUILES LEDEZMA May 12, 2019 11:00
[2019-05-12] MEDS: LOSARTAN 100 MG (COZAAR) TABLET PO SCH (11:29)
[2019-05-12] MEDS: amLODIPine 10 MG (NORVASC) TAB PO SCH (11:30)
[2019-05-12] MEDS: meTOproloL SUCCINATE 50 MG (TOPROL XL) TAB PO SCH (11:30)
[2019-05-12] MEDS: KCL 20 MEQ TAB (K-DUR) PO SCH ×2 (11:30→20:51)
--- NOTE | 2019-05-12 15:09 | Therapy Group Daily Note ---
Therapy Daily Group Note Patient Education Topic Other List Below (ARU orientation, transfer/bed mobility) Exercises LE Seated Exercise, UE Exercise Session Ratio (pt:therapist): 3:1 Goal of Session: Education on ARU Expectations, UE/LE Strengthing, Safety with Transfers Goal Met for this Session: Yes Pt Benefit of Group: Contributions to Others, Increased Functional Strength, Improved Cognition, Recognition of Peers, Socialization Other/Notes Pt ambulated using FWW to OT/PT group. Group consisted of introduction (name, place living, favorite school activity), socialization, ARU orientation, UE/LE seated exercises and transfer/bed mobility education. Pt introduced self appropriately and actively listened to peers. Pt contributed to conversations and initiated responses to educational topics. Pt demonstrated understanding of group educational topics with affirmative gestures and verbalizing understanding. Pt completed UE/LE seated exercises and tolerated well. Pt initially started to ambulate back to room then LE's began to melt, nrsg brought chair for pt to sit on. BP taken after pt had sat for a few minutes, see nrsg notes for BP. Then taken when standing, did not register and pt's LE's began to melt again so pt sat down with assistance, see nrsg notes for BP. Pt taken back to room in w/c. After therapy, pt lying in bed with call light/phone in reach. All needs met in room. Start Time: 13:00 Stop Time: 14:10 Total Billed Treatment Time: 70 Total Billed Treatment 1-GRP AQUILES LEDEZMA May 12, 2019 15:09
[2019-05-12] MEDS: CATHETER FLUSH 10 ML SYR IV SCH ×2 (15:31→22:04)
--- NOTE | 2019-05-12 15:50 | Speech Therapy Daily Note ---
Speech Daily Progress Note Subjective Date Seen by Provider: May 12, 2019 Time Seen by Provider: 00:30 The patient was resting in his recliner after finishing PT. Objective Patient completed questions that were safety awareness related with 80% given moderate verbal cues and/or repetitions. Assessment Assessment Current Status: Good Progress Treatment Plan Continue Plan of Care Communication Comprehension: 6 Expression: 5 Social Cognition Social Interaction: 7 Problem Solvin Memory: 4 Speech Short Term Goals Short Term Goals Short Term Goals 1) The patient will complete memory tasks related to his daily needs at 90% or greater. 2) The patient will complete problem solving tasks related to his daily needs at 90% or greater. 3) The patient will complete safety awareness tasks related to his daily needs at 90% or greater. Speech Health Plan Manager Goals Health Plan Manager Goals Patient will improve cognitive-communication necessary for safety and daily living tasks with minimal assistance. Speech-Plan Patient/Family Goals Patient/Family Goals: The patient plans on returning home where he lives alone, however at this time would not be considered safe to do so. Treatment Plan Speech Therapy Treatment Plan: Continue Plan of Care Patient is making mild progress toward meeting ST goals. Treatment Duration: May 16, 2019 Frequency: 5 times per week Estimated Hrs Per Day: .5 hour per day Rehab Potential: Fair Barriers to Learning: Patient has cognitive deficits, he also is very sleepy all the time. Pt/Family Agrees to Plan: Yes Safety Risks/Education Teaching Recipient: Patient Teaching Methods: Discussion Response to Teaching: Verbalize Understanding Education Topics Provided: Safety within his room. Time Speech Therapy Time In: 11:00 Speech Therapy Time Out: 11:30 Total Billed Time: 30 Billed Treatment Time [address] [address] May 12, 2019 15:50
[2019-05-12 16:09] VITALS: BP 118/67
[2019-05-12] MEDS: TAMSULOSIN 0.4 MG (FLOMAX) CAP PO SCH (18:41)
[2019-05-13] MEDS: CATHETER FLUSH 10 ML SYR IV SCH (05:04)
[2019-05-13] MEDS: OMEPRAZOLE 20 MG (PriLOSEC) CAP NON-FORMULARY PO SCH (05:39)
[2019-05-13] MEDS: LEVOTHYROXINE 112 MCG (LEVOTHROID) TAB PO SCH (05:39)
[2019-05-13] MEDS: FERROUS SULF 325 MG (IRON) TAB PO SCH (05:39)
[2019-05-13 06:24] VITALS: BP 136/75
[2019-05-13 08:00] VITALS: BP_SYST 100; BP_SYST 122; BP_SYST 130; BP_SYST 87; BP_DIAS 48; BP_DIAS 64; BP_DIAS 70
--- NOTE | 2019-05-13 08:00 | NUR ---
STATES FEELS IS EMPTYING BLADDER. SOMETIMES USES URINAL AND IS INCONTINENT AT OTHER TIMES. ADMITS TO HAVING INCONTINENCY AT HOME PRIOR TO ADMISSION. STATES FEELS IS GETTING STRONGER AND APPEARS PERKIER THIS AM. STATES CAN GET LEFT LEG UP ON BED NOW.
--- NOTE | 2019-05-13 08:15 | PM&R Progress Note ---
Subjective HPI/CC On Admission Date Seen by Provider: May 13, 2019 Time Seen by Provider: 08:30 Subjective/Events-last exam Pt appears to be much improved. Less dizziness today and less orthostasis. Overall improved. Incontinence is chronic and he seems like he is doing better with that. Bowels are moving. Overall denies any pain and feels like he is improving now. Check meds and labs Reviewed therapy notes Conferred with solderer of Systems General: Fatigue Musculoskeletal: leg pain Objective Exam Vital Signs Vital Signs Date Time Temp Pulse Resp B/P (MAP) Pulse Ox O2 Delivery O2 Flow Rate FiO2 05/13/19 17:53 36.7 71 20 112/62 (79) 96 Room Air Capillary Refill : Less Than 3 Seconds General Appearance: No Apparent Distress, WD/WN, Chronically ill, Other (lethargic) HEENT: PERRL/EOMI, Normal ENT Inspection, Pharynx Normal Neck: Full Range of Motion, Normal Inspection, Non Tender, Supple Respiratory: Chest Non Tender, Lungs Clear, Normal Breath Sounds, No Accessory Muscle Use, No Respiratory Distress Cardiovascular: Regular Rate, Rhythm, No Edema, No Gallop, No JVD, Normal Peripheral Pulses, Systolic Murmur Gastrointestinal: Normal Bowel Sounds, No Organomegaly, No Pulsatile Mass, Non Tender, Soft Rectal: Deferred Back: No CVA Tenderness Extremity: Non Tender, No Calf Tenderness, No Pedal Edema Neurologic/Psychiatric: Alert, No Motor/Sensory Deficits, spiritual counselor II-XII Norm as Tested, Disoriented, Other (lethargic) Reflexes: 2+ Bicep (R), 2+ Bicep (L), 2+ Ankle (R), 2+ Ankle (L) Skin: Normal Color, Warm/Dry Lymphatic: No Adenopathy Results/Procedures Lab Patient resulted labs reviewed. FIM Transfers Therapy Code Descriptions/Definitions Functional [place] Measure: 0=Not Assessed/NA 4=Minimal Assistance 1=Total Assistance 5=Supervision or Setup 2=Maximal Assistance 6=Modified [place] 3=Moderate Assistance 7=Complete [place] Therapy Quality Codes: 6 Independent with activity with or without an assistive device 5 Patient requires set up or clean up by helper. Patient completes activity by themselves 4 Supervision or touching assist (CGA). [place] provide cues , steadying a ssist 3 The helper provides less than half the effort to complete the activity 2 The helper provides more than half the effort to complete the activity 1 Dependent. The helper does all the effort to complete an activity 7 Patient refused to complete or attempt activity 9 The patient did not perform the activity before the current illness or injury 88 Not attempted due to Medical conditions or safety concerns Transfers (B, C, W/C) (FIM): 2 (Pt required Max Assist to stand to sit. Pt required VC's to move feet while transferring. Pt required VC's to reach back for arm rests before sitting down. ) Scootin Rollin Roll Left to Right (QC): 1 Supine to/from Sit: 4 Sit to/from Stand: 4 Sit to Lying (QC): 3 Sit to Stand (QC): 2 Chair/Gby-hb-Zirwj Xfer(QC): 2 Bed to/from Chair: 4 Car Transfer (QC): 2 Gait Training Does the Patient Walk?: Yes Gait (FIM): 2 Distance (FIM): 1=up to 49 ft Distance: 120'x2 Walk 10 feet (QC): 4 Gait Level of Assist: 4 Gait Persons Needed: 1 Gait Assistive Device: FWW Wheelchair Training Does the Pt Use a Wheelchair?: Yes Wheelchair (FIM): 1 Wheelchair Distance: 6=372-67 ft Distance: 50' Wheelchair Level of Assist: 2 Type of Wheelchair: Manual Mental Status/Objective Comprehension: 6 Expression: 5 Social Interaction: 7 Problem Solvin Memory: 4 ADL-Treatment Feedin Eating (QC): 5 Groomin (SBA at sink in wheelchair. Pt. requires increased time and constant cues to complete process of shaving, washing face, and combing hair.) Oral Hygiene (QC): 4 Bathin Shower/Bathe Self (QC): 3 Upper Extremity Dressin Upper Body Dressing (QC): 3 Lower Extremity Dressin (Pt required Total Assist to doff/don briefs, pants, and shoes. ) Lower Body Dressing (QC): 1 On/Off Footwear (QC): 1 Toiletin (Pt required assist to manage clothing before and after voiding. Pt able to cleanse self after voiding. ) Toilet/Commode Transfer: 2 (Pt required w/c, grab bar, and raised toilet seat with arms. Pt required Max Assist from stand to sit and sit to stand. Pt required VC to move feet while transferring. ) Toilet Transfer (QC): 2 Shower: 0 Assessment/Plan Assessment and Plan Assess & Plan/Chief Complaint Plan: OAC Consult Rodolfo Dumont and Saurav Discontinue catheter now Improve nutrition BM regimen Pain control Monitor for falls Minimize sedatives Abx DC per Dr Mg Patient improved today 05/13/19 (1) History of revision of total replacement of left hip joint Status: Acute (2) Left leg DVT Status: Acute Qualifiers: Affected thrombotic vein of extremity: unspecified vein of extremity Chronicity: unspecified Qualified Codes: I82.402 - Acute embolism and thrombosis of unspecified deep veins of left lower extremity (3) BPH (benign prostatic hyperplasia) Status: Chronic Qualifiers: Lower urinary tract symptom presence: unspecified whether lower urinary tract symptoms present Qualified Codes: N40.0 - Benign prostatic hyperplasia without lower urinary tract symptoms (4) Advanced age Status: Chronic (5) Hypertension Status: Chronic Qualifiers: Hypertension type: essential hypertension Qualified Codes: I10 - Essential (primary) hypertension (6) Debility Status: Acute (7) Dizziness Status: Acute (8) Urinary retention Status: Acute (9) Fatigue Status: Acute Qualifiers: Fatigue type: unspecified Qualified Codes: R53.83 - Other fatigue (10) Orthostatic hypotension Status: Acute BASIL ANGLIN DO May 13, 2019 08:15
[2019-05-13] MEDS: meTOproloL SUCCINATE 50 MG (TOPROL XL) TAB PO SCH (09:00)
[2019-05-13] MEDS: LOSARTAN 100 MG (COZAAR) TABLET PO SCH (09:00)
[2019-05-13] MEDS: APIXABAN 5 MG (ELIQUIS) TABLET PO SCH ×2 (09:35→20:20)
[2019-05-13] MEDS: KCL 20 MEQ TAB (K-DUR) PO SCH ×2 (09:35→20:20)
[2019-05-13] MEDS: SERTRALINE 100 MG (ZOLOFT) TAB PO SCH (09:35)
[2019-05-13] MEDS: MAGNESIUM OXIDE (MAG-OX)400 MG TAB PO SCH ×2 (09:36→20:20)
--- NOTE | 2019-05-13 09:36 | Occupational Ther Daily Note ---
OT Current Status-Daily Note Subjective Pt alert laying in bed upon OT arrival. Pts BP was monitored throughout OT session due to orthostatic BP issues. See Nrsg notes for initial blood pressures. Pt agrees to therapy. No c/o pain at this time. Mental Status/Objective Patient Orientation: Person, Place, Time, Situation Therapy Code Descriptions/Definitions Functional [place] Measure: 0=Not Assessed/NA 4=Minimal Assistance 1=Total Assistance 5=Supervision or Setup 2=Maximal Assistance 6=Modified [place] 3=Moderate Assistance 7=Complete [place] ADL-Treatment Pt agrees to shower. Nrsg and physicians in room during part of OT session, aware of pt's low BP in standing and sitting. After shower, pt's BP 55/?? did not register fully on vitals machine. Due to pts drop in blood pressure assist to don pt's clothing was required. Pt transferred to bed. BP was taken sitting EOB 95/65 and 127/67 in supine. After therapy, pt lying in bed with eyes closed, call light and phone with in reach. Pts needs met. Therapy Code Descriptions/Definitions Functional [place] Measure: 0=Not Assessed/NA 4=Minimal Assistance 1=Total Assistance 5=Supervision or Setup 2=Maximal Assistance 6=Modified [place] 3=Moderate Assistance 7=Complete [place] Therapy Quality Codes: 6 Independent with activity with or without an assistive device 5 Patient requires set up or clean up by helper. Patient completes activity by themselves 4 Supervision or touching assist (CGA). [place] provide cues , steadying assist 3 The helper provides less than half the effort to complete the activity 2 The helper provides more than half the effort to complete the activity 1 Dependent. The helper does all the effort to complete an activity 7 Patient refused to complete or attempt activity 9 The patient did not perform the activity before the current illness or injury 88 Not attempted due to Medical conditions or safety concerns Eating (FIM): 7 (Pt able to complete own set up and use regular utensils to eat.) Eating (QC): 6 Bathing (FIM): 4 (Pt required Min Assist while standing to wash buttocks. Pt able to wash and rinse self. Pt able to dry upper body. Pt required assist to dry lower legs due to dizziness. ) Bathing Location: L Arm, R Arm, L Upper Leg, R Upper Leg, L Lower Leg (including foot), R Lower Leg (including foot), Chest, Abdomen, Buttocks, Perineal Area Shower/Bathe Self (QC): 3 Transfers (B, C, W/C) (FIM): 4 (Increased time for all transfers due to dizziness (reported by pt) and drop in BP. Min A for safety with transfers.) Shower Transfer(FIM): 4 (Pt required w/c, grab bar, and shower chair. Pt required CGA during transfer for safety concerns.) OT Short Term Goals Short Term Goals Time Frame: May 13, 2019 Bathing(FIM): 4 Upper Body Dressing(FIM): 4 Lower Body Dressing(FIM): 3 Toilet/Commode Transfer(FIM): 3 Additional Short Term Goals: 1-Demonstrate ADL Tasks, 2-Verbalize Understanding, 3-ImproveStrength/Michael 1=Demonstrate adherence to instructed precautions during ADL tasks. 2=Patient will verbalize/demonstrate understanding of assistive von ezequiel/modifications for ADL. 3=Patient will improve strength/tolerance for activity to enable patient to perform ADL's. OT Logger All Round Goals Logger All Round Goals Time Frame: May 27, 2019 Eating (FIM): 6 Eating (QC): 6 Groomin Oral Hygiene (QC): 6 Bathing(FIM): 5 Shower/Bathe Self (QC): 4 Upper Body Dressing(FIM): 5 Upper Body Dressing (QC): 5 Lower Body Dressing(FIM): 5 Lower Body Dressing (QC): 5 On/Off Footwear (QC): 5 Toileting(FIM): 6 Toileting Hygiene (QC): 6 Toilet/Commode Transfer(FIM): 5 Toilet/Commode Transfer (QC): 5 Shower Transfer(FIM): 5 Additional Goals: 1-Demonstrate ADL Tasks, 2-Verbalize Understanding, 3- ImproveStrength/Michael 1=Demonstrate adherence to instructed precautions during ADL tasks. 2=Patient will verbalize/demonstrate understanding of assistive devices/modifications for ADL. 3=Patient will improve strength/tolerance for activity to enable patient to perform ADL's. OT Education/Plan Problem List/Assessment Assessment: Decreased Activ Tolerance, Impaired Coordination, Impaired Self- Care Skills Discharge Recommendations Plan/Recommendations: Continue POC Treatment Plan/Plan of Care Patient would benefit from OT for education, treatment and training to promote independence in ADL's, mobility, safety and/or upper extremity function for ADL's. Plan of Care: ADL Retraining, Functional Mobility, Group Exercise/Act as Ind, UE Funct Exercise/Act Treatment Duration: May 27, 2019 Frequency: At least 5 of 7 days/Wk (IRF) Estimated Hrs Per Day: 1.5 hours per day Agreement: Yes Rehab Potential: Fair Time/GCodes Start Time: 08:15 Stop Time: 09:30 Total Time Billed (hr/min): 75 Billed Treatment Time 1 visit- ADL 5 (75 min) AQUILES LEDEZMA May 13, 2019 09:35
[2019-05-13] MEDS: ASPIRIN E.C. 81 MG (ECOTRIN) TAB PO SCH (09:37)
[2019-05-13] MEDS: amLODIPine 10 MG (NORVASC) TAB PO SCH (09:40)
[2019-05-13] MEDS: buPROPion 75 MG (WELLBUTRIN) TAB PO SCH ×2 (09:40→20:20)
[2019-05-13] MEDS: FLUTICASONE NASAL SPRAY (FLONASE) 16 GM BTL NS SCH (09:42)
[2019-05-13] MEDS: SENNA W/DOCUSATE (SENOKOT S) TABLET PO SCH ×2 (09:46→20:21)
[2019-05-13] MEDS: POLYETHYLENE GLYCOL 17 GM (MIRALAX) PACK PO SCH ×2 (09:47→20:21)
--- NOTE | 2019-05-13 10:00 | NUR ---
DR. CANTU WAS NOTIFIED OF ORTHOSTATIC CHANGES. NORVASC WAS ALREADY GIVEN EARLIER, BUT ORDER TO HOLD OTHER BP MEDS THIS AM.
--- NOTE | 2019-05-13 10:15 | Speech Therapy Daily Note ---
Speech Daily Progress Note Subjective Date Seen by Provider: May 13, 2019 Time Seen by Provider: 00:30 Patient awake and alert for our therapy session today. Objective Patient completed problem solving tasks related to his daily needs at 90% with minimal cues. Assessment Assessment Current Status: Good Progress Treatment Plan Continue Plan of Care Communication Comprehension: 6 Expression: 5 Social Cognition Social Interaction: 7 Problem Solvin Memory: 4 Speech Short Term Goals Short Term Goals Short Term Goals 1) The patient will complete memory tasks related to his daily needs at 90% or greater. 2) The patient will complete problem solving tasks related to his daily needs at 90% or greater. 3) The patient will complete safety awareness tasks related to his daily needs at 90% or greater. Speech Career Technical Education Teacher Goals [place] Goals Patient will improve cognitive-communication necessary for safety and daily laina ing tasks with minimal assistance. Speech-Plan Patient/Family Goals Patient/Family Goals: The patient plans on returning home alone post rehab. He will family near by for support as needed. Treatment Plan Speech Therapy Treatment Plan: Continue Plan of Care Patient is progressing as a result of skilled therapy. Treatment Duration: May 16, 2019 Frequency: 5 times per week Estimated Hrs Per Day: .5 hour per day Rehab Potential: Fair Barriers to Learning: patient has mikld cognitive deficits. Pt/Family Agrees to Plan: Yes Safety Risks/Education Teaching Recipient: Patient Teaching Methods: Discussion Response to Teaching: Verbalize Understanding Education Topics Provided: Continued safety within his room. Time Speech Therapy Time In: 09:30 Speech Therapy Time Out: 10:00 Total Billed Time: 30 Billed Treatment Time [address] May 13, 2019 10:15
--- NOTE | 2019-05-13 10:57 | Physical Therapy Daily Note ---
PT Daily Note-Current Subjective Patient in bed pre tx, tries to refuse therapy but participates with encouragement. Patient has no complaints of pain. Appearance Patient BTB post tx with nurse call, phone, tray, bed alarm on, all needs met. Mental Status Patient Orientation: Person, Place, Situation Transfers Therapy Code Descriptions/Definitions Functional [place] Measure: 0=Not Assessed/NA 4=Minimal Assistance 1=Total Assistance 5=Supervision or Setup 2=Maximal Assistance 6=Modified [place] 3=Moderate Assistance 7=Complete [place] Therapy Quality Codes: 6 Independent with activity with or without an assistive device 5 Patient requires set up or clean up by helper. Patient completes activity by themselves 4 Supervision or touching assist (CGA). [place] provide cues , steadying assist 3 The helper provides less than half the effort to complete the activity 2 The helper provides more than half the effort to complete the activity 1 Dependent. The helper does all the effort to complete an activity 7 Patient refused to complete or attempt activity 9 The patient did not perform the activity before the current illness or injury 88 Not attempted due to Medical conditions or safety concerns Transfers (B, C, W/C) (FIM): 4 Scootin Rollin Supine to/from Sit: 4 Sit to/from Stand: 4 Bed to/from Chair: 4 Min assist to get left leg into bed during sit to supine, CGA for transfers and sit to stand. Occasional cues for hand placement and safety. Weight Bearing Left Lower Extremity: Left Weight Bearing/Tolerated Gait Training Gait (FIM): 2 Distance: 75'x4 Gait Level of Assist: 4 Gait Persons Needed: 1 Gait Assistive Device: FWW Very slow ambulation, SOB, needs more rest breaks today. Exercises Seated Therapy Exercises: Ankle pumps, Long arc quads Seated Reps: 20 NuStep Minutes: 15 NuStep Workload: 4 Treatments LE exercise, ambulation, bed mobility and transfers Assessment Current Status: Fair Progress generally improving mobility but more SOB and fatigued today, still internally rotates left leg and needs cues for correction PT Short Term Goals Short Term Goals Time Frame: May 13, 2019 Gait (FIM): 1 Gait Distance Comment: 10' Gait Level of Assist: 3 Gait Assistive Device: FWW Wheelchair Distance: 50' PT Mcc Goals Technical Photographer Goals PT Technical Photographer Goals Time Frame: May 27, 2019 Transfers (B,C,W/C) (FIM): 4 Sit to Lying (QC): 3 Lying-Sitting on Side/Bed(QC): 3 Sit to Stand (QC): 3 Rollin Roll Left to Right (QC): 3 Chair/Pyl-cg-Gmmsp Xfer(QC): 3 Car Transfer (QC): 3 Gait (FIM): 2 Distance: 50' Walk 10 feet (QC): 4 Walk 10ft-Uneven Surface(QC): 4 Walk 50ft with 2 Turns (QC): 4 Walk 150 ft (QC): 4 Gait Level of Assist: 4 Gait Assistive Device: FWW Stairs (FIM): 2 # of Steps: 4 1 Step (curb) (QC): 4 Stairs Level Of Assist: 4 PT Plan Problem List Problem List: Activity Tolerance, Functional Strength, Safety, Balance, Gait, Transfer, Bed Mobility, ROM Treatment/Plan Treatment Plan: Continue Plan of Care Treatment Plan: Bed Mobility, Concurrent Therapy, Education, Functional Activi ty Michael, Functional Strength, Group Therapy, Gait, Safety, Therapeutic Exercise, Transfers Treatment Duration: May 27, 2019 Frequency: At least 5 of 7 days/Wk (IRF) Estimated Hrs Per Day: 1.5 hours per day Patient and/or Family Agrees t: Yes Safety Risks/Education Patient Education: Gait Training, Transfer Techniques, Correct Positioning, Safety Issues Teaching Recipient: Patient Teaching Methods: Demonstration, Discussion Response to Teaching: Reinforcement Needed Time/GCodes Time In: 1000 Time Out: 1100 Total Billed Treatment Time: 60 Total Billed Treatment 1 visit GT 30' EX 20' FA 10' BEULAH SOMERS PT May 13, 2019 10:57
--- NOTE | 2019-05-13 13:57 | Physical Therapy Daily Note ---
PT Daily Note-Current Subjective Patient sitting EOB pre tx, agrees to PT, has no complaints of pain at rest, just states that he gets very tired. Appearance Patient sitting EOB post tx with nurse call, phone, tray, all needs met. Mental Status Patient Orientation: Person, Place, Situation Transfers Therapy Code Descriptions/Definitions Functional [place] Measure: 0=Not Assessed/NA 4=Minimal Assistance 1=Total Assistance 5=Supervision or Setup 2=Maximal Assistance 6=Modified [place] 3=Moderate Assistance 7=Complete [place] Therapy Quality Codes: 6 Independent with activity with or without an assistive device 5 Patient requires set up or clean up by helper. Patient completes activity by themselves 4 Supervision or touching assist (CGA). [place] provide cues , steadying assist 3 The helper provides less than half the effort to complete the activity 2 The helper provides more than half the effort to complete the activity 1 Dependent. The helper does all the effort to complete an activity 7 Patient refused to complete or attempt activity 9 The patient did not perform the activity before the current illness or injury 88 Not attempted due to Medical conditions or safety concerns Sit to/from Stand: 5 Bed to/from Chair: 5 Weight Bearing Left Lower Extremity: Left Weight Bearing/Tolerated Gait Training Gait (FIM): 5 Distance: 150'x2 Gait Level of Assist: 5 Gait Persons Needed: 1 Gait Assistive Device: FWW antalgic, slow, very fatigued at the end of each trip Treatments transfers, ambulation Assessment Current Status: Fair Progress improving endurance PT Short Term Goals Short Term Goals Time Frame: May 13, 2019 Gait (FIM): 1 Gait Distance Comment: 10' Gait Level of Assist: 3 Gait Assistive Device: FWW Wheelchair Distance: 50' PT Mcc Goals Chronic Specialist Goals PT Mcc Goals Time Frame: May 27, 2019 Transfers (B,C,W/C) (FIM): 4 Sit to Lying (QC): 3 Lying-Sitting on Side/Bed(QC): 3 Sit to Stand (QC): 3 Rollin Roll Left to Right (QC): 3 Chair/Bnp-cj-Llhiq Xfer(QC): 3 Car Transfer (QC): 3 Gait (FIM): 2 Distance: 50' Walk 10 feet (QC): 4 Walk 10ft-Uneven Surface(QC): 4 Walk 50ft with 2 Turns (QC): 4 Walk 150 ft (QC): 4 Gait Level of Assist: 4 Gait Assistive Device: FWW Stairs (FIM): 2 # of Steps: 4 1 Step (curb) (QC): 4 Stairs Level Of Assist: 4 PT Plan Problem List Problem List: Activity Tolerance, Functional Strength, Safety, Balance, Gait, Transfer, Bed Mobility, ROM Treatment/Plan Treatment Plan: Continue Plan of Care Treatment Plan: Bed Mobility, Concurrent Therapy, Education, Functional Activity Michael, Functional Strength, Group Therapy, Gait, Safety, Therapeutic Exercise, Transfers Treatment Duration: May 27, 2019 Frequency: At least 5 of 7 days/Wk (IRF) Estimated Hrs Per Day: 1.5 hours per day Patient and/or Family Agrees t: Yes Safety Risks/Education Patient Education: Gait Training, Transfer Techniques, Correct Positioning, Safety Issues Teaching Recipient: Patient Teaching Methods: Demonstration, Discussion Response to Teaching: Reinforcement Needed Time/GCodes Time In: 1335 Time Out: 1350 Total Billed Treatment Time: 15 Total Billed Treatment 1 visit GT 15' BEULAH SOMERS PT May 13, 2019 13:56
[2019-05-13] MEDS: TAMSULOSIN 0.4 MG (FLOMAX) CAP PO SCH (17:33)
--- NOTE | 2019-05-13 17:43 | Cardiology Progress Note ---
Cardiology SOAP Progress Note Subjective: Complains of fatigue. Objective: I&O/Vital Signs 05/14/19 05/14/19 05/14/19 05:20 09:00 09:00 Temp 36.7 Pulse 74 83 90 77 Resp 16 B/P (MAP) 124/71 (88) 94/56 (69) 87/56 (66) 145/75 (98) Pulse Ox 96 O2 Delivery Room Air Room Air 05/14/19 00:00 Intake Total 660 ml Output Total 100 ml Balance 560 ml Weight (Pounds): 217 Weight (Ounces): 8.0 Weight (Calculated Kilograms): [id number] Constitutional: appears stated age, AAO x 3; No apparent distress; well- developed, well-nourished Respiratory: chest is bilaterally symmetric, lungs clear to auscultation Cardiovascular: regular rate-rhythm, S1 and S2 Gastrointestional: soft, audible bowel sounds; No spleenomegaly Extremities: No clubbing, No cyanosis; no lower extremity edema bilateral; No significant edema Neurologic/Psychiatric: no motor/sensory deficits, alert, normal mood/affect, oriented x 3, power is 5/5 both on sides Skin: No rash, No ulcerations A/P: Assessment/Dx: Recent hip surgery, fatigue Blood pressure, CAD, Mild bilateral carotid artery disease, Dementia, Recent lower extremity DVT. Plan: Recent hip surgery, inpatient rehabilitation. patient complains of fatigue. Will defer to Dr. Mg. Hypertension, systolic blood pressure was 110 mmHg yesterday. Therefore we had held some of his antihypertensive medication. With some improvement in fatigue. CAD, continue aspirin. Mild bilateral carotid artery disease, continue to follow clinically. Dementia, Recent lower extremity DVT. Patient is on Eliquis. Thank you for your consultation. Please call me if you have any questions. Raquel Krishnamurthy MD, FACP, FACC, FSCAI, FHRS, CCDS Interventional Cardiology Cardiac Electrophysiology Vascular Medicine and Endovascular Interventions Lamine KRISHNAMURTHY MD May 13, 2019 17:43
[2019-05-13 17:53] VITALS: BP 112/62
[2019-05-14 05:20] VITALS: BP 124/71
[2019-05-14] MEDS: LEVOTHYROXINE 112 MCG (LEVOTHROID) TAB PO SCH (06:22)
[2019-05-14] MEDS: OMEPRAZOLE 20 MG (PriLOSEC) CAP NON-FORMULARY PO SCH (06:22)
[2019-05-14] MEDS: FERROUS SULF 325 MG (IRON) TAB PO SCH (06:22)
[2019-05-14] MEDS: buPROPion 75 MG (WELLBUTRIN) TAB PO SCH ×2 (08:41→20:07)
[2019-05-14] MEDS: KCL 20 MEQ TAB (K-DUR) PO SCH ×2 (08:41→20:07)
[2019-05-14] MEDS: MAGNESIUM OXIDE (MAG-OX)400 MG TAB PO SCH ×2 (08:41→20:07)
[2019-05-14] MEDS: APIXABAN 5 MG (ELIQUIS) TABLET PO SCH ×2 (08:41→20:07)
[2019-05-14] MEDS: SERTRALINE 100 MG (ZOLOFT) TAB PO SCH (08:41)
[2019-05-14] MEDS: POLYETHYLENE GLYCOL 17 GM (MIRALAX) PACK PO SCH ×2 (08:45→19:58)
[2019-05-14] MEDS: SENNA W/DOCUSATE (SENOKOT S) TABLET PO SCH ×2 (08:46→19:58)
[2019-05-14] MEDS: FLUTICASONE NASAL SPRAY (FLONASE) 16 GM BTL NS SCH (08:51)
--- NOTE | 2019-05-14 08:51 | PM&R Progress Note ---
Subjective HPI/CC On Admission Date Seen by Provider: May 14, 2019 Time Seen by Provider: 09:00 Subjective/Events-last exam Pt appears to be much improved. Less dizziness today and less orthostasis. Overall improved. Incontinence is chronic and he seems like he is doing better with that. Bowels are moving. Overall denies any pain and feels like he is improving now. Check meds and labs Reviewed therapy notes Conferred with RN Objective Exam Vital Signs Vital Signs Date Time Temp Pulse Resp B/P (MAP) Pulse Ox O2 Delivery O2 Flow Rate FiO2 05/14/19 05:20 36.7 74 16 124/71 (88) 96 Room Air Capillary Refill : Less Than 3 Seconds General Appearance: No Apparent Distress, WD/WN, Chronically ill, Other ( lethargic) HEENT: PERRL/EOMI, Normal ENT Inspection, Pharynx Normal Neck: Full Range of Motion, Normal Inspection, Non Tender, Supple Respiratory: Chest Non Tender, Lungs Clear, Normal Breath Sounds, No Accessory Muscle Use, No Respiratory Distress Cardiovascular: Regular Rate, Rhythm, No Edema, No Gallop, No JVD, Normal Peripheral Pulses, Systolic Murmur Gastrointestinal: Normal Bowel Sounds, No Organomegaly, No Pulsatile Mass, Non Tender, Soft Rectal: Deferred Back: No CVA Tenderness Extremity: Non Tender, No Calf Tenderness, No Pedal Edema Neurologic/Psychiatric: Alert, No Motor/Sensory Deficits, resource development manager II-XII Norm as Tested, Disoriented, Other (lethargic) Reflexes: 2+ Bicep (R), 2+ Bicep (L), 2+ Ankle (R), 2+ Ankle (L) Skin: Normal Color, Warm/Dry Lymphatic: No Adenopathy Results/Procedures Lab Patient resulted labs reviewed. FIM Transfers Therapy Code Descriptions/Definitions Functional [place] Measure: 0=Not Assessed/NA 4=Minimal Assistance 1=Total Assistance 5=Supervision or Setup 2=Maximal Assistance 6=Modified [place] 3=Moderate Assistance 7=Complete [place] Therapy Quality Codes: 6 Independent with activity with or without an assistive device 5 Patient requires set up or clean up by helper. Patient completes activity by themselves 4 Supervision or touching assist (CGA). [place] provide cues , steadying assist 3 The helper provides less than half the effort to complete the activity 2 The helper provides more than half the effort to complete the activity 1 Dependent. The helper does all the effort to complete an activity 7 Patient refused to complete or attempt activity 9 The patient did not perform the activity before the current illness or injury 88 Not attempted due to Medical conditions or safety concerns Transfers (B, C, W/C) (FIM): 4 Scootin Rollin Roll Left to Right (QC): 1 Supine to/from Sit: 4 Sit to/from Stand: 5 Sit to Lying (QC): 3 Sit to Stand (QC): 2 Chair/Vvr-ne-Tunlu Xfer(QC): 2 Bed to/from Chair: 5 Car Transfer (QC): 2 Gait Training Does the Patient Walk?: Yes Gait (FIM): 5 Distance (FIM): 1=up to 49 ft Distance: 150'x2 Walk 10 feet (QC): 4 Gait Level of Assist: 5 Gait Persons Needed: 1 Gait Assistive Device: FWW Wheelchair Training Does the Pt Use a Wheelchair?: Yes Wheelchair (FIM): 1 Wheelchair Distance: 3=246-42 ft Distance: 50' Wheelchair Level of Assist: 2 Type of Wheelchair: Manual Mental Status/Objective Comprehension: 6 Expression: 5 Social Interaction: 7 Problem Solvin Memory: 4 ADL-Treatment Feedin (Pt able to complete own set up and use regular utensils to eat.) Eating (QC): 6 Groomin (SBA at sink in wheelchair. Pt. requires increased time and constant cues to complete process of shaving, washing face, and combing hair.) Oral Hygiene (QC): 4 Bathin (Pt required Min Assist while standing to wash buttocks. Pt able to wash and rinse self. Pt able to dry upper body. Pt required assist to dry lower legs due to dizziness. ) Bathing Location: L Arm, R Arm, L Upper Leg, R Upper Leg, L Lower Leg (including foot), R Lower Leg (including foot), Chest, Abdomen, Buttocks, Perineal Area Shower/Bathe Self (QC): 3 Upper Extremity Dressin Upper Body Dressing (QC): 3 Lower Extremity Dressin (Pt required Total Assist to doff/don briefs, pants, and shoes. ) Lower Body Dressing (QC): 1 On/Off Footwear (QC): 1 Toiletin (Pt required assist to manage clothing before and after voiding. Pt able to cleanse self after voiding. ) Toilet/Commode Transfer: 2 (Pt required w/c, grab bar, and raised toilet seat with arms. Pt required Max Assist from stand to sit and sit to stand. Pt required VC to move feet while transferring. ) Toilet Transfer (QC): 2 Shower: 4 (Pt required w/c, grab bar, and shower chair. Pt required CGA during transfer for safety concerns.) Assessment/Plan Assessment and Plan Assess & Plan/Chief Complaint Plan: OAC Consult Rodolfo Dumont and Saurav Discontinue catheter now Improve nutrition BM regimen Pain control Monitor for falls Minimize sedatives Abx DC per Dr Mg Patient improved today 05/13/19 (1) History of revision of total replacement of left hip joint Status: Acute (2) Left leg DVT Status: Acute Qualifiers: Affected thrombotic vein of extremity: unspecified vein of extremity Chronicity: unspecified Qualified Codes: I82.402 - Acute embolism and thrombosis of unspecified deep veins of left lower extremity (3) BPH (benign prostatic hyperplasia) Status: Chronic Qualifiers: Lower urinary tract symptom presence: unspecified whether lower urinary tract symptoms present Qualified Codes: N40.0 - Benign prostatic hyperplasia without lower urinary tract symptoms (4) Advanced age Status: Chronic (5) Hypertension Status: Chronic Qualifiers: Hypertension type: essential hypertension Qualified Codes: I10 - Essential (primary) hypertension (6) Debility Status: Acute (7) Dizziness Status: Acute (8) Urinary retention Status: Acute (9) Fatigue Status: Acute Qualifiers: Fatigue type: unspecified Qualified Codes: R53.83 - Other fatigue (10) Orthostatic hypotension Status: Acute BASIL ANGLIN DO May 14, 2019 08:50
[2019-05-14] MEDS: ASPIRIN E.C. 81 MG (ECOTRIN) TAB PO SCH (08:52)
[2019-05-14 09:00] VITALS: BP_SYST 145; BP_SYST 87; BP_SYST 94; BP_DIAS 56; BP_DIAS 75
--- NOTE | 2019-05-14 09:24 | Occupational Ther Daily Note ---
OT Current Status-Daily Note Subjective Pt agreeable to therapy this morning. Reports being tired and c/o dizziness when upright. RN present and aware. Mental Status/Objective Therapy Code Descriptions/Definitions Functional [place] Measure: 0=Not Assessed/NA 4=Minimal Assistance 1=Total Assistance 5=Supervision or Setup 2=Maximal Assistance 6=Modified [place] 3=Moderate Assistance 7=Complete [place] ADL-Treatment Pt sitting on BSC with nursing present when therapist arrives. Nursing states pt has been up in chair for breakfast and reported dizziness, requesting to return pt to bed to obtain supine BP. Pt stood with assist from [facility]. Required assist for toileting hygiene and to pull Depends up over hips. Pt stand with flexed po sture and requires cues for balance and safety. Transfer to EOB with FWW. Pt completed sit to supine with assist for left LE. Supine BP was 116/70. Pt completed bilateral UE exercises while in bed with HOB raised. Pt performed five exercises x10 reps with minimal resistance (yellow) theraband. Pt moves slowly and requires increased time for exercises, but is able to track reps. Pt performed supine to sit with minimal assistance. Max assist to don pants. Nursing present and took BP while standing. Pt reports dizziness and requests to return to bed. Pt completed grooming tasks with HOB raised. Pt brushed teeth, washed face and combed hair with set up and increased time. Pt completed bilateral UE activity to increase overall strength and activity tolerance needed for functional tasks. Pt completed graded clothespin task with bilateral hands with 1# weights in place. Pt took frequent rest breaks and required increased time for task completion. Pt positioned in bed with needs met and family member present after session. Therapy Code Descriptions/Definitions Functional [place] Measure: 0=Not Assessed/NA 4=Minimal Assistance 1=Total Assistance 5=Supervision or Setup 2=Maximal Assistance 6=Modified [place] 3=Moderate Assistance 7=Complete [place] Therapy Quality Codes: 6 Independent with activity with or without an assistive device 5 Patient requires set up or clean up by helper. Patient completes activity by themselves 4 Supervision or touching assist (CGA). [place] provide cues , steadying assist 3 The helper provides less than half the effort to complete the activity 2 The helper provides more than half the effort to complete the activity 1 Dependent. The helper does all the effort to complete an activity 7 Patient refused to complete or attempt activity 9 The patient did not perform the activity before the current illness or injury 88 Not attempted due to Medical conditions or safety concerns Grooming (FIM): 5 Oral Hygiene (QC): 5 Lower Body Dressing (FIM): 2 Lower Body Dressing (QC): 2 Toileting (FIM): 2 OT Short Term Goals Short Term Goals Time Frame: May 13, 2019 Bathing(FIM): 4 Upper Body Dressing(FIM): 4 Lower Body Dressing(FIM): 3 Toilet/Commode Transfer(FIM): 3 Additional Short Term Goals: 1-Demonstrate ADL Tasks, 2-Verbalize Understanding, 3-ImproveStrength/Michael 1=Demonstrate adherence to instructed precautions during ADL tasks. 2=Patient will verbalize/demonstrate understanding of assistive devices/modifications for ADL. 3=Patient will improve strength/tolerance for activity to enable patient to perform ADL's. OT Chcf Goals Chcf Goals Time Frame: May 27, 2019 Eating (FIM): 6 Eating (QC): 6 Groomin Oral Hygiene (QC): 6 Bathing(FIM): 5 Shower/Bathe Self (QC): 4 Upper Body Dressing(FIM): 5 Upper Body Dressing (QC): 5 Lower Body Dressing(FIM): 5 Lower Body Dressing (QC): 5 On/Off Footwear (QC): 5 Toileting(FIM): 6 Toileting Hygiene (QC): 6 Toilet/Commode Transfer(FIM): 5 Toilet/Commode Transfer (QC): 5 Shower Transfer(FIM): 5 Additional Goals: 1-Demonstrate ADL Tasks, 2-Verbalize Understanding, 3- ImproveStrength/Michael 1=Demonstrate adherence to instructed precautions during ADL tasks. 2=Patient will verbalize/demonstrate understanding of assistive devices/modifications for ADL. 3=Patient will improve strength/tolerance for activity to enable patient to perform ADL's. OT Education/Plan Discharge Recommendations Plan/Recommendations: Continue POC Treatment Plan/Plan of Care Patient would benefit from OT for education, treatment and training to promote independence in ADL's, mobility, safety and/or upper extremity function for ADL's. Plan of Care: ADL Retraining, Functional Mobility, Group Exercise/Act as Ind, UE Funct Exercise/Act Treatment Duration: May 27, 2019 Frequency: At least 5 of 7 days/Wk (IRF) Estimated Hrs Per Day: 1.5 hours per day Agreement: Yes Rehab Potential: Fair Time/GCodes Start Time: 08:00 Stop Time: 09:15 Total Time Billed (hr/min): 75 Billed Treatment Time 1 visit, ADLx3(40minutes), EX(35minutes) JAVIER MARIN OT May 14, 2019 09:24
--- NOTE | 2019-05-14 09:30 | NUR ---
COMPLAIN SEVERE DIZZINESS WHEN SITTING IN CHAIR. SEE ORTHOSTATIC BP INTERVENTION. THEN ASSISTED TO COMMODE AND DID EXPEL BM. VERY FATIGUED UPON GETTING BACK TO BED. WAS SLOW IN TAKING AM PILLS AND HAD TO TAKE REST PERIODS.
--- NOTE | 2019-05-14 10:00 | NUR ---
DR. CANTU NOTIFIED OF ORTHOSTATIC CHANGES AND 3 BP MEDS PUT ON HOLD.
--- NOTE | 2019-05-14 10:41 | Physical Therapy Daily Note ---
PT Daily Note-Current Subjective pt. in bed, eyes closed, mumbles when he responds . Nursing communicates that pt has had extreme fatigue and lethargy with low BP in sitting at approx 83/50 in sitting this am. Pt. tells this CHIEF CRUISER he cannot participate but agrees to supine L hip therex . Pain Location: No Pain Reported Appearance L hip and LE in extreme int rotation, this was repositioned with pillow and pt. was educated regarding this precaution Mental Status Patient Orientation: Mumbles lethargic, eyes closed, mumbles Transfers Therapy Code Descriptions/Definitions Functional [place] Measure: 0=Not Assessed/NA 4=Minimal Assistance 1=Total Assistance 5=Supervision or Setup 2=Maximal Assistance 6=Modified [place] 3=Moderate Assistance 7=Complete [place] Therapy Quality Codes: 6 Independent with activity with or without an assistive device 5 Patient requires set up or clean up by helper. Patient completes activity by themselves 4 Supervision or touching assist (CGA). [place] provide cues , steadying assist 3 The helper provides less than half the effort to complete the activity 2 The helper provides more than half the effort to complete the activity 1 Dependent. The helper does all the effort to complete an activity 7 Patient refused to complete or attempt activity 9 The patient did not perform the activity before the current illness or injury 88 Not attempted due to Medical conditions or safety concerns rolling and positioning with max assist Weight Bearing Left Lower Extremity: Left Weight Bearing/Tolerated Exercises Supine Ex: Ankle pumps, Quad Set, Glut sets, Heel Slides, Straight leg raise, Hip abd/add Supine Reps: 15 Assessment Current Status: Poor Progress apparent orthost hypotension, lethargy PT Short Term Goals Short Term Goals Time Frame: May 13, 2019 Gait (FIM): 1 Gait Distance Comment: 10' Gait Level of Assist: 3 Gait Assistive Device: FWW Wheelchair Distance: 50' PT Care Home Goals Care Home Goals PT Care Home Goals Time Frame: May 27, 2019 Transfers (B,C,W/C) (FIM): 4 Sit to Lying (QC): 3 Lying-Sitting on Side/Bed(QC): 3 Sit to Stand (QC): 3 Rollin Roll Left to Right (QC): 3 Chair/Kqh-eg-Ormfc Xfer(QC): 3 Car Transfer (QC): 3 Gait (FIM): 2 Distance: 50' Walk 10 feet (QC): 4 Walk 10ft-Uneven Surface(QC): 4 Walk 50ft with 2 Turns (QC): 4 Walk 150 ft (QC): 4 Gait Level of Assist: 4 Gait Assistive Device: FWW Stairs (FIM): 2 # of Steps: 4 1 Step (curb) (QC): 4 Stairs Level Of Assist: 4 PT Plan Treatment/Plan Treatment Plan: Continue Plan of Care (as tolerated) Treatment Plan: Bed Mobility, Concurrent Therapy, Education, Functional Activity Michael, Functional Strength, Group Therapy, Gait, Safety, Therapeutic Exercise, Transfers Treatment Duration: May 27, 2019 Frequency: At least 5 of 7 days/Wk (IRF) Estimated Hrs Per Day: 1.5 hours per day Patient and/or Family Agrees t: Yes Safety Risks/Education Patient Education: Disease Process Time/GCodes Time In: 1015 Time Out: 1035 Total Billed Treatment Time: 20 Total Billed Treatment 1,EX20m LD MI CHIEF CRUISER May 14, 2019 10:41
--- NOTE | 2019-05-14 11:51 | Speech Therapy Daily Note ---
Speech Daily Progress Note Subjective Date Seen by Provider: May 14, 2019 Time Seen by Provider: 00:30 Patient was resting in bed, nursing reported he has been dizzy this morning with low BP. Objective Patient demo ability to complete memory tasks at 90% with minimal cues. Communication Comprehension: 6 Expression: 5 Social Cognition Social Interaction: 7 Problem Solvin Memory: 4 Speech Short Term Goals Short Term Goals Short Term Goals 1) The patient will complete memory tasks related to his daily needs at 90% or greater. 2) The patient will complete problem solving tasks related to his daily needs at 90% or greater. 3) The patient will complete safety awareness tasks related to his daily needs at 90% or greater. Speech Interventional Tech Goals Chcf Goals Patient will improve cognitive-communication necessary for safety and daily living tasks with minimal assistance. Speech-Plan Patient/Family Goals Patient/Family Goals: Patient plans on returning home where he lives alone. This is not considered a safe discharge due to his medical status. His plan of care will be discussed in the rehab mtg. this afternoon. Treatment Plan Speech Therapy Treatment Plan: Continue Plan of Care Patient required frequent prompts to be able to participate in our session today. Treatment Duration: May 23, 2019 Frequency: 5 times per week Estimated Hrs Per Day: .5 hour per day Rehab Potential: Fair Barriers to Learning: Patient has mild cognitive deficits, current medical status Pt/Family Agrees to Plan: Yes Safety Risks/Education Teaching Recipient: Patient Teaching Methods: Discussion Response to Teaching: Verbalize Understanding Education Topics Provided: Continued communication of his wants/needs and safety Time Speech Therapy Time In: 09:30 Speech Therapy Time Out: 10:00 Total Billed Time: 30 Billed Treatment Time 1, MICHELLE Cuellar May 14, 2019 11:51
--- NOTE | 2019-05-14 12:30 | NUR ---
SLEPT MOST OF LATTER PART OF MORNING. ATE LUNCH WELL AND THEN READY TO NAP AGAIN.
--- NOTE | 2019-05-14 14:14 | Physical Therapy Daily Note ---
PT Daily Note-Current Subjective Pt. continues supine in bed with eyes closed, responds very quietly with eyes continues closed. States he still does not feel well. Pain Location: No Pain Reported Appearance L LE continues in extreme int rotation, this was communicated to nursing and PT, XR orders pursued, pillow again used to reposition to nuetral Mental Status Patient Orientation: Mumbles eyes closed, mumbles, lethargic Transfers Therapy Code Descriptions/Definitions Functional [place] Measure: 0=Not Assessed/NA 4=Minimal Assistance 1=Total Assistance 5=Supervision or Setup 2=Maximal Assistance 6=Modified [place] 3=Moderate Assistance 7=Complete [place] Therapy Quality Codes: 6 Independent with activity with or without an assistive device 5 Patient requires set up or clean up by helper. Patient completes activity by themselves 4 Supervision or touching assist (CGA). [place] provide cues , steadying assist 3 The helper provides less than half the effort to complete the activity 2 The helper provides more than half the effort to complete the activity 1 Dependent. The helper does all the effort to complete an activity 7 Patient refused to complete or attempt activity 9 The patient did not perform the activity before the current illness or injury 88 Not attempted due to Medical conditions or safety concerns Weight Bearing Left Lower Extremity: Left Weight Bearing/Tolerated Assessment Current Status: Fair Progress continues lethargic, eyes closed, mumbling, L hip int rotation PT Short Term Goals Short Term Goals Time Frame: May 13, 2019 Gait (FIM): 1 Gait Distance Comment: 10' Gait Level of Assist: 3 Gait Assistive Device: FWW Wheelchair Distance: 50' PT Entry Level Management Goals Correction Goals PT Entry Level Management Goals Time Frame: May 27, 2019 Transfers (B,C,W/C) (FIM): 4 Sit to Lying (QC): 3 Lying-Sitting on Side/Bed(QC): 3 Sit to Stand (QC): 3 Rollin Roll Left to Right (QC): 3 Chair/Fxa-mn-Mgoiu Xfer(QC): 3 Car Transfer (QC): 3 Gait (FIM): 2 Distance: 50' Walk 10 feet (QC): 4 Walk 10ft-Uneven Surface(QC): 4 Walk 50ft with 2 Turns (QC): 4 Walk 150 ft (QC): 4 Gait Level of Assist: 4 Gait Assistive Device: FWW Stairs (FIM): 2 # of Steps: 4 1 Step (curb) (QC): 4 Stairs Level Of Assist: 4 PT Plan Treatment/Plan Treatment Plan: Continue Plan of Care Treatment Plan: Bed Mobility, Concurrent Therapy, Education, Functional Activity Michael, Functional Strength, Group Therapy, Gait, Safety, Therapeutic Exercise, Transfers Treatment Duration: May 27, 2019 Frequency: At least 5 of 7 days/Wk (IRF) Estimated Hrs Per Day: 1.5 hours per day Patient and/or Family Agrees t: Yes Safety Risks/Education Patient Education: Correct Positioning, Disease Process Response to Teaching: Reinforcement Needed Time/GCodes Time In: 1400 Time Out: 1410 Total Billed Treatment Time: 10 Total Billed Treatment 1,FA10m LD [place] LACE FINISHER May 14, 2019 14:14
--- NOTE | 2019-05-14 14:30 | NUR ---
DR. ANGLIN NOTIFIED OF CONCERN FROM PT OF CONTINUED INTERNAL ROTATION OF LEFT LEG. HAVE BEEN PLACING PILLOW BETWEEN LEGS PRN. DOWNSTAIRS NOW FOR XRAY.
--- NOTE | 2019-05-14 15:19 | NUR ---
Weekly team conference Discussed team conference with patient and his daughter, Leti. Patient had left hip x-ray this afternoon for concern of dislocation and results are pending. Patient reports he has been very fatigued today. RN reports patient has had ongoing issues with orthostatic hypotension and dizziness. Per team conference, recommendation is dc to SNF. Discussed this with the patient and his daughter. While patient states he does not want to go to a SNF, he is open to the idea of short-term placement. This functional tester typewriters expressed the concern the team has regarding patient's safety if he was to go home alone at this time. Patient verbalizes understanding. He states he has a neighbor who might be willing to "help him out some." Leti lives in [place] but works and is not able to provide a lot of assistance due to her work schedule. Leti also reports she will be out of town 05/16/19 to 05/25/19 and really does not want her father to discharge home while she is out of town. Patient has one daughter who lives in [place] but she also works, and another daughter who lives out of town. Leti states she will talk to her sisters regarding discharge plan and possible SNF placement. Will need to obtain results from hip x-ray taken today and will monitor orthostasis. This functional tester typewriters will meet with Leti tomorrow afternoon after she has had the opportunity to talk with her sisters.
--- NOTE | 2019-05-14 16:56 | Diagnostic Imaging Report ---
INDICATION: Pain, check for dislocation. COMPARISON: 04/26/2016 and 09/15/2017. TECHNIQUE: Two radiographs of the left hip are submitted dated 05/14/2019. FINDINGS: A left total hip arthroplasty is in place. Interval change since 2015 as two new circular metallic densities are identified overlying the left acetabulum and left femoral neck. The prosthetic left femoral head is seen eccentrically overlying the acetabulum. Heterotopic ossification about the greater and lesser trochanter has increased since the prior exam. No new fracture. Mild degenerative changes of the pubic symphysis. IMPRESSION: 1. The prosthetic left femoral head is eccentrically positioned overlying the acetabulum. Therefore, dislocation of the prosthesis cannot be excluded. Recommend lateral radiographs of the hip for further evaluation. 2. Interval change in appearance of the left total hip arthroplasty with two new round metallic components now identified overlying the left femoral head and neck. Given this appearance, this could relate to breakdown of the arthroplasty components. Recommend comparison to more recent or intraoperative imaging for further evaluation. Report was called and faxed to Leisa in the office of Dr. Jannette Becerra at 4:45 p.m., by jess (for TS). Dictated by: Dictated on workstation # [id number]
--- NOTE | 2019-05-14 17:00 | NUR ---
DR. ANGLIN NOTIFIED OF LEFT HIP XRAY REPORT. ORDER TO SEND REPORT OF XRAY TO DR. BARRERA AT [facility] IN [place].
[2019-05-14 17:23] VITALS: BP 138/63
--- NOTE | 2019-05-14 17:29 | Cardiology Progress Note ---
Cardiology SOAP Progress Note Subjective: Orthostatic hypotension and fatigue. Objective: I&O/Vital Signs 05/14/19 05/14/19 05/14/19 09:00 09:00 17:23 Temp 37.4 Pulse 83 76 90 77 Resp 18 B/P (MAP) 94/56 (69) 138/63 (88) 87/56 (66) 145/75 (98) Pulse Ox 96 O2 Delivery Room Air Room Air 05/14/19 00:00 Intake Total 660 ml Output Total 100 ml Balance 560 ml Weight (Pounds): 217 Weight (Ounces): 8.0 Weight (Calculated Kilograms): 98.916856 Constitutional: appears stated age, AAO x 3; No apparent distress; well- developed, well-nourished Respiratory: chest is bilaterally symmetric, lungs clear to auscultation Cardiovascular: regular rate-rhythm, S1 and S2 Gastrointestional: soft, audible bowel sounds; No spleenomegaly Extremities: No clubbing, No cyanosis; no lower extremity edema bilateral; No significant edema Neurologic/Psychiatric: no motor/sensory deficits, alert, normal mood/affect, oriented x 3, power is 5/5 both on sides Skin: No rash, No ulcerations A/P: Assessment/Dx: Recent hip surgery, fatigue Blood pressure, CAD, Mild bilateral carotid artery disease, Dementia, Recent lower extremity DVT. Plan: Recent hip surgery, inpatient rehabilitation. patient complains of fatigue. Will defer to Dr. Mg. Orthostatic hypotension. We will discontinue hypertension medications and follow-up. CAD, continue aspirin. Mild bilateral carotid artery disease, continue to follow clinically. Dementia, Recent lower extremity DVT. Patient is on Eliquis. Thank you for your consultation. Please call me if you have any questions. Raquel Krishnamurthy MD, FACP, FACC, FSCAI, FHRS, CCDS Interventional Cardiology Cardiac Electrophysiology Vascular Medicine and Endovascular Interventions Lamine KRISHNAMURTHY MD May 14, 2019 17:29
[2019-05-14] MEDS: TAMSULOSIN 0.4 MG (FLOMAX) CAP PO SCH (18:10)
[2019-05-14] MEDS: LOSARTAN 100 MG (COZAAR) TABLET PO SCH (20:10)
[2019-05-14] MEDS: meTOproloL SUCCINATE 50 MG (TOPROL XL) TAB PO SCH (20:10)
[2019-05-14] MEDS: amLODIPine 10 MG (NORVASC) TAB PO SCH (20:10)
[2019-05-15 05:02] VITALS: BP 153/86
[2019-05-15] MEDS: LEVOTHYROXINE 112 MCG (LEVOTHROID) TAB PO SCH (06:21)
[2019-05-15] MEDS: FERROUS SULF 325 MG (IRON) TAB PO SCH (06:22)
[2019-05-15] MEDS: OMEPRAZOLE 20 MG (PriLOSEC) CAP NON-FORMULARY PO SCH (06:22)
[2019-05-15] MEDS: ONDANSETRON 4 MG (ZOFRAN) ORAL DISSOLVE TAB PO PRN (07:44)
[2019-05-15] MEDS: SENNA W/DOCUSATE (SENOKOT S) TABLET PO SCH (09:26)
[2019-05-15] MEDS: POLYETHYLENE GLYCOL 17 GM (MIRALAX) PACK PO SCH (09:26)
[2019-05-15] MEDS: FLUTICASONE NASAL SPRAY (FLONASE) 16 GM BTL NS SCH (09:31)
[2019-05-15] MEDS: buPROPion 75 MG (WELLBUTRIN) TAB PO SCH (09:32)
[2019-05-15] MEDS: APIXABAN 5 MG (ELIQUIS) TABLET PO SCH (09:32)
[2019-05-15] MEDS: MAGNESIUM OXIDE (MAG-OX)400 MG TAB PO SCH (09:32)
[2019-05-15] MEDS: ASPIRIN E.C. 81 MG (ECOTRIN) TAB PO SCH (09:32)
[2019-05-15] MEDS: KCL 20 MEQ TAB (K-DUR) PO SCH (09:32)
[2019-05-15] MEDS: SERTRALINE 100 MG (ZOLOFT) TAB PO SCH (09:32)
--- NOTE | 2019-05-15 10:15 | Physical Therapy Progress Note ---
Therapy Progress Note Therapies on hold for now. Patient has a hip issue and both Dr. Becerra and the nurse state that we need to hold therapy until he gets his xrays assessed by Dr. Gross. BEULAH SOMERS PT May 15, 2019 10:15
--- NOTE | 2019-05-15 10:44 | NUR ---
Faxed Dr. Gross's office pt's x-ray report with noted concern for dislocation of operative hip. Called Dr. Gross's office to confirm that office had received fax. [facility] states that they have received fax but that Dr. Gross has not viewed it because he and his nurse are at the [facility] today. Dr. Gross's construction secretary forwarded this RN's call to the [facility]. The [facility] line rang and rang with no opportunity to leave a message. This RN called number back [phone] more times with no answer. Will notify Dr. Becerra at this time that this RN is unable to reach Dr. Gross or his nurse Catie.
--- NOTE | 2019-05-15 11:01 | Speech Therapy Daily Note ---
Speech Daily Progress Note Subjective Date Seen by Provider: May 15, 2019 Time Seen by Provider: 00:45 The patient was resting in bed when I entered, however he was much more alert. Objective Patient completed problem solving and memory questions related to his daily needs with 90% given minimal cues. Assessment Assessment Current Status: Good Progress Treatment Plan Continue Plan of Care Communication Comprehension: 6 Expression: 5 Social Cognition Social Interaction: 7 Problem Solvin Memory: 4 Speech Short Term Goals Short Term Goals Short Term Goals 1) The patient will complete memory tasks related to his daily needs at 90% or greater. 2) The patient will complete problem solving tasks related to his daily needs at 90% or greater. 3) The patient will complete safety awareness tasks related to his daily needs a t 90% or greater. Speech Corrosion Prevention Metal Sprayer Goals Senior Care Goals Patient will improve cognitive-communication necessary for safety and daily living tasks with minimal assistance. Speech-Plan Patient/Family Goals Patient/Family Goals: Patient may be going to SNF for a short time prior to returning home if arrangements can be made. Treatment Plan Speech Therapy Treatment Plan: Continue Plan of Care Patient has made good progress toward meeting ST goals. Treatment Duration: May 16, 2019 Frequency: 5 times per week Estimated Hrs Per Day: .5 hour per day Rehab Potential: Fair Barriers to Learning: Patient has mild cognitive deficits, however these appear to be resolving. Pt/Family Agrees to Plan: Yes Safety Risks/Education Teaching Recipient: Patient Teaching Methods: Demonstration, Discussion Response to Teaching: Verbalize Understanding, Return Demonstration Education Topics Provided: Continued safety even with going to another facility. Time Speech Therapy Time In: 09:30 Speech Therapy Time Out: 10:15 Total Billed Time: 45 Billed Treatment Time [address] May 15, 2019 11:00
--- NOTE | 2019-05-15 11:20 | NUR ---
Dr. Gross's Nurse practitioner called this RN back in reference to x-rays faxed of patient's operative hip. She states that Dr. Gross wants to direct admit patient to [facility] based on the x-ray and that it looks like patient will probably need surgery. This RN passed message on to Nichole, social insurance adviser and Dr. sams at this time. The care team is currently orchestrating patient's discharge and transport. Will continue to monitor.
--- NOTE | 2019-05-15 11:22 | NUR ---
Informed by RN that patient will be transferred to [facility] in [place], [place] under the care of orthopedic surgeon, Dr. Gross, due to dislocation of left hip prosthesis. Notified patient's daughter, Leti, of this and she verbalized understanding. Phoned [facility] and they report they will be able to provide transportation once a bed becomes available at [facility]. RN has informed patient of the need to transfer to [facility].
[2019-05-15] MEDS ORDERED: FLUDROCORTISONE 0.1 MG (FLORINEF) TAB PO NR (11:30)
[2019-05-15] MEDS ORDERED: APIX5TAB PO (11:36)
--- NOTE | 2019-05-15 11:37 | Discharge Summary ---
Diagnosis/Chief Complaint Date of Admission May 05, 2019 at 18:00 Date of Discharge Discharge Date: May 15, 2019 Discharge Diagnosis Plan: Transfer to [facility] orthopedic surgery OAC Consult Rodolfo Dumont and Saurav Discontinue catheter now Improve nutrition BM regimen Pain control Monitor for falls Minimize sedatives (1) History of revision of total replacement of left hip joint Status: Acute (2) Left leg DVT Status: Acute Qualifiers: Affected thrombotic vein of extremity: unspecified vein of extremity Chronicity: unspecified Qualified Codes: I82.402 - Acute embolism and thrombosis of unspecified deep veins of left lower extremity (3) BPH (benign prostatic hyperplasia) Status: Chronic Qualifiers: Lower urinary tract symptom presence: unspecified whether lower urinary tract symptoms present Qualified Codes: N40.0 - Benign prostatic hyperplasia without lower urinary tract symptoms (4) Advanced age Status: Chronic (5) Hypertension Status: Chronic Qualifiers: Hypertension type: essential hypertension Qualified Codes: I10 - Essential (primary) hypertension (6) Debility Status: Acute (7) Dizziness Status: Acute (8) Urinary retention Status: Acute (9) Fatigue Status: Acute Qualifiers: Fatigue type: unspecified Qualified Codes: R53.83 - Other fatigue (10) Orthostatic hypotension Status: Acute Discharge Summary Discharge Physical Examination Allergies: Coded Allergies: NKANo Known Allergies (Verified Allergy, Unknown, 03/06/06) Vitals & I&Os Vital Signs Date Time Temp Pulse Resp B/P (MAP) Pulse Ox O2 Delivery O2 Flow Rate FiO2 05/15/19 17:45 05/15/19 16:34 36.8 81 14 94 Room Air Hospital Course Was the Problem List Reviewed?: Yes Hospital course: Patient had a complicated a lengthy hospital course in inpatient rehabilitation most of it was urinary issues requiring urology consultation along with bowel issues returning back to normal after laxatives and severe depression trying to manage that and motivate in improve purchase a patient. Primary care provider Dr. Mg was consulted. Labs remained stab le. No significant decompensation occurred but the left hip appeared to be turned outward x-ray was obtained upon physical therapy request showing displacement of the hardware so Dr. Gross orthopedic surgery at [facility] in [place] was updated and he requested the patient to be transferred to [facility] as a direct admission since the hardware appeared to need revision. Overall prognosis remained guarded and poor given the severity of his hopelessness that was not resolved with behavioral modifications with antidepressants and multiple other modalities. Labs (last 24 hrs) Laboratory Tests 05/06/19 05:35: White Blood Count 10.5, Red Blood Count 3.22L, Hemoglobin 10.2L, Hematocrit 31L, Mean Corpuscular Volume 98, Mean Corpuscular Hemoglobin 32, Mean Corpuscular Hemoglobin Concent 33, Red Cell Distribution Width 13.2, Platelet Count 444H, Mean Platelet Volume 10.0, Neutrophils (%) (Auto) 71, Lymphocytes (%) (Auto) 17, Monocytes (%) (Auto) 10, Eosinophils (%) (Auto) 2, Basophils (%) (Auto) 0, Neutrophils # (Auto) 7.4, Lymphocytes # (Auto) 1.8, Monocytes # (Auto) 1.0, Eosinophils # (Auto) 0.2, Basophils # (Auto) 0.0, Sodium Level 139, Potassium Level 3.2L, Chloride Level 107, Carbon Dioxide Level 24, Anion Gap 8, Blood Urea Nitrogen 20H, Creatinine 0.79, Estimat Glomerular Filtration Rate > 60, BUN/Creatinine Ratio 25, Glucose Level 101, Calcium Level 8.2L, Corrected Calcium 9.2, Total Bilirubin 2.2H, Aspartate Amino Transf (AST/SGOT) 27, Alanine Aminotransferase (ALT/SGPT) 39, Alkaline Phosphatase 152H, Total Protein 5.1L, Albumin 2.8L 05/06/19 18:40: Urine Color YELLOW, Urine Clarity CLEAR, Urine pH 6, Urine Specific Stuart 1.015L, Urine Protein 1+H, Urine Glucose (UA) NEGATIVE, Urine Ketones NEGATIVE, Urine Nitrite NEGATIVE, Urine Bilirubin NEGATIVE, Urine Urobilinogen 4H, Urine Leukocyte Esterase 2+H, Urine RBC (Auto) 2+H, Urine RBC 2-5H, Urine WBC 2-5, Urine Squamous Epithelial Cells RARE, Urine Crystals NONE, Urine Bacteria TRACE, Urine Casts NONE, Urine Mucus MODERATEH, Urine Culture Indicated NO 05/07/19 05:15: Sodium Level 139, Potassium Level 3.2L, Chloride Level 106, Carbon Dioxide Level 23, Anion Gap 10, Blood Urea Nitrogen 20H, Creatinine 0.75, Estimat Glomerular Filtration Rate > 60, BUN/Creatinine Ratio 27, Glucose Level 96, Calcium Level 8.3L, Corrected Calcium 9.3, Total Bilirubin 1.9H, Aspartate Amino Transf (AST/SGOT) 28, Alanine Aminotransferase (ALT/SGPT) 34, Alkaline Phosphatase 136, Total Protein 5.2L, Albumin 2.8L, Magnesium Level 1.8 05/08/19 05:17: White Blood Count 11.0, Red Blood Count 3.03L, Hemoglobin 9.7L, Hematocrit 30L, Mean Corpuscular Volume 98, Mean Corpuscular Hemoglobin 32, Mean Corpuscular Hemoglobin Concent 33, Red Cell Distribution Width 13.6, Platelet Count 464H, Mean Platelet Volume 10.1, Neutrophils (%) (Auto) 67, Lymphocytes (%) (Auto) 20, Monocytes (%) (Auto) 12, Eosinophils (%) (Auto) 2, Basophils (%) (Auto) 0, Neutrophils # (Auto) 7.3, Lymphocytes # (Auto) 2.2, Monocytes # (Auto) 1.3H, Eosinophils # (Auto) 0.2, Basophils # (Auto) 0.0, Sodium Level 138, Potassium Level 3.3L, Chloride Level 108H, Carbon Dioxide Level 23, Anion Gap 7, Blood Urea Nitrogen 19H, Creatinine 0.79, Estimat Glomerular Filtration Rate > 60, BUN /Creatinine Ratio 24, Glucose Level 95, Calcium Level 8.3L, Corrected Calcium 9.3, Total Bilirubin 1.6H, Aspartate Amino Transf (AST/SGOT) 29, Alanine Aminotransferase (ALT/SGPT) 28, Alkaline Phosphatase 144H, Total Protein 5.2L, Albumin 2.7L, Amylase Level 151H, Lipase 13 05/09/19 05:30: Sodium Level 141, Potassium Level 3.5L, Chloride Level 108H, Carbon Dioxide Level 22, Anion Gap 11, Blood Urea Nitrogen 21H, Creatinine 0.93, Estimat Glomerular Filtration Rate > 60, BUN/Creatinine Ratio 23, Glucose Level 85, Calcium Level 8.8, Corrected Calcium 9.7, Total Bilirubin 1.7H, Aspartate Amino Transf (AST/SGOT) 31, Alanine Aminotransferase (ALT/SGPT) 31, Alkaline Phosphatase 136, Total Protein 5.5L, Albumin 2.9L 05/12/19 05:03: Sodium Level 139, Potassium Level 4.0, Chloride Level 110H, Carbon Dioxide Level 21, Anion Gap 8, Blood Urea Nitrogen 25H, Creatinine 0.93, Estimat Glomerular Filtration Rate > 60, BUN/Creatinine Ratio 27, Glucose Level 105, Calcium Level 8.4L, Corrected Calcium 9.4, Total Bilirubin 1.4H, Aspartate Amino Transf (AST/ SGOT) 27, Alanine Aminotransferase (ALT/SGPT) 29, Alkaline Phosphatase 141H, Total Protein 5.2L, Albumin 2.8L, White Blood Count 9.7, Red Blood Count 3.48L, Hemoglobin 11.1L, Hematocrit 35L, Mean Corpuscular Volume 100H, Mean Corpuscular Hemoglobin 32, Mean Corpuscular Hemoglobin Concent 32, Red Cell Distribution Width 14.1, Platelet Count 407H, Mean Platelet Volume 9.9, Neutrophils (%) (Auto) 71, Lymphocytes (%) (Auto) 17, Monocytes (%) (Auto) 10, Eosinophils (%) (Auto) 2, Basophils (%) (Auto) 0, Neutrophils # (Auto) 6.9, Lymphocytes # (Auto) 1.7, Monocytes # (Auto) 1.0, Eosinophils # (Auto) 0.2, Basophils # (Auto) 0.0 Pending Labs Laboratory Tests 05/06/19 05:35: White Blood Count 10.5, Red Blood Count 3.22, Hemoglobin 10.2, Hematocrit 31, Mean Corpuscular Volume 98, Mean Corpuscular Hemoglobin 32, Mean Corpuscular Hemoglobin Concent 33, Red Cell Distribution Width 13.2, Platelet Count 444, Mean Platelet Volume 10.0, Neutrophils (%) (Auto) 71, Lymphocytes (%) (Auto) 17, Monocytes (%) (Auto) 10, Eosinophils (%) (Auto) 2, Basophils (%) (Auto) 0, Neutrophils # (Auto) 7.4, Lymphocytes # (Auto) 1.8, Monocytes # (Auto) 1.0, Eosinophils # (Auto) 0.2, Basophils # (Auto) 0.0, Sodium Level 139, Potassium Level 3.2, Chloride Level 107, Carbon Dioxide Level 24, Anion Gap 8, Blood Urea Nitrogen 20, Creatinine 0.79, Estimat Glomerular Filtration Rate > 60, BUN/Creatinine Ratio 25, Glucose Level 101, Calcium Level 8.2, Corrected Calcium 9.2, Total Bilirubin 2.2, Aspartate Amino Transf (AST/SGOT) 27, Alanine Aminotransferase (ALT/SGPT) 39, Alkaline Phosphatase 152, Total Protein 5.1, Albumin 2.8 05/06/19 18:40: Urine Color YELLOW, Urine Clarity CLEAR, Urine pH 6, Urine Specific Stuart 1.015, Urine Protein 1+, Urine Glucose (UA) NEGATIVE, Urine Ketones NEGATIVE, Urine Nitrite NEGATIVE, Urine Bilirubin NEGATIVE, Urine Urobilinogen 4, Urine Leukocyte Esterase 2+, Urine RBC (Auto) 2+, Urine RBC 2-5, Urine WBC 2-5, Urine Squamous Epithelial Cells RARE, Urine Crystals NONE, Urine Bacteria TRACE, Urine Casts NONE, Urine Mucus MODERATE, Urine Culture Indicated NO 05/07/19 05:15: Sodium Level 139, Potassium Level 3.2, Chloride Level 106, Carbon Dioxide Level 23, Anion Gap 10, Blood Urea Nitrogen 20, Creatinine 0.75, Estimat Glomerular Filtration Rate > 60, BUN/Creatinine Ratio 27, Glucose Level 96, Calcium Level 8.3, Corrected Calcium 9.3, Total Bilirubin 1.9, Aspartate Amino Transf (AST/SGOT) 28, Alanine Aminotransferase (ALT/SGPT) 34, Alkaline Phosphatase 136, Total Protein 5.2, Albumin 2.8, Magnesium Level 1.8 05/08/19 05:17: White Blood Count 11.0, Red Blood Count 3.03, Hemoglobin 9.7, Hematocrit 30, Mean Corpuscular Volume 98, Mean Corpuscular Hemoglobin 32, Mean Corpuscular Hemoglobin Concent 33, Red Cell Distribution Width 13.6, Platelet Count 464, Mean Platelet Volume 10.1, Neutrophils (%) (Auto) 67, Lymphocytes (%) (Auto) 20, Monocytes (%) (Auto) 12, Eosinophils (%) (Auto) 2, Basophils (%) (Auto) 0, Neutrophils # (Auto) 7.3, Lymphocytes # (Auto) 2.2, Monocytes # (Auto) 1.3, Eosinophils # (Auto) 0.2, Basophils # (Auto) 0.0, Sodium Level 138, Potassium Level 3.3, Chloride Level 108, Carbon Dioxide Level 23, Anion Gap 7, Blood Urea Nitrogen 19, Creatinine 0.79, Estimat Glomerular Filtration Rate > 60, BUN/Creatinine Ratio 24, Glucose Level 95, Calcium Level 8.3, Corrected Calcium 9.3, Total Bilirubin 1.6, Aspartate Amino Transf (AST/SGOT) 29, Alanine Aminotransferase (ALT/SGPT) 28, Alkaline Phosphatase 144, Total Protein 5.2, Albumin 2.7, Amylase Level 151, Lipase 13 05/09/19 05:30: Sodium Level 141, Potassium Level 3.5, Chloride Level 108, Carbon Dioxide Level 22, Anion Gap 11, Blood Urea Nitrogen 21, Creatinine 0.93, Estimat Glomerular Filtration Rate > 60, BUN/Creatinine Ratio 23, Glucose Level 85, Calcium Level 8.8, Corrected Calcium 9.7, Total Bilirubin 1.7, Aspartate Amino Transf (AST/SGOT) 31, Alanine Aminotransferase (ALT/SGPT) 31, Alkaline Phosphatase 136, Total Protein 5.5, Albumin 2.9 05/12/19 05:03: Sodium Level 139, Potassium Level 4.0, Chloride Level 110, Carbon Dioxide Level 21, Anion Gap 8, Blood Urea Nitrogen 25, Creatinine 0.93, Estimat Glomerular Filtration Rate > 60, BUN/Creatinine Ratio 27, Glucose Level 105, Calcium Level 8.4, Corrected Calcium 9.4, Total Bilirubin 1.4, Aspartate Amino Transf (AST/SGOT) 27, Alanine Aminotransferase (ALT/SGPT) 29, Alkaline Phosphatase 141, Total Protein 5.2, Albumin 2.8, White Blood Count 9.7, Red Blood Count 3.48, Hemoglobin 11.1, Hematocrit 35, Mean Corpuscular Volume 100, Mean Corpuscular Hemoglobin 32, Mean Corpuscular Hemoglobin Concent 32, Red Cell Distribution Width 14.1, Platelet Count 407, Mean Platelet Volume 9.9, Neutrophils (%) (Auto) 71, Lymphocytes (%) (Auto) 17, Monocytes (%) (Auto) 10, Eosinophils (%) (Auto) 2, Basophils (%) (Auto) 0, Neutrophils # (Auto) 6.9, Lymphocytes # (Auto) 1.7, Monocytes # (Auto) 1.0, Eosinophils # (Auto) 0.2, Basophils # (Auto) 0.0 Discharge Home Medications: Active Scripts Active Eliquis (Apixaban) 5 Mg Tablet 5 Mg PO BID 30 Days Reported Tramadol HCl 50 Mg Tablet 50-100 Mg PO Q6H PRN Acetaminophen Extra Strength (Acetaminophen) 500 Mg Tablet 1,000 Mg PO Q8H PRN Vesicare (Solifenacin Succinate) 5 Mg Tablet 5 Mg PO HS Prilosec Otc (Omeprazole Magnesium) 20 Mg Tablet.dr 20 Mg PO DAILY Gabapentin 300 Mg Capsule 300 Mg PO HS PRN Aspirin 81 Mg Tab.chew 81 Mg PO BID Duloxetine HCl 30 Mg Capsule.dr 30 Mg PO DAILY Sertraline HCl 100 Mg Tablet 100 Mg PO DAILY Levothyroxine Sodium 112 Mcg Tablet 112 Mcg PO DAILY Instructions to patient/family Please see electronic discharge instructions given to patient. Diagnosis/Problems Diagnosis/Problems (1) History of revision of total replacement of left hip joint Status: Acute (2) Left leg DVT Status: Acute Qualifiers: Qualified Codes: I82.402 - Acute embolism and thrombosis of unspecified deep veins of left lower extremity (3) BPH (benign prostatic hyperplasia) Status: Chronic Qualifiers: Qualified Codes: N40.0 - Benign prostatic hyperplasia without lower urinary tract symptoms (4) Advanced age Status: Chronic (5) Hypertension Status: Chronic Qualifiers: Qualified Codes: I10 - Essential (primary) hypertension (6) Debility Status: Acute (7) Dizziness Status: Acute (8) Urinary retention Status: Acute (9) Fatigue Status: Acute Qualifiers: Qualified Codes: R53.83 - Other fatigue (10) Orthostatic hypotension Status: Acute Clinical Quality Measures DVT/VTE Risk/Contraindication: Risk Factor Score Per Nursin RFS Level Per Nursing on Admit: 4+=Very High BASIL ANGLIN DO May 15, 2019 11:37
--- NOTE | 2019-05-15 12:34 | Occupational Ther Daily Note ---
OT Current Status-Daily Note Subjective Pt lying in bed upon OT arrival. Pt agrees to therapy. Pt c/o nausea, stating that he had taken pills on empty stomach. No c/o pain. Pt visibly fatigued. Mental Status/Objective Patient Orientation: Person, Place, Time, Situation Therapy Code Descriptions/Definitions Functional [place] Measure: 0=Not Assessed/NA 4=Minimal Assistance 1=Total Assistance 5=Supervision or Setup 2=Maximal Assistance 6=Modified [place] 3=Moderate Assistance 7=Complete [place] ADL-Treatment Due to pts orthostatic BP episodes OT decided shower was unsafe. Pt agrees to bed bath. Pt takes increased time to complete all activities due to medical issues. Therapy Code Descriptions/Definitions Functional [place] Measure: 0=Not Assessed/NA 4=Minimal Assistance 1=Total Assistance 5=Supervision or Setup 2=Maximal Assistance 6=Modified [place] 3=Moderate Assistance 7=Complete [place] Therapy Quality Codes: 6 Independent with activity with or without an assistive device 5 Patient requires set up or clean up by helper. Patient completes activity by themselves 4 Supervision or touching assist (CGA). [place] provide cues , steadying assist 3 The helper provides less than half the effort to complete the activity 2 The helper provides more than half the effort to complete the activity 1 Dependent. The helper does all the effort to complete an activity 7 Patient refused to complete or attempt activity 9 The patient did not perform the activity before the current illness or injury 88 Not attempted due to Medical conditions or safety concerns Eating (FIM): 5 (Pt able to use utensils correctly. Pt required assist to open containers due to weakness from orthostatic BP issues.) Eating (QC): 5 Bathing (FIM): 4 (Pt completed sponge bath laying in bed. Pt required assist to wash LE due to orthostatic BP issues. Pt required assist to dry LE. Pt rolled side to side to wash buttocks. ) Bathing Location: L Arm, R Arm, L Upper Leg, R Upper Leg, Chest, Abdomen, Buttocks, Perineal Area Shower/Bathe Self (QC): 3 Upper Body (FIM): 3 (Pt required assist doff shirt over head. Pt able to pull UE out of sleeves. Pt able to thread arms and head through sleeves of shirt. Pt required assist to adjust clothing in the back. ) Upper Body Dressing (QC): 3 Lower Body Dressing (FIM): 3 (Pt able to doff brief and pants to knees by self while laying bed. Pt required assist to don briefs and pants up to knees. Pt able to bring briefs and pants to hips. Pt required assist to hike briefs and pants above hips and to adjust clothing due to orthostatic BP issues. ) Lower Body Dressing (QC): 3 Other Treatment Pt participated in fine motor strengthening exercise removing and putting different resistance clothes pins back onto the chai 2x each using both hands to increase functional activity tasks. Pt laying in bed. Deon light and phone in reach. All needs met. OT Short Term Goals Short Term Goals Time Frame: May 13, 2019 Bathing(FIM): 4 Upper Body Dressing(FIM): 4 Lower Body Dressing(FIM): 3 Toilet/Commode Transfer(FIM): 3 Additional Short Term Goals: 1-Demonstrate ADL Tasks, 2-Verbalize Understandi ng, 3-ImproveStrength/Michael 1=Demonstrate adherence to instructed precautions during ADL tasks. 2=Patient will verbalize/demonstrate understanding of assistive devices/modifications for ADL. 3=Patient will improve strength/tolerance for activity to enable patient to perform ADL's. OT Correction Goals Correction Goals Time Frame: May 27, 2019 Eating (FIM): 6 Eating (QC): 6 Groomin Oral Hygiene (QC): 6 Bathing(FIM): 5 Shower/Bathe Self (QC): 4 Upper Body Dressing(FIM): 5 Upper Body Dressing (QC): 5 Lower Body Dressing(FIM): 5 Lower Body Dressing (QC): 5 On/Off Footwear (QC): 5 Toileting(FIM): 6 Toileting Hygiene (QC): 6 Toilet/Commode Transfer(FIM): 5 Toilet/Commode Transfer (QC): 5 Shower Transfer(FIM): 5 Additional Goals: 1-Demonstrate ADL Tasks, 2-Verbalize Understanding, 3- ImproveStrength/Michael 1=Demonstrate adherence to instructed precautions during ADL tasks. 2=Patient will verbalize/demonstrate understanding of assistive devices/modifications for ADL. 3=Patient will improve strength/tolerance for activity to enable patient to perform ADL's. OT Education/Plan Problem List/Assessment Assessment: Decreased Activ Tolerance, Decreased UE Strength, Impaired Self- Care Skills Discharge Recommendations Plan/Recommendations: Continue POC Treatment Plan/Plan of Care Patient would benefit from OT for education, treatment and training to promote independence in ADL's, mobility, safety and/or upper extremity function for ADL's. Plan of Care: ADL Retraining, Functional Mobility, Group Exercise/Act as Ind, UE Funct Exercise/Act Treatment Duration: May 27, 2019 Frequency: At least 5 of 7 days/Wk (IRF) Estimated Hrs Per Day: 1.5 hours per day Agreement: Yes Rehab Potential: Fair Time/GCodes Start Time: 08:15 Stop Time: 09:30 Total Time Billed (hr/min): 75 Billed Treatment Time 1 visit- ADL 4 (60 min) EX 1 (15 min) AQUILES LEDEZMA May 15, 2019 12:34
--- NOTE | 2019-05-15 12:53 | NUR ---
Called [facility] bed control to ensure they received notification of the need to transfer patient to their facility. [facility] bed control is aware of the need to transfer the patient and will phone the rehab unit when a bed becomes available. At that time, [facility] will be notified.
--- NOTE | 2019-05-15 13:33 | Therapy Team Discharge Summary ---
Therapy Discharge Summary Discharge Recommendations Date of Discharge Occupational Therapy Decreased Activ Tolerance, Decreased UE Strength, Impaired Self-Care Skills Speech-Language Pathology Patient was admitted to the ARU s/p hip surgery. The patient was given the SLUMS with mild cognitive deficits noted. He has received skilled services to improve his cognitive level of function. The patient has met goals. He is discharging to [facility] where he had been previously. The patient will discharge from at this time as well. PT Mcfp Goals Mcfp Goals PT Mcfp Goals Time Frame: May 27, 2019 Transfers (B,C,W/C) (FIM): 4 Roll Left to Right (QC): 3 Sit to Lying (QC): 3 Lying-Sitting on Side/Bed(QC): 3 Sit to Stand (QC): 3 Chair/Vfp-tt-Cixky Xfer(QC): 3 Car Transfer (QC): 3 Gait (FIM): 2 Distance: 50' Walk 10 feet (QC): 4 Walk 10ft-Uneven Surface(QC): 4 Walk 50ft with 2 Turns (QC): 4 Walk 150 ft (QC): 4 Gait Level of Assist: 4 Gait Assistive Device: FWW Stairs (FIM): 2 # of Steps: 4 1 Step (curb) (QC): 4 Stairs Level Of Assist: 4 OT Mcfp Goals Mcfp Goals Time Frame: May 27, 2019 Eating (FIM): 6 Eating (QC): 6 Oral Hygiene (QC): 6 Grooming(FIM): 6 Bathing(FIM): 5 Shower/Bathe Self (QC): 4 Upper Body Dressing(FIM): 5 Upper Body Dressing (QC): 5 Lower Body Dressing(FIM): 5 Lower Body Dressing (QC): 5 On/Off Footwear (QC): 5 Toileting(FIM): 6 Toileting Hygiene (QC): 6 Toilet/Commode Transfer(FIM): 5 Toilet/Commode Transfer (QC): 5 Shower Transfer(FIM): 5 Additional Goals: 1-Demonstrate ADL Tasks, 2-Verbalize Understanding, 3-ImproveStrength/Michael 1=Demonstrate adherence to instructed precautions during ADL tasks. 2=Patient will verbalize/demonstrate understanding of assistive devices/modifications for ADL. 3=Patient will improve strength/tolerance for activity to enable patient to perform ADL's. Speech Mcfp Goals [employer] Taper Goals Patient will improve cognitive-communication necessary for safety and daily living tasks with minimal assistance. MICHELLE MERRILL May 15, 2019 13:33
--- NOTE | 2019-05-15 14:12 | Cardiology Progress Note ---
Cardiology SOAP Progress Note Subjective: still complaining of fatigue. Objective: I&O/Vital Signs 05/15/19 05/15/19 05:02 08:05 Temp 36.9 Pulse 83 Resp 16 B/P (MAP) 153/86 (108) Pulse Ox 96 O2 Delivery Room Air Room Air 05/14/19 23:59 Intake Total 940 ml Output Total 375 ml Balance 565 ml Weight (Pounds): 217 Weight (Ounces): 8.0 Weight (Calculated Kilograms): 98.378165 Constitutional: appears stated age, AAO x 3; No apparent distress; well-devel oped, well-nourished Respiratory: chest is bilaterally symmetric, lungs clear to auscultation Cardiovascular: regular rate-rhythm, S1 and S2 Gastrointestional: soft, audible bowel sounds; No spleenomegaly Extremities: No clubbing, No cyanosis; no lower extremity edema bilateral; No significant edema Neurologic/Psychiatric: no motor/sensory deficits, alert, normal mood/affect, oriented x 3, power is 5/5 both on sides Skin: No rash, No ulcerations A/P: Assessment/Dx: Recent hip surgery, fatigue Blood pressure, CAD, Mild bilateral carotid artery disease, Dementia, Recent lower extremity DVT. Plan: Recent hip surgery, inpatient rehabilitation. patient complains of fatigue. Will defer to Dr. Mg. Orthostatic hypotension. We will discontinue hypertension medications and follow-up. add Florinef 0.1 mg daily. CAD, continue aspirin. Mild bilateral carotid artery disease, continue to follow clinically. Dementia, Recent lower extremity DVT. Patient is on Eliquis. Thank you for your consultation. Please call me if you have any questions. Raquel Krishnamurthy MD, FACP, FACC, FSCAI, FHRS, CCDS Interventional Cardiology Cardiac Electrophysiology Vascular Medicine and Endovascular Interventions Lamine KRISHNAMURTHY MD May 15, 2019 14:12
[2019-05-15 16:34] VITALS: BP 146/74
[2019-05-16] MEDS ORDERED: FLUDROCORTISONE 0.1 MG (FLORINEF) TAB PO SCH (09:00)
--- NOTE | 2019-05-16 09:55 | Therapy Team Discharge Summary ---
Therapy Discharge Summary Discharge Recommendations Date of Discharge May 15, 2019 at 17:45 Physical Therapy This patient was admitted to ARU post left TIA revision. Prior to his surgery, he was living alone and at a mod indep level. Upon admission to this unit, he was dep for transfers and unable to ambulate. Treatment consisted of functional strength and mobility training to promote bed mobility, transfers and gait. At last visit that patient was able to effectively mobilize, he was min assist with transfers and walked 75ft with assist; however, the last few days on the unit, he was only able to effectively participate with bed activities. Concern was noted due to integrity of the hip joint. He was transferred to an outside hospital for continued medical management. Will DC from PT at this time. no goal met. Occupational Therapy Decreased Activ Tolerance, Decreased UE Strength, Impaired Self-Care Skills PT Usp Goals Usp Goals PT Usp Goals Time Frame: May 27, 2019 Transfers (B,C,W/C) (FIM): 4 Roll Left to Right (QC): 3 Sit to Lying (QC): 3 Lying-Sitting on Side/Bed(QC): 3 Sit to Stand (QC): 3 Chair/Cto-ns-Qjxzb Xfer(QC): 3 Car Transfer (QC): 3 Gait (FIM): 2 Distance: 50' Walk 10 feet (QC): 4 Walk 10ft-Uneven Surface(QC): 4 Walk 50ft with 2 Turns (QC): 4 Walk 150 ft (QC): 4 Gait Level of Assist: 4 Gait Assistive Device: FWW Stairs (FIM): 2 # of Steps: 4 1 Step (curb) (QC): 4 Stairs Level Of Assist: 4 no goals met. Pt transferred to outside facility for continued orthopedic care. OT Usp Goals Financial Investment Adviser Goals Time Frame: May 27, 2019 Eating (FIM): 6 Eating (QC): 6 Oral Hygiene (QC): 6 Grooming(FIM): 6 Bathing(FIM): 5 Shower/Bathe Self (QC): 4 Upper Body Dressing(FIM): 5 Upper Body Dressing (QC): 5 Lower Body Dressing(FIM): 5 Lower Body Dressing (QC): 5 On/Off Footwear (QC): 5 Toileting(FIM): 6 Toileting Hygiene (QC): 6 Toilet/Commode Transfer(FIM): 5 Toilet/Commode Transfer (QC): 5 Shower Transfer(FIM): 5 Additional Goals: 1-Demonstrate ADL Tasks, 2-Verbalize Understanding, 3- ImproveStrength/Michael 1=Demonstrate adherence to instructed precautions during ADL tasks. 2=Patient will verbalize/demonstrate understanding of assistive devices/modifications for ADL. 3=Patient will improve strength/tolerance for activity to enable patient to perform ADL's. Speech Usp Goals Usp Goals Patient will improve cognitive-communication necessary for safety and daily living tasks with minimal assistance. AQUILES GARCIA PT May 16, 2019 09:55
--- NOTE | 2019-05-16 12:59 | Therapy Team Discharge Summary ---
Therapy Discharge Summary Discharge Recommendations Date of Discharge May 15, 2019 at 17:45 Occupational Therapy Pt admitted to ARU following left TIA revision. On admission pt required mod assist with UE dressing and bathing and max assist with LE dressing. Skilled OT intervention focused on ADL training, transfers, and strengthening. Pt's progress with impacted by c/o dizziness and nausea when upright and activity was limited to mostly bed level activity the last few days. At d/c pt is completing eating with SBA and UE/LE dressing with mod assist. Pt did not meet OT LTG Pt was discharged to outside hospital for management of left hip. D/C ARU OT. Decreased Activ Tolerance, Decreased UE Strength, Impaired Self-Care Skills PT Warehouse Puller Goals [facility] Goals PT [facility] Goals Time Frame: May 27, 2019 Transfers (B,C,W/C) (FIM): 4 Roll Left to Right (QC): 3 Sit to Lying (QC): 3 Lying-Sitting on Side/Bed(QC): 3 Sit to Stand (QC): 3 Chair/Aoc-hk-Xstnj Xfer(QC): 3 Car Transfer (QC): 3 Gait (FIM): 2 Distance: 50' Walk 10 feet (QC): 4 Walk 10ft-Uneven Surface(QC): 4 Walk 50ft with 2 Turns (QC): 4 Walk 150 ft (QC): 4 Gait Level of Assist: 4 Gait Assistive Device: FWW Stairs (FIM): 2 # of Steps: 4 1 Step (curb) (QC): 4 Stairs Level Of Assist: 4 OT [facility] Goals [facility] Goals Time Frame: May 27, 2019 Eating (FIM): 6 Eating (QC): 6 Oral Hygiene (QC): 6 Grooming(FIM): 6 Bathing(FIM): 5 Shower/Bathe Self (QC): 4 Upper Body Dressing(FIM): 5 Upper Body Dressing (QC): 5 Lower Body Dressing(FIM): 5 Lower Body Dressing (QC): 5 On/Off Footwear (QC): 5 Toileting(FIM): 6 Toileting Hygiene (QC): 6 Toilet/Commode Transfer(FIM): 5 Toilet/Commode Transfer (QC): 5 Shower Transfer(FIM): 5 Additional Goals: 1-Demonstrate ADL Tasks, 2-Verbalize Understanding, 3- ImproveStrength/Michael 1=Demonstrate adherence to instructed precautions during ADL tasks. 2=Patient will verbalize/demonstrate understanding of assistive devices/modifications for ADL. 3=Patient will improve strength/tolerance for activity to enable patient to perform ADL's. Speech [facility] Goals Warehouse Puller Goals Patient will improve cognitive-communication necessary for safety and daily living tasks with minimal assistance. JAVIER MARIN OT May 16, 2019 12:59
== END 2019-05-15 17:45 | disposition short-term general hospital (02) | DRG 949 ==
PROVIDERS: ADMIT Internal Medicine; ATTEND Internal Medicine
DX: T84.021D Dislocation of internal left hip prosthesis, subsequent encounter (principal); I82.402 Acute embolism and thrombosis of unspecified deep veins of left lower extremity; R53.1 Weakness; R53.83 Other fatigue; N40.1 Benign prostatic hyperplasia with lower urinary tract symptoms; R33.9 Retention of urine, unspecified; N32.81 Overactive bladder; R17 Unspecified jaundice; F32.9 Major depressive disorder, single episode, unspecified; F03.90 Unspecified dementia, unspecified severity, without behavioral disturbance, psychotic disturbance, mood disturbance, and anxiety; I95.1 Orthostatic hypotension; I25.10 Atherosclerotic heart disease of native coronary artery without angina pectoris; I10 Essential (primary) hypertension; K21.9 Gastro-esophageal reflux disease without esophagitis; M19.91 Primary osteoarthritis, unspecified site; E03.9 Hypothyroidism, unspecified; I65.23 Occlusion and stenosis of bilateral carotid arteries; E78.5 Hyperlipidemia, unspecified; Z79.01 Long term (current) use of anticoagulants; Z95.5 Presence of coronary angioplasty implant and graft
CPT/HCPCS: 36415; 73502; 76705; 80053; 81000; 82150; 83690; 83735; 85025; 93306; 94664

== ENCOUNTER 2019-07-31 15:03 | Outpatient (CLI) | payer MEDICAID ==
[~2019-07-31 15:03] MED LIST changes: +ACET-168 PO; +ACET-2267 PO; +ACET-2650 PO; +AMLO10TA7 PO; +APIX5TAB PO; +ASPI-999 PO; +BUSP10TA95 PO; +DOCU-143 PO; +DULO30CA49 PO; +FLUT16SP22 NS; +GABA-488 PO; +MELA3TAB65 PO; -METO-370 PO; +OMEP20TA33 PO; -TAMS0.4C98 PO; +TELM80TA PO; +TMSL.4C PO; +TRM50T PO
[2019-07-31 15:05] VITALS: BP 150/82
--- NOTE | 2019-07-31 15:15 | NUR ---
pt reports he had sudden onset dizziness upon arrival to dr gann's office today at 1400. he was scheduled for a check up. also c/o dizziness, blurry vision, soa et weakness. reports he has had episodes of dizziness intermittently with recent health problems, but he was asymptomatic today prior to 1400. had 2 episodes of diarrhea on Sunday.
[2019-07-31] MEDS ORDERED: ONDANSETRON 4 MG/2 ML (SDV) Z0FRAN ONE (15:27)
[2019-07-31] MEDS ORDERED: NS IV 1000 ML 1,000 ML ONE (15:27)
[2019-07-31] MEDS ORDERED: MECLIZINE 25 MG (ANTIVERT) TAB PO ONE (15:30)
[2019-07-31] MEDS ORDERED: NS IV 1000 ML 1,000 ML IV ONE (15:30)
[2019-07-31] MEDS ORDERED: SCOPOLAMINE 1.5 MG (TRANSDERM-SCOP) PATCH TD ONE (15:30)
[2019-07-31] MEDS ORDERED: ONDANSETRON 4 MG/2 ML (SDV) Z0FRAN IVP ONE (15:30)
[2019-07-31 15:34] LABS: RED CELL DISTRIBUTION WIDTH 13.4 % (10.0-14.5); WHITE BLOOD COUNT 7.8 10^3/uL (4.3-11.0)
[2019-07-31 15:45] LABS: ALBUMIN 3.3 GM/DL (3.2-4.5); BILIRUBIN,TOTAL 0.6 MG/DL (0.1-1.0); CALCIUM 8.8 MG/DL (8.5-10.1); CREATININE SERUM 1.19 MG/DL (0.60-1.30); POTASSIUM 3.5 MMOL/L (3.6-5.0)
[2019-07-31] MEDS ORDERED: MV-M1TAB38 PO (15:58)
[2019-07-31] MEDS ORDERED: atorvastatin (15:58)
[2019-07-31] MEDS ORDERED: METO50TA7 PO (15:58)
[2019-07-31] MEDS ORDERED: FURO40TA4 PO (15:58)
[2019-07-31] MEDS ORDERED: tamulosin (15:58)
[2019-07-31] MEDS ORDERED: potassium (15:58)
--- NOTE | 2019-07-31 16:05 | NUR ---
pt reports dizziness is improving. also c/o hunger. he admits to headache that started just prior to his arrival.
[2019-07-31 17:10] VITALS: BP 139/77
--- NOTE | 2019-07-31 17:10 | NUR ---
pt reports blurry vision resolved, headache improved, dizziness improved. dr gann notified. no new orders.
--- NOTE | 2019-07-31 17:30 | NUR ---
pt c/o cont dizziness when standing to transfer to w/c. also c/o worsening right sided headache. dr gann notified. pt to ED for eval.
[2019-07-31] MEDS ORDERED: ACHD5005 PO (19:57)
== END 2019-07-31 17:40 | disposition home or self-care (01) ==
LOC: SDC 15:03
PROVIDERS: ATTEND Family Medicine
DX: E86.0 Dehydration (principal); R11.0 Nausea; R42 Dizziness and giddiness
CPT/HCPCS: 36415; 80053; 85027; 96360; 96375

== ENCOUNTER 2019-07-31 17:47 | Emergency (ER) | payer MEDICAID ==
[~2019-07-31] VITALS: Ht 185 cm; Wt 100.0 kg
[~2019-07-31 17:47] MED LIST changes: +FURO40TA4 PO; +MV-M1TAB38 PO; +atorvastatin; +potassium; +tamulosin
[2019-07-31 18:30] LABS: BASOPHILS % (AUTO) 0 % (0-10); EOSINOPHILS # (AUTO) 0.2 10^3/uL (0.0-0.3); EOSINOPHILS % (AUTO) 2 % (0-10); HEMATOCRIT 40 % (40-54); HEMOGLOBIN 12.8 G/DL (13.3-17.7); LYMPHOCYTES # (AUTO) 2.3 X 10^3 (1.0-4.0); LYMPHOCYTES % (AUTO) 29 % (12-44); MEAN CORPUSCULAR HEMOGLOBIN 30 PG (25-34); MEAN CORPUSCULAR HGB CONC 32 G/DL (32-36); MEAN CORPUSCULAR VOLUME 92 FL (80-99); MEAN PLATELET VOLUME 11.7 FL (7.4-10.4); MONOCYTES # (AUTO) 0.7 X 10^3 (0.0-1.0); MONOCYTES % (AUTO) 9 % (0-12); NEUTROPHILS # (AUTO) 4.9 X 10^3 (1.8-7.8); NEUTROPHILS % (AUTO) 60 % (42-75); PLATELET COUNT 201 10^3/uL (130-400); RED CELL DISTRIBUTION WIDTH 13.3 % (10.0-14.5)
--- NOTE | 2019-07-31 18:31 | ED Neurological Problem ---
General Chief Complaint: Dizziness/Syncope Stated Complaint: R SIDE H/A,DEHYDRATION Nursing Triage Note: pt presents to ed from out pt sx center where he was recieving an infusion and tx for suspected vertigo. pt was referred to ed after he did not appear to improve after treatment. pt reports dizziness/lightheadedness/blurred vision x 3-4 days. pt states he noticed a OLVERA on the r frontal side of his head aprox 20 min ago. Nursing Sepsis Screen: No Definite Risk Source: patient, family (daughter) Exam Limitations: no limitations History of Present Illness Date Seen by Provider: Jul 31, 2019 Time Seen by Provider: 18:05 Initial Comments Patient presents to ER by private conveyance from the outpatient center where he was receiving a liter of fluids and a scopolamine patch by Dr. Mg his [facility] doctor. He went to the primary care office today for routine checkup and was planning of some vertiginous symptoms of feeling the room spinning around. He's had these attacks several times in the past year. Dr. Gordon seen him over for outpatient therapy and he said it did not help his symptoms not vomited. He started experience a right-sided headache and some mild blurry vision. He is not having any blurry vision and seeing spots or any visual disturbances at this time. She is still having some mild dizziness worse when he changes positions or rolls over. He has no history of stroke nor does he have any weakness numbness tingling. He is on Eliquis for history of pulmonary embolism secondary to hip surgery earlier this year. He has a history of a stent placed about 10 years ago. He has not taken anything for the headache yet. In the past with his history of surgery he became very delirious with fentanyl so he does not want IV opiates however he did tolerate hydrocodone. He came over to outpatient surgery around 2:00 this afternoon and that's when his headache started. His dizziness started this morning. Allergies and Home Medications Allergies Coded Allergies: NKANo Known Allergies (Verified Allergy, Unknown, 03/06/06) Home Medications Acetaminophen 500 Mg Tablet, 1,000 MG PO Q8H PRN for PAIN-MILD, (Reported) Apixaban 5 Mg Tablet, 5 MG PO BID Prescribed by: BASIL ANGLIN on 05/15/19 1136 Duloxetine HCl 30 Mg Capsule., 30 MG PO BID, (Reported) Levothyroxine Sodium 112 Mcg Tablet, 112 MCG PO DAILY, (Reported) Metoprolol Succinate 50 Mg Tab.er.24h, 50 MG PO DAILY, (Reported) Omeprazole Magnesium 20 Mg Tablet.dr, 20 MG PO DAILY, (Reported) Patient Home Medication List Home Medication List Reviewed: Yes Review of Systems Review of Systems Constitutional: see HPI; No chills; dizziness; No fever, No malaise Eyes: Denies Blindness, Denies Blurred Vision Ears, Nose, Mouth, Throat: denies ear pain, denies ear discharge Respiratory: No cough, No hemoptysis, No phlegm Cardiovascular: No chest pain, No palpitations Gastrointestinal: No abdominal pain, No diarrhea, No nausea Genitourinary: No discharge, No dysuria Musculoskeletal: No back pain, No joint pain Skin: No pruritus, No rash All Other Systems Reviewed Negative Unless Noted: Yes Past Pajqyze-Hidzdg-Uulcjc Hx Patient Social History Alcohol Use: Denies Use Recreational Drug Use: No Smoking Status: Never a Smoker Recent Foreign Travel: No Contact w/Someone Who Travel: No Recent Infectious Disease Expo: No Recent Hopitalizations: Yes (LEFT HIP REPAIR) Immunizations Up To Date Tetanus Booster (TDap): Unknown PED Vaccines UTD: No Date of Pneumonia Vaccine: Jun 22, 2017 Date of Influenza Vaccine: May 27, 2017 Seasonal Allergies Seasonal Allergies: No Past Medical History Surgeries: Yes (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; CARDIAC CATH--STENT X 1) Cardiac, Coronary Stent, Gallbladder, Orthopedic Respiratory: No Currently Using CPAP: No Currently Using BIPAP: No Cardiac: Yes (STENT X 1) Chronic Edema/Swelling, Coronary Artery Disease, Deep Vein Thrombosis, Hypertension Neurological: No Reproductive Disorders: No Sexually Transmitted Disease: No HIV/AIDS: No Genitourinary: Yes Benign Prostatic Hyperpl, Prostate Problems, Kidney Stones Gastrointestinal: Yes (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) Gastroesophageal Reflux, Hepatitis Musculoskeletal: Yes (LEFT HIP REPLACEMENT) Arthritis Endocrine: Yes Hypothyroidsim Cataract Loss of Vision: Denies Hearing Impairment: Hard of Hearing Cancer: No Psychosocial: Yes Depression Integumentary: Yes (DERMATITIS OF LEGS) Blood Disorders: No Adverse Reaction/Blood Tranf: No Family Medical History FH: anemia DAUGHTER FH: breast cancer 19 MOTHER DAUGHTER No Pertinent Family Hx Physical Exam Vital Signs Vital Signs - First Documented 07/31/19 17:49 Temp 36.4 Pulse 77 Resp 20 B/P (MAP) 182/96 (124) Pulse Ox 97 Capillary Refill : Less Than 3 Seconds Height, Weight, BMI Height: 6'2.00" Weight: 217lbs. 8.0oz. 98.547135bk; 29.00 BMI Method:Estimated General Appearance: WD/WN, mild distress HEENT: PERRL/EOMI (3 mm equal reactive round to light and accommodation with normal, limited funduscopic examination.), normal ENT inspection, TMs normal, pharynx normal Neck: non-tender, full range of motion, supple, normal inspection Respiratory: chest non-tender, lungs clear, normal breath sounds, no respiratory distress, no accessory muscle use Cardiovascular: normal peripheral pulses, regular rate, rhythm, no edema, no gallop, no murmur Peripheral Pulses: 2+ Radial Pulses (R), 2+ Radial Pulses (L) Gastrointestinal: normal bowel sounds, non tender, soft Extremities: normal range of motion, normal inspection, normal capillary refill Neurologic/Psychiatric: oracle dba II-XII nml as tested, no motor/sensory deficits, alert, normal mood/affect, oriented x 3, other (normal head impulse status. Negative for horizontal nystagmus on lateral gaze. Normal test of skew.) Crainal Nerves: normal hearing, normal speech, PERRL Coordination/Gait: normal finger to nose Motor/Sensory: no motor deficit, no sensory deficit, no pronator drift Skin: normal color, warm/dry Procedures/Interventions Suture Size: 6-0 Progress/Results/Core Measures Results/Orders Lab Results Laboratory Tests Test 07/31/19 17:50 Range/Units White Blood Count 8.0 4.3-11.0 10^3/uL Red Blood Count 4.30 L 4.35-5.85 10^6/uL Hemoglobin 12.8 L 13.3-17.7 G/DL Hematocrit 40 40-54 % Mean Corpuscular Volume 92 80-99 FL Mean Corpuscular Hemoglobin 30 25-34 PG Mean Corpuscular Hemoglobin Concent 32 32-36 G/DL Red Cell Distribution Width 13.3 10.0-14.5 % Platelet Count 201 130-400 10^3/uL Mean Platelet Volume 11.7 H 7.4-10.4 FL Neutrophils (%) (Auto) 60 42-75 % Lymphocytes (%) (Auto) 29 12-44 % Monocytes (%) (Auto) 9 0-12 % Eosinophils (%) (Auto) 2 0-10 % Basophils (%) (Auto) 0 0-10 % Neutrophils # (Auto) 4.9 1.8-7.8 X 10^3 Lymphocytes # (Auto) 2.3 1.0-4.0 X 10^3 Monocytes # (Auto) 0.7 0.0-1.0 X 10^3 Eosinophils # (Auto) 0.2 0.0-0.3 10^3/uL Basophils # (Auto) 0.0 0.0-0.1 10^3/uL Erythrocyte Sedimentation Rate 21 0-30 MM/HR Sodium Level 139 135-145 MMOL/L Potassium Level 3.1 L 3.6-5.0 MMOL/L Chloride Level 107 98-107 MMOL/L Carbon Dioxide Level 21 21-32 MMOL/L Anion Gap 11 5-14 MMOL/L Blood Urea Nitrogen 13 7-18 MG/DL Creatinine 0.96 0.60-1.30 MG/DL Estimat Glomerular Filtration Rate > 60 BUN/Creatinine Ratio 14 Glucose Level 124 H 70-105 MG/DL Calcium Level 8.2 L 8.5-10.1 MG/DL Corrected Calcium 8.8 8.5-10.1 MG/DL Total Bilirubin 0.6 0.1-1.0 MG/DL Aspartate Amino Transf (AST/SGOT) 21 5-34 U/L Alanine Aminotransferase (ALT/SGPT) 16 0-55 U/L Alkaline Phosphatase 124 40-136 U/L C-Reactive Protein High Sensitivity 0.51 H 0.00-0.50 MG/DL Total Protein 5.9 L 6.4-8.2 GM/DL Albumin 3.2 3.2-4.5 GM/DL My Orders Orders - TRU KELLEY Ct Head Wo (07/31/19 18:22) Cbc With Automated Diff (07/31/19 18:22) Comprehensive Metabolic Panel (07/31/19 18:22) Hs C Reactive Protein (07/31/19 18:22) Erythrocyte Sedimentation Rate (07/31/19 18:22) Potassium Chloride (Tablet) (K Dur Table (07/31/19 19:00) Hydrocodone/Apap 5/325 Tablet (Lortab 5 (07/31/19 19:00) Medications Given in ED Current Medications Medications Dose Ordered Sig/Tito Route Start Time Stop Time Status Last Admin Dose Admin Acetaminophen/ Hydrocodone Bitart 1 tab ONCE ONCE PO 07/31/19 19:00 07/31/19 19:01 DC 07/31/19 18:59 1 TAB Potassium Chloride 20 meq ONCE ONCE PO 07/31/19 19:00 07/31/19 19:01 DC 07/31/19 18:59 20 MEQ Vital Signs/I&O 07/31/19 17:49 Temp 36.4 Pulse 77 Resp 20 B/P (MAP) 182/96 (124) Pulse Ox 97 Blood Pressure Mean: 124 POS Progress Progress Note #1: Time: 18:34 Progress Note It would seem that he is having a vertiginous episode with a headache. He does not have any red flags for his headache and blurry vision temporarily. Because of his use of blood thinners he is not a candidate for NSAIDs. He does not want any IV opiates so we'll get a scan of his head to rule out subarachnoid hemorrhage and get a CRP and ESR to rule out GCA and some basic labs. He has nontender sinuses and no evidence of infection on examination. If his scan and labs are okay then we can give him hydrocodone and Tylenol. Progress Note #2: Time: 18:[address] doesn't demonstrate any bleed tumor or midline shift. Pending Radiologist over read. Give hydrocodone for his headache and some oral potassium for his mild hypokalemia. Progress Note #3: Time: 19:55 Progress Note Patient's headache has resolved. We'll provide him with a couple tablets of hydrocodone case he needs it. We have discussed inserted management of headache and vertigo. We have discussed that if he has recalcitrant symptoms he may consider talking to Dr. Mg about physical therapy, tilt table testing/treatment or audiology/ENT referral. Diagnostic Imaging Diagonstic Imaging: CT Plain Films/CT/US/NM/MRI: head Comments Negative for intracranial hemorrhage, mass effect, tumor, midline shift. Encephalomalacia related to age. NAME: AMBREEN WARNER I MED REC#: [id number] PT STATUS: REG ER : 1935 PHYSICIAN: TRU KELLEY MD ADMIT DATE: 07/31/19/ER Draft POSDate of Exam:07/31/19 CT HEAD WO PROCEDURE: CT head without contrast. TECHNIQUE: Multiple contiguous axial images were obtained through the brain without the use of intravenous contrast. Auto Exposure Controls were utilized during the CT exam to meet ALARA standards for radiation dose reduction. INDICATION: Right-sided headache and dizziness x3 hours Comparison is made to study dated 04/30/2018 There is mild atrophy. There are no masses or hemorrhages. There is some decreased density in the periventricular white matter most prominently in the polar regions posteriorly. IMPRESSION: Chronic ischemic leukoencephalopathy. No acute abnormalities. No appreciable interval change compared to 04/30/2018. Dictated on workstation # [id number] Dict: 07/31/191904 Trans: 07/31/191908 [facility] [id number] Interpreted by: STEFANIA QUILES MD Electronically signed by: Reviewed: Reviewed by Me Departure Impression Primary Impression: Vertigo Additional Impression: Headache Qualified Codes: G44.209 - Tension-type headache, unspecified, not intractable Disposition: HOME, SELF-CARE Condition: Improved Departure-Patient Inst. Decision time for Depature: 19:56 Referrals: DANYEL MG DO (PCP/Family) Primary Care Physician Patient Instructions: Vertigo (a Type of Dizziness) (DC) Add. Discharge Instructions: Please follow-up with Dr. Mg for further management of your vertigo. All discharge instructions reviewed with patient and/or family. Voiced underst anding. Scripts Hydrocodone Bit/Acetaminophen (Hydrocodone/Acetaminophen 5/325mg Tablet) 1 Tab Tab 1 EACH PO Q4-6HR PRN for PAIN-MODERATE MDD 10 for 3 Days, #6 TAB 0 Refills Prov: TRU KELLEY 07/31/19 TRU KELLEY Jul 31, 2019 18:31 POS
[2019-07-31 18:42] LABS: ALANINE AMINOTRANSFERASE 16 U/L (0-55); ALBUMIN 3.2 GM/DL (3.2-4.5); ALKALINE PHOSPHATASE 124 U/L (40-136); BILIRUBIN,TOTAL 0.6 MG/DL (0.1-1.0); BUN/CREATININE RATIO 14; CALCIUM 8.2 MG/DL (8.5-10.1); CARBON DIOXIDE 21 MMOL/L (21-32); CHLORIDE 107 MMOL/L (98-107); CREATININE SERUM 0.96 MG/DL (0.60-1.30); GFR ESTIMATED > 60; GLUCOSE 124 MG/DL (70-105); POTASSIUM 3.1 MMOL/L (3.6-5.0); SODIUM 139 MMOL/L (135-145); TOTAL PROTEIN 5.9 GM/DL (6.4-8.2)
[2019-07-31] MEDS ORDERED: KCL 20 MEQ TAB (K-DUR) PO ONE (19:00)
[2019-07-31] MEDS ORDERED: HYDROcodone/APAP 5 MG/325 MG (LORTAB) TAB PO ONE (19:00)
--- NOTE | 2019-07-31 19:09 | Diagnostic Imaging Report ---
PROCEDURE: CT head without contrast. TECHNIQUE: Multiple contiguous axial images were obtained through the brain without the use of intravenous contrast. Auto Exposure Controls were utilized during the CT exam to meet ALARA standards for radiation dose reduction. INDICATION: Right-sided headache and dizziness x3 hours Comparison is made to study dated 04/30/2018 There is mild atrophy. There are no masses or hemorrhages. There is some decreased density in the periventricular white matter most prominently in the polar regions posteriorly. IMPRESSION: Chronic ischemic leukoencephalopathy. No acute abnormalities. No appreciable interval change compared to 04/30/2018. Dictated by: Dictated on workstation # [id number]
[2019-07-31 19:23] LABS: ERYTHROCYTE SEDIMENTATION RATE 21 MM/HR (0-30)
[2019-07-31] MEDS ORDERED: ACHD5005 PO (19:57)
[2019-07-31 20:06] VITALS: BP 160/84
== END 2019-07-31 20:06 | disposition home or self-care (01) ==
LOC: EDUNIT# 17:47 → ER 17:48
DX: R42 Dizziness and giddiness (principal); R51 Headache; I10 Essential (primary) hypertension; I25.10 Atherosclerotic heart disease of native coronary artery without angina pectoris; K21.9 Gastro-esophageal reflux disease without esophagitis; E03.9 Hypothyroidism, unspecified; F32.9 Major depressive disorder, single episode, unspecified; Z79.01 Long term (current) use of anticoagulants; Z86.711 Personal history of pulmonary embolism; Z96.642 Presence of left artificial hip joint; Z86.718 Personal history of other venous thrombosis and embolism; Z95.5 Presence of coronary angioplasty implant and graft; Z80.3 Family history of malignant neoplasm of breast
CPT/HCPCS: 36415; 70450; 80053; 85025; 85652; 86141

== ENCOUNTER → 2020-01-06 | Outpatient (CLI) | payer BC, MEDICAID ==
[~2020-01-06] MED LIST changes: +ACHD5005 PO; +ATOR40TA70 PO; +CIPR250S2 PO; +FURO20TA4 PO; +LEVO150T6 PO; +MELA3TAB39 PO; -MELA3TAB65 PO; +OMEP20CA18 PO; +POTA-51 PO
--- NOTE | 2020-01-06 14:27 | Diagnostic Imaging Report ---
PROCEDURE: MRI left joint lower extremity without contrast. TECHNIQUE: Multiplanar, multisequence non contrast-enhanced MRI of the left lower extremity was accomplished. INDICATION: Left lateral hip seroma. COMPARISON: 11/10/2019. FINDINGS: Evaluation for soft tissue fluid collections is somewhat suboptimal without contrast; however, the previously seen fluid collection lateral to the left femur greater trochanter measures approximately 2.5 x 1.6 cm in size (image 14 series 9) and 6.8 cm craniocaudal. This is minimally decreased compared to the prior study. There is a tract extending out to the skin from the fluid collection which measures approximately 6 mm in width. It is unclear if this represents a healing scar versus a persistent patent tract to the skin on this exam. No T1-weighted hypointensity or significant bone marrow edema is seen in the femur although evaluation is somewhat suboptimal due to the hardware artifact from the arthroplasty. No significant joint effusion is seen. The iliopsoas tendons are intact. No other fluid collections are seen. There is a fat intensity mass lateral to the ischial tuberosity which measures approximately 7 x 3 cm on axial imaging and 3.5 cm craniocaudal which appears to represent a lipoma. No nodular components or thickened septae are noted. No free fluid is seen in the pelvis. IMPRESSION: 1. Fluid collection lateral to the left femur greater trochanter appears slightly decreased in size since the prior exam. This appears associated with a scar or persistent tract extending to the skin through the lateral subcutaneous fat. 2. Left hip arthroplasty. No findings of osteomyelitis are seen. 3. 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 Dictated by: Dictated on workstation # [id number]
== END ==
LOC: RAD 12:11
PROVIDERS: ATTEND Family Medicine
DX: M96.842 Postprocedural seroma of a musculoskeletal structure following a musculoskeletal system procedure (principal); Z96.642 Presence of left artificial hip joint; D17.79 Benign lipomatous neoplasm of other sites
CPT/HCPCS: 73721

== ENCOUNTER 2020-05-17 17:10 | Observation (INO) | payer BC, MEDICAID ==
[~2020-05-17] VITALS: Ht 185.4 cm; Wt 92.9 kg
--- NOTE | 2020-05-17 17:28 | ED Fall/Injury ---
General Chief Complaint: Trauma-Non Activation Stated Complaint: FALL;HEAD INJURY Nursing Triage Note: Pt to ED in wheelchair. Pt reports falling at home [employer]. Pt hit back of head and c/o L hip pain. Source: patient Exam Limitations: no limitations History of Present Illness Date Seen by Provider: May 17, 2020 Time Seen by Provider: 17:26 Initial Comments To ER or with reports of head injury. He fell at home just prior to arrival. Doesn't recall why or what happened. Small laceration to the back left side of his head. He is on Eliquis for history of DVT. Also has a little bit of left hip pain which has previously been replaced. Location Injury Occurred: home Occurred: just prior to arrival Severity: moderate Context: unknown Loss of Consciousness: unsure Associated Symptoms (Fall): Headache Allergies and Home Medications Allergies Coded Allergies: NKANo Known Allergies (Verified Allergy, Unknown, 11/08/19) Home Medications Acetaminophen 500 Mg Tablet, 1,000 MG PO Q8H PRN for PAIN-MILD, (Reported) Apixaban 5 Mg Tablet, 5 MG PO BID Prescribed by: DANYEL CURRY on 11/12/19851 Atorvastatin Calcium 40 Mg Tablet, 40 MG PO HS, (Reported) Ciprofloxacin 250 Mg/5 Ml Niru..rec, 250 MG PO BID Prescribed by: DANYEL CURRY on 11/12/19851 Duloxetine HCl 30 Mg Capsule.dr, 30 MG PO BID, (Reported) Furosemide 20 Mg Tablet, 20 MG PO DAILY, (Reported) Levothyroxine Sodium 150 Mcg Tablet, 150 MCG PO DAILY, (Reported) Metoprolol Succinate 50 Mg Tab.er.24h, 50 MG PO DAILY, (Reported) FILLED 04-12-2019 #180/180DS Omeprazole 20 Mg Capsule.dr, 20 MG PO DAILY, (Reported) Potassium Chloride 20 Meq Tablet.er, 20 MEQ PO HS, (Reported) Tamsulosin HCl 0.4 Mg Cap, 0.4 MG PO HS, (Reported) Patient Home Medication List Home Medication List Reviewed: Yes Review of Systems Review of Systems Constitutional: see HPI Eyes: No Symptoms Reported Ears, Nose, Mouth, Throat: no symptoms reported Respiratory: no symptoms reported Cardiovascular: no symptoms reported Genitourinary: no symptoms reported Musculoskeletal: no symptoms reported Skin: no symptoms reported Psychiatric/Neurological: No Symptoms Reported Past Ieqqknt-Juuybg-Awnuon Hx Patient Social History Alcohol Use: Denies Use Recreational Drug Use: No 2nd Hand Smoke Exposure: No Recent Foreign Travel: No Contact w/Someone Who Travel: No Recent Infectious Disease Expo: No Recent Hopitalizations: No Immunizations Up To Date Tetanus Booster (TDap): Unknown PED Vaccines UTD: No Date of Pneumonia Vaccine: May 27, 2017 Date of Influenza Vaccine: May 27, 2020 Seasonal Allergies Seasonal Allergies: No Past Medical History Surgeries: Yes (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; ) Cardiac, Coronary Stent, Gallbladder, Orthopedic Respiratory: No Currently Using CPAP: No Currently Using BIPAP: No Cardiac: Yes (STENT X 1) Chronic Edema/Swelling, Coronary Artery Disease, Deep Vein Thrombosis, Hypertension Neurological: No Reproductive Disorders: No Sexually Transmitted Disease: No HIV/AIDS: No Genitourinary: Yes Benign Prostatic Hyperpl, Prostate Problems, Kidney Stones Gastrointestinal: Yes (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) Gastroesophageal Reflux, Hepatitis Musculoskeletal: Yes (LEFT HIP REPLACEMENT) Arthritis Endocrine: Yes Hypothyroidsim HEENT: Yes Cataract Loss of Vision: Denies Hearing Impairment: Hard of Hearing Cancer: No Psychosocial: Yes Depression Integumentary: Yes (DERMATITIS OF LEGS) Blood Disorders: No Adverse Reaction/Blood Tranf: No Family Medical History FH: anemia DAUGHTER FH: breast cancer 19 MOTHER DAUGHTER No Pertinent Family Hx Physical Exam Vital Signs Vital Signs - First Documented 05/17/20 17:14 Temp 36.6 Pulse 86 Resp 20 B/P (MAP) 205/118 (147) Pulse Ox 95 O2 Delivery Room Air Capillary Refill : Less Than 3 Seconds Height, Weight, BMI Height: 6'2.00" Weight: 217lbs. 8.0oz. 98.550521hw; 27.00 BMI Method:Estimated General Appearance: WD/WN, no apparent distress HEENT: PERRL/EOMI, normal ENT inspection, TMs normal, other (small left parietal scalp hematoma/eschar) Respiratory: normal breath sounds, no respiratory distress, no accessory muscle use Gastrointestinal: normal bowel sounds, non tender Neurologic/Psychiatric: alert, normal mood/affect, oriented x 3 Skin: normal color, warm/dry He knows where he is at, knows the year, just does not recall what led to the fall. Hebert Coma Score Best Eye Response: (4) Open Spontaneously Best Verbal Response: (5) Oriented Best Motor Response: (6) Obeys Commands [place] Total: 15 Procedures/Interventions Suture Size: 6-0 Progress/Results/Core Measures Results/Orders Lab Results Laboratory Tests Test 05/17/20 17:33 05/17/20 18:39 Range/Units White Blood Count 7.2 4.3-11.0 10^3/uL Red Blood Count 4.59 4.35-5.85 10^6/uL Hemoglobin 14.1 13.3-17.7 G/DL Hematocrit 43 40-54 % Mean Corpuscular Volume 93 80-99 FL Mean Corpuscular Hemoglobin 31 25-34 PG Mean Corpuscular Hemoglobin Concent 33 32-36 G/DL Red Cell Distribution Width 12.6 10.0-14.5 % Platelet Count 216 130-400 10^3/uL Mean Platelet Volume 10.6 H 7.4-10.4 FL Neutrophils (%) (Auto) 64 42-75 % Lymphocytes (%) (Auto) 21 12-44 % Monocytes (%) (Auto) 11 0-12 % Eosinophils (%) (Auto) 4 0-10 % Basophils (%) (Auto) 0 0-10 % Neutrophils # (Auto) 4.6 1.8-7.8 X 10^3 Lymphocytes # (Auto) 1.5 1.0-4.0 X 10^3 Monocytes # (Auto) 0.8 0.0-1.0 X 10^3 Eosinophils # (Auto) 0.3 0.0-0.3 10^3/uL Basophils # (Auto) 0.0 0.0-0.1 10^3/uL Sodium Level 141 135-145 MMOL/L Potassium Level 3.9 3.6-5.0 MMOL/L Chloride Level 108 H 98-107 MMOL/L Carbon Dioxide Level 25 21-32 MMOL/L Anion Gap 8 5-14 MMOL/L Blood Urea Nitrogen 17 7-18 MG/DL Creatinine 0.99 0.60-1.30 MG/DL Estimat Glomerular Filtration Rate > 60 BUN/Creatinine Ratio 17 Glucose Level 108 H 70-105 MG/DL Calcium Level 8.6 8.5-10.1 MG/DL Corrected Calcium 9.1 8.5-10.1 MG/DL Total Bilirubin 0.4 0.1-1.0 MG/DL Aspartate Amino Transf (AST/SGOT) 17 5-34 U/L Alanine Aminotransferase (ALT/SGPT) 13 0-55 U/L Alkaline Phosphatase 110 40-136 U/L Total Protein 6.3 L 6.4-8.2 GM/DL Albumin 3.4 3.2-4.5 GM/DL My Orders Orders - ROBERT TOLENTINO APRN Ct Head/Cervical Spine Wo (05/17/20 17:14) Pelvis With Left Hip 2-3 Views (05/17/20 17:18) Cbc With Automated Diff (05/17/20 17:23) Comprehensive Metabolic Panel (05/17/20 17:23) Ua Culture If Indicated (05/17/20 17:23) Chest 1 View, Ap/Pa Only (05/17/20 17:23) Clonidine Tablet (Catapres Tablet) (05/17/20 17:30) Medications Given in ED Current Medications Medications Dose Ordered Sig/Tito Route Start Time Stop Time Status Last Admin Dose Admin Clonidine HCl 0.1 mg ONCE ONCE PO 05/17/20 17:30 05/17/20 17:31 DC 05/17/20 17:56 0.1 MG Vital Signs/I&O 05/17/20 17:14 Temp 36.6 Pulse 86 Resp 20 B/P (MAP) 205/118 (147) Pulse Ox 95 O2 Delivery Room Air Blood Pressure Mean: 147 Diagnostic Imaging Diagonstic Imaging: CT Comments NAME: AMBREEN WARNER I [facility] REC#: [id number] PT STATUS: REG ER : 1934 PHYSICIAN: ROBERT TOLENTINO APRN ADMIT DATE: 05/17/20/ER Draft Date of Exam:05/17/20 CT HEAD/CERVICAL SPINE WO PROCEDURE: CT head and CT cervical spine without contrast. TECHNIQUE: Multiple contiguous axial images were obtained through the brain and cervical spine without the use of intravenous contrast. Sagittal and coronal reformations through the cervical spine were then performed. Auto Exposure Controls were utilized during the CT exam to meet ALARA standards for radiation dose reduction. INDICATION: Fall with head and neck injury. CT HEAD: Comparison is made to study of 11/08/2019. Ventricles and sulci remain diffusely prominent with low density in deep white matter of both hemispheres. No hemorrhage is identified. There is no abnormal mass effect or shift of midline structures. Overall, there has been no significant change. Atherosclerotic calcifications are seen within distal internal carotid and vertebral arteries. IMPRESSION: Stable senescent findings in the brain without CT evidence of acute intracranial abnormality. CT CERVICAL SPINE: Cervical spinal curvature and alignment are unremarkable. Vertebral body heights are maintained with mild to moderate disc space narrowing in the lower cervical region. No acute fracture or malalignment is identified. There is no evidence of paraspinous hematoma. IMPRESSION: Mild lower cervical spondylosis without acute abnormality seen in the cervical spine. Dictated on workstation # [id number] Dict: 05/17/20 1748 Trans: 05/17/20 1754 [facility] [id number] Interpreted by: MYNOR ZUNIGA MD Electronically signed by: Departure Communication (Admissions) Time/Spoke to Admitting Phy: 19:[address] Thomas, we will admit observation status with closed head injury anticoagulant use and concussion with altered mental status. Impression Primary Impression: Closed head injury Qualified Codes: S09.90XA - Unspecified injury of head, initial encounter Additional Impressions: Concussion Qualified Codes: S06.0X9A - Concussion with loss of consciousness of unspecified duration, initial encounter Anticoagulant long-term use Disposition: ADMITTED INPATIENT Condition: Stable Admissions Decision to Admit Reason: Admit from ER (Trauma) Decision to Admit/Date: May 17, 2020 Time/Decision to Admit Time: 19:28 Departure-Patient Inst. Referrals: DANYEL CURRY DO (PCP/Family) Primary Care Physician Copy Copies To 1: DANYEL CURRY PETER J APRN May 17, 2020 17:28
[2020-05-17] MEDS ORDERED: cloNIDine 0.1 MG (CATAPRES) TAB PO ONE ×2 (17:30→23:30)
[2020-05-17 17:46] LABS: BASOPHILS % (AUTO) 0 % (0-10); EOSINOPHILS # (AUTO) 0.3 10^3/uL (0.0-0.3); EOSINOPHILS % (AUTO) 4 % (0-10); HEMATOCRIT 43 % (40-54); HEMOGLOBIN 14.1 G/DL (13.3-17.7); LYMPHOCYTES # (AUTO) 1.5 X 10^3 (1.0-4.0); LYMPHOCYTES % (AUTO) 21 % (12-44); MEAN CORPUSCULAR HEMOGLOBIN 31 PG (25-34); MEAN CORPUSCULAR HGB CONC 33 G/DL (32-36); MEAN CORPUSCULAR VOLUME 93 FL (80-99); MEAN PLATELET VOLUME 10.6 FL (7.4-10.4); MONOCYTES # (AUTO) 0.8 X 10^3 (0.0-1.0); MONOCYTES % (AUTO) 11 % (0-12); NEUTROPHILS # (AUTO) 4.6 X 10^3 (1.8-7.8); NEUTROPHILS % (AUTO) 64 % (42-75); PLATELET COUNT 216 10^3/uL (130-400); WHITE BLOOD COUNT 7.2 10^3/uL (4.3-11.0)
--- NOTE | 2020-05-17 17:48 | NUR ---
Spoke with both of pt's sister's via phone with update on pt.
--- NOTE | 2020-05-17 17:54 | Diagnostic Imaging Report ---
PROCEDURE: CT head and CT cervical spine without contrast. TECHNIQUE: Multiple contiguous axial images were obtained through the brain and cervical spine without the use of intravenous contrast. Sagittal and coronal reformations through the cervical spine were then performed. Auto Exposure Controls were utilized during the CT exam to meet ALARA standards for radiation dose reduction. INDICATION: Fall with head and neck injury. CT HEAD: Comparison is made to study of 11/08/2019. Ventricles and sulci remain diffusely prominent with low density in deep white matter of both hemispheres. No hemorrhage is identified. There is no abnormal mass effect or shift of midline structures. Overall, there has been no significant change. Atherosclerotic calcifications are seen within distal internal carotid and vertebral arteries. IMPRESSION: Stable senescent findings in the brain without CT evidence of acute intracranial abnormality. CT CERVICAL SPINE: Cervical spinal curvature and alignment are unremarkable. Vertebral body heights are maintained with mild to moderate disc space narrowing in the lower cervical region. No acute fracture or malalignment is identified. There is no evidence of paraspinous hematoma. IMPRESSION: Mild lower cervical spondylosis without acute abnormality seen in the cervical spine. Dictated by: Dictated on workstation # [id number]
[2020-05-17 17:59] LABS: ALBUMIN 3.4 GM/DL (3.2-4.5); CHLORIDE 108 MMOL/L (98-107); POTASSIUM 3.9 MMOL/L (3.6-5.0); SODIUM 141 MMOL/L (135-145)
[2020-05-17 18:00] LABS: CALCIUM 8.6 MG/DL (8.5-10.1)
[2020-05-17 18:01] LABS: GLUCOSE 108 MG/DL (70-105); TOTAL PROTEIN 6.3 GM/DL (6.4-8.2)
[2020-05-17 18:03] LABS: BILIRUBIN,TOTAL 0.4 MG/DL (0.1-1.0); CARBON DIOXIDE 25 MMOL/L (21-32)
[2020-05-17 18:05] LABS: ALKALINE PHOSPHATASE 110 U/L (40-136); CREATININE SERUM 0.99 MG/DL (0.60-1.30); GFR ESTIMATED > 60
[2020-05-17 18:06] LABS: BUN/CREATININE RATIO 17
[2020-05-17 18:08] LABS: ALANINE AMINOTRANSFERASE 13 U/L (0-55)
--- NOTE | 2020-05-17 18:09 | Diagnostic Imaging Report ---
EXAMINATION: Pelvis, single view. Left hip, 2 additional views. COMPARISON: September 15, 2017. HISTORY: 84-year-old male, fall. Left hip pain. FINDINGS: There is a total left hip prosthesis. The hardware is intact and normally aligned. There is no periprosthetic lucency. The pubic symphysis and sacroiliac joints are normally aligned bilaterally. The right hip is not obviously dislocated. There is no identified acute fracture. There are degenerative changes of the lower lumbar spine. IMPRESSION: . 1. No identified acute bony abnormality of the pelvis or left hip. 2. Intact left hip prosthesis without apparent complication. Dictated by: Dictated on workstation # [id number]
--- NOTE | 2020-05-17 18:10 | Diagnostic Imaging Report ---
EXAMINATION: Chest radiograph, portable AP view. DATE: 05/17/2020 6:02 PM hours. INDICATION: 84-year-old male, fall. COMPARISON: November 08, 2019. FINDINGS: Heart size and mediastinal contours are unchanged. There is no identified pneumothorax. There is no large pleural effusion. There is no identified focal airspace consolidation. IMPRESSION: No identified acute cardiopulmonary abnormality. Dictated by: Dictated on workstation # [id number]
[2020-05-17 18:50] LABS: BILIRUBIN,URINE NEGATIVE (NEGATIVE); CLARITY,URINE CLEAR; COLOR,URINE YELLOW; GLUCOSE, URINE (UA) NEGATIVE (NEGATIVE); KETONES,URINE NEGATIVE (NEGATIVE); LEUKOCYTE ESTERASE ,URINE NEGATIVE (NEGATIVE); NITRITE,URINE NEGATIVE (NEGATIVE); PROTEIN,URINE NEGATIVE (NEGATIVE)
[2020-05-17 19:24] LABS: BACTERIA,URINE NEGATIVE /HPF; HYALINE CASTS, URINE 0-2 /LPF; WBC,URINE RARE /HPF
--- NOTE | 2020-05-17 20:45 | NUR ---
Attempted to call for report; no answer.
--- NOTE | 2020-05-17 20:53 | NUR ---
Attempted to call for report; no answer.
--- NOTE | 2020-05-17 21:40 | NUR ---
AMBREEN WARNER I admitted to room 411-1, with an admitting diagnosis of Concussion; Closed Head Injury with skilled nursing Anticoagulant Use, on 05/17/20 from ED via hospital bed, accompanied by staff. AMBREEN WARNER I introduced to surroundings, call light, bed controls, phone, TV, temperature control, lights, meal times, smoking policy, visitor policy, side rail policy, bathrooms and showers. Patient Rights given to patient in the handbook. AMBREEN WARNER I verbalizes understanding that [facility] is not responsible for the loss or damage to any personal effects or valuables that are kept in the patients posession during their hospitalization. AMBREEN WARNER I verbalizes understanding of Interdisciplinary Patient Education. Patient and/or family were informed about the Rapid Response Team and its purpose.
[2020-05-17 21:50] VITALS: BP 180/91
[2020-05-17] MEDS ORDERED: CATHETER FLUSH 10 ML SYR IV PRN (23:00)
[2020-05-18 00:20] VITALS: BP 181/87
[2020-05-18 04:48] VITALS: BP 172/91
[2020-05-18] MEDS ORDERED: FLU QUAD HIGH DOSE 240 MCG/0.7 ML 2020-21 (FLUZONE) IM ONE (07:45)
[2020-05-18 08:00] VITALS: BP 175/93
--- NOTE | 2020-05-18 10:59 | History & Physical-Surgical ---
ARLETJOHANNY MED STUDENT 05/18/20 1059: History of Present Illness History of Present Illness Reason for visit/HPI cc: closed head injury hpi: pt was sitting up in bed. when prompted about what had happened, pt stated that he "hit the floor." pt stated that he was going outside because someone had arrived at his house and did not have his cane or walker with him. pt stated that he is not in any pain. pt oriented to person, place and time. per nurse pt is less confused than yesterday. pt has laceration on the L posterolateral cranium. there is no discharge coming from the wound. no bruising noted. Date of Admission May 17, 2020 at 18:19 I consulted on this patient on 05/18/20 10:54 Attending Physician Malcolm Thomas DO Admitting Physician Mikayla Mg DO Consult Allergies and Home Medications Allergies Coded Allergies: NKANo Known Allergies (Verified Allergy, Unknown, 11/08/19) Home Medications Apixaban 2.5 Mg Tablet, 2.5 MG PO BID, (Reported) Duloxetine HCl 30 Mg Capsule.dr, 30 MG PO BID, (Reported) LAST FILLED 11-20-2019 #180/90 DAY SUPPLY Finasteride 5 Mg Tablet, 5 MG PO DAILY, (Reported) Fluticasone Propionate 16 Gm [place] Head.susp, 1-2 SPR NSEACH DAILY, (Reported) Levothyroxine Sodium 150 Mcg Tablet, 150 MCG PO DAILY, (Reported) Magnesium Oxide 400 Mg Tablet, 400 MG PO DAILY, (Reported) Omeprazole 20 Mg Capsule.dr, 20 MG PO DAILY, (Reported) Potassium Chloride 20 Meq Tablet.er, 20 MEQ PO BID, (Reported) Past Zflbvyn-Pouczt-Xapqzc Hx Patient Social History Alcohol Use: Denies Use Recreational Drug Use: No Smoking Status: Never a Smoker Immunizations Up To Date Tetanus Booster (TDap): Unknown PED Vaccines UTD: No Date of Pneumonia Vaccine: Jun 23, 2019 Date of Influenza Vaccine: May 27, 2020 Seasonal Allergies Seasonal Allergies: No Surgeries History of Surgeries: Yes (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; ) Surgeries: Cardiac, Coronary Stent, Gallbladder, Orthopedic (bilateral hip replacements ) Respiratory History of Respiratory Disorde: No Cardiovascular History of Cardiac Disorders: Yes (STENT X 1) Cardiac Disorders: Chronic Edema/Swelling, Coronary Artery Disease Neurological History of Neurological Disord: No Reproductive System Hx Reproductive Disorders: No Sexually Transmitted Disease: No HIV/AIDS: No Genitourinary History of Genitourinary Disor: Yes Genitourinary Disorders: Benign Prostatic Hyperpl Gastrointestinal History of Gastrointestinal Di: Yes (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) Gastrointestinal Disorders: Gastroesophageal Reflux Musculoskeletal History of Musculoskeletal Dis: No Endocrine History of Endocrine Disorders: No HEENT History of HEENT Disorders: No Loss of Vision: Denies Hearing Impairment: Hard of Hearing Cancer History of Cancer: No Psychosocial History of Psychiatric Problem: No Integumentary History of Skin or Integumenta: No Blood Transfusions History of Blood Disorders: No Adverse Reaction to a Blood Tr: No Family Medical History Significant Family History: No Pertinent Family Hx Family Medial History: FH: anemia DAUGHTER FH: breast cancer 19 MOTHER DAUGHTER Review of Systems Constitutional: No chills, No fever, No malaise EENTM: hearing loss Respiratory: No cough, No short of breath Gastrointestinal: No abdominal pain, No constipation, No diarrhea, No nausea, No vomiting Genitourinary: No dysuria, No incontinence Physical Exam Vital Signs Vital Signs - First Documented 05/17/20 17:14 Temp 36.6 Pulse 86 Resp 20 B/P (MAP) 205/118 (147) Pulse Ox 95 O2 Delivery Room Air Capillary Refill : Less Than 3 Seconds Height, Weight, BMI Height: 6'2.00" Weight: 217lbs. 8.0oz. [id number]; 27.02 BMI Method:Estimated General Appearance: No Apparent Distress, WD/WN Eyes: Bilateral Eye PERRL, Bilateral Eye EOMI HEENT: PERRL/EOMI; No Scleral Icterus (L), No Scleral Icterus (R) Neck: Non Tender; No Lymphadenopathy (L), No Lymphadenopathy (R) Respiratory: Chest Non Tender, Lungs Clear, Normal Breath Sounds, No Accessory Muscle Use, No Respiratory Distress Cardiovascular: Regular Rate, Rhythm, No Murmur Gastrointestinal: Normal Bowel Sounds, Non Tender Extremity: Normal Capillary Refill, No Pedal Edema Neurologic/Psychiatric: Alert, Oriented x3, No Motor/Sensory Deficits, Normal Mood/Affect, head of quality II-XII Norm as Tested Skin: Normal Color, Warm/Dry Lymphatic: No Adenopathy Data Review Labs Laboratory Tests 05/17/20 17:33: White Blood Count 7.2, Red Blood Count 4.59, Hemoglobin 14.1, Hematocrit 43, Mean Corpuscular Volume 93, Mean Corpuscular Hemoglobin 31, Mean Corpuscular Hemoglobin Concent 33, Red Cell Distribution Width 12.6, Platelet Count 216, Mean Platelet Volume 10.6H, Neutrophils (%) (Auto) 64, Lymphocytes (%) (Auto) 21, Monocytes (%) (Auto) 11, Eosinophils (%) (Auto) 4, Basophils (%) (Auto) 0, Neutrophils # (Auto) 4.6, Lymphocytes # (Auto) 1.5, Monocytes # (Auto) 0.8, Eosinophils # (Auto) 0.3, Basophils # (Auto) 0.0, Sodium Level 141, Potassium Level 3.9, Chloride Level 108H, Carbon Dioxide Level 25, Anion Gap 8, Blood Urea Nitrogen 17, Creatinine 0.99, Estimat Glomerular Filtration Rate > 60, BUN/Creatinine Ratio 17, Glucose Level 108H, Calcium Level 8.6, Corrected Calcium 9.1, Total Bilirubin 0.4, Aspartate Amino Transf (AST/SGOT) 17, Alanine Aminotransferase (ALT/SGPT) 13, Alkaline Phosphatase 110, Total Protein 6.3L, Albumin 3.4 05/17/20 18:39: Urine Color YELLOW, Urine Clarity CLEAR, Urine pH 7.0, Urine Specific Meta 1.015L, Urine Protein NEGATIVE, Urine Glucose (UA) NEGATIVE, Urine Ketones NEGATIVE, Urine Nitrite NEGATIVE, Urine Bilirubin NEGATIVE, Urine Urobilinogen 0.2, Urine Leukocyte Esterase NEGATIVE, Urine RBC (Auto) NEGATIVE, Urine RBC NONE, Urine WBC RARE, Urine Crystals NONE, Urine Bacteria NEGATIVE, Urine Casts PRESENT, Urine Hyaline Casts 0-2H, Urine Mucus SMALLH, Urine Culture Indicated NO Assessment/Plan Assessment/Plan Assessment/Plan [facility] Clinical Quality Measures DVT/VTE Risk/Contraindication: Risk Factor Score Per Nursin RFS Level Per Nursing on Admit: 4+=Very High MALCOLM THOMAS DO 05/18/20 1334: History of Present Illness History of Present Illness Reason for visit/HPI Pt seen and examined, sitting up and eating lunch. Pt states he feels fine and no more trouble with memory. Pain is minimal. Time Seen by a Provider: 12:51 Allergies and Home Medications Allergies Coded Allergies: NKANo Known Allergies (Verified Allergy, Unknown, 11/08/19) Home Medications Apixaban 2.5 Mg Tablet, 2.5 MG PO BID, (Reported) Duloxetine HCl 30 Mg Capsule.dr, 30 MG PO BID, (Reported) LAST FILLED 11-20-2019 #180/90 DAY SUPPLY Finasteride 5 Mg Tablet, 5 MG PO DAILY, (Reported) Fluticasone Propionate 16 Gm [place] Head.susp, 1-2 SPR NSEACH DAILY, (Reported) Levothyroxine Sodium 150 Mcg Tablet, 150 MCG PO DAILY, (Reported) Magnesium Oxide 400 Mg Tablet, 400 MG PO DAILY, (Reported) Omeprazole 20 Mg Capsule.dr, 20 MG PO DAILY, (Reported) Potassium Chloride 20 Meq Tablet.er, 20 MEQ PO BID, (Reported) Patient Home Medication List Home Medication List Reviewed: Yes Past Vsskflv-Oxtgpx-Ejnoys Hx Family Medical History Significant Family History: Cancer Family Medial History: FH: anemia DAUGHTER FH: breast cancer 19 MOTHER DAUGHTER Review of Systems Psychiatric/Neurological: Headache (very minimal); Denies Seizure, Denies Tingling, Denies Tremors Physical Exam General Appearance: No Apparent Distress, WD/WN HEENT: Moist Mucous Membranes; No Scleral Icterus (L), No Scleral Icterus (R) Neck: Non Tender, Supple Respiratory: Lungs Clear, Normal Breath Sounds, No Accessory Muscle Use, No Respiratory Distress Cardiovascular: Regular Rate, Rhythm, No Murmur Gastrointestinal: Normal Bowel Sounds, No Organomegaly, Non Tender Neurologic/Psychiatric: Alert, Oriented x3, No Motor/Sensory Deficits, Normal Mood/Affect, head of quality II-XII Norm as Tested Data Review Radiology CT HEAD/CERVICAL SPINE WO PROCEDURE: CT head and CT cervical spine without contrast. TECHNIQUE: Multiple contiguous axial images were obtained through the brain and cervical spine without the use of intravenous contrast. Sagittal and coronal reformations through the cervical spine were then performed. Auto Exposure Controls were utilized during the CT exam to meet ALARA standards for radiation dose reduction. INDICATION: Fall with head and neck injury. CT HEAD: Comparison is made to study of 11/08/2019. Ventricles and sulci remain diffusely prominent with low density in deep white matter of both hemispheres. No hemorrhage is identified. There is no abnormal mass effect or shift of midline structures. Overall, there has been no significant change. Atherosclerotic calcifications are seen within distal internal carotid and vertebral arteries. IMPRESSION: Stable senescent findings in the brain without CT evidence of acute intracranial abnormality. CT CERVICAL SPINE: Cervical spinal curvature and alignment are unremarkable. Vertebral body heights are maintained with mild to moderate disc space narrowing in the lower cervical region. No acute fracture or malalignment is identified. There is no evidence of paraspinous hematoma. IMPRESSION: Mild lower cervical spondylosis without acute abnormality seen in the cervical spine. Dictated by: Dictated on workstation # [id number] Assessment/Plan Assessment/Plan Admission Diagonsis Trauma - fall and struck head Traumatic Brain injury - minor Coagulopathy - pt on Eliquis Admission Status: Observation Assessment/Plan Trauma - fall and struck head Traumatic Brain injury - minor Coagulopathy - pt on Eliquis Pt fell and struck head on a blood thinner, there is a small chance of late bleed within 24 hours and therefore pt was kept in the hospital overnight. Pt has not had any deterioration of mental capacity and therefore can be sent home; he still must pay attention for any changes. He states he is ready to go and has no questions. Will D/C pt home. Supervisory-Addendum Brief Verification & Attestation Participated in pt care: history, MDM, physical Personally performed: exam, history, MDM Care discussed with: Medical Student Procedures: n/a Verification and Attestation of Medical Student E/M Service A medical student performed and documented this service. I then reviewed and verified all information documented by the medical student and made modifications to such information, when appropriate. I personally performed a physical exam, medical decision making and then discussed any differences between the notes and made revisions as necessary to create one note. Malcolm Thomas , 05/18/20 , 13:35 JOHANNY NICE MED STUDENT May 18, 2020 10:59 MALCOLM THOMAS DO May 18, 2020 13:34
[2020-05-18 12:00] VITALS: BP 163/91
[2020-05-18] MEDS ORDERED: APIX2.5T PO (12:06)
[2020-05-18] MEDS ORDERED: FINA5TAB6 PO (12:06)
[2020-05-18] MEDS ORDERED: FLUT16SP22 NSEACH (12:06)
[2020-05-18] MEDS ORDERED: MAGN400T39 PO (12:07)
--- NOTE | 2020-05-18 12:13 | NUR ---
SPOKE WITH THE PT- AMBREEN INDICATES HIS DAUGHTERS TAKE CARE OF HIS MEDICATIONS AND HE COULDNT ANSWER ANY QUESTIONS REGARDING HIS MEDS. I CALLED AND SPOKE WITH HIS DAUGHTER JOANA AND WENT THRU THE EXT MED HISTORY TO COMPLETE THE MED REC THE FOLLOWING MEDICATIONS ARE ON THE EXT MED HISTORY BUT THE PT IS NO LONGER TAKING: ATORVASTATIN 40MG LAST FILLED 04-04-2020 #30 TAMSULOSIN 0.4MG 03-05-2020 #30 METOPROLOL ER SUCC 50MG 12-22-2019 #90 DULOXETINE 30MG WAS LAST FILLED ON 11-20-2019 #180/90DS- JOANA DID SAY HE WAS STILL TAKING AND ISNT SURE WHY ITS PAST DUE TO BE REFILLED. I DID INCLUDE THE PAST DUE FILL DATE ON THE MED REC OTC MEDS: MAGNESIUM OCUVITE
--- NOTE | 2020-05-18 13:17 | NUR ---
ALEXEY/LATASHA visited with patient for discharge planning. Plan: Patient will discharge home today 05/18. The patient's daughter Rocio will pick patient up for transportation. Home: The patient lives at home alone. He states that he get's around pretty well but uses a walker and a cane. The patient does not have any stairs at the house and has a wheelchair ramp. The patient's daughters' split shifts and tasks to assist him at home. They cook and clean when needed. Equipment: The patient has a walker, cane, shower chair, grab bars, and toilet seat riser. Home Health/Caregivers: The patient has had [facility] in [place] in the past. The physician does not believe patient will need to resume home health at this time. No caregivers but would like homemaker services. Resources: CM/SS provided patient with a list of resources for caregivers, homemaker services, and food services. ALEXEY/LATASHA informed the patient's daughter Rocio. She verbalized understanding. No further needs at this time.
--- NOTE | 2020-05-18 13:37 | Discharge Inst-Surgical ---
Discharge Inst-Surgical Depart Medication/Instructions New, Converted or Re-Newed RX: Other (no new Rx needed) Patient Instructions Follow up Appt: Make appointment for 1 week with primary care physician Instructions: No strenuous activity. May shower in 24 hours, no tub bath or soaking. No Smoking Skin/Wound Care: May remove bandages in am. You need to keep area clean and dry. Symptoms to Report: Appetite Changes, Extremity Discoloration, Numbness/Tingling, Swelling Increased, Bleeding Excessive, Eyesight Changes, Pain Increased, Urine Color Change, Constipation(Persistent), Fever over 101 degree F, Pain/Pressure in chest, Urinating Difficulty, Cough Up/Vomit Blood, Heart Beat Irreg/Pounding, Pain/Pressure in jaw, Cramps in feet or legs, Lightheadedness, Pain/Pressure in shoulder, Diarrhea(Persistent), Memory Changes Suddenly, Questions/Concerns, Weight gain consecutive days, Dizziness/Fainting, Nausea/Vomiting, Shortness of Breath, Weight gain over 2 pounds If questions or concerns contact your physician Or seek help at emergency department. Activity Activity as Tolerated: Yes Driving Instructions: No Driving/Refer to Dr. Felton Discharge Diet: No Restrictions Diet After 24 Hours: Clear Liquid if Nauseous Symptoms to Report to Physicia: Numbness/Tingling, Lightheadedness, Memory Changes Suddenly If Any Problems/Questions/Issu: Contact Your Physician, Go to Emergency Room Skin/Wound Care Infection Signs and Symptoms: Increased Redness, Foul Odor of Wound, Increased Drainage, Skin Itchy or Has a Rash, Increased Swelling, Temperature Above 101 F Bathing Instructions: MALCOLM Bowman DO May 18, 2020 13:37
[2020-05-18 15:17] VITALS: BP 163/91
== END 2020-05-18 13:35 | disposition home or self-care (01) ==
LOC: EDUNIT# 17:10 → ER 17:11 → UNDOADMOB 18:19 → 4TH 18:19 → UNDODISOB 05-18 17:01
PROVIDERS: ADMIT Surgery; ATTEND Surgery
DX: S06.0X9A Concussion with loss of consciousness of unspecified duration, initial encounter (principal); I10 Essential (primary) hypertension; I25.10 Atherosclerotic heart disease of native coronary artery without angina pectoris; I82.409 Acute embolism and thrombosis of unspecified deep veins of unspecified lower extremity; K21.9 Gastro-esophageal reflux disease without esophagitis; M19.90 Unspecified osteoarthritis, unspecified site; E03.9 Hypothyroidism, unspecified; F32.9 Major depressive disorder, single episode, unspecified; M47.812 Spondylosis without myelopathy or radiculopathy, cervical region; W19.XXXA Unspecified fall, initial encounter; Z79.01 Long term (current) use of anticoagulants; Z79.899 Other long term (current) drug therapy; Z95.5 Presence of coronary angioplasty implant and graft; Z80.3 Family history of malignant neoplasm of breast
CPT/HCPCS: 70450; 71045; 72125; 73502; 80053; 81000; 85025; 99284; G0378; 36415

== ENCOUNTER → 2021-04-22 | Outpatient (CLI) | payer BC ==
[~2021-04-22] MED LIST changes: +AMLO-250 PO; +AMLO-251 PO; -AMLO10TA7 PO; -AMLO5TAB9 PO; +APIX2.5T PO; +FINA5TAB6 PO; +FLUT16SP22 NSEACH; +MAGN400T39 PO; +SERT-414 PO; -SERT100T8 PO; -SULF1TAB35 PO; +SULF1TAB38 PO
== END ==
LOC: LAB 14:59
PROVIDERS: ATTEND Family Medicine
DX: R41.0 Disorientation, unspecified (principal)

== ENCOUNTER 2021-04-25 13:56 | Outpatient (CLI) | payer BC ==
[~2021-04-25] VITALS: Ht 182.9 cm; Wt 90.9 kg
[2021-04-25 14:40] VITALS: BP 173/100
[2021-04-25 14:55] LABS: BILIRUBIN,URINE NEGATIVE (NEGATIVE); CLARITY,URINE CLEAR; COLOR,URINE YELLOW; GLUCOSE, URINE (UA) NEGATIVE (NEGATIVE); KETONES,URINE NEGATIVE (NEGATIVE); LEUKOCYTE ESTERASE ,URINE NEGATIVE (NEGATIVE); NITRITE,URINE NEGATIVE (NEGATIVE); PROTEIN,URINE NEGATIVE (NEGATIVE)
[2021-04-25 15:05] LABS: AMORPHOUS SEDIMENT,UR RARE AMOR PHOSPHATE /LPF; BACTERIA,URINE NEGATIVE /HPF; SQUAMOUS EPITHELIAL CELL,UR 0-2 /HPF
== END 2021-04-25 14:40 | disposition home or self-care (01) ==
LOC: LAB 13:56
PROVIDERS: ATTEND Family Medicine
DX: R41.0 Disorientation, unspecified (principal)
CPT/HCPCS: 81000; G0463

== ENCOUNTER 2021-04-28 18:48 | Inpatient (IN) | payer MEDICARE, MEDICAID ==
[~2021-04-28] VITALS: Ht 182 cm; Wt 94.1 kg
[2021-04-28] MEDS ORDERED: LABETALOL HCL 20 MG/4 ML VIAL IV ONE ×2 (19:15→21:30)
--- NOTE | 2021-04-28 19:19 | ED General ---
General Chief Complaint: Trauma-Non Activation Stated Complaint: POSSIBLE STROKE Source of Information: Patient (LIMITED HISTORIAN--ABLE TO ANSWER ALL QUESTIONS THAT HE IS ASKED, JUST DOES NOT VOLUNTEER ANY INFORMATION), Family (DAUGHTER--LMINTED HISTORIAN ABOUT PMH) History of Present Illness Date Seen by Provider: Apr 28, 2021 Time Seen by Provider: 18:53 Initial Comments PT ARRIVES VIA POV FROM HOME WITH DAUGHTER--WHEELCHAIR ON ARRIVAL PT WITH CONFUSION FOR THE LAST 2 WEEKS, GRADUALLY GETTING WORSE HAS NOT SEEN A DR UNTIL [facility], BUT FAMILY CALLED DR. CURRY'S OFFICE AND HAD OUTPATIENT LAB ON Sunday04/25/21--RESULTS UNKNOWN PT HAS BEEN EATING AND DRINKING OK PT WEARS DEPENDS, IS UNKNOWN IF HE HAS HAD ANY CHANGE IN URINATION NO COUGH NO CHANGE IN CHRONIC DYSPNEA ON EXERTION ON DIRECT QUESTIONING, PT DOES STATE HIS HEAD HURTS, AND THE BACK OF HIS NECK HURTS A LITTLE, BUT NO STIFFNESS TO NECK NO NAUSEA/VOMITING/DIARRHEA DENIES ABDOMINAL PAIN NO FEVER NO CHEST PAIN DENIES BLURRY VISION PT WITH HISTORY OF FREQUENT FALLS, IS NOT KNOW IF HE HAS FALLEN RECENTLY, BUT DAUGHTER STATES ON SUNDAY HIS GLASSES WERE "MESSED UP" --PT DID NOT RECALL FALLING PT LIVES ALONE--3 DAUGHTERS HAVE BEEN TAKING TURNS BEING WITH HIM DURING THE DAY, AND IN THE LAST 3-4 WEEKS THEY HAVE HAD A HIRED CAREGIVER A FEW DAYS DURING THE WEEK; PT IS BY HIMSELF AT NIGHT PT IS ON ELIQUIS FOR HISTORY OF DVT'S POST OP IN 2018 PT ALSO HAS HX OF CAD WITH STENT X 1. PT IS NOT ON BLOOD PRESSURE MEDICATION--BP 220'S/110-120'S ON ARRIVAL PT WAS ON BLOOD PRESSURE AND CHOLESTEROL MEDICATION, BUT DAUGHTER STATES THAT THESE WERE STOPPED JANUARY 2020 FOR UNKNOWN REASON PT HAS HAD BOTH COVID-19 VACCINES, LAST ONE 10/2020 PCP: DR. CURRY Allergies and Home Medications Allergies Coded Allergies: cefepime (Verified Allergy, Unknown, SOA, redness, 04/28/21) Patient Home Medication List Home Medication List Reviewed: Yes Apixaban (Eliquis) 2.5 Mg Tablet, 2.5 MG PO BID, (Reported) Entered as Reported by: RICHIE ENCISO on 05/18/20 1206 Duloxetine HCl (Duloxetine HCl) 30 Mg Capsule., 30 MG PO BID, (Reported) Entered as Reported by: REX DYER on 05/06/19 1126 Finasteride (Finasteride) 5 Mg Tablet, 5 MG PO DAILY, (Reported) Entered as Reported by: RICHIE ENCISO on 05/18/20 1206 Fluticasone Propionate (Fluticasone Propionate) 16 Gm Briggs.susp, 1-2 SPR NSEACH DAILY, (Reported) Entered as Reported by: RICHIE ENCISO on 05/18/20 1206 Levothyroxine Sodium (Levothyroxine Sodium) 150 Mcg Tablet, 150 MCG PO DAILY, (Reported) Entered as Reported by: RICHIE ENCISO on 11/10/19 08 Magnesium Oxide (Magnesium) 400 Mg Tablet, 400 MG PO DAILY, (Reported) Entered as Reported by: RICHIE ENCISO on 05/18/20 1207 Mv-Mn/FA/Vit K/Lycop/Lut/Zeaxa (Ocuvite Eye + Multi Tablet) 1 Each Tablet, 1 EACH PO, (Reported) Entered as Reported by: WILMAR PECK on 07/31/19 1558 Omeprazole (Omeprazole) 20 Mg Capsule.dr, 20 MG PO DAILY, (Reported) Entered as Reported by: RCIHIE ENCISO on 11/10/19 08 Potassium Chloride (Potassium Chloride) 20 Meq Tablet.er, 20 MEQ PO BID, (Reported) Entered as Reported by: RICHIE ENCISO on 11/10/19 08 Review of Systems Review of Systems Constitutional: No dizziness, No fever; weakness EENTM: no symptoms reported Respiratory: see HPI, dyspnea on exertion (CHRONIC/UNCHANGED) Cardiovascular: no symptoms reported; No chest pain, No edema, No syncope Gastrointestinal: no symptoms reported; No abdominal pain, No diarrhea, No loss of appetite, No nausea, No vomiting Genitourinary: see HPI Musculoskeletal: No back pain; neck pain Skin: no symptoms reported Psychiatric/Neurological: See HPI, Headache Hematologic/Lymphatic: See HPI Immunological/Allergic: no symptoms reported Past Dosfjmy-Cbzhkm-Scllnw Hx Patient Social History Tobacco Use?: No Smoking Status: Never a Smoker Use of E-Cig and/or Vaping dev: No Substance use?: No Alcohol Use?: No Pt feels they are or have been: No Immunizations Up To Date Tetanus Booster (TDap): Unknown PED Vaccines UTD: No Second COVID19 Vaccination Kennedy: October 2020 COVID19 Vaccine Manager Scheduling: Oneil Seasonal Allergies Seasonal Allergies: No Past Medical History Surgery/Hospitalization HX: LEFT HIP REPLACEMENT WITH REVISION CARDIAC CATHS--STENT X 1 CHOLECYSTECTOMY Surgeries: Yes (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; ) Cardiac, Coronary Stent, Gallbladder, Orthopedic Respiratory: No Currently Using CPAP: No Currently Using BIPAP: No Cardiac: Yes (STENT X 1; POST OP DVT 2019-ON ELIQUIS) Chronic Edema/Swelling, Coronary Artery Disease, Deep Vein Thrombosis Neurological: No Reproductive Disorders: No Sexually Transmitted Disease: No HIV/AIDS: No Genitourinary: Yes Benign Prostatic Hyperpl Gastrointestinal: Yes (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 8.0oz. 98.341062bp; 27.02 BMI Method:Estimated General Appearance: No Apparent Distress, WD/WN, Other (SOMEWHAT LETHARGIC, BUT DOES NOT APPEAR TO BE IN ANY DISCOMFORT OR DISTRESS; NO OVERT CONFUSION AT THIS TIME. PT DOES NOT TALK VERY MUCH--DOES NOT TALK, EXCEPT WHEN HE IS ASKED QUESTIONS, BUT ANSWERS QUESTIONS QUICKLY AND APPROPRIATELY. ) HEENT: PERRL/EOMI, Normal ENT Inspection, Pharynx Normal Neck: Full Range of Motion, Normal Inspection, Non Tender, Supple; No Carotid Bruit Respiratory: Normal Breath Sounds, No Accessory Muscle Use, No Respiratory Distress Cardiovascular: Regular Rate, Rhythm, No Edema, No JVD, No Murmur, Normal Peripheral Pulses Gastrointestinal: Normal Bowel Sounds, No Organomegaly, No Pulsatile Mass, Non Tender, Soft Back: Normal Inspection, No CVA Tenderness Extremity: Normal Capillary Refill, Normal Inspection, Normal Range of Motion, Non Tender, No Calf Tenderness, No Pedal Edema Neurologic/Psychiatric: Alert, No Motor/Sensory Deficits (STRENGTH IS EQUAL IN ALL EXTREMITIES. ), varnish remover II-XII Norm as Tested; No Abnormal Cerebellar Tests; Other (ORIENTED TO MONTH, STATES YEARS IS "01";ORIENTED TO PLACE; DIFFICULT TO DETERMINE IF HE IS TRULY ORIENTED TO SITUATION. PT HAS CLEAR SPEECH, ANSWERS QUESTIONS APPROPRIATELY, LAUGHS AND SMILES APPROPRIATELY. ) Skin: Normal Color, Warm/Dry Progress/Results/Core Measures Suspected Sepsis SIRS Temperature: Pulse: Respiratory Rate: Laboratory Tests 04/28/21 19:18: White Blood Count 8.0 Blood Pressure / Mean: Laboratory Tests 04/28/21 19:18: Creatinine 0.93, INR Comment 1.1, Platelet Count 203, Total Bilirubin 0.6 Results/Orders Lab Results Laboratory Tests Test 04/28/21 19:18 04/28/21 21:08 Range/Units White Blood Count 8.0 4.3-11.0 10^3/uL Red Blood Count 5.23 4.30-5.52 10^6/uL Hemoglobin 15.5 13.3-17.7 g/dL Hematocrit 50 40-54 % Mean Corpuscular Volume 95 80-99 fL Mean Corpuscular Hemoglobin 30 25-34 pg Mean Corpuscular Hemoglobin Concent 31 L 32-36 g/dL Red Cell Distribution Width 12.8 10.0-14.5 % Platelet Count 203 130-400 10^3/uL Mean Platelet Volume 11.1 9.0-12.2 fL Immature Granulocyte % (Auto) 1 % Neutrophils (%) (Auto) 67 42-75 % Lymphocytes (%) (Auto) 23 12-44 % Monocytes (%) (Auto) 8 0-12 % Eosinophils (%) (Auto) 1 0-10 % Basophils (%) (Auto) 0 0-10 % Neutrophils # (Auto) 5.3 1.8-7.8 10^3/uL Lymphocytes # (Auto) 1.8 1.0-4.0 10^3/uL Monocytes # (Auto) 0.7 0.0-1.0 10^3/uL Eosinophils # (Auto) 0.1 0.0-0.3 10^3/uL Basophils # (Auto) 0.0 0.0-0.1 10^3/uL Immature Granulocyte # (Auto) 0.1 0.0-0.1 10^3/uL Prothrombin Time 14.5 12.2-14.7 SEC INR Comment 1.1 0.8-1.4 Activated Partial Thromboplast Time 33 24-35 SEC Sodium Level 139 135-145 MMOL/L Potassium Level 3.8 3.6-5.0 MMOL/L Chloride Level 107 98-107 MMOL/L Carbon Dioxide Level 23 21-32 MMOL/L Anion Gap 9 5-14 MMOL/L Blood Urea Nitrogen 21 H 7-18 MG/DL Creatinine 0.93 0.60-1.30 MG/DL Estimat Glomerular Filtration Rate 77 BUN/Creatinine Ratio 23 Glucose Level 236 H 70-105 MG/DL Calcium Level 9.0 8.5-10.1 MG/DL Corrected Calcium 9.4 8.5-10.1 MG/DL Magnesium Level 2.0 1.6-2.4 MG/DL Total Bilirubin 0.6 0.1-1.0 MG/DL Aspartate Amino Transf (AST/SGOT) 17 5-34 U/L Alanine Aminotransferase (ALT/SGPT) 26 0-55 U/L Alkaline Phosphatase 89 40-136 U/L Ammonia 40 H 11-32 UMOL/L Total Creatine Kinase 34 30-200 U/L Creatine Kinase MB 0.9 <6.6 NG/ML Total Protein 6.3 L 6.4-8.2 GM/DL Albumin 3.5 3.2-4.5 GM/DL Beta-Hydroxybutyrate (Chem panel) 0.13 0.00-0.27 MMOL/L Free Thyroxine 1.20 0.70-1.48 NG/DL TSH [place] Testing 0.09 L 0.35-4.94 UIU/ML Urine Color YELLOW Urine Clarity CLEAR Urine pH 7.0 5-9 Urine Specific [place] 1.010 L 1.016-1.022 Urine Protein NEGATIVE NEGATIVE Urine Glucose (UA) NEGATIVE NEGATIVE Urine Ketones NEGATIVE NEGATIVE Urine Nitrite NEGATIVE NEGATIVE Urine Bilirubin NEGATIVE NEGATIVE Urine Urobilinogen 0.2 < = 1.0 MG/DL Urine Leukocyte Esterase NEGATIVE NEGATIVE Urine RBC (Auto) NEGATIVE NEGATIVE Urine RBC NONE /HPF Urine WBC NONE /HPF Urine Crystals NONE /LPF Urine Bacteria TRACE /HPF Urine Casts PRESENT /LPF Urine Hyaline Casts 0-2 H /LPF Urine Mucus NEGATIVE /LPF Urine Culture Indicated NO My Orders Orders - DIAMANTE WYMAN DO Ed Iv/Invasive Line Start (04/28/21 18:54) Ekg Tracing (04/28/21 18:54) Monitor-Rhythm Ecg Trace Only (04/28/21 18:54) Ct Head Wo-R/O Stroke (04/28/21 18:54) Chest 1 View, Ap/Pa Only (04/28/21 18:54) Ammonia (04/28/21 18:54) Cbc With Automated Diff (04/28/21 18:54) Comprehensive Metabolic Panel (04/28/21 18:54) Creatine Kinase (04/28/21 18:54) Creatine Kinase Mb (04/28/21 18:54) Magnesium (04/28/21 18:54) Protime With Inr (04/28/21 18:54) Partial Thromboplastin Time (04/28/21 18:54) Thyroid Analyzer (04/28/21 18:54) Ua Culture If Indicated (04/28/21 18:54) Labetalol Injection (Normodyne Injection (04/28/21 19:15) Ct Angio Head/Neck (04/28/21 20:36) Iohexol Injection (Omnipaque 350 Mg/Ml 1 (04/28/21 20:45) Received Contrast (Hold Metformin- Contr (04/28/21 20:45) Ns (Ivpb) (Sodium Chloride 0.9% Ivpb Bag (04/28/21 20:45) Free T4 (Free Thyroxine) (04/28/21 19:18) Labetalol Injection (Normodyne Injection (04/28/21 21:30) Medications Given in ED Current Medications Medications Dose Ordered Sig/Tito Route Start Time Stop Time Status Last Admin Dose Admin Iohexol 100 ml ONCE ONCE IV 04/28/21 20:45 04/28/21 20:46 DC 04/28/21 21:00 75 ML Labetalol HCl 10 mg ONCE ONCE IV 04/28/21 19:15 04/28/21 19:16 DC 04/28/21 20:08 10 MG Labetalol HCl 10 mg ONCE ONCE IV 04/28/21 21:30 04/28/21 21:31 DC 04/28/21 21:33 10 MG Sodium Chloride 100 ml ONCE ONCE IV 04/28/21 20:45 04/28/21 20:46 DC 04/28/21 21:00 80 ML Vital Signs/I&O 04/28/21 19:00 Temp 36.8 Pulse 95 Resp 16 B/P (MAP) 225/113 (150) Pulse Ox 95 O2 Delivery Room Air Capillary Refill : Progress Note : Progress Note GIVEN LABETALOL FOR ELEVATED BLOOD PRESSURE BP DOWN AT TIME OF ADMIT TO FLOOR GIVEN TYLENOL FOR HEADACHE NO DETERIORATION IN PT'S CONDITION DURING ER STAY ECG Initial ECG Impression Date: Apr 28, 2021 Initial ECG Impression Time: 19:03 Initial ECG Rate: 87 Initial ECG Rhythm: Normal Sinus Diagnostic Imaging Comments CXR--PER RADIOLOGIST REPORT FINDINGS: The cardiac silhouette is within normal limits in size. No significant pulmonary vascular congestion. Low lung volumes without focal pulmonary opacity. No significant pleural effusion. No pneumothorax. No acute osseous abnormality. Calcified mediastinal/hilar lymph nodes are again seen. IMPRESSION: Low lung volumes without superimposed acute cardiopulmonary abnormality. CT HEAD--PER RADIOLOGIST REPORT AT 1948 FINDINGS: Similar to the previous study, ventricles and sulci remain prominent with extensive low-density throughout the deep white matter of the cerebral hemispheres. There is no evidence of hemorrhage. There is no abnormal mass effect or shift of midline structures. Calvarium is intact and the visualized paranasal sinuses are clear. IMPRESSION: Stable chronic findings in the brain without CT evidence of acute intracranial abnormality. CT ANGIOGRAM HEAD/NECK--PER RADIOLOGIST REPORT AT 2134 IMPRESSION: Patent arterial head and neck vasculature without high-grade stenosis, aneurysm dissection or occlusion. Reviewed: Reviewed by Me Departure Communication (PCP) 2134--SPOKE WITH DR. CURRY, ACCEPTS PT FOR ADMIT. ORDERS NOTED Impression Primary Impression: Hypertensive encephalopathy Additional Impression: Hyperglycemia Disposition: ADMITTED INPATIENT Condition: Stable Admissions Decision to Admit Reason: Admit from ER (General) Decision to Admit/Date: Apr 28, 2021 Time/Decision to Admit Time: 21:35 Departure-Patient Inst. Referrals: DANYEL CURRY DO (PCP/Family) Primary Care Physician DIAMANTE WYMAN DO Apr 28, 2021 19:19
--- NOTE | 2021-04-28 19:46 | Diagnostic Imaging Report ---
PROCEDURE: CT head w/o r/o stroke. TECHNIQUE: Multiple contiguous axial images were obtained through the brain without the use of intravenous contrast. Auto Exposure Controls were utilized during the CT exam to meet ALARA standards for radiation dose reduction. INDICATION: Neurologic deficit. COMPARISON: 05/17/2020. FINDINGS: Similar to the previous study, ventricles and sulci remain prominent with extensive low-density throughout the deep white matter of the cerebral hemispheres. There is no evidence of hemorrhage. There is no abnormal mass effect or shift of midline structures. Calvarium is intact and the visualized paranasal sinuses are clear. IMPRESSION: Stable chronic findings in the brain without CT evidence of acute intracranial abnormality. Dictated by: Dictated on workstation # [id number]
--- NOTE | 2021-04-28 19:53 | Diagnostic Imaging Report ---
INDICATION: Altered mental status, confusion. COMPARISON: 05/17/2020. TECHNIQUE: Single radiograph of the chest dated April 28, 2021. FINDINGS: The cardiac silhouette is within normal limits in size. No significant pulmonary vascular congestion. Low lung volumes without focal pulmonary opacity. No significant pleural effusion. No pneumothorax. No acute osseous abnormality. Calcified mediastinal/hilar lymph nodes are again seen. IMPRESSION: Low lung volumes without superimposed acute cardiopulmonary abnormality. Dictated by: Dictated on workstation # [id number]
[2021-04-28 20:03] LABS: BASOPHILS % (AUTO) 0 % (0-10); EOSINOPHILS # (AUTO) 0.1 10^3/uL (0.0-0.3); EOSINOPHILS % (AUTO) 1 % (0-10); HEMATOCRIT 50 % (40-54); HEMOGLOBIN 15.5 g/dL (13.3-17.7); LYMPHOCYTES # (AUTO) 1.8 10^3/uL (1.0-4.0); LYMPHOCYTES % (AUTO) 23 % (12-44); MEAN CORPUSCULAR HEMOGLOBIN 30 pg (25-34); MEAN CORPUSCULAR HGB CONC 31 g/dL (32-36); MEAN CORPUSCULAR VOLUME 95 fL (80-99); MEAN PLATELET VOLUME 11.1 fL (9.0-12.2); MONOCYTES # (AUTO) 0.7 10^3/uL (0.0-1.0); MONOCYTES % (AUTO) 8 % (0-12); NEUTROPHILS # (AUTO) 5.3 10^3/uL (1.8-7.8); NEUTROPHILS % (AUTO) 67 % (42-75); PLATELET COUNT 203 10^3/uL (130-400)
[2021-04-28 20:07] LABS: INR 1.1 (0.8-1.4); PROTHROMBIN TIME PATIENT 14.5 SEC (12.2-14.7)
[2021-04-28 20:19] LABS: ALBUMIN 3.5 GM/DL (3.2-4.5); BILIRUBIN,TOTAL 0.6 MG/DL (0.1-1.0); CREATININE SERUM 0.93 MG/DL (0.60-1.30); POTASSIUM 3.8 MMOL/L (3.6-5.0); TOTAL PROTEIN 6.3 GM/DL (6.4-8.2)
[2021-04-28 20:43] LABS: CREATINE KINASE MB 0.9 NG/ML (<6.6); TSH (THYROID ANALYZER) 0.09 UIU/ML (0.35-4.94)
[2021-04-28] MEDS ORDERED: NS 100 ML (IVPB) BAG IV ONE (20:45)
[2021-04-28] MEDS ORDERED: IOHEXOL 350 MG/ML 100 ML (OMNIPAQUE 350) VIAL IV ONE (20:45)
[2021-04-28] MEDS ORDERED: HOLD METFORMIN - RECEIVED CONTRAST 20 ML VIAL IV SCH (20:45)
[2021-04-28 21:15] LABS: BILIRUBIN,URINE NEGATIVE (NEGATIVE); CLARITY,URINE CLEAR; COLOR,URINE YELLOW; GLUCOSE, URINE (UA) NEGATIVE (NEGATIVE); KETONES,URINE NEGATIVE (NEGATIVE); LEUKOCYTE ESTERASE ,URINE NEGATIVE (NEGATIVE); NITRITE,URINE NEGATIVE (NEGATIVE); PROTEIN,URINE NEGATIVE (NEGATIVE)
--- NOTE | 2021-04-28 21:25 | Diagnostic Imaging Report ---
PROCEDURE: CT angiography of the head and CT angiography of the neck with and without contrast. TECHNIQUE: Contiguous noncontrast images were obtained from the skull base through the vertex. After intravenous contrast administration, helical CT angiography of the neck was performed. Source data was reformatted into 3D MIP projections. Delayed post contrast acquisition was also obtained. Auto Exposure Controls were utilized during the CT exam to meet ALARA standards for radiation dose reduction. DATE: April 28, 2021. INDICATION: 85-year-old male, altered mental status. COMPARISON: CT head without contrast April 28, 2021. CT head and cervical spine May 17, 2020. FINDINGS: The left common carotid artery is patent. There is calcified plaque at the left carotid bifurcation. The left internal carotid artery is patent. There are calcifications of the cavernous segment of the left internal carotid artery. The left middle cerebral artery is patent. The left anterior cerebral artery is patent. There is a patent anterior communicating artery. The right anterior cerebral artery is patent. The right middle cerebral artery is patent. There are calcifications of the cavernous segment of the right internal carotid artery. The right internal carotid artery is patent. There is calcified plaque at the right carotid bifurcation. The right common carotid artery is patent. The right and left vertebral arteries are both conventional in origin and are both patent. The basilar artery is patent. The right and left posterior inferior cerebellar arteries are patent. The right and left posterior cerebral arteries are patent. There is no identified high-grade stenosis, aneurysm or occlusion. The visualized portions of the lung apices are clear. There is no identified abnormal intracranial enhancement. IMPRESSION: Patent arterial head and neck vasculature without high-grade stenosis, aneurysm dissection or occlusion. Dictated by: Dictated on workstation # [id number]
[2021-04-28 21:33] LABS: FREE T4 (FREE THYROXINE) 1.2 NG/DL (0.70-1.48)
[2021-04-28 21:35] LABS: BACTERIA,URINE TRACE /HPF
[2021-04-28 21:36] LABS: HYALINE CASTS, URINE 0-2 /LPF
[2021-04-28] MEDS ORDERED: meTOprolol SUCCINATE 100 MG (TOPROL XL) TAB PO ONE (21:45)
[2021-04-28] MEDS ORDERED: ACETAMINOPHEN 500 MG TAB (TYLENOL) PO ONE (22:00)
[2021-04-28] MEDS ORDERED: meTOproloL SUCCINATE 50 MG (TOPROL XL) TAB PO ONE ×2 (22:16→22:30)
[2021-04-28 22:48] VITALS: BP 204/107
[2021-04-28] MEDS ORDERED: CATHETER FLUSH 10 ML SYR IV PRN (23:15)
[2021-04-29] VITALS (8 sets, daily range): BP systolic 92–210; BP diastolic 57–111
[2021-04-29] MEDS ORDERED: ACETAMINOPHEN 325 MG TABLET ONE (00:11)
[2021-04-29] MEDS: ACETAMINOPHEN 325 MG TABLET PO PRN (00:12)
[2021-04-29 06:06] LABS: BASOPHILS % (AUTO) 0 % (0-10); EOSINOPHILS # (AUTO) 0.1 10^3/uL (0.0-0.3); EOSINOPHILS % (AUTO) 1 % (0-10); HEMATOCRIT 49 % (40-54); HEMOGLOBIN 15.4 g/dL (13.3-17.7); LYMPHOCYTES # (AUTO) 2.2 10^3/uL (1.0-4.0); LYMPHOCYTES % (AUTO) 26 % (12-44); MEAN CORPUSCULAR HEMOGLOBIN 30 pg (25-34); MEAN CORPUSCULAR HGB CONC 32 g/dL (32-36); MEAN CORPUSCULAR VOLUME 96 fL (80-99); MEAN PLATELET VOLUME 10.8 fL (9.0-12.2); MONOCYTES # (AUTO) 0.8 10^3/uL (0.0-1.0); MONOCYTES % (AUTO) 9 % (0-12); NEUTROPHILS # (AUTO) 5.3 10^3/uL (1.8-7.8); NEUTROPHILS % (AUTO) 63 % (42-75); PLATELET COUNT 183 10^3/uL (130-400); WHITE BLOOD COUNT 8.5 10^3/uL (4.3-11.0)
[2021-04-29] MEDS: CATHETER FLUSH 10 ML SYR IV SCH ×3 (06:10→20:48)
[2021-04-29 06:22] LABS: POTASSIUM 3.6 MMOL/L (3.6-5.0)
[2021-04-29 06:23] LABS: CALCIUM 8.9 MG/DL (8.5-10.1)
[2021-04-29 06:27] LABS: CREATININE SERUM 0.79 MG/DL (0.60-1.30)
[2021-04-29] MEDS: inSUlin ASPART (NovoLOG) 1 UNIT/0.01 ML (CHARGE PER UNIT) SC SCH ×4 (06:57→21:29)
[2021-04-29] MEDS ORDERED: cloNIDine 0.2 MG (CATAPRES) TAB PO ONE (08:30)
[2021-04-29] MEDS ORDERED: meTOprolol SUCCINATE 100 MG (TOPROL XL) TAB PO SCH (09:00)
[2021-04-29] MEDS ORDERED: amLODIPine 5 MG (NORVASC) TAB PO ONE (10:00)
--- NOTE | 2021-04-29 10:16 | Consultation-Cardiology ---
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 He himself does not know why he came to hosp. He denies cp or palp or syncope or shortness of breath or swelling. Notes some gen malaise and weakness. Review of Systems-Cardiology Review of Systems Constitutional: malaise, tiredness; No weight loss, No weight gain Eyes: No vision change Ears/Nose/Throat: No ear discharge, No nasal drainage, No recent hearing loss Respiratory: As described under HPI Cardiovascular: As described under HPI Gastrointestinal: No diarrhea, No nausea, No vomiting Genitourinary: No dysuria, No hematuria, No urine frequency changes Musculoskeletal: No back pain Skin: No rash, No ulcerations Psychiatric/Neurological: No seizure, No focal weakness Hematologic: No bleeding abnormalities MSN-Omirbb-Sqcnvr Hx Patient Social History Smoking Status: Never a Smoker Have you traveled recently?: No Alcohol Use?: No Pt feels they are or have been: No Immunizations Up To Date Tetanus Booster (TDap): Unknown Date of Pneumonia Vaccine: Jun 23, 2019 Date of Influenza Vaccine: May 27, 2020 Past Medical History PMH As described under Assessment. Family Medical History Family History: FH: anemia DAUGHTER FH: breast cancer 19 MOTHER DAUGHTER Allergies and Home Medications Allergies Coded Allergies: cefepime (Verified Allergy, Unknown, SOA, redness, 04/28/21) Patient Home Medication List Home Medication List Reviewed: Yes Apixaban (Eliquis) 2.5 Mg Tablet, 2.5 MG PO BID, (Reported) Entered as Reported by: RICHIE ENCISO on 05/18/20 1206 Duloxetine HCl (Duloxetine HCl) 30 Mg Capsule., 30 MG PO BID, (Reported) Entered as Reported by: REX DYER on 05/06/19 1126 Finasteride (Finasteride) 5 Mg Tablet, 5 MG PO DAILY, (Reported) Entered as Reported by: RICHIE ENCISO on 05/18/20 1206 Fluticasone Propionate (Fluticasone Propionate) 16 Gm [place].susp, 1-2 SPR NSEACH DAILY, (Reported) Entered as Reported by: RICHIE ENCISO on 05/18/20 1206 Levothyroxine Sodium (Levothyroxine Sodium) 150 Mcg Tablet, 150 MCG PO DAILY, (Reported) Entered as Reported by: RICHIE ENCISO on 11/10/19 08 Magnesium Oxide (Magnesium) 400 Mg Tablet, 400 MG PO DAILY, (Reported) Entered as Reported by: RICHIE ENCISO on 05/18/20 1207 Mv-Mn/FA/Vit K/Lycop/Lut/Zeaxa (Ocuvite Eye + Multi Tablet) 1 Each Tablet, 1 EACH PO, (Reported) Entered as Reported by: WILMAR PECK on 07/31/19 1558 Omeprazole (Omeprazole) 20 Mg Capsule.dr, 20 MG PO DAILY, (Reported) Entered as Reported by: RICHIE ENCISO on 11/10/19 08 Potassium Chloride (Potassium Chloride) 20 Meq Tablet.er, 20 MEQ PO BID, (Reported) Entered as Reported by: RICHIE ENCISO on 11/10/19 0829 Physical Exam-Cardiology Physical Exam Vital Signs/I&O 04/28/21 04/28/21 04/28/21 04/28/21 22:45 22:48 23:03 23:29 Temp 36.8 36.8 Pulse 69 64 60 Resp 16 19 B/P (MAP) 201/102 204/107 (139) Pulse Ox 97 96 O2 Delivery Room Air Room Air Room Air 04/29/21 04/29/21 04/29/21 04/29/21 00:00 01:00 04:00 04:00 Temp 36.4 Pulse 58 57 55 Resp 13 12 B/P (MAP) 191/101 (131) 203/111 (141) Pulse Ox 93 94 O2 Delivery Room Air Room Air 04/29/21 04/29/21 07:00 08:12 Temp 35.7 Pulse 53 Capillary Refill : Less Than 3 Seconds Constitutional: well-developed, well-nourished, other (mildly confused at times) HEENT: hearing is well preserved; No xanthelasmas are seen Neck: carotid pulses are 2 + bilaterally, with good upstrokes Respiratory: No accessory muscle use; other (fair to good, bilateral air entry) Cardiovascular: regular rate-rhythm, systolic murmur (faint MANOJ at card bse) Gastrointestinal: No tender; soft; No guarding, No rebound; audible bowel sounds Extremities: No clubbing, No cyanosis, No significant edema Neurologic/Psychiatric: other (mildly confused, moves all limbs equally) Skin: No rash on exposed areas, No ulcerations on exposed areas Data Review Labs Laboratory Tests 04/28/21 19:18: White Blood Count 8.0, Red Blood Count 5.23, Hemoglobin 15.5, Hematocrit 50, Mean Corpuscular Volume 95, Mean Corpuscular Hemoglobin 30, Mean Corpuscular Hemoglobin Concent 31L, Red Cell Distribution Width 12.8, Platelet Count 203, Mean Platelet Volume 11.1, Immature Granulocyte % (Auto) 1, Neutrophils (%) (Auto) 67, Lymphocytes (%) (Auto) 23, Monocytes (%) (Auto) 8, Eosinophils (%) (Auto) 1, Basophils (%) (Auto) 0, Neutrophils # (Auto) 5.3, Lymphocytes # (Auto) 1.8, Monocytes # (Auto) 0.7, Eosinophils # (Auto) 0.1, Basophils # (Auto) 0.0, Immature Granulocyte # (Auto) 0.1, Prothrombin Time 14.5, INR Comment 1.1, Activated Partial Thromboplast Time 33, Sodium Level 139, Potassium Level 3.8, Chloride Level 107, Carbon Dioxide Level 23, Anion Gap 9, Blood Urea Nitrogen 21H, Creatinine 0.93, Estimat Glomerular Filtration Rate 77, BUN/Creatinine Ratio 23, Glucose Level 236H, Calcium Level 9.0, Corrected Calcium 9.4, Magnesium Level 2.0, Total Bilirubin 0.6, Aspartate Amino Transf (AST/SGOT) 17, Alanine Aminotransferase (ALT/SGPT) 26, Alkaline Phosphatase 89, Ammonia 40H, Total Creatine Kinase 34, Creatine Kinase MB 0.9, Total Protein 6.3L, Albumin 3.5, Beta-Hydroxybutyrate (Chem panel) 0.13, Free Thyroxine 1.20, TSH [place] Testing 0.09L 04/28/21 21:08: Urine Color YELLOW, Urine Clarity CLEAR, Urine pH 7.0, Urine Specific [place] 1.010L, Urine Protein NEGATIVE, Urine Glucose (UA) NEGATIVE, Urine Ketones NEGATIVE, Urine Nitrite NEGATIVE, Urine Bilirubin NEGATIVE, Urine Urobilinogen 0.2, Urine Leukocyte Esterase NEGATIVE, Urine RBC (Auto) NEGATIVE, Urine RBC NONE, Urine WBC NONE, Urine Crystals NONE, Urine Bacteria TRACE, Urine Casts PRESENT, Urine Hyaline Casts 0-2H, Urine Mucus NEGATIVE, Urine Culture Indicated NO 04/29/21 05:30: White Blood Count 8.5, Red Blood Count 5.10, Hemoglobin 15.4, Hematocrit 49, Me an Corpuscular Volume 96, Mean Corpuscular Hemoglobin 30, Mean Corpuscular Hemoglobin Concent 32, Red Cell Distribution Width 12.7, Platelet Count 183, Mean Platelet Volume 10.8, Immature Granulocyte % (Auto) 1, Neutrophils (%) (Auto) 63, Lymphocytes (%) (Auto) 26, Monocytes (%) (Auto) 9, Eosinophils (%) (Auto) 1, Basophils (%) (Auto) 0, Neutrophils # (Auto) 5.3, Lymphocytes # (Auto) 2.2, Monocytes # (Auto) 0.8, Eosinophils # (Auto) 0.1, Basophils # (Auto) 0.0, Immature Granulocyte # (Auto) 0.1, Sodium Level 140, Potassium Level 3.6, Chloride Level 106, Carbon Dioxide Level 24, Anion Gap 10, Blood Urea Nitrogen 15, Creatinine 0.79, Estimat Glomerular Filtration Rate 93, BUN/Creatinine Ratio 19, Glucose Level 110H, Calcium Level 8.9 A/P-Cardiology Assessment/Admission Diagnosis Malignant hypertension, associated with hypertensive encephalopathy Coronary artery disease with history of bare-metal stenting of the left circumflex artery in 2004. Last cardiac cath of Mar 2013 showed patent stents in id RCA with 30% instent restenosis, LVEF 50-55%, LVEDP at top limit of normal Echocardiogram of May 09, [address] Krishnamurthy showed LVEF 55-65%. Grade 1 diastolic dysfunction. Mild to mod TR. PASP 59 mmHg Hyperlipidemia, being treated with simvastatin and being followed by Dr. Mg. History of postural hypotension in the past History of urolithiasis and history of diuretic therapy (Thiazide diuretics) as prescribed by his Urologist, Dr. Reynolds, apparently for treatment of urolithiasis, according to the patient. History of gastroesophageal reflux. Barretts esophagus, being followed by Dr. Mg Mild carotid arterial disease per ultrasound of November 2011 Generalized fatigue and malaise and dizziness, etiology un-established H/o recurrent DVT, last of [facility] extremity in 2019 following surgery - has been on low dose Eliquis since Discussion and Recomendations * Does not tolerate beta-krishna / clonidine well - bradycardia * Treat with vasodilator * Compliance with meds recommended * Echo * I discussed his case on the phone with JENNIFER Centeno MD FACP FAC CCDS Apr 29, 2021 10:16
[2021-04-29] MEDS ORDERED: doxAzosin 2 MG (CARDURA) TAB PO ONE (10:30)
--- NOTE | 2021-04-29 10:45 | History & Physical ---
History of Present Illness History of Present Illness Reason for visit/HPI This is a 85 year old male with a history of hypertension who has been off of blood pressure meds for the last year due to hypotension and metoprolol. He lives alone with a block cuber during the day but has been more confused and inappropriate with his caretakers the last one to two weeks. He had lab and a UA done which were normal but he was having ongoing confusion so his daughter was instructed to take him to the emergency room to rule out stroke. In the emergency room he was found to have hypertensive urgency with a blood pressure in the 200s/100s. A CT of the head as well as a CT angiogram of the head and neck were normal. It was felt that he was likely having hypertensive encephalopathy. He was given IV labetalol in the emergency room and will be admitted to cardiac stepdown. Date of Admission Apr 28, 2021 at 21:35 Date Seen by a Provider: Apr 29, 2021 Time Seen by a Provider: 10:38 I consulted on this patient on 04/29/21 10:38 Attending Physician Danyel Mg DO Admitting Physician Danyel Mg DO Consult Allergies and Home Medications Allergies Coded Allergies: cefepime (Verified Allergy, Unknown, SOA, redness, 04/28/21) Patient Home Medication List Home Medication List Reviewed: Yes Apixaban (Eliquis) 2.5 Mg Tablet, 2.5 MG PO BID, (Reported) Entered as Reported by: RCIHIE ENCISO on 05/18/20 1206 Duloxetine HCl (Duloxetine HCl) 30 Mg Capsule.dr, 30 MG PO BID, (Reported) Entered as Reported by: REX DYER on 05/06/19 1126 Finasteride (Finasteride) 5 Mg Tablet, 5 MG PO DAILY, (Reported) Entered as Reported by: RICHIE ENCISO on 05/18/20 1206 Fluticasone Propionate (Fluticasone Propionate) 16 Gm [place].susp, 1-2 SPR NSEACH DAILY, (Reported) Entered as Reported by: RICHIE ENCISO on 05/18/20 1206 Levothyroxine Sodium (Levothyroxine Sodium) 150 Mcg Tablet, 150 MCG PO DAILY, (Reported) Entered as Reported by: RICHIE ENCISO on 11/10/19 0829 Magnesium Oxide (Magnesium) 400 Mg Tablet, 400 MG PO DAILY, (Reported) Entered as Reported by: RICHIE ENCISO on 05/18/20 1207 Mv-Mn/FA/Vit K/Lycop/Lut/Zeaxa (Ocuvite Eye + Multi Tablet) 1 Each Tablet, 1 EACH PO, (Reported) Entered as Reported by: WILMAR PECK on 07/31/19 1558 Omeprazole (Omeprazole) 20 Mg Capsule.dr, 20 MG PO DAILY, (Reported) Entered as Reported by: RICHIE ENCISO on 11/10/19 0829 Potassium Chloride (Potassium Chloride) 20 Meq Tablet.er, 20 MEQ PO BID, (Reported) Entered as Reported by: RICHIE ENCISO on 11/10/19 0829 Past Fcfcomv-Obrcqo-Spxgsa Hx Patient Social History Marrital Status: Employed/Student: retired Tobacco Use?: No Smoking Status: Never a Smoker Use of E-Cig and/or Vaping dev: No Substance use?: No Alcohol Use?: No Pt feels they are or have been: No Immunizations Up To Date Date of Influenza Vaccine: May 27, 2020 Second COVID19 Vaccination [place]: October 2020 Tetanus Booster (TDap): Unknown Hepatitis A: No Hepatitis B: No PED Vaccines UTD: No Date of Pneumonia Vaccine: Jun 23, 2019 Seasonal Allergies Seasonal Allergies: No Current Status Communicates: Verbally Primary Language: Uzbek Preferred Spoken Language: Uzbek Is interpretation needed?: No Sensory deficits: Hearing impairment Implanted or Applied Medical D: Stents Past Medical History Surgeries: Cardiac, Coronary Stent, Gallbladder, Orthopedic Currently Using CPAP: No Currently Using BIPAP: No Chronic Edema/Swelling, Coronary Artery Disease, Deep Vein Thrombosis Sexually Transmitted Disease: No HIV/AIDS: No Benign Prostatic Hyperpl Gastroesophageal Reflux Loss of Vision: Denies Hearing Impairment: Hard of Hearing Anxiety, Depression Blood Disorders: No Adverse Reaction/Blood Tranf: No Family Medical History FH: anemia DAUGHTER FH: breast cancer 19 MOTHER DAUGHTER Cancer Review of Systems Constitutional: weakness Respiratory: No no symptoms reported, No see HPI, No cough, No dyspnea on exertion, No hemoptysis, No orthopnea, No phlegm, No short of breath, No stridor, No wheezing, No other Cardiovascular: edema Gastrointestinal: loss of appetite Genitourinary: No no symptoms reported, No see HPI, No decreased output, No discharge, No dysuria, No frequency, No hematuria, No hesitancy, No incontinence, No nocturia, No pain, No other Musculoskeletal: muscle weakness Skin: No no symptoms reported, No see HPI, No change in color, No change in hair/nails, No dryness, No hx of skin cancer, No lesions, No lumps, No pruritus, No rash, No other Psychiatric/Neurological: Weakness, Other (confusion) Physical Exam Vital Signs Vital Signs - First Documented 04/28/21 19:00 Temp 36.8 Pulse 95 Resp 16 B/P (MAP) 225/113 (150) Pulse Ox 95 O2 Delivery Room Air Capillary Refill : Less Than 3 Seconds Height, Weight, BMI Height: 6'2.00" Weight: 217lbs. 8.0oz. [id number]; 28.40 BMI Method:Estimated General Appearance: No Apparent Distress Neck: Supple Respiratory: Lungs Clear Cardiovascular: Regular Rate, Rhythm, Systolic Murmur, Gallop/S4 Gastrointestinal: Normal Bowel Sounds, Non Tender, Soft Rectal: Deferred Back: No CVA Tenderness Extremity: Non Tender, No Calf Tenderness, No Pedal Edema Neurologic/Psychiatric: Alert, Disoriented Skin: Warm/Dry Comments Laboratory Tests 04/28/21 19:18: White Blood Count 8.0, Red Blood Count 5.23, Hemoglobin 15.5, Hematocrit 50, Mean Corpuscular Volume 95, Mean Corpuscular Hemoglobin 30, Mean Corpuscular He moglobin Concent 31L, Red Cell Distribution Width 12.8, Platelet Count 203, Mean Platelet Volume 11.1, Immature Granulocyte % (Auto) 1, Neutrophils (%) (Auto) 67, Lymphocytes (%) (Auto) 23, Monocytes (%) (Auto) 8, Eosinophils (%) (Auto) 1, Basophils (%) (Auto) 0, Neutrophils # (Auto) 5.3, Lymphocytes # (Auto) 1.8, Monocytes # (Auto) 0.7, Eosinophils # (Auto) 0.1, Basophils # (Auto) 0.0, Immature Granulocyte # (Auto) 0.1, Prothrombin Time 14.5, INR Comment 1.1, Activated Partial Thromboplast Time 33, Sodium Level 139, Potassium Level 3.8, Chloride Level 107, Carbon Dioxide Level 23, Anion Gap 9, Blood Urea Nitrogen 21H, Creatinine 0.93, Estimat Glomerular Filtration Rate 77, BUN/Creatinine Ratio 23, Glucose Level 236H, Calcium Level 9.0, Corrected Calcium 9.4, Magnesium Level 2.0, Total Bilirubin 0.6, Aspartate Amino Transf (AST/SGOT) 17, Alanine Aminotransferase (ALT/SGPT) 26, Alkaline Phosphatase 89, Ammonia 40H, Total Creatine Kinase 34, Creatine Kinase MB 0.9, Total Protein 6.3L, Albumin 3.5, Beta-Hydroxybutyrate (Chem panel) 0.13, Free Thyroxine 1.20, TSH [place] Testing 0.09L 04/28/21 21:08: Urine Color YELLOW, Urine Clarity CLEAR, Urine pH 7.0, Urine Specific [place] 1.010L, Urine Protein NEGATIVE, Urine Glucose (UA) NEGATIVE, Urine Ketones NEGATIVE, Urine Nitrite NEGATIVE, Urine Bilirubin NEGATIVE, Urine Urobilinogen 0.2, Urine Leukocyte Esterase NEGATIVE, Urine RBC (Auto) NEGATIVE, Urine RBC NONE, Urine WBC NONE, Urine Crystals NONE, Urine Bacteria TRACE, Urine Casts PRESENT, Urine Hyaline Casts 0-2H, Urine Mucus NEGATIVE, Urine Culture Indicated NO 04/29/21 05:30: White Blood Count 8.5, Red Blood Count 5.10, Hemoglobin 15.4, Hematocrit 49, Mean Corpuscular Volume 96, Mean Corpuscular Hemoglobin 30, Mean Corpuscular Hemoglobin Concent 32, Red Cell Distribution Width 12.7, Platelet Count 183, Mean Platelet Volume 10.8, Immature Granulocyte % (Auto) 1, Neutrophils (%) (Auto) 63, Lymphocytes (%) (Auto) 26, Monocytes (%) (Auto) 9, Eosinophils (%) (Auto) 1, Basophils (%) (Auto) 0, Neutrophils # (Auto) 5.3, Lymphocytes # (Auto) 2.2, Monocytes # (Auto) 0.8, Eosinophils # (Auto) 0.1, Basophils # (Auto) 0.0, Immature Granulocyte # (Auto) 0.1, Sodium Level 140, Potassium Level 3.6, Chloride Level 106, Carbon Dioxide Level 24, Anion Gap 10, Blood Urea Nitrogen 15, Creatinine 0.79, Estimat Glomerular Filtration Rate 93, BUN/Creatinine Ratio 19, Glucose Level 110H, Calcium Level 8.9 Assessment/Plan Assessment and Plan 1. Hypertensive Encephalopathy--admit to cardiac stepdown to work on BP control 2. Hypertensive Crisis--amlodopine and doxazosin 3. Sinus Bradycardia--DC metoprolol, cardiology consulted 4. Worsening Dementia--exacerbated by above 5. Weakness/Fall Risk--start PT/OT 6. Hypothyroidism--restart levothyroxine Discussed with 2 daughters--Rocio and Leti that he requires 24hr care and likely at least 2 people with him so recommend AL or NH--may not qualify for AL with worsening debility Admission Diagnosis Admission Status: Inpatient Order (span 2 midnights) Reason for Inpatient Admission: Will need blood pressure adjustment with monitoring and cardiology consult as well as social work program coordinator DANYEL MG DO Apr 29, 2021 10:45
[2021-04-29] MEDS ORDERED: FURO20TA4 PO (11:30)
[2021-04-29] MEDS ORDERED: amLODIPine 5 MG (NORVASC) TAB ONE (12:26)
--- NOTE | 2021-04-29 14:49 | Physical Therapy Evaluation ---
PT Evaluation-General Medical Diagnosis Admission Date Apr 28, 2021 at 21:35 Medical Diagnosis: hypertension encepholopathy Onset Date: Apr 28, 2021 Therapy Diagnosis Therapy Diagnosis: generalized weakness/debility Height/Weight Height (Feet): 6 Height (Inches): 2.00 Weight (Pounds): 217 Weight (Ounces): 8.0 Precautions Precautions/Isolations: Fall Prevention, Standard Precautions Referral Physician: Saurav Reason for Referral: Evaluation/Treatment Medical History Pertinent Medical History: Arthritis, CAD, GERD, HTN, Hypothroidism Additional Medical History left hip THR with revision Current History ER secondary to debility Reviewed History: Yes Social History Home: Single Level Current Living Status: Entry Into Home: Ramp patient is alone at night with caregivers during the day Prior Prior Level of Function SCALE: Activities may be completed with or without assistive devices. 2-Ladkmpqffe-blricrd completes the activity by him/herself with no assistance from a helper. 5-Set-up or Clean-up Assistance-helper sets up or cleans up; patient completes activity. [place] assists only prior to or following the activity. 4-Supervision or Touching Assistance-helper provides verbal cues and/or touching/steadying and/or contact guard assistance as patient completes activity. Assistance may be provided throughout the activity or intermittently. 3-Partial/Moderate Assistance-helper does LESS THAN HALF the effort. [place] lifts, holds or supports trunk or limbs, but provides less than half the effort. 2-Substantial/Maximal Assistance-helper does MORE THAN HALF the effort. [place] lifts or holds trunk or limbs and provides more than half the effort. 6-Vrkdqvnny-ablmdc does ALL the effort. Patient does none of the effort to complete the activity. Or, the assistance of 2 or more helpers is required for the patient to complete the activity. If activity was not attempted, code reason: 7-Patient Refused. 9-Not Applicable-not attempted and the patient did not perform the activity before the current illness, exacerbation or injury. 10-Not Attempted due to Environmental Limitations-(lack of equipment, weather restraints, etc.). 88-Not Attempted due to Medical Conditions or Safety Concerns. Bed Mobility: 3 Transfers (B,C,W/C): 3 Gait: 3 Stairs: 9 Indoor Mobility (Ambulation): Needed Some Help Prior Devices Use: Motorized scooter, Walker PT Evaluation-Current Subjective Patient agrees to PT. Objective Patient Orientation: Person ROM/Strength ROM Lower Extremities noted IR left LE due to failed THR/right LE WFL Strength Lower Extremities 3-/5 grossly bilateral LE Integumentary/Posture Bowel Incontinence: Yes Bladder Incontinence: Yes Posture trunk and knee flexed posture Neuromuscular (Tone, Coordination, Reflexes) diminished coordination Sensory Vision: Wears Glasses Hearing: Impaired Transfers Lying to Sitting/Side of Bed(Q: 2 Sit to Stand (QC): 2 Chair/Cig-ss-Xhpli Xfer(QC): 2 Toilet Transfer (QC): 2 Gait Does the Patient Walk?: Yes Mode of Locomotion: Both Anticipated Mode of Locomotion: Both Walk 10 feet (QC): 2 Walk 50 ft with 2 Turns(QC): 88 Walk 150 ft (QC): 88 Distance: 25' x 1 15' x 1 Gait Assistive Device: FWW Comments/Gait Description flexed bilateral knees with forward lean on FWW Balance Sitting Static: Fair Sitting Dynamic: Fair Standing Static: Fair Standing Dynamic: Poor Assessment/Needs 85 y.o. male, will benefit from skilled PT to address functional strength and mobility to improve current LOF. Rehab Potential: Fair PT Hand Leather Trimmer Goals Fdc Goals PT Fdc Goals Time Frame: May 07, 2021 Roll Left & Right (QC): 4 Sit to Lying (QC): 4 Lying-Sitting on Side/Bed(QC): 4 Sit to Stand (QC): 4 Chair/Mfy-ye-Jkmry Xfer(QC): 4 Toilet Transfer (QC): 4 Walk 10 feet (QC): 4 Walk 50ft with 2 Turns (QC): 4 Walk 150 ft (QC): 4 PT Plan Problem List Problem List: Activity Tolerance, Functional Strength, Safety, Balance, Gait, Transfer, Bed Mobility Treatment/Plan Treatment Plan: Continue Plan of Care Treatment Plan: Bed Mobility, Education, Functional Activity Michael, Functional Strength, Gait, Safety, Therapeutic Exercise, Transfers Treatment Duration: May 07, 2021 Frequency: 6 times per week Estimated Hrs Per Day: .25 hour per day Patient and/or Family Agrees t: Yes Time/GCodes Time In: 1409 Time Out: 1427 Total Billed Treatment Time: 18 Total Billed Treatment 1 visit EVModC 18 min PEARL BACH PT Apr 29, 2021 14:49
--- NOTE | 2021-04-29 15:04 | Occupational Therapy Eval ---
OT Evaluation-General/PLF Medical Diagnosis Admission Date Apr 28, 2021 at 21:35 Medical Diagnosis: hypertension encepholopathy Onset Date: Apr 28, 2021 Therapy Diagnosis Therapy Diagnosis: decreased ADL status Height/Weight Height (Feet): 6 Height (Inches): 2.00 Weight (Pounds): 217 Weight (Ounces): 8.0 Precautions Precautions/Isolations: Fall Prevention, Standard Precautions Referral Physician: Saurav Referral Reason: Evaluation/Treatment Medical History Pertinent Medical History: Arthritis, CAD, GERD, HTN, Hypothroidism Social History Home: Single Level Entry Into Home: Ramp caregiver during day ADL-Prior Level of Function SCALE: Activities may be completed with or without assistive devices. 4-Gfsfiytvbn-pqncaxs completes the activity by him/herself with no assistance from a helper. 5-Set-up or Clean-up Assistance-helper sets up or cleans up; patient completes activity. [place] assists only prior to or following the activity. 4-Supervision or Touching Assistance-helper provides verbal cues and/or touching/steadying and/or contact guard assistance as patient completes activity. Assistance may be provided throughout the activity or intermittently. 3-Partial/Moderate Assistance-helper does LESS THAN HALF the effort. [place] lifts, holds or supports trunk or limbs, but provides less than half the effort. 2-Substantial/Maximal Assistance-helper does MORE THAN HALF the effort. [place] lifts or holds trunk or limbs and provides more than half the effort. 9-Npewijehf-pmixjz does ALL the effort. Patient does none of the effort to complete the activity. Or, the assistance of 2 or more helpers is required for the patient to complete the activity. If activity was not attempted, code reason: 7-Patient Refused. 9-Not Applicable-not attempted and the patient did not perform the activity before the current illness, exacerbation or injury. 10-Not Attempted due to Environmental Limitations-(lack of equipment, weather restraints, etc.). 88-Not Attempted due to Medical Conditions or Safety Concerns. ADL PLOF Comments Pt has a caregiver during the day, alone at night time. Pt unable to provide information on level of assistance required. He has a motorized scooter and a walker, requires some assistance with ambulation Self Care: Needed Some Help Functional Cognition: Unknown OT Current Status Subjective Pt in room with aide, states need to toilet. Mental Status/Objective Patient Orientation: Person, Confused Current Upper Extremity ROM BUE shoulder flexion to approx 140 degrees Upper Extremity Coordination WFL Upper Extremity Sensation WFL Upper Extremity Strength grossly 3+/5 ADL-Treatment Toileting Hygiene (QC): 1 (assist with hygiene and clothing management) Other Treatments Pt at EOB with nursing staff. Pt performed functional mobility using FWW to bathroom, max A (25'). Pt completed toileting, total assistance required to complete toileting and LE dressing. Pt used FWW to transfer to recliner, max A with sit to stand, and max A with ambulation. Pt required max cues with transfers for UE placement, positioning of body, and with maneuvering walker. Post tx, pt seated in recliner, call light in reach and all needs met. Education OT Patient Education: Correct positioning, Energy conservation, Modified ADL techniques, Progress toward Goal/Update tx plan, Purpose of tx/functional acti vities, Rehab process Teaching Recipient: Patient Teaching Methods: Discussion Response to Teaching: Verbalize Understanding OT [employer] Goals Snf Goals Time Frame: May 06, 2021 Eating (QC): 5 Oral Hygiene (QC): 5 Toileting Hygiene (QC): 3 Shower/Bathe Self (QC): 3 Upper Body Dressing (QC): 3 Lower Body Dressing (QC): 3 On/Off Footwear (QC): 3 Additional Goals: 1-Demonstrate ADL Tasks, 2-Verbalize Understanding, 3- ImproveStrength/Michael 1=Demonstrate adherence to instructed precautions during ADL tasks. 2=Patient will verbalize/demonstrate understanding of assistive devices/modifications for ADL. 3=Patient will improve strength/tolerance for activity to enable patient to perform ADL's. OT Education/Plan Problem List/Assessment Assessment: Decreased Activ Tolerance, Decreased Safety Aware, Decreased UE Strength, Impaired Cognition, Impaired Funct Balance, Impaired I ADL's, Impaired Self-Care Skills Discharge Recommendations Plan/Recommendations: Continue POC Treatment Plan/Plan of Care Patient would benefit from OT for education, treatment and training to promote independence in ADL's, mobility, safety and/or upper extremity function for ADL's. Plan of Care: ADL Retraining, Functional Mobility, UE Funct Exercise/Act Treatment Duration: May 06, 2021 Frequency: 5 times per week Estimated Hrs Per Day: .25 hour per day Rehab Potential: Fair Time/GCodes Start Time: 14:10 Stop Time: 14:25 Total Time Billed (hr/min): 15 Billed Treatment Time 1, JENN PATTERSON OT Apr 29, 2021 15:04
[2021-04-29] MEDS ORDERED: LACTATED RINGERS 1,000 ML IV SCH (15:30)
[2021-04-29] MEDS ORDERED: LACTATED RINGERS 1,000 ML IV ONE (15:31)
[2021-04-29] MEDS: ALPRAZolam 0.25 MG (XANAX) TAB PO PRN (20:47)
[2021-04-29] MEDS: DULoxetine 30 MG (CYMBALTA) CAP PO SCH (20:48)
[2021-04-29] MEDS ORDERED: NS IV 1000 ML 1,000 ML IV SCH (21:00)
[2021-04-29] MEDS ORDERED: doxAzosin 2 MG (CARDURA) TAB PO SCH (21:00)
[2021-04-29] MEDS ORDERED: doxAzosin 4 MG (CARDURA) TAB PO SCH (21:00)
[2021-04-30 00:13] VITALS: BP 154/85
[2021-04-30 03:08] VITALS: BP 172/84
[2021-04-30] MEDS ORDERED: ALPRAZolam 0.25 MG (XANAX) TAB PO ONE (04:00)
[2021-04-30] MEDS: LEVOTHYROXINE 125 MCG (LEVOTHROID) TABLET PO SCH (05:49)
[2021-04-30] MEDS: inSUlin ASPART (NovoLOG) 1 UNIT/0.01 ML (CHARGE PER UNIT) SC SCH ×4 (05:58→20:57)
[2021-04-30 07:36] VITALS: BP 147/69
[2021-04-30] MEDS: PANTOPRAZOLE 40 MG (PROTONIX) TAB PO SCH (08:29)
[2021-04-30] MEDS: DULoxetine 30 MG (CYMBALTA) CAP PO SCH ×2 (08:29→21:07)
[2021-04-30] MEDS: FINASTERIDE (PROSCAR) 5 MG TAB PO SCH (08:29)
--- NOTE | 2021-04-30 09:18 | Progress Note ---
Subjective Subjective Date Seen by Provider: Apr 30, 2021 Time Seen by Provider: 09:20 PT REPORTS THAT HE IS FEELING "FINE" - STAFF IS IN THE ROOM TO DO AN ECHOCARDIOGRAM ON THE PT. HE DENIES CHEST PAIN, SHORTNESS OF BREATH, ABDOMINAL PAIN. HE REPORTS HAVING LOOSE STOOLS A FEW DAYS PRIOR TO ADMISSION. HE COMPLAINS OF URINARY INCONTINENCE AND WHEN HE DOES TRY TO URINATE HE HAS TROUBLE STARTING A GOOD STREAM. Review of Systems General: No Chills, No Fatigue, No Malaise HEENT: No Head Aches Pulmonary: No Dyspnea, No Cough Cardiovascular: No: Chest Pain, Palpitations Gastrointestinal: No: Nausea, Abdominal Pain, Diarrhea Genitourinary: Frequency, Incontinence Neurological: Weakness, Confusion Objective Exam Vital Signs Vital Signs Date Time Temp Pulse Resp B/P (MAP) Pulse Ox O2 Delivery O2 Flow Rate FiO2 04/30/21 07:36 36.0 50 16 147/69 (95) 95 Room Air 04/30/21 07:00 51 04/30/21 03:08 36.2 50 18 172/84 (113) 96 04/30/21 01:00 51 04/30/21 00:13 36.2 49 18 154/85 (108) 94 Room Air 04/29/21 20:55 36.3 53 20 147/75 (99) 93 Room Air 04/29/21 20:00 Room Air 04/29/21 19:00 52 04/29/21 16:37 35.5 51 22 92/57 (69) 94 Room Air 04/29/21 12:35 49 04/29/21 12:30 35.5 48 25 148/85 (106) 94 Room Air 04/29/21 11:18 Room Air 04/29/21 11:00 52 131/101 (111) 04/29/21 10:00 50 174/95 (121) I & O 04/30/21 07:00 Intake Total 2200 ml Balance 2200 ml General Appearance: No Apparent Distress, WD/WN HEENT: PERRL/EOMI, Normal ENT Inspection, Pharynx Normal Neck: Full Range of Motion, Supple Respiratory: Chest Non Tender, Lungs Clear, Normal Breath Sounds, No Accessory Muscle Use, No Respiratory Distress Cardiovascular: Regular Rate, Rhythm, Systolic Murmur Gastrointestinal: Normal Bowel Sounds, Non Tender, Soft Rectal: Deferred Back: No CVA Tenderness Extremity: Non Tender, No Calf Tenderness, No Pedal Edema, Other (HEMOSIDERAN CHANGES LOWER LEGS AT ANKLES) Neurologic/Psychiatric: Alert, Normal Mood/Affect, Disoriented Skin: Warm/Dry Results Lab Laboratory Tests 04/29/21 11:17: Glucometer 107 04/29/21 15:34: Glucometer 183H 04/29/21 21:18: Glucometer 142H 04/30/21 05:57: Glucometer 185H Assessment/Plan Assessment/Plan Admission Dx 1. Hypertensive Encephalopathy 2. Hypertensive Crisis 3. Sinus Bradycardia 4. Worsening Dementia 5. Weakness/Fall Risk 6. 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 CURRY HAS DISCUSSED NEED FOR PT TO BE PLACED IN LONGTERM CARE DUE TO HIS PROGRESSIVE DECLINE. - WILL HAVE FAMILY REVIEW OPTIONS BRADYCARDIA - PERSISTENT - DEFER TO CARDIOLOGY FOR ANY INTERVENTION IF WARRANTED. HYPOTHYROIDISM - LOW TSH, FREE T4 WITHIN SUPPLEMENTATION PARAMETERS ADVANCED AGE GENERALIZED WEAKNESS - WILL ORDER PHYSICAL THERAPY URINARY INCONTINENCE - WILL MAKE SURE THAT SOME OF HIS RECENT WORSENING DEMENTIA SYMPTOMS ARE NOT BEING COMPOUNDED BY URINARY RETENTION CAUSING MORE DISORIENTATION AND BEHAVIORS. SCDS FOR DVT PROPHYLAXIS PROTONIX FOR GI PROPHYLAXIS [place] SLOAN MD Apr 30, 2021 09:17
--- NOTE | 2021-04-30 09:35 | Physical Therapy Daily Note ---
PT Daily Note-Current Subjective Pt reclined in bed upon arrival to room, agreeable to PT treatment. During session, pt requires multiple redirections, as he makes inappropriate comments and gestures towards this PT and accompanying rehabilitation psychologist. He reaches out to grab/touch multiple times inappropriately and requires manual redirection of hand placement. Appearance Following session, pt reclined in bed with call light, tray and phone within reach. All needs met Mental Status Patient Orientation: Confused Transfers SCALE: Activities may be completed with or without assistive devices. 8-Yukmmgyueg-mdlkjpn completes the activity by him/herself with no assistance from a helper. 5-Set-up or Clean-up Assistance-helper sets up or cleans up; patient completes activity. [place] assists only prior to or following the activity. 4-Supervision or Touching Assistance-helper provides verbal cues and/or touching/steadying and/or contact guard assistance as patient completes activity. Assistance may be provided throughout the activity or intermittently. 3-Partial/Moderate Assistance-helper does LESS THAN HALF the effort. [place] lifts, holds or supports trunk or limbs, but provides less than half the effort. 2-Substantial/Maximal Assistance-helper does MORE THAN HALF the effort. [place] lifts or holds trunk or limbs and provides more than half the effort. 1-Mtywheduv-lbejxg does ALL the effort. Patient does none of the effort to complete the activity. Or, the assistance of 2 or more helpers is required for the patient to complete the activity. If activity was not attempted, code reason: 7-Patient Refused. 9-Not Applicable-not attempted and the patient did not perform the activity before the current illness, exacerbation or injury. 10-Not Attempted due to Environmental Limitations-(lack of equipment, weather restraints, etc.). 88-Not Attempted due to Medical Conditions or Safety Concerns. Sit to Lying (QC): 2 Lying to Sitting/Side of Bed(Q: 2 Sit to Stand (QC): 2 Pt requires max A for all bed mobility. He is able to initiate walking feet towards EOB, but unable to achieve upright seated position. Once at EOB, pt sits for approx 5 minutes without physical assistance, good seated balance. Required max A x 2 to return to supine. Treatments BP 153/76 HR 54 bpm in supine at EOB BP 146/75 HR 54 bpm Assessment Current Status: Fair Progress Pt max A -max A x 2 for all bed mobility and attempted sit to stand, pt requires frequent redirecting and VCS throughout session. PT [place] Goals Nursing Home Goals PT [place] Goals Time Frame: May 07, 2021 Roll Left & Right (QC): 4 Sit to Lying (QC): 4 Lying-Sitting on Side/Bed(QC): 4 Sit to Stand (QC): 4 Chair/Zyh-zw-Gvpxw Xfer(QC): 4 Toilet Transfer (QC): 4 Walk 10 feet (QC): 4 Walk 50ft with 2 Turns (QC): 4 Walk 150 ft (QC): 4 PT Plan Problem List Problem List: Activity Tolerance, Functional Strength, Safety, Balance, Gait, Transfer, Bed Mobility, ROM Treatment/Plan Treatment Plan: Continue Plan of Care Treatment Plan: Bed Mobility, Education, Functional Activity Michael, Functional Strength, Gait, Safety, Therapeutic Exercise, Transfers Treatment Duration: May 07, 2021 Frequency: 6 times per week Estimated Hrs Per Day: .25 hour per day Patient and/or Family Agrees t: Yes Time/GCodes Time In: 908 Time Out: 920 Total Billed Treatment 1 visit FA (12') MELI OROZCO PT Apr 30, 2021 09:35
[2021-04-30 11:25] VITALS: BP 145/79
--- NOTE | 2021-04-30 13:17 | Progress Note - Cardiology ---
Cardiology SOAP Progress Note Subjective: Gen malaise present. No cp or palp or syncope or shortness of breath or n/v/d Objective: I&O/Vital Signs 04/30/21 04/30/21 04/30/21 04/30/21 03:08 07:00 07:36 11:25 Temp 36.2 36.0 34.4 Pulse 50 51 50 52 Resp 18 16 12 B/P (MAP) 172/84 (113) 147/69 (95) 145/79 (101) Pulse Ox 96 95 96 O2 Delivery Room Air Room Air 04/30/21 00:00 Intake Total 1400 ml Balance 1400 ml Weight (Pounds): 217 Weight (Ounces): 8.0 Weight (Calculated Kilograms): 98.841173 Constitutional: AAO x 3, well-developed, well-nourished, other (mildly confused at times) Respiratory: No accessory muscle use; other (fair to good, bilateral air entry) Cardiovascular: regular rate-rhythm, systolic murmur (faint MANOJ at card bse) Gastrointestional: No tender; soft; No guarding, No rebound; audible bowel sounds Extremities: No clubbing, No cyanosis, No significant edema Neurologic/Psychiatric: other ( moves all limbs equally) Skin: No rash on exposed areas, No ulcerations on exposed areas Results/Procedures: Labs Laboratory Tests 04/29/21 15:34: Glucometer 183H 04/29/21 21:18: Glucometer 142H 04/30/21 05:57: Glucometer 185H 04/30/21 10:58: Glucometer 113H Laboratory Tests 04/28/21 19:18 04/29/21 05:30 A/P: Assessment: Malignant hypertension, associated with hypertensive encephalopathy - Echo on 04/30/21: mod conc LVH, LVEF 65-70%, mild dilatation of LA, PASP 30-35 mmHg Coronary artery disease with history of bare-metal stenting of the left circumflex artery in 2004. - Last cardiac cath of Mar 2013 showed patent stents in id RCA with 30% instent restenosis, LVEF 50-55%, LVEDP at top limit of normal Hyperlipidemia, being treated with simvastatin and being followed by Dr. Mg. History of postural hypotension in the past History of urolithiasis and history of diuretic therapy (Thiazide diuretics) as prescribed by his Urologist, Dr. Reynolds, apparently for treatment of urolithiasis, according to the patient. History of gastroesophageal reflux. Barretts esophagus, being followed by Dr. 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
[2021-04-30 16:00] VITALS: BP 171/100
[2021-04-30] MEDS: ALPRAZolam 0.25 MG (XANAX) TAB PO PRN (17:03)
[2021-04-30] MEDS: amLODIPine 5 MG (NORVASC) TAB PO SCH (17:03)
[2021-04-30 19:56] VITALS: BP 133/78
[2021-04-30] MEDS: ACETAMINOPHEN 325 MG TABLET PO PRN (23:34)
[2021-05-01 00:28] VITALS: BP 167/56
[2021-05-01 04:13] VITALS: BP 124/66
[2021-05-01] MEDS: LEVOTHYROXINE 125 MCG (LEVOTHROID) TABLET PO SCH (06:26)
[2021-05-01] MEDS: inSUlin ASPART (NovoLOG) 1 UNIT/0.01 ML (CHARGE PER UNIT) SC SCH ×2 (06:26→10:55)
[2021-05-01 08:00] VITALS: BP 173/91
[2021-05-01] MEDS: PANTOPRAZOLE 40 MG (PROTONIX) TAB PO SCH (08:22)
[2021-05-01] MEDS: DULoxetine 30 MG (CYMBALTA) CAP PO SCH (08:22)
[2021-05-01] MEDS: amLODIPine 5 MG (NORVASC) TAB PO SCH (08:22)
[2021-05-01] MEDS: FINASTERIDE (PROSCAR) 5 MG TAB PO SCH (08:22)
[2021-05-01] MEDS: ALPRAZolam 0.25 MG (XANAX) TAB PO PRN (08:22)
[2021-05-01] MEDS: ACETAMINOPHEN 325 MG TABLET PO PRN (08:22)
--- NOTE | 2021-05-01 09:37 | Progress Note ---
Subjective Review of Systems General: No Chills, No Fatigue, No Malaise HEENT: No Head Aches Pulmonary: No Dyspnea, No Cough Cardiovascular: No: Chest Pain, Palpitations Gastrointestinal: No: Nausea, Abdominal Pain, Diarrhea Genitourinary: Frequency, Incontinence Neurological: Weakness, Confusion Objective Exam Vital Signs Vital Signs Date Time Temp Pulse Resp B/P (MAP) Pulse Ox O2 Delivery O2 Flow Rate FiO2 05/01/21 08:23 98 Room Air 05/01/21 08:00 35.1 73 16 173/91 (118) 98 Room Air 05/01/21 04:13 36.2 62 19 124/66 (85) 93 Room Air 05/01/21 00:28 36.5 63 18 167/56 (93) 96 Room Air 04/30/21 20:20 Room Air 04/30/21 19:56 36.4 68 18 133/78 (96) 96 Room Air 04/30/21 16:00 36.1 59 18 171/100 (123) 96 Room Air 04/30/21 11:25 34.4 52 12 145/79 (101) 96 Room Air I & O 05/01/21 06:59 Intake Total 1150 ml Balance 1150 ml General Appearance: No Apparent Distress, WD/WN HEENT: PERRL/EOMI, Normal ENT Inspection, Pharynx Normal Neck: Full Range of Motion, Supple Respiratory: Chest Non Tender, Lungs Clear, Normal Breath Sounds, No Accessory Muscle Use, No Respiratory Distress Cardiovascular: Regular Rate, Rhythm, Systolic Murmur Gastrointestinal: Normal Bowel Sounds, Non Tender, Soft Rectal: Deferred Back: No CVA Tenderness Extremity: Non Tender, No Calf Tenderness, No Pedal Edema, Other (HEMOSIDERAN CHANGES LOWER LEGS AT ANKLES) Neurologic/Psychiatric: Alert, Normal Mood/Affect, Disoriented Skin: Warm/Dry Results Lab Laboratory Tests 04/30/21 10:58: Glucometer 113H 04/30/21 13:54: Glucometer 124H 04/30/21 15:29: Glucometer 132H 04/30/21 20:20: Glucometer 124H 05/01/21 06:21: Glucometer 114H Assessment/Plan Assessment/Plan Admission Dx 1. Hypertensive Encephalopathy 2. Hypertensive Crisis 3. Sinus Bradycardia 4. Worsening Dementia 5. Weakness/Fall Risk 6. 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 CURRY HAS DISCUSSED NEED FOR PT TO BE PLACED IN RETIREMENT CARE DUE TO HIS PROGRESSIVE DECLINE. - WILL HAVE FAMILY REVIEW OPTIONS BRADYCARDIA - PERSISTENT - DEFER TO CARDIOLOGY FOR ANY INTERVENTION IF WARRANTED. HYPOTHYROIDISM - LOW TSH, FREE T4 WITHIN SUPPLEMENTATION PARAMETERS ADVANCED AGE GENERALIZED WEAKNESS - WILL ORDER PHYSICAL THERAPY URINARY INCONTINENCE - BLADDER SCAN SHOWED 180ML OF URINE POST VOID. SCDS FOR DVT PROPHYLAXIS PROTONIX FOR GI PROPHYLAXIS Admission Dx 1. Hypertensive Encephalopathy 2. Hypertensive Crisis 3. Sinus Bradycardia 4. Worsening Dementia 5. Weakness/Fall Risk 6. Hypothyroidism- Clinical Quality Measures Admission Status Admission Dx 1. Hypertensive Encephalopathy 2. Hypertensive Crisis 3. Sinus Bradycardia 4. Worsening Dementia 5. Weakness/Fall Risk 6. Hypothyroidism- [place] SLO[place] MD May 01, 2021 09:37
[2021-05-01] MEDS ORDERED: AMLO-250 PO (10:31)
--- NOTE | 2021-05-01 10:35 | D/C HH Face to Face Order ---
D/C Face to Face Orders Reconcile Patient Problems Problems Reviewed?: Yes Instructions for Patient [facility] (already set up) Patient Instructions/FollowUp: [address] [facility] Physician to follow Patient: chanelaaronshy Discharge Diet for Home: Regular Diet Patient Problems: HYPERTENSIVE CRISIS HYPERTENSIVE ENCEPHALOPATHY VASCULAR DEMENTIA BRADYCARDIA HYPOTHYROIDISM ADVANCED AGE GENERALIZED WEAKNESS URINARY INCONTINENCE Patient Data-Allergies,Ht & Wt Patient Allergies: Coded Allergies: cefepime (Verified Allergy, Unknown, SOA, redness, 04/28/21) Height (Feet): 6 Height (Inches): 2.00 Weight (Pounds): 217 Weight (Ounces): 8.0 Home Health Need/Face to Face Date of Face to Face: May 01, 2021 Clinical Findings: Generalized weakness and fatigue, Muscle weakness I have seen Pt [id number]-jito: Yes Discharged To: Home Diagnosis/Conditions: HYPERTENSIVE CRISIS HYPERTENSIVE ENCEPHALOPATHY VASCULAR DEMENTIA BRADYCARDIA HYPOTHYROIDISM ADVANCED AGE GENERALIZED WEAKNESS URINARY INCONTINENCE Patient is Homebound due to: CognItive deficits, Muscle weakness Homebound Status Due to the above stated illness, injury or surgical procedure (medical condition or diagnosis) and associated clinical findings, the patient is homebound because of his/her inability to leave home except with aid of a supportive device and/or person AND leaving the home requires a considerable and taxing effort or is medically contraindicated. Pt req the following assistanc: Aid of another person Home Health Nursing Orders Home Health Services Order: Nursing Services, Physical Therapy-Evaluate & Treat Home Health Infusion Therapy Line Start Date: Apr 28, 2021 Therapy Orders Therapy Orders: Physical Therapy, PT to assess for OT Therapy Specific Orders: Provider maintenance therapy Certify Stmt I certify that this patient is under my care and that I, a nurse practitioner or a physician; a [facility] faculty assistant working with me, had a face to face encounter that - meets the physician face to face encounter requirements with this patient as dated. Medication List: Active Scripts Active Amlodipine Besylate 5 Mg Tablet 5 Mg PO DAILY hold if sbp is less than 120 Reported Furosemide 20 Mg Tablet 20 Mg PO 1800 Magnesium (Magnesium Oxide) 400 Mg Tablet 400 Mg PO DAILY Finasteride 5 Mg Tablet 5 Mg PO DAILY Eliquis (Apixaban) 2.5 Mg Tablet 2.5 Mg PO BID Levothyroxine Sodium 150 Mcg Tablet 150 Mcg PO DAILY Omeprazole 20 Mg Capsule.dr 20 Mg PO DAILY Potassium Chloride 20 Meq Tablet.er 20 Meq PO BID Duloxetine HCl 30 Mg Capsule.dr 30 Mg PO BID Lab results: Laboratory Tests Test 04/30/21 10:58 04/30/21 13:54 04/30/21 15:29 04/30/21 20:20 Range/Units Glucometer 113 H 124 H 132 H 124 H 70-110 MG/DL Test 05/01/21 06:21 Range/Units Glucometer 114 H 70-110 MG/DL My orders: Orders - [place] S[place] MD Bladder Scan (04/30/21 10:39) Attending Discharge Inpt/Inobs (05/01/21 10:29) Home Rell Services Dischage (05/01/21 10:29) [place] S[place] MD May 01, 2021 10:35
--- NOTE | 2021-05-01 10:36 | Discharge Summary ---
Diagnosis/Chief Complaint Date of Admission Apr 28, 2021 at 21:35 Date of Discharge Discharge Date: May 01, 2021 Discharge Time: 1430 Admission Diagnosis Admission Diagnosis 1. Hypertensive Encephalopathy 2. Hypertensive Crisis 3. Sinus Bradycardia 4. Worsening Dementia 5. Weakness/Fall Risk 6. Hypothyroidism- Discharge Diagnosis HYPERTENSIVE CRISIS HYPERTENSIVE ENCEPHALOPATHY VASCULAR DEMENTIA BRADYCARDIA HYPOTHYROIDISM ADVANCED AGE GENERALIZED WEAKNESS URINARY INCONTINENCE Reason Hospital Visit This is a 85 year old male with a history of hypertension who has been off of blood pressure meds for the last year due to hypotension and metoprolol. He lives alone with a service station manager during the day but has been more confused and inappropriate with his caretakers the last one to two weeks. He had lab and a UA done which were normal but he was having ongoing confusion so his daughter was instructed to take him to the emergency room to rule out stroke. In the emergency room he was found to have hypertensive urgency with a blood pressure in the 200s/100s. A CT of the head as well as a CT angiogram of the head and neck were normal. It was felt that he was likely having hypertensive encephalopathy. He was given IV labetalol in the emergency room and will be admitted to cardiac stepdown. Discharge Summary Procedures: ECHO Consultations CARDIOLOGY Discharge Physical Examination Allergies: Coded Allergies: cefepime (Verified Allergy, Unknown, SOA, redness, 04/28/21) Vitals & I&Os Vital Signs Date Time Temp Pulse Resp B/P (MAP) Pulse Ox O2 Delivery O2 Flow Rate FiO2 05/01/21 08:23 98 Room Air 05/01/21 08:00 35.1 73 16 173/91 (118) General Appearance: Alert, Cooperative, Other (ORIENTED TO PERSON, AND PLACE, NOT TIME) HEENT: Atraumatic, PERRLA, Mucous Memb Moist/[place] Respiratory: Clear to Auscultation, Normal Air Movement Cardiovascular: Regular Rate Abdominal: Normal Bowel Sounds, Soft Extremities: No Clubbing, No Cyanosis Skin: No Rashes, No Breakdown Neuro: Cranial Nerves 3-12 NL Psych/Mental Status: Other (AGITATED HE WANTS TO GO HOME) Hospital Course HYPERTENSIVE CRISIS HYPERTENSIVE ENCEPHALOPATHY VASCULAR DEMENTIA BRADYCARDIA HYPOTHYROIDISM ADVANCED AGE GENERALIZED WEAKNESS URINARY INCONTINENCE HYPERTENSIVE CRISIS WITH HYPERTENSIVE ENCEPHALOPATHY - BP LABILE - PT ON NORVASC - PER CARDIOLOGY - AMLODIPINE SHOULD BE ENOUGH TO HAVE CONTROL OF BP - PLANNING ON PATIENT TO HAVE NORVASC RX AT [facility] - AND HOLD IF SBP LESS THAN 120. - CONSULT TO CARDIOLOGY- SEE DR. WORKMAN'S NOTE FOR DETAILS. 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 CURRY HAS DISCUSSED NEED FOR PT TO BE PLACED IN CUSTODIAL CARE DUE TO HIS PROGRESSIVE DECLINE. - WILL HAVE FAMILY REVIEW OPTIONS OUTPATIENT AND WORK ON PLACEMENT WHEN PT IS DISCHARGED TO HOME. BRADYCARDIA - PERSISTENT - DEFER TO CARDIOLOGY FOR ANY INTERVENTION IF WARRANTED. HYPOTHYROIDISM - LOW TSH, FREE T4 WITHIN SUPPLEMENTATION PARAMETERS ADVANCED AGE GENERALIZED WEAKNESS - WILL ORDER PHYSICAL THERAPY URINARY INCONTINENCE - BLADDER SCAN SHOWED 180ML OF URINE POST VOID. AND A LARGE AMOUNT OF URINE PRIOR TO VOIDING - ADVISED PT'S DTR TO ENCOURAGE HIM TO GO TO THE RESTROOM EVERY 2 HORUS WHILE AWAKE TO HELP DECREASE URINARY RETENTION A POSSIBLE AUGMENTER OF BEHAVIORS. PLANNING ON DC TO HOME, WILL WORK ON PLACEMENT AT A CUSTODIAL OUTPATIENT. SCDS FOR DVT PROPHYLAXIS PROTONIX FOR GI PROPHYLAXIS Pending Labs Laboratory Tests 05/01/21 06:21: Glucometer 114 05/01/21 10:47: Glucometer 159 Discharge Condition at discharge IMPROVED Instructions to patient/family Please see electronic discharge instructions given to patient. Discharge Medications Reviewed and agree with Discharge Medication list on patient's Discharge Instruction sheet INDIANA SLOAN MD May 01, 2021 10:36
[2021-05-01 11:35] VITALS: BP 110/66
[2021-05-01 12:00] VITALS: BP 127/80
== END 2021-05-01 13:25 | disposition home health service (06) | DRG 78 ==
LOC: EDUNIT# 18:48 → ER 18:50 → CSD 21:35 → 4TH 04-30 17:32
PROVIDERS: ADMIT Family Medicine; ATTEND Family Medicine
DX: I67.4 Hypertensive encephalopathy (principal); I16.9 Hypertensive crisis, unspecified; F01.50 Vascular dementia, unspecified severity, without behavioral disturbance, psychotic disturbance, mood disturbance, and anxiety; R00.1 Bradycardia, unspecified; E03.9 Hypothyroidism, unspecified; R53.1 Weakness; R32 Unspecified urinary incontinence; I16.0 Hypertensive urgency; I25.10 Atherosclerotic heart disease of native coronary artery without angina pectoris; E78.5 Hyperlipidemia, unspecified; K21.9 Gastro-esophageal reflux disease without esophagitis; R53.83 Other fatigue; K22.70 Barrett's esophagus without dysplasia; N40.0 Benign prostatic hyperplasia without lower urinary tract symptoms; F41.9 Anxiety disorder, unspecified; F32.9 Major depressive disorder, single episode, unspecified; R73.9 Hyperglycemia, unspecified; Z96.642 Presence of left artificial hip joint; Z95.5 Presence of coronary angioplasty implant and graft; Z86.718 Personal history of other venous thrombosis and embolism; Z79.01 Long term (current) use of anticoagulants; Z79.899 Other long term (current) drug therapy; Z79.890 Hormone replacement therapy
CPT/HCPCS: 36415; 70450; 70496; 70498; 71045; 80048; 80053; 81000; 82010; 82140; 82550; 82553; 82947; 83036; 83735; 84439; 84443; 85025; 85610; 85730; 93005; 93041; 93306

== ENCOUNTER 2021-10-10 09:34 | Emergency (ER) | payer BC, MEDICAID ==
[~2021-10-10] VITALS: Ht 183 cm; Wt 91.0 kg
[~2021-10-10 09:34] MED LIST changes: -DOXY100C2 PO; +DOXY100C5 PO
[2021-10-10 10:05] LABS: BASOPHILS % (AUTO) 0 % (0-10); EOSINOPHILS # (AUTO) 0.1 10^3/uL (0.0-0.3); EOSINOPHILS % (AUTO) 1 % (0-10); HEMATOCRIT 49 % (40-54); LYMPHOCYTES # (AUTO) 1.7 10^3/uL (1.0-4.0); LYMPHOCYTES % (AUTO) 22 % (12-44); MEAN CORPUSCULAR HEMOGLOBIN 31 pg (25-34); MEAN CORPUSCULAR HGB CONC 33 g/dL (32-36); MEAN CORPUSCULAR VOLUME 96 fL (80-99); MEAN PLATELET VOLUME 10.6 fL (9.0-12.2); MONOCYTES # (AUTO) 0.6 10^3/uL (0.0-1.0); MONOCYTES % (AUTO) 8 % (0-12); NEUTROPHILS # (AUTO) 5.3 10^3/uL (1.8-7.8); NEUTROPHILS % (AUTO) 68 % (42-75); PLATELET COUNT 201 10^3/uL (130-400); WHITE BLOOD COUNT 7.7 10^3/uL (4.3-11.0)
--- NOTE | 2021-10-10 10:14 | Diagnostic Imaging Report ---
INDICATION: AMS. COMPARISON: 04/28/2021. FINDINGS: Single frontal view of the chest demonstrates normal heart size and pulmonary vascularity. The lungs are well aerated and clear. No large pleural effusion or pneumothorax is seen. The visualized osseous structures show no acute abnormalities. IMPRESSION: No acute cardiopulmonary process. Dictated by: Dictated on workstation # [id number]
--- NOTE | 2021-10-10 10:14 | Diagnostic Imaging Report ---
INDICATION: Fall. Pelvic pain. COMPARISON: None. FINDINGS: Two frontal radiographic views of the pelvis were obtained. Post surgical changes of previous total left hip replacement are noted. Femoral and acetabular components appear well seated and well aligned on these frontal views. Right acetabular joint space also appears intact. SI joints are symmetric. Pubic symphysis is within normal limits. No additional acute osseous abnormality is seen. No unexpected radiopaque foreign bodies are identified. IMPRESSION: 1. No acute fracture or dislocation of the pelvis. 2. Expected post surgical changes of previous total left hip replacement. Dictated by: Dictated on workstation # [id number]
[2021-10-10 10:17] LABS: ALBUMIN 3.7 GM/DL (3.2-4.5); CHLORIDE 106 MMOL/L (98-107); POTASSIUM 3.8 MMOL/L (3.6-5.0); SODIUM 140 MMOL/L (135-145)
[2021-10-10 10:18] LABS: CALCIUM 9.1 MG/DL (8.5-10.1)
[2021-10-10 10:19] LABS: GLUCOSE 108 MG/DL (70-105); PROTHROMBIN TIME PATIENT 13.9 SEC (12.2-14.7); TOTAL PROTEIN 6.9 GM/DL (6.4-8.2)
[2021-10-10 10:20] LABS: CARBON DIOXIDE 24 MMOL/L (21-32)
[2021-10-10 10:21] LABS: BILIRUBIN,TOTAL 1.3 MG/DL (0.1-1.0)
[2021-10-10 10:23] LABS: ALKALINE PHOSPHATASE 119 U/L (40-136); CREATININE SERUM 0.83 MG/DL (0.60-1.30); GFR ESTIMATED 85
[2021-10-10 10:24] LABS: BUN/CREATININE RATIO 17
[2021-10-10 10:26] LABS: ALANINE AMINOTRANSFERASE 33 U/L (0-55); MAGNESIUM 2.1 MG/DL (1.6-2.4)
[2021-10-10 10:27] LABS: CREATINE KINASE 71 U/L (30-200); LIPASE 17 U/L (8-78)
[2021-10-10 10:33] LABS: BILIRUBIN,URINE NEGATIVE (NEGATIVE); CLARITY,URINE CLEAR; COLOR,URINE YELLOW; GLUCOSE, URINE (UA) NEGATIVE (NEGATIVE); KETONES,URINE NEGATIVE (NEGATIVE); LEUKOCYTE ESTERASE ,URINE NEGATIVE (NEGATIVE); NITRITE,URINE NEGATIVE (NEGATIVE); PH,URINE 7.5 (5-9); PROTEIN,URINE NEGATIVE (NEGATIVE)
[2021-10-10 10:34] LABS: CREATINE KINASE MB 1.2 NG/ML (<6.6)
--- NOTE | 2021-10-10 10:35 | Diagnostic Imaging Report ---
PROCEDURE: CT head and CT cervical spine without contrast. TECHNIQUE: Multiple contiguous axial images were obtained through the brain and cervical spine without the use of intravenous contrast. Sagittal and coronal reformations through the cervical spine were then performed. Auto Exposure Controls were utilized during the CT exam to meet ALARA standards for radiation dose reduction. INDICATION: Trauma. Fall. Head and neck pain. COMPARISON: CTA head and neck from 04/28/2021. FINDINGS: CT HEAD: Moderate generalized parenchymal volume loss and leukoaraiosis. No CT evidence of territorial infarction. No intracranial hemorrhage, mass effect, hydrocephalus or extra-axial fluid collections. Osseous structures are intact. Paranasal sinuses and mastoids are clear. CT CERVICAL SPINE: Grade 1 anterolisthesis of C3 on C4. Alignment is otherwise unremarkable. Vertebral body heights are preserved. Mild degenerative endplate changes at C5-C7. No fractures. No evidence of high-grade spinal canal stenosis on noncontrast CT. Mild atherosclerotic calcifications in the carotid bifurcations. Visualized lung apices are clear. IMPRESSION: No acute intracranial or cervical spine CT findings. Dictated by: Dictated on workstation # [id number]
[2021-10-10 10:43] LABS: BACTERIA,URINE NEGATIVE /HPF; SQUAMOUS EPITHELIAL CELL,UR RARE /HPF
[2021-10-10 10:47] LABS: TSH (THYROID ANALYZER) 0.31 UIU/ML (0.35-4.94)
[2021-10-10] MEDS ORDERED: NS 100 ML (IVPB) BAG IV ONE (11:00)
[2021-10-10] MEDS ORDERED: IOHEXOL 350 MG/ML 100 ML (OMNIPAQUE 350) VIAL IV ONE (11:00)
[2021-10-10] MEDS ORDERED: HOLD METFORMIN - RECEIVED CONTRAST 20 ML VIAL IV SCH (11:00)
--- NOTE | 2021-10-10 11:42 | ED General ---
General Chief Complaint: Trauma-Non Activation Stated Complaint: FALL Nursing Triage Note: PT TO ED BY [facility] WITH C/O FALL THIS MORNING. EMS REPORTS PT HAD UNWITNESSED FALL THIS MORNING, PT FOUND IMMEDIATELY BY HOME HEALTH AID. PT REPORTS HE HIT HIS HEAD ON DOORFRAME, NO TRAUMA NOTED. PT IS ON ELIQUIS. PT REPORTS HE IS CONSTIPATED AND DID NOT TAKE ANY OF HIS MEDS OVER THE WEEKEND OR THIS MORNING. PT A&OX4, DOES NOT COMPLAIN OF PAIN OTHER THAN OL[place]A. Allergies and Home Medications Allergies Coded Allergies: cefepime (Verified Allergy, Unknown, SOA, redness, 04/28/21) Patient Home Medication List Amlodipine Besylate (Amlodipine Besylate) 5 Mg Tablet, 5 MG PO DAILY Prescribed by: INDIANA SLOAN on 05/01/21 1031 Apixaban (Eliquis) 2.5 Mg Tablet, 2.5 MG PO BID, (Reported) Entered as Reported by: RICHIE ENCISO on 05/18/20 1206 Duloxetine HCl (Duloxetine HCl) 30 Mg Capsule.dr, 30 MG PO BID, (Reported) Entered as Reported by: REX DYER on 05/06/19 1126 Finasteride (Finasteride) 5 Mg Tablet, 5 MG PO DAILY, (Reported) Entered as Reported by: RICHIE ENCISO on 05/18/20 1206 Furosemide (Furosemide) 20 Mg Tablet, 20 MG PO 1800, (Reported) Entered as Reported by: RICHIE ENCISO on 04/29/21 1130 Levothyroxine Sodium (Levothyroxine Sodium) 150 Mcg Tablet, 150 MCG PO DAILY, (Reported) Entered as Reported by: RICHIE ENCISO on 11/10/19 0829 Magnesium Oxide (Magnesium) 400 Mg Tablet, 400 MG PO DAILY, (Reported) Entered as Reported by: RICHIE ENCISO on 05/18/20 1207 Omeprazole (Omeprazole) 20 Mg Capsule.dr, 20 MG PO DAILY, (Reported) Entered as Reported by: RICHIE ENCISO on 11/10/19 0829 Potassium Chloride (Potassium Chloride) 20 Meq Tablet.er, 20 MEQ PO BID, (Reported) Entered as Reported by: RICHIE ENCISO on 11/10/19 0829 Past [id number]-Ayetnf Hx Patient Social History Tobacco Use?: No Use of E-Cig and/or Vaping dev: No Substance use?: No Alcohol Use?: No Pt feels they are or have been: No Immunizations Up To Date Tetanus Booster (TDap): Unknown PED Vaccines UTD: No Influenza Vaccine Up-to-Date: Yes; Up-to-Date First/Initial COVID19 Vaccinat: October 2020 Second COVID19 Vaccination [place]: October 2020 Seasonal Allergies Seasonal Allergies: No Past Medical History Surgery/Hospitalization HX: LEFT HIP REPLACEMENT WITH REVISION, CARDIAC CATHS--STENT X 1, CHOLECYSTECTOMY Surgeries: Yes (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; ) Cardiac, Coronary Stent, Gallbladder, Orthopedic Respiratory: No Currently Using CPAP: No Currently Using BIPAP: No Cardiac: Yes (STENT X 1; POST OP DVT 2019-ON ELIQUIS) Chronic Edema/Swelling, Coronary Artery Disease, Deep Vein Thrombosis Neurological: No Reproductive Disorders: No Sexually Transmitted Disease: No HIV/AIDS: No Genitourinary: Yes Benign Prostatic Hyperpl Gastrointestinal: Yes (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) Gastroesophageal Reflux Musculoskeletal: Yes (LEFT HIP REPLACEMENT/REVISION) Endocrine: No HEENT: No Loss of Vision: Denies Hearing Impairment: Hard of Hearing Cancer: No Psychosocial: Yes Anxiety, Depression Integumentary: No Blood Disorders: No Adverse Reaction/Blood Tranf: No Family Medical History FH: anemia DAUGHTER FH: breast cancer 19 MOTHER DAUGHTER Cancer Physical Exam Vital Signs Vital Signs - First Documented 10/10/21 09:39 Temp 36.3 Pulse 76 Resp 19 B/P (MAP) 204/108 (140) Pulse Ox 95 O2 Delivery Room Air Capillary Refill : Less Than 3 Seconds Height, Weight, BMI Height: 6'2.00" Weight: 217lbs. 8.0oz. 98.381808pe; 27.00 BMI Method:Estimated Progress/Results/Core Measures Suspected Sepsis SIRS Temperature: Pulse: 76 Respiratory Rate: 19 Laboratory Tests 10/10/21 09:45: White Blood Count 7.7 Blood Pressure 204 /108 Mean: 140 Laboratory Tests 10/10/21 09:45: Creatinine 0.83, INR Comment 1.0, Platelet Count 201, Total Bilirubin 1.3H Results/Orders Lab Results Laboratory Tests Test 10/10/21 09:45 10/10/21 10:20 Range/Units White Blood Count 7.7 4.3-11.0 10^3/uL Red Blood Count 5.10 4.30-5.52 10^6/uL Hemoglobin 16.0 13.3-17.7 g/dL Hematocrit 49 40-54 % Mean Corpuscular Volume 96 80-99 fL Mean Corpuscular Hemoglobin 31 25-34 pg Mean Corpuscular Hemoglobin Concent 33 32-36 g/dL Red Cell Distribution Width 12.1 10.0-14.5 % Platelet Count 201 130-400 10^3/uL Mean Platelet Volume 10.6 9.0-12.2 fL Immature Granulocyte % (Auto) 1 % Neutrophils (%) (Auto) 68 42-75 % Lymphocytes (%) (Auto) 22 12-44 % Monocytes (%) (Auto) 8 0-12 % Eosinophils (%) (Auto) 1 0-10 % Basophils (%) (Auto) 0 0-10 % Neutrophils # (Auto) 5.3 1.8-7.8 10^3/uL Lymphocytes # (Auto) 1.7 1.0-4.0 10^3/uL Monocytes # (Auto) 0.6 0.0-1.0 10^3/uL Eosinophils # (Auto) 0.1 0.0-0.3 10^3/uL Basophils # (Auto) 0.0 0.0-0.1 10^3/uL Immature Granulocyte # (Auto) 0.1 0.0-0.1 10^3/uL Prothrombin Time 13.9 12.2-14.7 SEC INR Comment 1.0 0.8-1.4 Activated Partial Thromboplast Time 33 24-35 SEC Sodium Level 140 135-145 MMOL/L Potassium Level 3.8 3.6-5.0 MMOL/L Chloride Level 106 98-107 MMOL/L Carbon Dioxide Level 24 21-32 MMOL/L Anion Gap 10 5-14 MMOL/L Blood Urea Nitrogen 14 7-18 MG/DL Creatinine 0.83 0.60-1.30 MG/DL Estimat Glomerular Filtration Rate 85 BUN/Creatinine Ratio 17 Glucose Level 108 H 70-105 MG/DL Calcium Level 9.1 8.5-10.1 MG/DL Corrected Calcium 9.3 8.5-10.1 MG/DL Magnesium Level 2.1 1.6-2.4 MG/DL Total Bilirubin 1.3 H 0.1-1.0 MG/DL Aspartate Amino Transf (AST/SGOT) 31 5-34 U/L Alanine Aminotransferase (ALT/SGPT) 33 0-55 U/L Alkaline Phosphatase 119 40-136 U/L Total Creatine Kinase 71 30-200 U/L Creatine Kinase MB 1.2 <6.6 NG/ML Myoglobin 115.9 H 10.0-92.0 NG/ML Troponin I < 0.028 <0.028 NG/ML B-Type Natriuretic Peptide 14.4 <100.0 PG/ML Total Protein 6.9 6.4-8.2 GM/DL Albumin 3.7 3.2-4.5 GM/DL Lipase 17 8-78 U/L TSH [place] Testing 0.31 L 0.35-4.94 UIU/ML Serum Alcohol < 10 <10 MG/DL Urine Color YELLOW Urine Clarity CLEAR Urine pH 7.5 5-9 Urine Specific [place] 1.015 L 1.016-1.022 Urine Protein NEGATIVE NEGATIVE Urine Glucose (UA) NEGATIVE NEGATIVE Urine Ketones NEGATIVE NEGATIVE Urine Nitrite NEGATIVE NEGATIVE Urine Bilirubin NEGATIVE NEGATIVE Urine Urobilinogen 0.2 < = 1.0 MG/DL Urine Leukocyte Esterase NEGATIVE NEGATIVE Urine RBC (Auto) NEGATIVE NEGATIVE Urine RBC NONE /HPF Urine WBC NONE /HPF Urine Squamous Epithelial Cells RARE /HPF Urine Crystals NONE /LPF Urine Bacteria NEGATIVE /HPF Urine Casts NONE /LPF Urine Mucus NEGATIVE /LPF Urine Culture Indicated NO My Orders Orders - DIAMANTE WYMAN DO Ed Iv/Invasive Line Start (10/10/21 09:44) Ekg Tracing (10/10/21:44) Monitor-Rhythm Ecg Trace Only (10/10/21:44) Ct Head/Cervical Spine Wo (10/10/21:44) Chest 1 View, Ap/Pa Only (10/10/21:44) Pelvis (10/10/21:44) Alcohol (10/10/21:44) Bnp [place] (10/10/21:44) Cbc With Automated Diff (10/10/21:44) Comprehensive Metabolic Panel (10/10/21:44) Creatine Kinase (10/10/21:44) Creatine Kinase Mb (10/10/21:44) Lipase (10/10/21:44) Magnesium (2/14/22 09:44) Protime With Inr (10/10/21 09:44) Partial Thromboplastin Time (10/10/21 09:44) Thyroid Analyzer (10/10/21 09:44) Ua Culture If Indicated (10/10/21 09:44) Myoglobin Serum (10/10/21 09:44) Troponin I Nu (10/10/21 09:44) Ct Angio Head/Neck (10/10/21 10:45) Free T4 (Free Thyroxine) (10/10/21 09:45) Iohexol Injection (Omnipaque 350 Mg/Ml 1 (10/10/21 11:00) Received Contrast (Hold Metformin- Contr (10/10/21 11:00) Ns (Ivpb) (Sodium Chloride 0.9% Ivpb Bag (10/10/21 11:00) Hydralazine Injection (Apresoline Inject (10/10/21 11:45) Vital Signs/I&O 10/10/21 09:39 Temp 36.3 Pulse 76 Resp 19 B/P (MAP) 204/108 (140) Pulse Ox 95 O2 Delivery Room Air Capillary Refill : Less Than 3 Seconds Blood Pressure Mean: 140 Progress Note : Progress Note DAUGHTER REPORTS THAT PT HAS A WALKER AND AN ELECTRIC SCOOTER, BUT DOES NOT USE THEM ON A REGULAR BASIS DISCUSSED WITH DAUGHTER THAT PT MAY BE TO THE POINT WHERE HE CAN NO LONGER LIVE BY HIMSELF, AND ADVISED TO FOLLOW UP WITH DR. CURRY THIS WEEK FOR FURTHER CARE, AND DISCUSS THIS WITH PATIENT Departure Impression Primary Impression: Fall from standing Additional Impressions: Minor head injury without loss of consciousness Constipation Hypertension Disposition: 01 HOME, SELF-CARE Condition: Stable Departure-Patient Inst. Decision time for Depature: 11:38 Referrals: DANYEL CURRY DO (PCP/Family) Primary Care Physician Patient Instructions: Constipation, Adult (DC), High Blood Pressure (DC), Minor Head Injury, Adult ED, Preventing Falls in the Older Adult Add. Discharge Instructions: USE A WALKER AT ALL TIMES TAKE YOUR MEDICATIONS PRESCRIBED TAKE MIRALAX EVERY HOUR UNTIL YOU HAVE A BM , AND THEN USE AT LEAST ONCE A DAY EVERY DAY FLEET'S ENEMAS AND DULCOLAX SUPPOSITORIES FOR BM. FOLLOW UP WITH DR. CURRY THIS WEEK FOR FURTHER CARE All discharge instructions reviewed with patient and/or family. Voiced understanding. DIAMANTE WYMAN DO Oct 10, 2021 11:42
[2021-10-10] MEDS ORDERED: hydrALAZINE (APESOLINE) 20 MG/ML VIAL IV ONE (11:45)
--- NOTE | 2021-10-10 11:48 | Diagnostic Imaging Report ---
CLINICAL INDICATION: Unwitnessed fall this morning. Patient reports hitting head on door frame. Patient is on Eliquis. Exams: 1: Head CT with and without IV contrast. Auto Exposure Controls were utilized during the CT exam to meet ALARA standards for radiation dose reduction. 2: CT angiogram of the head and neck performed with 100 cc of Omnipaque 350 IV contrast. Sagittal and coronal MIP reformations were created for better visualization of vascular anatomy. CT angiogram was post-processed using RAPID LVO detection to include quantitative measurements of cerebral blood flow and automated results notification to the stroke and/or neurointerventional team. Comparison: CT scan of the head and cervical spine without contrast dated 10/10/2021. Findings: Head CT: Stable appearance of brain parenchyma with no definite CT evidence of acute intracranial process. There are diffuse patchy and confluent areas of low-attenuation white matter changes throughout both cerebral hemispheres and periventricular regions. There is no abnormal IV contrast enhancement. There is no hydrocephalus, brain herniation or midline shift. The remainder of this exam shows no significant interval change compared to the prior study of comparison. CT Angiogram: As noted, the aortic arch and proximal great vessels are not imaged on this exam and cannot be evaluated. Visualized portions of the bilateral subclavian artery, brachiocephalic artery is patent. The bilateral common carotid arteries, bilateral ECA, and bilateral cervical ICA are patent. There is slight tortuosity and kinking with mild narrowing involving the mid right cervical ICA. The petrous, cavernous, and supraclinoid ICA are patent. There is mild narrowing of the bilateral paraclinoid ICA. The bilateral ACAs and distal branches show no significant abnormality. The bilateral MCAs and distal branches are patent. There is tortuosity and mild narrowing of the proximal cervical left vertebral artery. The bilateral cervical vertebral arteries are patent without significant stenosis. The bilateral PICA are patent. The intradural bilateral vertebral arteries, basilar artery, bilateral superior cerebellar arteries, and right LIFT MECHANIC are patent. There is a short segment area of moderate stenosis involving the left P2 LIFT MECHANIC. Otherwise remainder of the left LIFT MECHANIC is patent. Dural venous sinuses are patent. The neck soft tissue structures show no significant abnormality. Lung winn show mild atelectasis. There is cervical spine vertebral body spurs and facet arthropathy. IMPRESSION: 1: There is no definite CT evidence of interval acute cerebral infarction, intracranial hemorrhage, or mass seen. The diffuse low attenuation changes throughout the brain parenchyma may possibly obscure more subtle findings. If there is clinical concern for acute cerebral infarction, MRI of the brain would better evaluate. 2: There is again seen diffuse patchy and confluent low-attenuation white matter changes throughout both cerebral hemispheres and periventricular regions which may be related to chronic small vessel ischemic disease and leukoaraiosis. 3: Of note, the aortic arch and proximal great vessels are not imaged on this exam and cannot be evaluated. 4: There is a short segment area of moderate stenosis involving the left P2 LIFT MECHANIC. Otherwise CT angiogram of the [place] and neck shows no other significant stenosis, vascular malformation, aneurysm, or dissection. Results of this report discussed with Dr. Chaidez via the telephone on 10/10/2021 at 1135 hours. Dictated by: Dictated on workstation # [id number]
[2021-10-10 12:45] VITALS: BP 183/92
== END 2021-10-10 12:45 | disposition home or self-care (01) ==
LOC: EDUNIT# 09:34 → ER 09:36
DX: S09.90XA Unspecified injury of head, initial encounter (principal); K59.00 Constipation, unspecified; I10 Essential (primary) hypertension; K21.9 Gastro-esophageal reflux disease without esophagitis; F41.9 Anxiety disorder, unspecified; F32.9 Major depressive disorder, single episode, unspecified; N40.0 Benign prostatic hyperplasia without lower urinary tract symptoms; I25.10 Atherosclerotic heart disease of native coronary artery without angina pectoris; Z86.718 Personal history of other venous thrombosis and embolism; Z79.01 Long term (current) use of anticoagulants; Z79.899 Other long term (current) drug therapy; W22.8XXA Striking against or struck by other objects, initial encounter
CPT/HCPCS: 70450; 70496; 70498; 71045; 72125; 72170; 80053; 81000; 82550; 82553; 83690; 83735; 83874; 83880; 84439; 84443; 84484; 85025; 85610; 85730; 93005; 93041; 99284; G0480; 36415; 80320